=== PATIENT | male | born 1940 | race Caucasian/White ===

== ENCOUNTER 2016-06-18 19:50 | Inpatient (IN) | payer MEDICARE, OTHER ==
[~2016-06-18] VITALS: Ht 175.3 cm; Wt 90.9 kg
[2016-06-18] MEDS ORDERED: ALBUTEROL 0.5% (NEB) 2.5 MG/0.5 ML AMP INH STA (20:02)
[2016-06-18] MEDS ORDERED: ACETAMINOPHEN 325 MG TAB PO STA (20:02)
[2016-06-18] MEDS ORDERED: NITROGLYCERIN 2% 1 GM OINT PKT TD STA (20:02)
[2016-06-18] MEDS ORDERED: FUROSEMIDE 40 MG INJ IV STA (20:02)
[2016-06-18 20:21] LABS: MODE MASK - BIPAP; MetHgb Venous 0.4 %; Sample Type Blood venous; Venous COHb 0.3 %; Venous Fraction OxyHgb 82.4 %; Venous Total Hemglobin 13.7 g/dl
[2016-06-18 20:37] LABS: ADD SCAN DIFF NO
[2016-06-18 20:40] LABS: ABNORMAL IP MESSAGE 1; BASOPHIL # 0.1 10^3/ul (0.0-0.1); BASOPHILS % 0.3 % (0.0-2.0); EOSINOPHILS # 0.1 10^3/ul (0.0-0.5); EOSINOPHILS % 0.2 % (0.0-7.0); HEMATOCRIT 39.7 % (42.0-52.0); HEMOGLOBIN 13.2 g/dl (14.0-18.0); LYMPHOCYTES # 1.3 10^3/ul (0.8-2.9); LYMPHOCYTES % 5.5 % (15.0-51.0); MEAN CORPUSCULAR HEMOGLOBIN 29.9 pg (29.0-33.0); MEAN CORPUSCULAR HGB CONC 33.2 g/dl (32.0-37.0); MEAN PLATELET VOLUME 10.6 fl (7.4-10.4); MONOCYTE # 1.2 10^3/ul (0.3-0.9); MONOCYTES % 4.8 % (0.0-11.0); NEUTROPHIL # 20.7 10^3/ul (1.6-7.5); NEUTROPHILS % 85.3 % (39.0-77.0); PLATELET COUNT 372 10^3/UL (140-415); RED BLOOD COUNT 4.41 10^6/ul (4.70-6.10); RED CELL DISTRIBUTION WIDTH 13.4 % (11.5-14.5); WHITE BLOOD COUNT 24.3 10^3/ul (4.8-10.8)
[2016-06-18 20:50] LABS: ALBUMIN 2.9 g/dl (3.3-4.9)
[2016-06-18 20:52] LABS: INR 1.11; PARTIAL THROMBOPLASTIN TIME 26.4 Sec (25.0-35.0); PROTIME 14.3 Sec (12.2-14.2); PT RATIO 1.1
[2016-06-18 20:53] LABS: BILIRUBIN,INDIRECT 0.4 mg/dl (0-1.1); BILIRUBIN,TOTAL 0.4 mg/dl (0.2-1.3); CREATININE 0.76 mg/dl (0.61-1.24)
[2016-06-18 20:54] LABS: ALBUMIN/GLOBULIN RATIO 0.9; TOTAL PROTEIN 6.1 g/dl (6.1-8.1)
--- NOTE | 2016-06-18 20:56 | RADRPT ---
PROCEDURE: XR Chest. CLINICAL INDICATION: Possible sepsis. TECHNIQUE: Portable AP semi erect view of the chest was obtained. COMPARISON: 01/25/2014 FINDINGS: The cardiomediastinal silhouette is mildly enlarged, stable. Diffuse pulmonary infiltrate/edema are new compared to the prior study. There is no evidence of pleural effusion or pneumothorax. The os seous structures are intact with no evidence for acute abnormality. Atherosclerotic calcification in the aorta is demonstrated RPTAT:HJJR IMPRESSION: Diffuse pulmonary infiltrate/edema in this patient with mild cardiomegaly most likely reflects cardi ac decompensation and congestive heart failure. Follow-up evaluation is recommended. Physician Livia Date Time Electronically viewed and signed by Physician Livia on 06/18/2016 20:55 JR/
[2016-06-18 20:57] LABS: POTASSIUM 2.7 mmol/L (3.5-5.1)
[2016-06-18] MEDS ORDERED: POTASSIUM CHLORIDE (SR) 20 MEQ TAB PO STA (20:58)
[2016-06-18 21:09] LABS: TROPONIN-I 0.024 ng/ml (0.00-0.12)
[2016-06-18] MEDS ORDERED: ONDANSETRON 4 MG INJ IV PRN ×2 (22:00→23:30)
[2016-06-18] MEDS ORDERED: ACETAMINOPHEN 325 MG TAB PO PRN ×2 (22:00→23:30)
[2016-06-18 22:47] VITALS: Ht 175.3 cm; Wt 90.9 kg
[2016-06-18 22:51] VITALS: PULSE 86
[2016-06-18 22:52] LABS: ADD UMIC YES; URINE BILIRUBIN (Dip) NEGATIVE (NEGATIVE); URINE BLOOD (Dip) TRACE (NEGATIVE); URINE COLOR YELLOW (YELLOW); URINE GLUCOSE (Dip) NEGATIVE (NEGATIVE); URINE KETONES (Dip) NEGATIVE (NEGATIVE); URINE LEUKOCYTE ESTERASE (Dip) NEGATIVE (NEGATIVE); URINE NITRITE (Dip) NEGATIVE (NEGATIVE); URINE TOTAL PROTEIN (Dip) 1+ (NEGATIVE); URINE UROBILINOGEN (Dip) 0.2 E.U./dL (0.1-1.0)
[2016-06-18 23:09] LABS: BACTERIA,URINE FEW; MUCUS,URINE MODERATE; TRANSITIONAL EPI CELLS,URINE FEW; URINE RBCS 0-2 /HPF (0)
[2016-06-18] MEDS ORDERED: FURO40TA4 PO (23:13)
[2016-06-18] MEDS ORDERED: OLME40TA14 PO (23:13)
[2016-06-18] MEDS ORDERED: ROSU40TA35 PO (23:13)
[2016-06-18] MEDS ORDERED: ASPI-664 PO (23:18)
[2016-06-18] MEDS ORDERED: DUTA0.5C PO (23:18)
[2016-06-18] MEDS ORDERED: AMIO200T2 PO (23:18)
[2016-06-18] MEDS ORDERED: LORAZEPAM 2 MG INJ IV PRN (23:30)
[2016-06-18] MEDS ORDERED: VANCOMYCIN IV PER PHARMACY XX SCH (23:30)
[2016-06-18] MEDS ORDERED: NITROGLYCERIN (SL) 0.4 MG TAB SL PRN (23:30)
[2016-06-18] MEDS ORDERED: ALBUTEROL/IPRATROPIUM (NEB) 3 ML AMP HHN PRN (23:30)
[2016-06-18] MEDS ORDERED: MAGNESIUM HYDROXIDE 30ML CUP PO PRN (23:30)
[2016-06-18] MEDS ORDERED: DOCUSATE SODIUM 100 MG CAP PO PRN (23:30)
[2016-06-18] MEDS ORDERED: NA PHOSPHATE/BIPHOS 133 ML ENEMA PR PRN (23:30)
[2016-06-18] MEDS ORDERED: hydrALAzine 20 MG INJ IV PRN (23:30)
[2016-06-18] MEDS ORDERED: HYDROCODONE/APAP (5/325) TAB PO PRN (23:30)
[2016-06-18] MEDS ORDERED: NACL 0.9% 3 ML SYG IV SCH (23:30)
[2016-06-19] VITALS (38 sets, daily range): BP systolic 76–139; BP diastolic 28–118; PULSE 4–116; RESP 16–37
[2016-06-19] MEDS: SOD CHLORIDE 0.45% 1,000 ML IV SCH ×2 (00:19→12:30)
[2016-06-19] MEDS: PIPER-TAZO 3.375 GM IV (PMX) 100 ML IVPB SCH ×5 (00:19→23:57)
[2016-06-19] MEDS ORDERED: VANCOMYCIN 2 GM in SOD CHLORIDE 0.9% 500 ML IVPB SCH (01:00)
[2016-06-19 05:52] LABS: Allen Test ACCEPTAB; Arterial Base Excess 1.4 mmol/L (-3.0-3); Arterial COHb 0.3 % (0.0-3.0); Arterial Fraction of Oxyhgb 91.9 % (93.0-99.0); Arterial HCO3 23.2 mmol/L (22.0-26.0); Arterial MetHb 0.4 % (0.0-1.5); Arterial Total Hemglobin 13.3 g/dl (12.0-18.0); Blood Gas PS 6; MODE BIPAP - S/T
--- NOTE | 2016-06-19 06:06 | HP ---
DATE OF ADMISSION: 06/18/2016 The patient was seen and examined by me at 9:00 p.m. on 06/18/2016. CHIEF COMPLAINT: Shortness of breath. HISTORY OF PRESENT ILLNESS: A 75-year-old male with past medical history of CHF, hypertension, and high cholesterol who presented with shortness of breath. He had been having fever for the last 3 da ys as well. Apparently he had not been taking his Lasix at home for the last 2 days. His shortness of breath became worse today. When he came into the ER today, he was placed on CPAP. He was also given nitroglycerin x2 and eventually had to be put on BiPAP. When the patient came in today, he al so had a temperature of 101.2. REVIEW OF SYSTEMS: Full review of systems could not be obtained because the patient is presently on BiPAP and not able to provide a full HPI. Most information is taken from the ER documentation. Wh en the patient came in today, he had a white count of 24.3. His lactic acid was elevated as well at 3.2. His BNP was high at 5000, and his potassium was low at 2.7. His chest x-ray did show signs o f combination of congestive heart failure and possible upper respiratory infection as well. The pat iekatt was given a dose of Lasix in the ER. PAST MEDICAL HISTORY: As stated above. ALLERGIES: NO KNOWN DRUG ALLERGIES. MEDICATIONS AT HOME: 1. Amiodarone 200 mg b.i.d. 2. Benicar 40 mg daily. 3. Crestor 40 mg at bedtime. 4. Aspirin 81 mg daily. 5. Lasix 40 mg p.o. daily. 6. Avodart 0.5 mg daily. PAST SURGICAL HISTORY: Unknown. SOCIAL HISTORY: Unknown. FAMILY HISTORY: Unknown. PHYSICAL EXAMINATION: VITAL SIGNS: T-max 101.2, pulse 86 to 110, respirations 16 to 25, blood pressure 95 to 112 systolic over 47 to 66 diastolic, saturating at 95% on BiPAP presently. GENERAL: The patient is lying in bed presently on BiPAP, alert. HEENT: Pupils equal, round, react to light. Extraocular muscles intact. NECK: Supple, no thyromegaly. LUNGS: Clear to auscultation bilaterally. No wheezes. CARDIOVASCULAR: S1, S2 heard. No rubs or gallops. ABDOMEN: Soft, nontender, nondistended. Normal bowel sounds. No rebound or guarding. MUSCULOSKELETAL: No lower extremity edema bilaterally. NEUROLOGIC: No focal deficits. LABORATORIES: Sodium 142, potassium 2.7, chloride 102, CO2 26, BUN of 11, creatinine 0.76, glucose 204. Lactic acid initially was 3.2, now is down to 2.4. LFTs are essentially normal. BNP is 5030. Free T4 is a little high at 3.2. WBC 24.3, hemoglobin 13.2, hematocrit 39.7, platelets of 372. U A showed negative nitrites, negative leukocyte esterase. IMAGING: Chest x-ray again showed diffuse pulmonary infiltrate, edema in this patient with mild car diomegaly, most likely reflects cardiac decompensation and congestive heart failure. ASSESSMENT AND PLAN: A 75-year-old male coming in with shortness of breath with signs of upper resp iratory infection and possible congestive heart failure exacerbation. 1. Shortness of breath. Again, could be secondary to combination of upper respiratory infection an d congestive heart failure. The patient, however, was showing signs of sepsis with the fever and th e elevated lactic acid, so we will put him on broad-spectrum antibiotics, DuoNeb p.r.n., get a pulmo nary consult, continue BiPAP, consider checking an ABG. We are going to put him on low-dose IV flui ds, even though his BNP is high, as I did not hear any crackles in the lungs and he did not have any lower extremity edema. His chest x-ray did show pulmonary congestion, however, so when his lactic acid trends down, we will consider stopping that. We will get a 2-D echocardiogram as well and get a cardiology consult as well to work up this congestive heart failure. 2. High cholesterol. Check a lipid panel and also check TSH and A1c. 3. Hypertension. Again, he is on hydralazine p.r.n. 4. Gastrointestinal prophylaxis. Add PPI. 5. Deep venous thrombosis prophylaxis, heparin subcutaneously. 6. Get a PT consult as well. Dictated By: CHITRA FITZPATRICK Conf#: [id number] DID#: [id number]
[2016-06-19 06:41] LABS: ADD SCAN DIFF NO
[2016-06-19 06:47] LABS: ABNORMAL IP MESSAGE 1; BASOPHILS % 0.2 % (0.0-2.0); EOSINOPHILS % 0.1 % (0.0-7.0); HEMATOCRIT 34.3 % (42.0-52.0); HEMOGLOBIN 11.3 g/dl (14.0-18.0); LYMPHOCYTES # 1.1 10^3/ul (0.8-2.9); LYMPHOCYTES % 4.3 % (15.0-51.0); MEAN CORPUSCULAR HEMOGLOBIN 29.7 pg (29.0-33.0); MEAN CORPUSCULAR HGB CONC 32.9 g/dl (32.0-37.0); MEAN PLATELET VOLUME 10.9 fl (7.4-10.4); MONOCYTE # 1.1 10^3/ul (0.3-0.9); MONOCYTES % 4.2 % (0.0-11.0); NEUTROPHIL # 22.2 10^3/ul (1.6-7.5); NEUTROPHILS % 88.4 % (39.0-77.0); PLATELET COUNT 289 10^3/UL (140-415); RED BLOOD COUNT 3.81 10^6/ul (4.70-6.10); RED CELL DISTRIBUTION WIDTH 13.4 % (11.5-14.5); WHITE BLOOD COUNT 25.1 10^3/ul (4.8-10.8)
[2016-06-19 07:37] LABS: CREATININE 0.77 mg/dl (0.61-1.24)
[2016-06-19 07:38] LABS: CALCIUM 7.4 mg/dl (8.4-10.2); MAGNESIUM 1.9 mg/dl (1.7-2.5); PHOSPHORUS 4.4 mg/dl (2.5-4.9)
[2016-06-19 07:47] LABS: POTASSIUM 2.9 mmol/L (3.5-5.1)
[2016-06-19 08:03] LABS: THYROID STIMULATING HORMONE 0.592 MIU/L (0.465-4.680)
[2016-06-19] MEDS: HEPARIN 5,000 UNIT/0.5 ML SYG SC SCH ×2 (08:29→21:29)
[2016-06-19] MEDS ORDERED: FUROSEMIDE 20 MG INJ IV SCH (09:00)
[2016-06-19] MEDS: POTASSIUM CHLORIDE 250 ML IVPB SCH ×2 (09:57→14:28)
--- NOTE | 2016-06-19 11:23 | ERA ---
ER Documentation Chief Complaint Date/Time DATE: 06/18/16 TIME: 20:00 Chief Complaint R102, shortness of breath x few hours, fever x 3 days HPI History limited due to language barrier and the patient's clinical condition. 75y/o male with h/o hypertension, hyperlipidemia and CHF presents to the ED via RA with a 3 day h/o of subjective fevers, non-productive cough and acute onset of shortness of breath this evening in severe respiratory distress. Paramedics found the patient sitting up, tachypneic, gasping with O2 saturation in the mid 80's. According to daughter he is not compliant with medications and has been ill for several days. Denies chest pain, palpitations, abdominal pain, nausea or vomiting. No leg pain or swelling. ROS All systems reviewed and are negative except as per history of present illness. Medications Home Meds Reported Medications Aspirin* (Aspirin* EC) 81 Mg Tablet.dr, 81 MG PO DAILY, TAB 06/18/16 Dutasteride* (Avodart*) 0.5 Mg Capsule, 0.5 MG PO DAILY, CAP 06/18/16 Amiodarone Hcl* (Amiodarone Hcl*) 200 Mg Tablet, 200 MG PO BID, #60 TAB 06/18/16 Rosuvastatin Calcium* (Crestor*) 40 Mg Tablet, 40 MG PO QHS, #30 TAB 06/18/16 Olmesartan Medoxomil (Benicar) 40 Mg Tablet, 40 MG PO DAILY, #30 TAB 06/18/16 Furosemide* (Furosemide*) 40 Mg Tablet, 40 MG PO DAILY, TAB 06/18/16 Allergies Allergies: Coded Allergies: No Known Allergy (Unverified , 01/25/14) PMhx/Soc Reviewed in chart, as per HPI History of Surgery: No Anesthesia Reaction: No Hx Neurological Disorder: No Hx Respiratory Disorders: No Hx Cardiac Disorders: Yes (chf) Hx Psychiatric Problems: No Hx Miscellaneous Medical Probl: Yes Hx Alcohol Use: Yes ( rarely) Hx Substance Use: No Hx Tobacco Use: Yes Smoking Status: Former smoker FmHx No stroke or cancer Physical Exam Vitals Vital Signs Date Time Temp Pulse Resp B/P Pulse Ox O2 Delivery O2 Flow Rate FiO2 06/18/16 21:31 96 25 95/47 99 BIPAP 06/18/16 21:19 95 99 50 06/18/16 20:59 98 16 112/66 97 BIPAP 06/18/16 20:06 108 95 CPAP 06/18/16 20:00 118 97 50 06/18/16 19:59 101.2 110 34 132/79 100 Physical Exam Const: Alert, severe respiratory distress, Head: Atraumatic Eyes: Normal Conjunctiva. PER, EOMI ENT: Normal External Ears, Nose and Mouth. Neck: Full range of motion.Nontender, JVD Resp: Decreased BS bilaterally with rales 2/3 up both lung keys and moderate expiratory wheezing. Cardio: Tachycardic. Regular rate and rhythm, no murmurs Abd: Soft, obese, non tender, non distended. Normal bowel sounds Skin: No petechiae or rashes Back: No midline or flank tenderness Ext: No cyanosis, or edema. No calf swelling or tenderness Neur: Awake and alert Psych: Anxious Result Diagram: 06/19/16 0600 06/19/16 2040 Results 24 hrs Laboratory Tests Test 06/18/16 20:00 06/18/16 20:02 Activated Partial Thromboplast Time 26.4Sec Alanine Aminotransferase (ALT/SGPT) 54IU/L Albumin 2.9g/dl Albumin/Globulin Ratio 0.90 Alkaline Phosphatase 104IU/L Anion Gap 17 Aspartate Amino Transf (AST/SGOT) 40IU/L B-Type Natriuretic Peptide 5030PG/ML Basophils # 0.110^3/ul Basophils % 0.3% Blood Urea Nitrogen 11mg/dl Calcium Level 8.0mg/dl Carbon Dioxide Level 26mmol/L Chloride Level 102mmol/L Creatinine 0.76mg/dl Direct Bilirubin 0.00mg/dl Eosinophils # 0.110^3/ul Eosinophils % 0.2% Free Thyroxine 3.20ng/dl Globulin 3.20g/dl Glucose Level 204mg/dl Hematocrit 39.7% Hemoglobin 13.2g/dl INR International Normalized Ratio 1.11 Indirect Bilirubin 0.4mg/dl Lactic Acid Level 3.2mmol/L Lymphocytes # 1.310^3/ul Lymphocytes % 5.5% Mean Corpuscular Hemoglobin 29.9pg Mean Corpuscular Hemoglobin Concent 33.2g/dl Mean Corpuscular Volume 90.0fl Mean Platelet Volume 10.6fl Monocytes # 1.210^3/ul Monocytes % 4.8% Neutrophils # 20.710^3/ul Neutrophils % 85.3% Nucleated Red Blood Cells # 0.010^3/ul Nucleated Red Blood Cells % 0.0/100WBC Platelet Count 32477^3/UL Potassium Level 2.7mmol/L Prothrombin Time 14.3Sec Prothrombin Time Ratio 1.1 Red Blood Count 4.4110^6/ul Red Cell Distribution Width 13.4% Sodium Level 142mmol/L Total Bilirubin 0.4mg/dl Total Protein 6.1g/dl Troponin I 0.024ng/ml White Blood Count 24.310^3/ul Burak Test N/A Arterial Blood Date Drawn 06/18/2016 8:14:29 PM Arterial Blood Gas Puncture Site VENOUS LINE Blood Gas A-a O2 Differential 282.6mmHg Blood Gas Actual Respiration Rate 41 Blood Gas IPAP/EPAP Ratio 10/4 Blood Gas Modality MASK - BIPAP Blood Gas Notified Time 06/18/2016 8:21:20 PM Blood Gas Notified Whom BR Blood Gas Respiration Rate 16.0 Blood Gas Specimen Source Blood venous Blood Gas Temperature 37.0C Blood Gas Tidal Volume 961.0mL Carboxyhemoglobin 0.3% FiO2 50.0% Venous Blood Base Excess 2.3mmol/L Venous Blood HCO3 23.4mmol/L Venous Blood Methemoglobin 0.4% Venous Blood Oxygen Saturation 83.0mmHG Venous Blood Oxyhemoglobin 82.4% Venous Blood Total Hemoglobin 13.7g/dl Venous Blood pCO2 (Temp Corrected) 27.0mmHG Venous Blood pH 7.556 Venous Blood pO2 (Temp Corrected) 43.5mmHG Current Medications Medications (Trade) Dose Ordered Sig/Angie Route PRN Reason Start Time Stop Time Status Last Admin Dose Admin Acetaminophen (Tylenol Tab) 650 mg ONCE STAT PO 06/18/16 20:02 06/18/16 20:07 DC 06/18/16 20:21 Albuterol (Proventil 0.5% (Neb)) 15 mg ONCE STAT INH 06/18/16 20:02 06/18/16 20:07 DC 06/18/16 20:15 Nitroglycerin (Nitroglycerin 2% Oint) 1 inch ONCE STAT TD 06/18/16 20:02 06/18/16 20:07 DC 06/18/16 21:08 Furosemide (Lasix) 40 mg ONCE STAT IV 06/18/16 20:02 06/18/16 20:07 DC 06/18/16 20:20 Potassium Chloride (Klor-Con 20) 40 meq ONCE STAT PO 06/18/16 20:58 06/18/16 21:03 DC 06/18/16 21:08 RHYTHM STRIP INTERPRETATION: Time: 20:10. Sinus tachycardia without ectopy. Indication: Shortness of breath. EKG: Sinus tachycardia. No acute STTW changes. Normal DE and QRS. No ectopy. Abnormal EKG. IMAGING: PROCEDURE: XR Chest. CLINICAL INDICATION: Possible sepsis. TECHNIQUE: Portable AP semi erect view of the chest was obtained. COMPARISON: 01/25/2014 FINDINGS: The cardiomediastinal silhouette is mildly enlarged, stable. Diffuse pulmonary infiltrate/edema are new compared to the prior study. There is no evidence of pleural effusion or pneumothorax. The osseous structures are intact with no evidence for acute abnormality. Atherosclerotic calcification in the aorta is demonstrated RPTAT:HJJR IMPRESSION: Diffuse pulmonary infiltrate/edema in this patient with mild cardiomegaly most likely reflects cardiac decompensation and congestive heart failure. Follow-up evaluation is recommended. Physician Livia Date Time Electronically viewed and signed by Physician Livia on 06/18/2016 20:55 JR/ Procedures/MDM DOCUMENTS REVIEWED: ED nurse, EMS, Prior ED REEXAMINATION/REEVALUATION: Time: 20:45. Improved. MEDICAL DECISION MAKINy/o male presents to the ED via RA with a 3 day h/o of subjective fevers and acute onset of shortness of breath this evening in severe respiratory distress. Improved with noninvasive positive pressure ventilation, nebulized beta agonists and diuretics. Hypokalemia treated with oral replacement. No chest pain, acute ischemic EKG changes, elevated troponin or ACS. Multiple criteria for SIRS, elevated lactate and severe sepsis secondary to pneumonia. Antibiotics after cultures. No fluids as chest x-ray already reveals CHF and pulmonary edema. Patient's infectious and respiratory symptoms have not stabilized and the patient is at risk of rapid decompensation. He will be admitted to telemetry for aggressive respiratory management, antibiotic therapy, and infectious source control. Severe Sepsis criteria: Infectious source: Pneumonia End organ damage indicated by: Respiratory Failure Lactate > 2.0 mmol/L Sepsis Management: Time of recognition of severe sepsis/septic shock: 20:00 Within 3 hours of recognition: Blood cultures x 2 before broad-spectrum antibiotics: Yes 30 ml/kg NS bolus Not given as the patient is already volume overload in acute respiratory failure due to CHF and pulmonary edema Initial lactate 3.2 Repeat lactate 2.4 No hypotension or criteria for septic shock Critical Care: Critical care time 35 minutes Emergent fluid management while maintaining close respiratory support. Provision of immediate and broad-spectrum antibiotic therapy. Simultaneous assessment for possible sources in order to direct targeted therapy. Consideration for invasive and chemical support to prevent cardiopulmonary collapse. Counseled patient and daughter regarding diagnosis, diagnostic results and plan for admission. CALLS/CONSULTS: Time 21:00, Dr. Bansal, Recommends Telemetry. PATIENT CARE TRANSITIONED: Time: 21:15, Dr. Bansal. DISPOSITION:Telemetry Departure Diagnosis: Primary Impression: Acute respiratory failure with hypoxia Additional Impressions: CHF (congestive heart failure) Qualified Code: I50.23 - Acute on chronic systolic congestive heart failure Severe sepsis Pneumonia Qualified Code: J18.9 - Pneumonia due to infectious organism, unspecified laterality, unspecified part of lung Hypokalemia Condition: Critical AN WAGNER MD Jun 19, 2016 11:11
--- NOTE | 2016-06-19 11:27 | CONS ---
Date/Time of Note Date/Time of Note DATE: 06/19/16 TIME: 11:21 Assessment/Plan Assessment/Plan Additional Assessment/Plan ABG as well as BiPAP settings were reviewed. Chest x-ray was reviewed from today which is showing changes of congestive heart failure. Superimposed bilateral pneumonia cannot be ruled out. Assessment recommendations; 1. Patient admitted with CHF exacerbation as well as bilateral pneumonia. Improving on BiPAP. 2. 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 3. History of BPH. 4. History of cardiac arrhythmia. Continue current antibiotics. Add Levaquin 500 mg IV daily. Increase Lasix to 40 mg IV every 12 hours at least for 2 doses with tapering down in the next 24 hours to 40 mg daily. Obtain follow-up chest x-ray in 48 hours. Consultation Date/Type/Reason Admit Date/Time Jun 18, 2016 at 21:36 Date of Consultation: Jun 19, 2016 Reason for Consultation Pulmonary consultation obtained for evaluation of shortness of breath, respiratory failure. History of present illness; patient is a very pleasant 35-year-old white male who came into the emergency room yesterday with a 3 day history of increasing shortness of breath, cough, sputum production. There is no history of any chest pain. Upon evaluation the patient was diagnosed with bilateral pneumonia as well as CHF. Admitted to the medical floor and started on BiPAP. According to the patient's [id number] and the patient himself there is marked improvement over the last couple of hours. However patient still requiring BiPAP. Intubations [id number] was present in the room the patient was doing fairly well until 3 days ago the symptoms started and there is no history of any prior shortness of breath. Patient is fairly active at home. But according to the [id number] the patient stopped taking his Lasix for the last couple of days with increasing shortness of breath which was seen which brought him to the hospital. Does not have any nausea, vomiting or abdominal pain. The time I saw the patient in his room the patient is a BiPAP awake and alert. He did not appear to be in any distress. Past medical history; 1. Patient has a history of CHF. 2. Hyperlipidemia. 3. Cardiac arrhythmia. 4. BPH. 5. No history of any [place]. 6. No history of any major surgeries. Medications; were reviewed. Allergies; none. Social history; patient is remote history of scant smoking. No alcohol or drug abuse. Family history; patient is a . Has 1 son. No similar illnesses in the family. Occupational history; patient used to work in a store. Review of systems; denies any headache, seizures. Denies any visual changes. Any chest pain. Shortness of breath is improving. c/o scant cough. Denies any hemoptysis, any abdominal pain, nausea, any vomiting. Denies any melena, hematochezia. Denies any orthopnea. Denies any weight change. Denies any skin changes. General examination; elderly male, currently in no distress awake and alert, on BiPAP. Social History Smoking Status: Former smoker Exam/Review of Systems Vital Signs Vitals Vital Signs Date Time Temp Pulse Resp B/P Pulse Ox O2 Delivery O2 Flow Rate FiO2 06/19/16 11:12 97.8 84 22 128/60 97 06/19/16 07:55 55 06/19/16 04:00 BIPAP 06/18/16 23:30 10.0 Intake and Output 06/18/16 06/18/16 06/19/16 15:00 23:00 07:00 Intake Total 600 ml Output Total 350 ml Balance 250 ml Exam HEENT exam is; supple neck, positive JVD. No lymphadenopathy. No thyromegaly. Pupils are small bilaterally with bilateral intraocular lens implants. Patient is edentulous. Chest examination; diminished breath sound bilaterally. S1-S2 audible, no murmurs. Regular rhythm. Abdomen examination; soft, protuberant. Nontender. No organomegaly. Bowel sounds audible. No scars are present. Extremity examination; no peripheral edema. Pulses 1+ bilaterally. There is no clubbing. [employer] examination; there is no obvious motor deficit. Results Result Diagram: 06/19/16 0600 06/19/16 0600 Results 24 hrs Laboratory Tests Test 06/18/16 20:00 06/18/16 20:02 06/18/16 21:52 06/19/16 00:35 Activated Partial Thromboplast Time 26.4 Alanine Aminotransferase (ALT/SGPT) 54 Albumin 2.9 L Albumin/Globulin Ratio 0.90 Alkaline Phosphatase 104 Anion Gap 17 H Aspartate Amino Transf (AST/SGOT) 40 B-Type Natriuretic Peptide 5030 H Basophils # 0.1 Basophils % 0.3 Blood Urea Nitrogen 11 Calcium Level 8.0 L Carbon Dioxide Level 26 Chloride Level 102 Creatinine 0.76 Direct Bilirubin 0.00 Eosinophils # 0.1 Eosinophils % 0.2 Free Thyroxine 3.20 H Globulin 3.20 Glucose Level 204 Hematocrit 39.7 L Hemoglobin 13.2 L INR International Normalized Ratio 1.11 Indirect Bilirubin 0.4 Lactic Acid Level 3.2 H 2.4 H 2.0 Lymphocytes # 1.3 Lymphocytes % 5.5 L Mean Corpuscular Hemoglobin 29.9 Mean Corpuscular Hemoglobin Concent 33.2 Mean Corpuscular Volume 90.0 Mean Platelet Volume 10.6 H Monocytes # 1.2 H Monocytes % 4.8 Neutrophils # 20.7 H Neutrophils % 85.3 H Nucleated Red Blood Cells # 0.0 Nucleated Red Blood Cells % 0.0 Platelet Count 372 Potassium Level 2.7 *L Prothrombin Time 14.3 H Prothrombin Time Ratio 1.1 Red Blood Count 4.41 L Red Cell Distribution Width 13.4 Sodium Level 142 Total Bilirubin 0.4 Total Protein 6.1 Troponin I 0.024 White Blood Count 24.3 H Burak Test N/A Arterial Blood Date Drawn 06/18/2016 8:14:29 PM Arterial Blood Gas Puncture Site VENOUS LINE Blood Gas A-a O2 Differential 282.6 Blood Gas Actual Respiration Rate 41 Blood Gas IPAP/EPAP Ratio 10/4 Blood Gas Modality MASK - BIPAP Blood Gas Notified Time 06/18/2016 8:21:20 PM Blood Gas Notified Whom BR Blood Gas Respiration Rate 16.0 Blood Gas Specimen Source Blood venous Blood Gas Temperature 37.0 Blood Gas Tidal Volume 961.0 Carboxyhemoglobin 0.3 FiO2 50.0 Venous Blood Base Excess 2.3 Venous Blood HCO3 23.4 Venous Blood Methemoglobin 0.4 Venous Blood Oxygen Saturation 83.0 H Venous Blood Oxyhemoglobin 82.4 Venous Blood Total Hemoglobin 13.7 Venous Blood pCO2 (Temp Corrected) 27.0 L Venous Blood pH 7.556 H Venous Blood pO2 (Temp Corrected) 43.5 H Urine Bacteria FEW Urine Bilirubin NEGATIVE Urine Clarity SLIGHTLY CLOUDY Urine Color YELLOW Urine Glucose NEGATIVE Urine Hemoglobin TRACE Urine Ketones NEGATIVE Urine Leukocyte Esterase NEGATIVE Urine Microscopic RBC 0-2 Urine Microscopic WBC 0-2 Urine Mucus MODERATE Urine Nitrite NEGATIVE Urine Specific Carlotta 1.020 Urine Squamous Epithelial Cells Urine Total Protein 1+ H Urine Transitional Epithelial Cells FEW Urine Urobilinogen 0.2 E.U./dL Urine pH 5.5 Test 06/19/16 05:24 06/19/16 06:00 Arterial Blood HCO3 23.2 Arterial Blood Base Excess 1.4 Arterial Blood Oxygen Saturation 92.5 L Burak Test ACCEPTAB Arterial Blood Gas Puncture Site Left Radial Arterial Blood Carboxyhemoglobin 0.3 Arterial Blood Date Drawn 06/19/2016 5:40:28 AM Arterial Blood Methemoglobin 0.4 Arterial Blood pCO2 (Temp correct) 28.7 L Arterial Blood pH (Temp corrected) 7.525 H Arterial Blood pO2 (Temp corrected) 63.2 L Blood Gas A-a O2 Differential 261.0 H Blood Gas Actual Respiration Rate 31 Blood Gas IPAP/EPAP Ratio 10/4 Blood Gas Modality BIPAP - S/T Blood Gas Notified Time 06/19/2016 5:52:15 AM Blood Gas Notified Whom RTR Blood Gas Pressure Support 6 Blood Gas Respiration Rate 16.0 Blood Gas Specimen Source Blood arterial Blood Gas Temperature 37.0 FiO2 50.0 Oxyhemoglobin Percent 91.9 L Total Hemoglobin 13.3 Anion Gap 14 Basophils # 0.0 Basophils % 0.2 Blood Urea Nitrogen 11 Calcium Level 7.4 L Carbon Dioxide Level 26 Chloride Level 105 Creatinine 0.77 Eosinophils # 0.0 Eosinophils % 0.1 Glucose Level 206 Hematocrit 34.3 L Hemoglobin 11.3 L Hemoglobin A1c 6.8 H Lactic Acid Level 2.3 H Lymphocytes # 1.1 Lymphocytes % 4.3 L Magnesium Level 1.9 Mean Corpuscular Hemoglobin 29.7 Mean Corpuscular Hemoglobin Concent 32.9 Mean Corpuscular Volume 90.0 Mean Platelet Volume 10.9 H Monocytes # 1.1 H Monocytes % 4.2 Neutrophils # 22.2 H Neutrophils % 88.4 H Nucleated Red Blood Cells # 0.0 Nucleated Red Blood Cells % 0.0 Phosphorus Level 4.4 Platelet Count 289 # Potassium Level 2.9 *L Red Blood Count 3.81 L Red Cell Distribution Width 13.4 Sodium Level 142 Thyroid Stimulating Hormone (TSH) 0.592 White Blood Count 25.1 H Medications Medications Current Medications Ondansetron HCl (Zofran Inj) 4 mg Q6H PRN IV NAUSEA AND/OR VOMITING; Start 06/18 at 23:30 Acetaminophen (Tylenol Tab) 650 mg Q6H PRN PO PAIN LEVEL 1-3 OR FEVER; Start at 23:30 Acetaminophen/ Hydrocodone Bitart ([place] (5/325)) 1 tab Q6H PRN PO MODERATE PAIN LEVEL 4-6; Start 06/18/16 at 23:30 Morphine Sulfate (morphine) 2 mg Q4H PRN IV SEVERE PAIN LEVEL 7-10; Start at 23:30 Docusate Sodium (Colace) 100 mg Q12H PRN PO CONSTIPATION; Start 06/18/16 at 23: 30 Magnesium Hydroxide (Milk Of Mag) 30 ml DAILY PRN PO CONSTIPATION; Start at 23:30 Sodium Biphosphate/ Sodium Phosphate (Fleet Enema) 133 ml DAILY PRN [place] CONSTIPATION; Start 06/18/16 at 23:30 Heparin Sodium (Porcine) 5000 unit 5,000 unit Q12 SC Last administered on 08:29; Admin Dose 5,000 UNIT; Start 06/19/16 at 09:00 Sodium Chloride (1/2 NS) 1,000 ml @ 75 mls/hr [id number] IV Last administered on 06/19/16 00:19; Admin Dose 75 MLS/HR; Start 06/18/16 at 23:10 Lorazepam 0.5 mg 0.5 mg Q6H PRN IV ANXIETY; Start 06/18/16 at 23:30 Piperacillin Sod/ Tazobactam Sod (Zosyn 3.375gm/ 100 ml (Pmx)) 100 ml @ 200 mls /hr Q6 IVPB Last administered on 06/19/16 06:24; Admin Dose 200 MLS/HR; Start 06/19/16 at 00:00 Vancomycin HCl (Vanco Iv Per Pharmacy) VANCOMYCIN PER PHARMACY NOTE XX ; Start 06/18/16 at 23:30 Hydralazine HCl (Apresoline) 10 mg Q6H PRN IV ELEVATED BLOOD PRESSURE; Start at 23:30 Nitroglycerin 1 tab 1 tab Q5M PRN SL ANGINA; Start 06/18/16 at 23:30 Vancomycin HCl 250 ml @ 125 mls/hr Q12H IVPB ; Start 06/19/16 at 13:00 Potassium Chloride (KCl 40 MEQ/250 ML NS) 250 ml @ 62.5 mls/hr Q4H IVPB Last administered on 06/19/16 09:57; Admin Dose 62.5 MLS/HR; Start 06/19/16 at 09:00; Stop 06/19/16 at 16:59 Furosemide (Lasix) 20 mg DAILY IV Last administered on 06/19/16t 09:56; Admin Dose 20 MG; Start 06/19/16 at 09:00 Miscellaneous Information (*Rx Drug Level Order Reminder*) VANCO TROUGH @ 1, 200 ON... ONCE ONCE XX ; Start 06/20/16 at 12:00; Stop 06/20/16 at 12:01 SANDOR FANG Jun 19, 2016 11:27
[2016-06-19] MEDS: LEVOFLOXACIN 500MG/D5W (PMX) 100 ML IVPB SCH (11:58)
--- NOTE | 2016-06-19 12:55 | PN ---
Date/Time of Note Date/Time of Note DATE: 06/19/16 TIME: 12:53 Assessment/Plan VTE Prophylaxis VTE Prophylaxis Intervention: heparin Lines/Catheters IV Catheter Type (from Nrs): Saline Lock Urinary Cath still in place: Yes Reason Cath still needed: other (indicate) Assessment/Plan Assessment/Plan A 75-year-old male coming in with shortness of breath with signs of upper respiratory infection and possible congestive heart failure exacerbation. 1. SIRS vs Sepsis with lactic acidosis 2/2 #2 2. CHF exacerbation 3. R/o LRTI ?Atypical / viral 4. High cholesterol. 5. Hypertension. 6. Hypokalemia 7. Pre DM A1c 6.8 8. NC / NC anemia PLAN: Continue diuresis Continue empiric abx Continue gentle hydration + trend lactic acid levels F/u final culture results F/u 2D echo Continue aggressive resp mgt (bipap) and supportive care Gastrointestinal prophylaxis: PPI. Deep venous thrombosis prophylaxis, heparin subcutaneously. Subjective 24 Hr Interval Summary Free Text/Dictation Patient comfortable on bipap Asking for bipap to be d/c Exam/Review of Systems Vital Signs Vitals Vital Signs Date Time Temp Pulse Resp B/P Pulse Ox O2 Delivery O2 Flow Rate FiO2 06/19/16 12:14 70 06/19/16 12:10 95 55 06/19/16 11:12 97.8 22 128/60 06/19/16 04:00 BIPAP 06/18/16 23:30 10.0 Intake and Output 06/18/16 06/18/16 06/19/16 15:00 23:00 07:00 Intake Total 600 ml Output Total 350 ml Balance 250 ml Exam GENERAL: The patient is lying in bed presently on BiPAP, alert. HEENT: Pupils equal, round, react to light. Extraocular muscles intact. NECK: Supple, no thyromegaly. LUNGS: diminished breath sounds CARDIOVASCULAR: S1, S2 heard. No rubs or gallops. ABDOMEN: Soft, nontender, nondistended. Normal bowel sounds. No rebound or guarding. MUSCULOSKELETAL: No lower extremity edema bilaterally. NEUROLOGIC: No focal deficits. Results Result Diagram: 06/19/16 0600 06/19/16 0600 Results 24 hrs Laboratory Tests Test 06/18/16 20:00 06/18/16 20:02 06/18/16 21:52 3/6/17 00:35 Activated Partial Thromboplast Time 26.4 Alanine Aminotransferase (ALT/SGPT) 54 Albumin 2.9 L Albumin/Globulin Ratio 0.90 Alkaline Phosphatase 104 Anion Gap 17 H Aspartate Amino Transf (AST/SGOT) 40 B-Type Natriuretic Peptide 5030 H Basophils # 0.1 Basophils % 0.3 Blood Urea Nitrogen 11 Calcium Level 8.0 L Carbon Dioxide Level 26 Chloride Level 102 Creatinine 0.76 Direct Bilirubin 0.00 Eosinophils # 0.1 Eosinophils % 0.2 Free Thyroxine 3.20 H Globulin 3.20 Glucose Level 204 Hematocrit 39.7 L Hemoglobin 13.2 L INR International Normalized Ratio 1.11 Indirect Bilirubin 0.4 Lactic Acid Level 3.2 H 2.4 H 2.0 Lymphocytes # 1.3 Lymphocytes % 5.5 L Mean Corpuscular Hemoglobin 29.9 Mean Corpuscular Hemoglobin Concent 33.2 Mean Corpuscular Volume 90.0 Mean Platelet Volume 10.6 H Monocytes # 1.2 H Monocytes % 4.8 Neutrophils # 20.7 H Neutrophils % 85.3 H Nucleated Red Blood Cells # 0.0 Nucleated Red Blood Cells % 0.0 Platelet Count 372 Potassium Level 2.7 *L Prothrombin Time 14.3 H Prothrombin Time Ratio 1.1 Red Blood Count 4.41 L Red Cell Distribution Width 13.4 Sodium Level 142 Total Bilirubin 0.4 Total Protein 6.1 Troponin I 0.024 White Blood Count 24.3 H Burak Test N/A Arterial Blood Date Drawn 06/18/2016 8:14:29 PM Arterial Blood Gas Puncture Site VENOUS LINE Blood Gas A-a O2 Differential 282.6 Blood Gas Actual Respiration Rate 41 Blood Gas IPAP/EPAP Ratio 10/4 Blood Gas Modality MASK - BIPAP Blood Gas Notified Time 06/18/2016 8:21:20 PM Blood Gas Notified Whom BR Blood Gas Respiration Rate 16.0 Blood Gas Specimen Source Blood venous Blood Gas Temperature 37.0 Blood Gas Tidal Volume 961.0 Carboxyhemoglobin 0.3 FiO2 50.0 Venous Blood Base Excess 2.3 Venous Blood HCO3 23.4 Venous Blood Methemoglobin 0.4 Venous Blood Oxygen Saturation 83.0 H Venous Blood Oxyhemoglobin 82.4 Venous Blood Total Hemoglobin 13.7 Venous Blood pCO2 (Temp Corrected) 27.0 L Venous Blood pH 7.556 H Venous Blood pO2 (Temp Corrected) 43.5 H Urine Bacteria FEW Urine Bilirubin NEGATIVE Urine Clarity SLIGHTLY CLOUDY Urine Color YELLOW Urine Glucose NEGATIVE Urine Hemoglobin TRACE Urine Ketones NEGATIVE Urine Leukocyte Esterase NEGATIVE Urine Microscopic RBC 0-2 Urine Microscopic WBC 0-2 Urine Mucus MODERATE Urine Nitrite NEGATIVE Urine Specific [place] 1.020 Urine Squamous Epithelial Cells Urine Total Protein 1+ H Urine Transitional Epithelial Cells FEW Urine Urobilinogen 0.2 E.U./dL Urine pH 5.5 Test 06/19/16 05:24 06/19/16 06:00 Arterial Blood HCO3 23.2 Arterial Blood Base Excess 1.4 Arterial Blood Oxygen Saturation 92.5 L Burak Test ACCEPTAB Arterial Blood Gas Puncture Site Left Radial Arterial Blood Carboxyhemoglobin 0.3 Arterial Blood Date Drawn 06/19/2016 5:40:28 AM Arterial Blood Methemoglobin 0.4 Arterial Blood pCO2 (Temp correct) 28.7 L Arterial Blood pH (Temp corrected) 7.525 H Arterial Blood pO2 (Temp corrected) 63.2 L Blood Gas A-a O2 Differential 261.0 H Blood Gas Actual Respiration Rate 31 Blood Gas IPAP/EPAP Ratio 10/4 Blood Gas Modality BIPAP - S/T Blood Gas Notified Time 06/19/2016 5:52:15 AM Blood Gas Notified Whom RTR Blood Gas Pressure Support 6 Blood Gas Respiration Rate 16.0 Blood Gas Specimen Source Blood arterial Blood Gas Temperature 37.0 FiO2 50.0 Oxyhemoglobin Percent 91.9 L Total Hemoglobin 13.3 Anion Gap 14 Basophils # 0.0 Basophils % 0.2 Blood Urea Nitrogen 11 Calcium Level 7.4 L Carbon Dioxide Level 26 Chloride Level 105 Creatinine 0.77 Eosinophils # 0.0 Eosinophils % 0.1 Glucose Level 206 Hematocrit 34.3 L Hemoglobin 11.3 L Hemoglobin A1c 6.8 H Lactic Acid Level 2.3 H Lymphocytes # 1.1 Lymphocytes % 4.3 L Magnesium Level 1.9 Mean Corpuscular Hemoglobin 29.7 Mean Corpuscular Hemoglobin Concent 32.9 Mean Corpuscular Volume 90.0 Mean Platelet Volume 10.9 H Monocytes # 1.1 H Monocytes % 4.2 Neutrophils # 22.2 H Neutrophils % 88.4 H Nucleated Red Blood Cells # 0.0 Nucleated Red Blood Cells % 0.0 Phosphorus Level 4.4 Platelet Count 289 # Potassium Level 2.9 *L Red Blood Count 3.81 L Red Cell Distribution Width 13.4 Sodium Level 142 Thyroid Stimulating Hormone (TSH) 0.592 White Blood Count 25.1 H Medications Medications Current Medications Ondansetron HCl (Zofran Inj) 4 mg Q6H PRN IV NAUSEA AND/OR VOMITING; Start 06/18 at 23:30 Acetaminophen (Tylenol Tab) 650 mg Q6H PRN PO PAIN LEVEL 1-3 OR FEVER; Start at 23:30 Acetaminophen/ Hydrocodone Bitart ([place] (5/325)) 1 tab Q6H PRN PO MODERATE PAIN LEVEL 4-6; Start 06/18/16 at 23:30 Morphine Sulfate (morphine) 2 mg Q4H PRN IV SEVERE PAIN LEVEL 7-10; Start at 23:30 Docusate Sodium (Colace) 100 mg Q12H PRN PO CONSTIPATION; Start 06/18/16 at 23: 30 Magnesium Hydroxide (Milk Of Mag) 30 ml DAILY PRN PO CONSTIPATION; Start at 23:30 Sodium Biphosphate/ Sodium Phosphate (Fleet Enema) 133 ml DAILY PRN [place] CONSTIPATION; Start 06/18/16 at 23:30 Heparin Sodium (Porcine) 5000 unit 5,000 unit Q12 SC Last administered on 08:29; Admin Dose 5,000 UNIT; Start 06/19/16 at 09:00 Sodium Chloride (1/2 NS) 1,000 ml @ 75 mls/hr [id number] IV Last administered on 06/19/16 00:19; Admin Dose 75 MLS/HR; Start 06/18/16 at 23:10 Lorazepam 0.5 mg 0.5 mg Q6H PRN IV ANXIETY; Start 06/18/16 at 23:30 Piperacillin Sod/ Tazobactam Sod (Zosyn 3.375gm/ 100 ml (Pmx)) 100 ml @ 200 mls /hr Q6 IVPB Last administered on 06/19/16 06:24; Admin Dose 200 MLS/HR; Start 06/19/16 at 00:00 Vancomycin HCl (Vanco Iv Per Pharmacy) VANCOMYCIN PER PHARMACY NOTE XX ; Start 06/18/16 at 23:30 Hydralazine HCl (Apresoline) 10 mg Q6H PRN IV ELEVATED BLOOD PRESSURE; Start at 23:30 Nitroglycerin 1 tab 1 tab Q5M PRN SL ANGINA; Start 06/18/16 at 23:30 Vancomycin HCl 250 ml @ 125 mls/hr Q12H IVPB ; Start 06/19/16 at 13:00 Potassium Chloride (KCl 40 MEQ/250 ML NS) 250 ml @ 62.5 mls/hr Q4H IVPB Last administered on 06/19/16 09:57; Admin Dose 62.5 MLS/HR; Start 06/19/16 at 09:00; Stop 06/19/16 at 16:59 Miscellaneous Information VANCO TROUGH @ 1,200 ON... ONCE ONCE XX ; Start 06/20 at 12:00; Stop 06/20/16 at 12:01 Levofloxacin/ Dextrose (Levaquin 500mg/ D5W 100 ml (Pmx)) 100 ml @ 100 mls/hr Q24H IVPB Last administered on 06/19/16 11:58; Admin Dose 100 MLS/HR; Start 06/19/16 at 11:30 LEWIS MINAYA Jun 19, 2016 12:55
[2016-06-19] MEDS: VANCOMYCIN 1 GM in NS 250 ML IVPB SCH (14:28)
--- NOTE | 2016-06-19 15:02 | RADRPT ---
Echocardiogram Report Patient Name: NATHANAEL CHU Gender: Male Date: 1940 Study Date: 19-Jun-2016 Agronomy Specialist: Yuli Ellis RDCS Location: [facility] Ref. Physician: CHITRA ESTEBAN Quality: Adequate Procedures: Transthoracic echocardiogram with complete 2D, M-Mode, and doppler examination. Indications: Shortness of breath. 2D/M Mode Doppler Measurement Value Normal Ranges Measurement Value Normal Ranges LVIDd 2D 6.0 3.5 - 5.6 cm AYDEE Vmax 2.2 cm2 LVIDs 2D 4.2 2.1 - 4.1 cm AYDEE VTI 2.2 cm2 LVPWd 2D 1.0 0.6 - 1.1 cm AV Mean [place] 1.8 m/sec IVSd 2D 1.0 0.6 - 1.1 cm AV Mean PG 15.8 mmHg AoR Diam 2D 3.1 2.0 - 3.7 cm AV Peak [place] 2.7 m/sec EDV 2D 181.8 cm3 AV Peak PG 29.3 mmHg ESV 2D 71.6 cm3 AV VTI 55.7 cm LA Dimen 2D 3.7 2.3 - 4.0 cm AI Peak PG 51.2 mmHg LVOT Diam 2.4 cm AI Peak [place] 3.6 m/sec AI PHT 367.8 msec LVOT Mean [place] 0.9 m/sec LVOT Mean PG 3.8 mmHg LVOT Peak [place] 1.3 m/sec LVOT Peak PG 7.0 mmHg LVOT VTI 27.6 cm MV E Peak [place] 0.8 m/sec MV A Peak [place] 1.2 m/sec MV E/A 0.7 MV Decel Time 270 msec MV Decel [place] 3 MV E/A 0.7 TR Peak [place] 1.9 m/sec TR Peak PG 15.0 mmHg RVSP 23.0 mmHg Findings Left Ventricle: Lower limits of normal systolic function. Mild concentric left ventricular hypertrophy. Mild enlargement of left ventricle cavity. Ejection fraction is visually estimated at 50 %. Tissue Doppler/Mitral Doppler indices are consistent with impaired relaxation (Stage I diastolic dysfunction). Right Ventricle: Normal right ventricular size. Normal right ventricular systolic function. Left Atrium: The left atrium is normal in size. Right Atrium: The right atrium is normal in size. Mitral Valve: Mitral valve leaflets appear mildly thickened. Mild mitral annular calcification. Mild mitral valve regurgitation. Aortic Valve: Mild aortic stenosis. Aortic cusps appear moderately calcified. Mild aortic valve regurgitation. Tricuspid Valve: Normal appearance of the tricuspid valve. Estimated peak PA systolic pressure 23 mmHg. There is mild tricuspid regurgitation. Pulmonic Valve: Pulmonic valve not well visualized. Pericardium: Normal pericardium with no significant pericardial effusion. Aorta: Normal aortic root. IVC: Dilated IVC with respiratory collapse consistent with elevated right atrial pressure. Conclusions Lower limits of normal systolic function. Mild concentric left ventricular hypertrophy. Mild enlargement of left ventricle cavity. Ejection fraction is visually estimated at 50 %. Tissue Doppler/Mitral Doppler indices are consistent with impaired relaxation (Stage I diastolic dysfunction). Normal right ventricular size. Normal right ventricular systolic function. The left atrium is normal in size. The right atrium is normal in size. Mild mitral valve regurgitation. Mild aortic stenosis. Mild aortic valve regurgitation. Estimated peak PA systolic pressure 23 mmHg. There is mild tricuspid regurgitation. Normal pericardium with no significant pericardial effusion. Electronically Signed By: Jef Sinha 19-Jun-2016 15:01:45 -0800 Patient Name: NATHANAEL CHU Study Date: 19-Jun-2016 [id number]
[2016-06-19] MEDS ORDERED: LORAZEPAM 2 MG INJ IV ONE (17:30)
[2016-06-19] MEDS ORDERED: FUROSEMIDE 40 MG INJ IV SCH ×2 (18:00→20:00)
[2016-06-19 18:50] LABS: MAGNESIUM 2.1 mg/dl (1.7-2.5)
[2016-06-19 19:00] LABS: AADO2 Arterial 590.2 mmHg (7.0-24.0); Allen Test ACCEPTAB; Arterial Base Excess -11.8 mmol/L (-3.0-3); Arterial HCO3 14.3 mmol/L (22.0-26.0); MODE MASK - BIPAP
[2016-06-19 19:04] LABS: TROPONIN-I 0.027 ng/ml (0.00-0.12)
--- NOTE | 2016-06-19 19:08 | CONS ---
DATE OF ADMISSION: 06/18/2016 DATE OF CONSULTATION: 06/19/2016 HISTORY OF PRESENT ILLNESS: This is a 75-year-old gentleman who presented to [facility] with increasing shortness of breath. The patient was admitted with combination of presumably respiratory infection with congestive heart failure. He has been treated with broad-spectrum IV an tibiotic coverage and aggressive intervention for congestive heart failure. He has comorbid medical problems including obesity, hypertension, elevated lipid levels. Currently, he is on 50% BiPAP keli patel Has been seen by Dr. Ricci from pulmonary medicine. Dr. Sinha has read his echocardiogram whic h shows EF 50% with mild left concentric LVH. Chest x-ray on 06/18/2016 showed diffuse pulmonary in filtrates/edema; in a patient with mild cardiomegaly, most likely reflects cardiac decompensation an d congestive heart failure. Read out by Dr. Dl Talley. I am asked to speak to family members. The patient is a FULL CODE. There are no old records to review for this patient related to any ca rdiopulmonary medical problems. MEDICATIONS: Please refer to reconciliation sheets. ALLERGIES: NO KNOWN DRUG ALLERGIES. MAJOR MEDICAL PROBLEMS: Entirely per history of present illness. SOCIAL HISTORY: Unknown. FAMILY HISTORY: Unknown. The patient is on BiPAP and speaks very little Yoruba. REVIEW OF SYSTEMS: Cannot be obtained. DISCUSSION: Family conference was done with the patient's grandson at the bedside. I reviewed his grandfather's current medical condition, covering his underlying respiratory condition, the fact henry t he is on IV antibiotic coverage. The fact that he looks comfortable at this time, but he is on 50 % FIO2 BiPAP. I broached the conversation of setting up a family conference and addressing patient' s code status, although in general, he appears to be very comfortable and looks like he may do a tur n for the better; however, still will address his code status preemptively. Dictated By: PJ BERTRAND MD, LP/GARRETT Conf#: [id number] DID#: [id number]
--- NOTE | 2016-06-19 19:59 | CONS ---
Date/Time of Note Date/Time of Note DATE: 06/19/16 TIME: 19:47 Assessment/Plan Assessment/Plan Additional Assessment/Plan Respiratory failure Sepsis Acute decompensated systolic and diastolic congestive heart failure Cardiomyopathy with ejection fraction 50% CAD Atrial flutter Hypokalemia -Patient with progressive worsening respiratory status on BiPAP and being brought to the ICU for possible intubation. Diuretics have been increased, continue as blood pressure and renal function tolerates, potassium supplementation has been ordered, would give additional magnesium to assist with absorption. Antibiotics as per primary team. Will check serial cardiac enzymes, give digoxin given borderline blood pressure, repeat potassium level and maintain above 4.0. Aspirin and statin therapy. Consultation Date/Type/Reason Admit Date/Time Jun 18, 2016 at 21:36 Type of Consultation: cv Reason for Consultation Shortness of breath worsening past 2 days Hx of Present Illness This is a 75-year-old male past medical history of coronary artery disease, congestive heart failure, hypertension who presented with fevers and chills, cough and shortness of breath progressing over the past 2-3 days. Patient also with lower extremity edema. Patient admitted and started on IV diuretics and broad-spectrum antibiotics. Today, patient with worsening respiratory status requiring BiPAP. He denies chest pain, does complain of shortness of breath, wet but nonproductive cough. He has been having subjective fevers and chills throughout the day. 12 point review of systems was performed with all pertinent positives and negatives mentioned above with information obtained from patient and daughter-in -law at bedside Past Medical History Coronary artery disease Hypertension Possible paroxysmal atrial flutter Congestive heart failure Past Surgical History Past Surgical Hx: angioplasty Family History Significant Family History: no pertinent family hx Social History Alcohol Use: none Smoking Status: Former smoker Other Social History Lives with family Exam/Review of Systems Vital Signs Vitals Vital Signs Date Time Temp Pulse Resp B/P Pulse Ox O2 Delivery O2 Flow Rate FiO2 06/19/16 17:46 116 94 100 06/19/16 15:02 98.2 25 119/65 06/19/16 04:00 BIPAP 06/18/16 23:30 10.0 Intake and Output 06/18/16 06/18/16 06/19/16 15:00 23:00 07:00 Intake Total 600 ml Output Total 350 ml Balance 250 ml Exam On BiPAP, dyspneic, sweating Constitutional: alert Head: normocephalic ENMT: other (On BiPAP) Respiratory: other (Coarse breath sounds bilaterally with scattered rhonchi, no wheezing) Cardiovascular: other (S1-S2 heard), regular rate and rhythm Gastrointestinal: bowel sounds, non-tender, other (No guarding), soft Extremities: edema, other (No cyanosis) Results Result Diagram: 06/19/16 0600 06/19/16 0600 Results 24 hrs Laboratory Tests Test 06/18/16 20:00 06/18/16 20:02 06/18/16 21:52 06/19/16 00:35 Activated Partial Thromboplast Time 26.4 Alanine Aminotransferase (ALT/SGPT) 54 Albumin 2.9 L Albumin/Globulin Ratio 0.90 Alkaline Phosphatase 104 Anion Gap 17 H Aspartate Amino Transf (AST/SGOT) 40 B-Type Natriuretic Peptide 5030 H Basophils # 0.1 Basophils % 0.3 Blood Urea Nitrogen 11 Calcium Level 8.0 L Carbon Dioxide Level 26 Chloride Level 102 Creatinine 0.76 Direct Bilirubin 0.00 Eosinophils # 0.1 Eosinophils % 0.2 Free Thyroxine 3.20 H Globulin 3.20 Glucose Level 204 Hematocrit 39.7 L Hemoglobin 13.2 L INR International Normalized Ratio 1.11 Indirect Bilirubin 0.4 Lactic Acid Level 3.2 H 2.4 H 2.0 Lymphocytes # 1.3 Lymphocytes % 5.5 L Mean Corpuscular Hemoglobin 29.9 Mean Corpuscular Hemoglobin Concent 33.2 Mean Corpuscular Volume 90.0 Mean Platelet Volume 10.6 H Monocytes # 1.2 H Monocytes % 4.8 Neutrophils # 20.7 H Neutrophils % 85.3 H Nucleated Red Blood Cells # 0.0 Nucleated Red Blood Cells % 0.0 Platelet Count 372 Potassium Level 2.7 *L Prothrombin Time 14.3 H Prothrombin Time Ratio 1.1 Red Blood Count 4.41 L Red Cell Distribution Width 13.4 Sodium Level 142 Total Bilirubin 0.4 Total Protein 6.1 Troponin I 0.024 White Blood Count 24.3 H Burak Test N/A Arterial Blood Date Drawn 06/18/2016 8:14:29 PM Arterial Blood Gas Puncture Site VENOUS LINE Blood Gas A-a O2 Differential 282.6 Blood Gas Actual Respiration Rate 41 Blood Gas IPAP/EPAP Ratio 10/4 Blood Gas Modality MASK - BIPAP Blood Gas Notified Time 06/18/2016 8:21:20 PM Blood Gas Notified Whom BR Blood Gas Respiration Rate 16.0 Blood Gas Specimen Source Blood venous Blood Gas Temperature 37.0 Blood Gas Tidal Volume 961.0 Carboxyhemoglobin 0.3 FiO2 50.0 Venous Blood Base Excess 2.3 Venous Blood HCO3 23.4 Venous Blood Methemoglobin 0.4 Venous Blood Oxygen Saturation 83.0 H Venous Blood Oxyhemoglobin 82.4 Venous Blood Total Hemoglobin 13.7 Venous Blood pCO2 (Temp Corrected) 27.0 L Venous Blood pH 7.556 H Venous Blood pO2 (Temp Corrected) 43.5 H Urine Bacteria FEW Urine Bilirubin NEGATIVE Urine Clarity SLIGHTLY CLOUDY Urine Color YELLOW Urine Glucose NEGATIVE Urine Hemoglobin TRACE Urine Ketones NEGATIVE Urine Leukocyte Esterase NEGATIVE Urine Microscopic RBC 0-2 Urine Microscopic WBC 0-2 Urine Mucus MODERATE Urine Nitrite NEGATIVE Urine Specific [place] 1.020 Urine Squamous Epithelial Cells Urine Total Protein 1+ H Urine Transitional Epithelial Cells FEW Urine Urobilinogen 0.2 E.U./dL Urine pH 5.5 Test 06/19/16 05:24 06/19/16 06:00 06/19/16 12:15 06/19/16 17:21 Arterial Blood HCO3 23.2 14.3 L Arterial Blood Base Excess 1.4 -11.8 L Arterial Blood Oxygen Saturation 92.5 L Burak Test ACCEPTAB ACCEPTAB Arterial Blood Gas Puncture Site Left Radial Right Radial Arterial Blood Carboxyhemoglobin 0.3 Arterial Blood Date Drawn 06/19/2016 5:40:28 AM 06/19/2016 6:30:34 PM Arterial Blood Methemoglobin 0.4 Arterial Blood pCO2 (Temp correct) 28.7 L 33.8 L Arterial Blood pH (Temp corrected) 7.525 H 7.245 *L Arterial Blood pO2 (Temp corrected) 63.2 L 89.0 Blood Gas A-a O2 Differential 261.0 H 590.2 H Blood Gas Actual Respiration Rate 31 37 Blood Gas IPAP/EPAP Ratio 01/17 01/17 Blood Gas Modality BIPAP - S/T MASK - BIPAP Blood Gas Notified Time 06/19/2016 5:52:15 AM 06/19/2016 6:54:45 PM Blood Gas Notified Whom RTR LC Blood Gas Pressure Support 6 Blood Gas Respiration Rate 16.0 16.0 Blood Gas Specimen Source Blood arterial Blood arterial Blood Gas Temperature 37.0 37.0 FiO2 50.0 100.0 Oxyhemoglobin Percent 91.9 L Total Hemoglobin 13.3 Anion Gap 14 Basophils # 0.0 Basophils % 0.2 Blood Urea Nitrogen 11 Calcium Level 7.4 L Carbon Dioxide Level 26 Chloride Level 105 Creatinine 0.77 Eosinophils # 0.0 Eosinophils % 0.1 Glucose Level 206 Hematocrit 34.3 L Hemoglobin 11.3 L Hemoglobin A1c 6.8 H Lactic Acid Level 2.3 H 1.3 Lymphocytes # 1.1 Lymphocytes % 4.3 L Magnesium Level 1.9 Mean Corpuscular Hemoglobin 29.7 Mean Corpuscular Hemoglobin Concent 32.9 Mean Corpuscular Volume 90.0 Mean Platelet Volume 10.9 H Monocytes # 1.1 H Monocytes % 4.2 Neutrophils # 22.2 H Neutrophils % 88.4 H Nucleated Red Blood Cells # 0.0 Nucleated Red Blood Cells % 0.0 Phosphorus Level 4.4 Platelet Count 289 # Potassium Level 2.9 *L Red Blood Count 3.81 L Red Cell Distribution Width 13.4 Sodium Level 142 Thyroid Stimulating Hormone (TSH) 0.592 White Blood Count 25.1 H Blood Gas Critical Value Read Back EUGENIA RN Test 06/19/16 18:10 06/19/16 18:21 Lactic Acid Level 4.3 *H Magnesium Level 2.1 Troponin I 0.027 Bedside Glucose 207 Medications Medications Current Medications Ondansetron HCl (Zofran Inj) 4 mg Q6H PRN IV NAUSEA AND/OR VOMITING; Start 06/18 at 23:30 Acetaminophen (Tylenol Tab) 650 mg Q6H PRN PO PAIN LEVEL 1-3 OR FEVER; Start at 23:30 Acetaminophen/ Hydrocodone Bitart ([place] (5/325)) 1 tab Q6H PRN PO MODERATE PAIN LEVEL 4-6; Start 06/18/16 at 23:30 Morphine Sulfate (morphine) 2 mg Q4H PRN IV SEVERE PAIN LEVEL 7-10; Start at 23:30 Docusate Sodium (Colace) 100 mg Q12H PRN PO CONSTIPATION; Start 06/18/16 at 23: 30 Magnesium Hydroxide (Milk Of Mag) 30 ml DAILY PRN PO CONSTIPATION; Start at 23:30 Sodium Biphosphate/ Sodium Phosphate (Fleet Enema) 133 ml DAILY PRN [place] CONSTIPATION; Start 06/18/16 at 23:30 Heparin Sodium (Porcine) (Heparin (5000 Units/0.5 ml)) 5,000 unit Q12 SC Last administered on 06/19/16 08:29; Admin Dose 5,000 UNIT; Start 06/19/16 at 09:00 Lorazepam 0.5 mg 0.5 mg Q6H PRN IV ANXIETY; Start 06/18/16 at 23:30 Piperacillin Sod/ Tazobactam Sod (Zosyn 3.375gm/ 100 ml (Pmx)) 100 ml @ 200 mls /hr Q6 IVPB Last administered on 06/19/16 17:41; Admin Dose 200 MLS/HR; Start 06/19/16 at 00:00 Vancomycin HCl (Vanco Iv Per Pharmacy) VANCOMYCIN PER PHARMACY NOTE XX ; Start 06/18/16 at 23:30 Hydralazine HCl (Apresoline) 10 mg Q6H PRN IV ELEVATED BLOOD PRESSURE; Start at 23:30 Nitroglycerin 1 tab 1 tab Q5M PRN SL ANGINA; Start 06/18/16 at 23:30 Vancomycin HCl (Vancocin) 250 ml @ 125 mls/hr Q12H IVPB Last administered on 14:28; Admin Dose 125 MLS/HR; Start 06/19/16 at 13:00 Miscellaneous Information VANCO TROUGH @ 1,200 ON... ONCE ONCE XX ; Start 06/20 at 12:00; Stop 06/20/16 at 12:01 Levofloxacin/ Dextrose (Levaquin 500mg/ D5W 100 ml (Pmx)) 100 ml @ 100 mls/hr Q24H IVPB Last administered on 06/19/16 11:58; Admin Dose 100 MLS/HR; Start 06/19/16 at 11:30 Procedures Procedures ECG with likely atrial flutter, ventricular rate of 115 bpm, left bundle branch block Jef Sinha DO Jun 19, 2016 19:58
[2016-06-19] MEDS ORDERED: MAGNESIUM SULFATE 2 GM/50 ML 50 ML IVPB ONE (20:00)
[2016-06-19] MEDS ORDERED: PROPOFOL 100 ML ONE (20:00)
[2016-06-19] MEDS ORDERED: GLUCOSE GEL 15 GRAM TUBE PO PRN ×2 (20:30)
[2016-06-19] MEDS ORDERED: GLUCAGON 1 MG INJ IM PRN (20:30)
[2016-06-19] MEDS ORDERED: GLUCOSE GEL 15 GRAM TUBE BUCCAL PRN (20:30)
[2016-06-19] MEDS ORDERED: DEXTROSE 50% 50 ML SYRINGE IV PRN ×2 (20:30)
[2016-06-19] MEDS ORDERED: DIGOXIN 500 MCG INJ IV ONE (20:30)
[2016-06-19] MEDS ORDERED: ALBUTEROL/IPRATROPIUM (NEB) 3 ML AMP HHN SCH (21:00)
[2016-06-19 21:17] LABS: CK-MB 1.92 ng/ml (0.0-2.4)
[2016-06-19] MEDS: ASPIRIN 81 MG TAB NGT SCH (21:26)
[2016-06-19 21:28] LABS: TROPONIN-I 0.264 ng/ml (0.00-0.12)
--- NOTE | 2016-06-19 21:30 | RADRPT ---
PROCEDURE: XR Chest. CLINICAL INDICATION: Shortness of breath. Intubation TECHNIQUE: A single portable view of the chest was obtained. COMPARISON: 06/18/2016 FINDINGS: Interval placement of an endotracheal tube is seen above the level of abhi. The aorta is tortuous and atherosclerotic. The cardiomediastinal silhouette is otherwise enlarged and is stable. Extensi ve diffuse ill-defined air space disease with possible underlying interstitial disease is seen which has progressed compared to the prior examination. The soft tissues and osseous structures demonstr ate benign age related senescent changes. IMPRESSION: 1. Satisfactory placement of an endotracheal tube. 2. Extensive diffuse ill-defined air space disease with likely underlying interstitial disease whic h may represent pulmonary edema which has progressed compared to the prior examination. RPTAT: HPNM Physician Oliver Date Time Electronically viewed and signed by Tristen Flannery Physician on 06/19/2016 21:30 /
[2016-06-19] MEDS: INSULIN ASPART [NOVOLOG] 3 ML PEN SC SCH (21:31)
[2016-06-19 21:43] LABS: POTASSIUM 4.4 mmol/L (3.5-5.1)
[2016-06-19 21:45] LABS: CREATININE 1.17 mg/dl (0.61-1.24)
[2016-06-19 21:46] LABS: CALCIUM 7.7 mg/dl (8.4-10.2)
[2016-06-19] MEDS ORDERED: SOD CHLORIDE 0.9% 500 ML IV ONE (22:30)
[2016-06-19] MEDS: PROPOFOL 100 ML IV SCH (22:47)
[2016-06-19] MEDS: NORepinephrine 8MG/250 ML (PMX 250 ML IV SCH (22:50)
[2016-06-19 23:46] LABS: AADO2 Arterial 605.5 mmHg (7.0-24.0); Allen Test ACCEPTAB; Arterial Base Excess -8.2 mmol/L (-3.0-3); Arterial COHb 0 % (0.0-3.0); Arterial Fraction of Oxyhgb 86.6 % (93.0-99.0); Arterial HCO3 18.6 mmol/L (22.0-26.0); Arterial MetHb 0.5 % (0.0-1.5); Arterial Total Hemglobin 13.6 g/dl (12.0-18.0); MODE VENT - VC+
[2016-06-20] VITALS (98 sets, daily range): BP systolic 86–138; BP diastolic 37–95; PULSE 70–92; RESP 11–34
[2016-06-20] MEDS: VANCOMYCIN 1 GM in NS 250 ML IVPB SCH ×2 (00:03→13:17)
[2016-06-20] MEDS: PROPOFOL 100 ML IV SCH ×5 (00:46→22:32)
[2016-06-20] MEDS: INSULIN ASPART [NOVOLOG] 3 ML PEN SC SCH ×6 (00:47→21:01)
[2016-06-20] MEDS: IPRATROPIUM (HFA) 12.9 GM INHALER INH SCH ×6 (01:01→22:27)
[2016-06-20] MEDS: ALBUTEROL HFA 8 GM INHALER INH SCH ×6 (01:01→22:27)
[2016-06-20 04:53] LABS: ADD SCAN DIFF NO
[2016-06-20 05:07] LABS: ABNORMAL IP MESSAGE 1; HEMATOCRIT 40.6 % (42.0-52.0); HEMOGLOBIN 12.8 g/dl (14.0-18.0); MEAN CORPUSCULAR HEMOGLOBIN 29.8 pg (29.0-33.0); MEAN CORPUSCULAR HGB CONC 31.5 g/dl (32.0-37.0); MEAN CORPUSCULAR VOLUME 94.4 fl (82.0-101.0); MEAN PLATELET VOLUME 10.6 fl (7.4-10.4); PLATELET COUNT 392 10^3/UL (140-415); RED CELL DISTRIBUTION WIDTH 13.9 % (11.5-14.5); WHITE BLOOD COUNT 45.1 10^3/ul (4.8-10.8)
[2016-06-20 05:22] LABS: POTASSIUM 4.3 mmol/L (3.5-5.1)
[2016-06-20 05:25] LABS: CREATININE 1.38 mg/dl (0.61-1.24)
[2016-06-20 05:26] LABS: CALCIUM 7.1 mg/dl (8.4-10.2)
[2016-06-20] MEDS: PIPER-TAZO 3.375 GM IV (PMX) 100 ML IVPB SCH ×3 (05:35→22:32)
[2016-06-20] MEDS: NORepinephrine 8MG/250 ML (PMX 250 ML IV SCH (07:03)
--- NOTE | 2016-06-20 08:32 | RADRPT ---
PROCEDURE: XR Chest. CLINICAL INDICATION: Respiratory failure TECHNIQUE: An AP view of the chest was obtained. COMPARISON: Chest x-ray dated 06/19/2016 FINDINGS: The endotracheal tube tip is approximately 3.4 cm above the abhi. The tip of the enteric tube ex tends below the left diaphragm. There are diffuse coarse interstitial markings with bilateral interstitial opacities and small left pleural effusion. No pneumothorax is seen. The cardiomediastinal silhouette is moderately enlarg ed. Calcifications are seen within the aortic arch. The osseous structures demonstrate senescent ch anges. IMPRESSION: 1. Chronic-appearing interstitial changes with superimposed interstitial edema versus pneumonia, mi ldly improved when compared to the prior examination. 2. Small left pleural effusion, unchanged to mildly increased when compared to the prior examinatio n. 3. Moderate cardiomegaly and aortic atherosclerosis. 4. Tubes and lines, as described above. RPTAT: HH .Lupe Harris MD, MD Date Time Electronically viewed and signed by .Lupe Harris MD, MD on 06/20/2016 08:32 .G/
[2016-06-20 08:36] LABS: AADO2 Arterial 528.2 mmHg (7.0-24.0); Allen Test ACCEPTAB; Arterial Base Excess -4.8 mmol/L (-3.0-3); Arterial COHb 0.3 % (0.0-3.0); Arterial Fraction of Oxyhgb 97.4 % (93.0-99.0); Arterial HCO3 21.4 mmol/L (22.0-26.0); Arterial MetHb 0.6 % (0.0-1.5); Arterial Total Hemglobin 13.8 g/dl (12.0-18.0); MODE VENT - AC
[2016-06-20] MEDS: ASPIRIN 81 MG TAB NGT SCH (08:40)
[2016-06-20] MEDS: HEPARIN 5,000 UNIT/0.5 ML SYG SC SCH ×2 (08:42→21:02)
[2016-06-20 10:06] LABS: LYMPHOCYTES # 0.9 10^3/ul (0.8-2.9); MONOCYTE # 1.8 10^3/ul (0.3-0.9); MYELOCYTES # 0.5; NEUTROPHIL # 38.8 10^3/ul (1.6-7.5)
[2016-06-20] MEDS ORDERED: LIDOCAINE 1% (MDV) 20 ML INJ SC ONE (10:30)
--- NOTE | 2016-06-20 10:32 | PN ---
Date/Time of Note Date/Time of Note DATE: 06/20/16 TIME: 10:23 Assessment/Plan VTE Prophylaxis VTE Prophylaxis Intervention: heparin Lines/Catheters IV Catheter Type (from Nrs): Saline Lock Urinary Cath still in place: Yes Reason Cath still needed: other (indicate) Assessment/Plan Assessment/Plan A 75-year-old male coming in with shortness of breath with signs of upper respiratory infection and possible congestive heart failure exacerbation. 1. SIRS vs Sepsis with lactic acidosis 2/2 #2 with septic shock 2. Acute resp failure now vent dependent 3. CHF exacerbation 4. Acute on chronic interstitial lung disease 5. High cholesterol. 6. Hypertension.> hypotension 7. DM 2 A1c 6.8 8. NC / NC anemia PLAN: Continue ICU supportive care Diuresis as tolerated by BP Continue empiric abx Continue serial lab and trend lactic acid levelss F/u final culture results Continue aggressive resp mgt and supportive care Gastrointestinal prophylaxis: PPI. Deep venous thrombosis prophylaxis, heparin subcutaneously. CRITICAL CARE TIME: >35 mins Subjective 24 Hr Interval Summary Free Text/Dictation The patient declined yesterday and ABG values worsened and patient ended up being transferred to ICU and endotracheally intubated and sedated. Spoke with cardiology, he felt this might be more inflammatory versus CHF Exam/Review of Systems Vital Signs Vitals Vital Signs Date Time Temp Pulse Resp B/P Pulse Ox O2 Delivery O2 Flow Rate FiO2 06/20/16 08:00 73 06/20/16 05:45 24 135/54 100 06/20/16 05:00 100 06/20/16 04:00 98.4 06/20/16 02:45 Mechanical Ventilator 06/18/16 23:30 10.0 Intake and Output 06/19/16 06/19/16 06/20/16 15:00 23:00 07:00 Intake Total 450 ml 1108 ml 773 ml Output Total 780 ml 500 ml Balance 450 ml 328 ml 273 ml Exam Constitutional: No alert Head: normocephalic Eyes: PERRL ENMT: intubated Respiratory: crackles/rales, diminished breath sounds Cardiovascular: nl pulses, other (prolonged QT noted ), regular rate and rhythm Gastrointestinal: bowel sounds, non-tender, soft Extremities: edema Neurological: other (sedated, requiring restraints) Results Result Diagram: 06/20/16 0416 06/20/16 0416 Results 24 hrs Laboratory Tests Test 06/19/16 12:15 06/19/16 17:21 06/19/16 18:10 06/19/16 18:21 Lactic Acid Level 1.3 4.3 *H Arterial Blood HCO3 14.3 L Arterial Blood Base Excess -11.8 L Burak Test ACCEPTAB Arterial Blood Gas Puncture Site Right Radial Arterial Blood Date Drawn 06/19/2016 6:30:34 PM Arterial Blood pCO2 (Temp correct) 33.8 L Arterial Blood pH (Temp corrected) 7.245 *L Arterial Blood pO2 (Temp corrected) 89.0 Blood Gas A-a O2 Differential 590.2 H Blood Gas Actual Respiration Rate 37 Blood Gas Critical Value Read Back EUGENIA DUMONT Blood Gas IPAP/EPAP Ratio 01/17 Blood Gas Modality MASK - BIPAP Blood Gas Notified Time 06/19/2016 6:54:45 PM Blood Gas Notified Whom LC Blood Gas Respiration Rate 16.0 Blood Gas Specimen Source Blood arterial Blood Gas Temperature 37.0 FiO2 100.0 Magnesium Level 2.1 Troponin I 0.027 Bedside Glucose 207 Test 06/19/16 20:38 06/19/16 20:40 06/19/16 21:48 06/20/16 00:44 Bedside Glucose 184 214 Anion Gap 21 #H Blood Urea Nitrogen 13 Calcium Level 7.7 L Carbon Dioxide Level 16 #L Chloride Level 113 H Creatine Kinase 67 Creatine Kinase Index 2.9 Creatinine 1.17 Creatinine Kinase MB (Mass) 1.92 Glucose Level 210 Potassium Level 4.4 Sodium Level 146 H Troponin I 0.264 *H Arterial Blood HCO3 18.6 L Arterial Blood Base Excess -8.2 L Arterial Blood Oxygen Saturation 87.0 L Burak Test ACCEPTAB Arterial Blood Gas Puncture Site Right Radial Arterial Blood Carboxyhemoglobin 0 Arterial Blood Date Drawn 06/19/2016 9:41:00 PM Arterial Blood Methemoglobin 0.5 Arterial Blood pCO2 (Temp correct) 43.0 Arterial Blood pH (Temp corrected) 7.254 *L Arterial Blood pO2 (Temp corrected) 64.5 L Blood Gas A-a O2 Differential 605.5 H Blood Gas Actual Respiration Rate 32 Blood Gas Critical Value Read Back Dorinda YAO RN Blood Gas Inspiratory Pressure 18.0 Blood Gas Inspiratory Time 0.60 Blood Gas Low PEEP Setting 5.0 Blood Gas Modality VENT - VC+ Blood Gas Notified Time 06/19/2016 9:56:00 PM Blood Gas Notified Whom AA Blood Gas Respiration Rate 16.0 Blood Gas Specimen Source Blood arterial Blood Gas Temperature 37.0 Blood Gas Tidal Volume 550.0 FiO2 100.0 Oxyhemoglobin Percent 86.6 L Total Hemoglobin 13.6 Test 06/20/16 01:00 06/20/16 04:16 06/20/16 05:25 06/20/16 07:00 Troponin I 0.632 *H Anion Gap 18 H Band Neutrophils % 6.0 H Blood Urea Nitrogen 23 H Calcium Level 7.1 L Carbon Dioxide Level 22 Chloride Level 111 H Creatinine 1.38 H Glucose Level 194 Hematocrit 40.6 L Hemoglobin 12.8 L Lactic Acid Level 1.7 Lymphocytes # 0.9 Lymphocytes % 2.0 L Magnesium Level 2.7 H Mean Corpuscular Hemoglobin 29.8 Mean Corpuscular Hemoglobin Concent 31.5 L Mean Corpuscular Volume 94.4 Mean Platelet Volume 10.6 H Monocytes # 1.8 H Monocytes % 4.0 Myelocytes # 0.5 Myelocytes % 1.0 H Neutrophils # 38.8 H Neutrophils % 86.0 H Platelet Count 392 # Potassium Level 4.3 Promyelocytes # 0.5 Promyelocytes % 1.0 H Red Blood Count 4.30 L Red Cell Distribution Width 13.9 Sodium Level 147 H White Blood Count 45.1 #H Bedside Glucose 185 Arterial Blood HCO3 21.4 L Arterial Blood Base Excess -4.8 L Arterial Blood Oxygen Saturation 98.3 Burak Test ACCEPTAB Arterial Blood Gas Puncture Site Right Radial Arterial Blood Carboxyhemoglobin 0.3 Arterial Blood Date Drawn 06/20/2016 7:24:14 AM Arterial Blood Methemoglobin 0.6 Arterial Blood pCO2 (Temp correct) 43.7 Arterial Blood pH (Temp corrected) 7.308 L Arterial Blood pO2 (Temp corrected) 141.1 H Blood Gas A-a O2 Differential 528.2 H Blood Gas Actual Respiration Rate 16 Blood Gas Low PEEP Setting 5.0 Blood Gas Modality VENT - AC Blood Gas Notified Time 06/20/2016 7:59:57 AM Blood Gas Notified Whom JLD Blood Gas Respiration Rate 16.0 Blood Gas Specimen Source Blood arterial Blood Gas Temperature 37.0 Blood Gas Tidal Volume 550.0 FiO2 100.0 Oxyhemoglobin Percent 97.4 Total Hemoglobin 13.8 Test 06/20/16 08:39 Bedside Glucose 164 Medications Medications Current Medications Ondansetron HCl (Zofran Inj) 4 mg Q6H PRN IV NAUSEA AND/OR VOMITING; Start 06/18 at 23:30 Acetaminophen (Tylenol Tab) 650 mg Q6H PRN PO PAIN LEVEL 1-3 OR FEVER; Start at 23:30 Acetaminophen/ Hydrocodone Bitart ([place] (5/325)) 1 tab Q6H PRN PO MODERATE PAIN LEVEL 4-6; Start 06/18/16 at 23:30 Morphine Sulfate (morphine) 2 mg Q4H PRN IV SEVERE PAIN LEVEL 7-10; Start at 23:30 Docusate Sodium (Colace) 100 mg Q12H PRN PO CONSTIPATION; Start 06/18/16 at 23: 30 Magnesium Hydroxide (Milk Of Mag) 30 ml DAILY PRN PO CONSTIPATION; Start at 23:30 Sodium Biphosphate/ Sodium Phosphate (Fleet Enema) 133 ml DAILY PRN [place] CONSTIPATION; Start 06/18/16 at 23:30 Heparin Sodium (Porcine) (Heparin (5000 Units/0.5 ml)) 5,000 unit Q12 SC Last administered on 06/20/16 08:42; Admin Dose 5,000 UNIT; Start 06/19/16 at 09:00 Lorazepam 0.5 mg 0.5 mg Q6H PRN IV ANXIETY; Start 06/18/16 at 23:30 Piperacillin Sod/ Tazobactam Sod (Zosyn 3.375gm/ 100 ml (Pmx)) 100 ml @ 200 mls /hr Q6 IVPB Last administered on 06/20/16 05:35; Admin Dose 200 MLS/HR; Start 06/19/16 at 00:00 Vancomycin HCl (Vanco Iv Per Pharmacy) VANCOMYCIN PER PHARMACY NOTE XX ; Start 06/18/16 at 23:30 Hydralazine HCl (Apresoline) 10 mg Q6H PRN IV ELEVATED BLOOD PRESSURE; Start at 23:30 Nitroglycerin 1 tab 1 tab Q5M PRN SL ANGINA; Start 06/18/16 at 23:30 Vancomycin HCl (Vancocin) 250 ml @ 125 mls/hr Q12H IVPB Last administered on 00:03; Admin Dose 125 MLS/HR; Start 06/19/16 at 13:00 Miscellaneous Information VANCO TROUGH @ 1,200 ON... ONCE ONCE XX ; Start 06/20 at 12:00; Stop 06/20/16 at 12:01 Levofloxacin/ Dextrose (Levaquin 500mg/ D5W 100 ml (Pmx)) 100 ml @ 100 mls/hr Q24H IVPB Last administered on 06/19/16 11:58; Admin Dose 100 MLS/HR; Start 06/19/16 at 11:30 Aspirin (Aspirin) 81 mg DAILY NGT Last administered on 06/20/16 08:40; Admin Dose 81 MG; Start 06/19/16 at 20:00 Insulin Aspart (Novolog Insulin Pen) NOVOLOG *MILD* ALGORI... Q4 SC Last administered on 06/20/16 09:46; Admin Dose 1 UNIT; Start 06/19/16 at 21:00 Miscellaneous Information 1 ea NOTE XX ; Start 06/19/16 at 20:30 Glucose (Glutose) 15 gm Q15M PRN PO DECREASED GLUCOSE; Start 06/19/16 at 20:30 Glucose (Glutose) 22.5 gm Q15M PRN PO DECREASED GLUCOSE; Start 06/19/16 at 20:30 Dextrose (D50w Syringe) 25 ml Q15M PRN IV DECREASED GLUCOSE; Start 06/19/16 at 20:30 Dextrose (D50w Syringe) 50 ml Q15M PRN IV DECREASED GLUCOSE; Start 06/19/16 at 20:30 Glucagon (Glucagen) 1 mg Q15M PRN IM DECREASED GLUCOSE; Start 06/19/16 at 20:30 Glucose 15 gm 15 gm Q15M PRN BUCCAL DECREASED GLUCOSE; Start 06/19/16 at 20:30 Propofol 100 ml @ 2.727 mls/ hr Q12H IV Last administered on 06/20/16 08:06; Admin Dose 27.27 MLS/HR; Start 06/19/16 at 22:00 Norepinephrine 250 ml @ 1.875 mls/ hr TITRATE IV Last administered on 07:03; Admin Dose 33.75 MLS/HR; Start 06/19/16 at 22:30; Stop 06/20/16 at 12: 00 Norepinephrine/ Dextrose (Levophed/D5W) 500 ml @ 1.87 mls/hr TITRATE IV ; Start 06/19/16 at 23:00 Procedures Procedures PROCEDURE: XR Chest. CLINICAL INDICATION: Respiratory failure TECHNIQUE: An AP view of the chest was obtained. COMPARISON: Chest x-ray dated 06/19/2016 FINDINGS: The endotracheal tube tip is approximately 3.4 cm above the abhi. The tip of the enteric tube extends below the left diaphragm. There are diffuse coarse interstitial markings with bilateral interstitial opacities and small left pleural effusion. No pneumothorax is seen. The cardiomediastinal silhouette is moderately enlarged. Calcifications are seen within the aortic arch. The osseous structures demonstrate senescent changes. IMPRESSION: 1. Chronic-appearing interstitial changes with superimposed interstitial edema versus pneumonia, mildly improved when compared to the prior examination. 2. Small left pleural effusion, unchanged to mildly increased when compared to the prior examination. 3. Moderate cardiomegaly and aortic atherosclerosis. 4. Tubes and lines, as described above. RPTAT: HH .Lupe Harris MD, MD Date Time Electronically viewed and signed by .Lupe Harris MD, on 06/20/2016 08 :32 .G/ CC: WESLEY CARPENTER MD Echocardiogram Report Patient Name: NATHANAEL CHU Gender: Male Date: 1940 Study Date: 19-Jun-2016 Associate Teacher: Yuli Ellis RDCS Location: [id number] Ref. Physician: CHITRA ESTEBAN Quality: Adequate Procedures: Transthoracic echocardiogram with complete 2D, M-Mode, and doppler examination. Indications: Shortness of breath. 2D/M Mode Doppler Measurement Value Normal Ranges Measurement Value Normal Ranges LVIDd 2D 6.0 3.5 - 5.6 cm AYDEE Vmax 2.2 cm2 LVIDs 2D 4.2 2.1 - 4.1 cm AYDEE VTI 2.2 cm2 LVPWd 2D 1.0 0.6 - 1.1 cm AV Mean Alban 1.8 m/sec IVSd 2D 1.0 0.6 - 1.1 cm AV Mean PG 15.8 mmHg AoR Diam 2D 3.1 2.0 - 3.7 cm AV Peak Alban 2.7 m/sec EDV 2D 181.8 cm3 AV Peak PG 29.3 mmHg ESV 2D 71.6 cm3 AV VTI 55.7 cm LA Dimen 2D 3.7 2.3 - 4.0 cm AI Peak PG 51.2 mmHg LVOT Diam 2.4 cm AI Peak Alban 3.6 m/sec AI PHT 367.8 msec LVOT Mean Alban 0.9 m/sec LVOT Mean PG 3.8 mmHg LVOT Peak Alban 1.3 m/sec LVOT Peak PG 7.0 mmHg LVOT VTI 27.6 cm MV E Peak Alban 0.8 m/sec MV A Peak Alban 1.2 m/sec MV E/A 0.7 MV Decel Time 270 msec MV Decel Hardin 3 MV E/A 0.7 TR Peak Alban 1.9 m/sec TR Peak PG 15.0 mmHg RVSP 23.0 mmHg Findings Left Ventricle: Lower limits of normal systolic function. Mild concentric left ventricular hypertrophy. Mild enlargement of left ventricle cavity. Ejection fraction is visually estimated at 50 %. Tissue Doppler/Mitral Doppler indices are consistent with impaired relaxation (Stage I diastolic dysfunction). Right Ventricle: Normal right ventricular size. Normal right ventricular systolic function. Left Atrium: The left atrium is normal in size. Right Atrium: The right atrium is normal in size. Mitral Valve: Mitral valve leaflets appear mildly thickened. Mild mitral annular calcification. Mild mitral valve regurgitation. Aortic Valve: Mild aortic stenosis. Aortic cusps appear moderately calcified. Mild aortic valve regurgitation. Tricuspid Valve: Normal appearance of the tricuspid valve. Estimated peak PA systolic pressure 23 mmHg. There is mild tricuspid regurgitation. Pulmonic Valve: Pulmonic valve not well visualized. Pericardium: Normal pericardium with no significant pericardial effusion. Aorta: Normal aortic root. IVC: Dilated IVC with respiratory collapse consistent with elevated right atrial pressure. Conclusions Lower limits of normal systolic function. Mild concentric left ventricular hypertrophy. Mild enlargement of left ventricle cavity. Ejection fraction is visually estimated at 50 %. Tissue Doppler/Mitral Doppler indices are consistent with impaired relaxation (Stage I diastolic dysfunction). Normal right ventricular size. Normal right ventricular systolic function. The left atrium is normal in size. The right atrium is normal in size. Mild mitral valve regurgitation. Mild aortic stenosis. Mild aortic valve regurgitation. Estimated peak PA systolic pressure 23 mmHg. There is mild tricuspid regurgitation. Normal pericardium with no significant pericardial effusion. Electronically Signed By: Jef Sinha 19-Jun-2016 15:01:45 -0800 Patient Name: NATHANAEL CHU Study Date: 19-Jun-2016 LEWIS MINAYA Jun 20, 2016 10:32
[2016-06-20] MEDS: LEVOFLOXACIN 500MG/D5W (PMX) 100 ML IVPB SCH (12:37)
--- NOTE | 2016-06-20 13:07 | PN ---
DATE: 06/20/2016 REASON FOR FOLLOWUP: Respiratory failure. SUBJECTIVE: Patient Luis remains intubated and sedated on mechanical ventilation. Continues va sopressor support. PHYSICAL EXAMINATION: VITAL SIGNS: Temperature 98, pulse 74, blood pressure 94/51 on Levophed. NECK: Supple. No JVD or lymphadenopathy. CARDIAC: S1, S2, no added sounds or murmurs. CHEST: Diminished air entry bilaterally with rales. ABDOMEN: Soft, nontender. No guarding or rebound. EXTREMITIES: No cyanosis, clubbing, 1+ edema. NEUROLOGIC: Generalized weakness. LABORATORY DATA: White count 45.1, hemoglobin 12.8, platelets of 392. Chemistry: BUN 23, creatini ne 1.38, sodium 147. ABG: pH 7.38, pCO2 of 43, PaO2 of 141. IMAGING: Chest x-ray was reviewed, shows ongoing interstitial edema, small pleural effusions. IMPRESSION: 1. Septic shock requiring vasopressors. 2. Hypoxemic respiratory failure. 3. Interstitial edema. 4. History of coronary artery disease. 5. History of diastolic dysfunction. PLAN: 1. Continue vasopressor support. 2. Continue broad-spectrum antibiotics, currently on Zosyn, Levaquin and vancomycin. 3. IV access with PICC line. 4. Nasogastric tube and tube feeding. 4. DVT and GI prophylaxis. Dictated By: SARAH WATTERS/GARRETT Conf#: [id number] DID#: [id number]
[2016-06-20] MEDS: SOD CHLORIDE 0.9% 1,000 ML IV SCH ×2 (13:21→22:32)
--- NOTE | 2016-06-20 13:40 | CONS ---
Date/Time of Note Date/Time of Note DATE: 06/20/16 TIME: 13:37 Assessment/Plan Assessment/Plan Additional Assessment/Plan Respiratory failure Septic shock Acute decompensated systolic and diastolic congestive heart failure Cardiomyopathy with ejection fraction 50% CAD Paroxysmal atrial flutter -Patient converted to sinus rhythm. Unfortunate, given QT prolongation, unable to use amiodarone at the current time. No beta-trina given hypotension. Continue IV pressor to maintain SBP greater than 90 and/or map above 60. Start tube feedings. Maintain potassium above 4.0 and magnesium above 2.0. Consultation Date/Type/Reason Admit Date/Time Jun 18, 2016 at 21:36 Initial Consult Date 06/19/16 Type of Consultation: cv 24 HR Interval Summary Free Text/Dictation Patient intubated, converted to sinus rhythm this morning Exam/Review of Systems Vital Signs Vitals Vital Signs Date Time Temp Pulse Resp B/P Pulse Ox O2 Delivery O2 Flow Rate FiO2 06/20/16 12:00 71 06/20/16 10:30 24 94/51 100 Mechanical Ventilator 06/20/16 08:00 98.9 06/20/16 08:00 100 06/18/16 23:30 10.0 Intake and Output 06/19/16 06/19/16 06/20/16 15:00 23:00 07:00 Intake Total 450 ml 1108 ml 791 ml Output Total 780 ml 550 ml Balance 450 ml 328 ml 241 ml Exam Sedated and intubated Head: normocephalic ENMT: intubated Respiratory: other (Coarse rhonchorous breath sounds, no wheezing) Cardiovascular: other (S1-S2 heard), regular rate and rhythm Gastrointestinal: bowel sounds, non-tender, other (No guarding or grimacing with palpation), soft Extremities: edema, other (No cyanosis) Results Result Diagram: 06/20/16 0416 06/20/16 0416 Results 24 hrs Laboratory Tests Test 06/19/16 17:21 06/19/16 18:10 06/19/16 18:21 06/19/16 20:38 Arterial Blood HCO3 14.3 L Arterial Blood Base Excess -11.8 L Burak Test ACCEPTAB Arterial Blood Gas Puncture Site Right Radial Arterial Blood Date Drawn 06/19/2016 6:30:34 PM Arterial Blood pCO2 (Temp correct) 33.8 L Arterial Blood pH (Temp corrected) 7.245 *L Arterial Blood pO2 (Temp corrected) 89.0 Blood Gas A-a O2 Differential 590.2 H Blood Gas Actual Respiration Rate 37 Blood Gas Critical Value Read Back EUGENIA DUMONT Blood Gas IPAP/EPAP Ratio 10/4 Blood Gas Modality MASK - BIPAP Blood Gas Notified Time 06/19/2016 6:54:45 PM Blood Gas Notified Whom LC Blood Gas Respiration Rate 16.0 Blood Gas Specimen Source Blood arterial Blood Gas Temperature 37.0 FiO2 100.0 Lactic Acid Level 4.3 *H Magnesium Level 2.1 Troponin I 0.027 Bedside Glucose 207 184 Test 06/19/16 20:40 06/19/16 21:48 06/20/16 00:44 06/20/16 01:00 Anion Gap 21 #H Blood Urea Nitrogen 13 Calcium Level 7.7 L Carbon Dioxide Level 16 #L Chloride Level 113 H Creatine Kinase 67 Creatine Kinase Index 2.9 Creatinine 1.17 Creatinine Kinase MB (Mass) 1.92 Glucose Level 210 Potassium Level 4.4 Sodium Level 146 H Troponin I 0.264 *H 0.632 *H Arterial Blood HCO3 18.6 L Arterial Blood Base Excess -8.2 L Arterial Blood Oxygen Saturation 87.0 L Burak Test ACCEPTAB Arterial Blood Gas Puncture Site Right Radial Arterial Blood Carboxyhemoglobin 0 Arterial Blood Date Drawn 06/19/2016 9:41:00 PM Arterial Blood Methemoglobin 0.5 Arterial Blood pCO2 (Temp correct) 43.0 Arterial Blood pH (Temp corrected) 7.254 *L Arterial Blood pO2 (Temp corrected) 64.5 L Blood Gas A-a O2 Differential 605.5 H Blood Gas Actual Respiration Rate 32 Blood Gas Critical Value Read Back Dorinda YAO RN Blood Gas Inspiratory Pressure 18.0 Blood Gas Inspiratory Time 0.60 Blood Gas Low PEEP Setting 5.0 Blood Gas Modality VENT - VC+ Blood Gas Notified Time 06/19/2016 9:56:00 PM Blood Gas Notified Whom AA Blood Gas Respiration Rate 16.0 Blood Gas Specimen Source Blood arterial Blood Gas Temperature 37.0 Blood Gas Tidal Volume 550.0 FiO2 100.0 Oxyhemoglobin Percent 86.6 L Total Hemoglobin 13.6 Bedside Glucose 214 Test 06/20/16 04:16 06/20/16 05:25 06/20/16 07:00 06/20/16 08:39 Anion Gap 18 H Band Neutrophils % 6.0 H Blood Urea Nitrogen 23 H Calcium Level 7.1 L Carbon Dioxide Level 22 Chloride Level 111 H Creatinine 1.38 H Glucose Level 194 Hematocrit 40.6 L Hemoglobin 12.8 L Lactic Acid Level 1.7 Lymphocytes # 0.9 Lymphocytes % 2.0 L Magnesium Level 2.7 H Mean Corpuscular Hemoglobin 29.8 Mean Corpuscular Hemoglobin Concent 31.5 L Mean Corpuscular Volume 94.4 Mean Platelet Volume 10.6 H Monocytes # 1.8 H Monocytes % 4.0 Myelocytes # 0.5 Myelocytes % 1.0 H Neutrophils # 38.8 H Neutrophils % 86.0 H Parathyroid Hormone (Intact) Platelet Count 392 # Potassium Level 4.3 Promyelocytes # 0.5 Promyelocytes % 1.0 H Red Blood Count 4.30 L Red Cell Distribution Width 13.9 Sodium Level 147 H White Blood Count 45.1 #H Bedside Glucose 185 164 Arterial Blood HCO3 21.4 L Arterial Blood Base Excess -4.8 L Arterial Blood Oxygen Saturation 98.3 Burak Test ACCEPTAB Arterial Blood Gas Puncture Site Right Radial Arterial Blood Carboxyhemoglobin 0.3 Arterial Blood Date Drawn 06/20/2016 7:24:14 AM Arterial Blood Methemoglobin 0.6 Arterial Blood pCO2 (Temp correct) 43.7 Arterial Blood pH (Temp corrected) 7.308 L Arterial Blood pO2 (Temp corrected) 141.1 H Blood Gas A-a O2 Differential 528.2 H Blood Gas Actual Respiration Rate 16 Blood Gas Low PEEP Setting 5.0 Blood Gas Modality VENT - AC Blood Gas Notified Time 06/20/2016 7:59:57 AM Blood Gas Notified Whom JLD Blood Gas Respiration Rate 16.0 Blood Gas Specimen Source Blood arterial Blood Gas Temperature 37.0 Blood Gas Tidal Volume 550.0 FiO2 100.0 Oxyhemoglobin Percent 97.4 Total Hemoglobin 13.8 Test 06/20/16 12:14 06/20/16 13:15 Vancomycin Level Trough 16.4 Bedside Glucose 146 Medications Medications Current Medications Ondansetron HCl (Zofran Inj) 4 mg Q6H PRN IV NAUSEA AND/OR VOMITING; Start 06/18 at 23:30 Acetaminophen (Tylenol Tab) 650 mg Q6H PRN PO PAIN LEVEL 1-3 OR FEVER; Start at 23:30 Acetaminophen/ Hydrocodone Bitart ([place] (5/325)) 1 tab Q6H PRN PO MODERATE PAIN LEVEL 4-6; Start 06/18/16 at 23:30 Morphine Sulfate (morphine) 2 mg Q4H PRN IV SEVERE PAIN LEVEL 7-10; Start at 23:30 Docusate Sodium (Colace) 100 mg Q12H PRN PO CONSTIPATION; Start 06/18/16 at 23: 30 Magnesium Hydroxide (Milk Of Mag) 30 ml DAILY PRN PO CONSTIPATION; Start at 23:30 Sodium Biphosphate/ Sodium Phosphate (Fleet Enema) 133 ml DAILY PRN [place] CONSTIPATION; Start 06/18/16 at 23:30 Heparin Sodium (Porcine) (Heparin (5000 Units/0.5 ml)) 5,000 unit Q12 SC Last administered on 06/20/16 08:42; Admin Dose 5,000 UNIT; Start 06/19/16 at 09:00 Lorazepam 0.5 mg 0.5 mg Q6H PRN IV ANXIETY; Start 06/18/16 at 23:30 Piperacillin Sod/ Tazobactam Sod (Zosyn 3.375gm/ 100 ml (Pmx)) 100 ml @ 200 mls /hr Q6 IVPB Last administered on 06/20/16 12:39; Admin Dose 200 MLS/HR; Start 06/19/16 at 00:00 Vancomycin HCl (Vanco Iv Per Pharmacy) VANCOMYCIN PER PHARMACY NOTE XX ; Start 06/18/16 at 23:30 Hydralazine HCl (Apresoline) 10 mg Q6H PRN IV ELEVATED BLOOD PRESSURE; Start at 23:30 Nitroglycerin 1 tab 1 tab Q5M PRN SL ANGINA; Start 06/18/16 at 23:30 Vancomycin HCl 250 ml @ 125 mls/hr Q12H IVPB Last administered on 06/20/16 13: 17; Admin Dose 125 MLS/HR; Start 06/19/16 at 13:00 Levofloxacin/ Dextrose (Levaquin 500mg/ D5W 100 ml (Pmx)) 100 ml @ 100 mls/hr Q24H IVPB Last administered on 06/20/16 12:37; Admin Dose 100 MLS/HR; Start 06/19/16 at 11:30 Aspirin (Aspirin) 81 mg DAILY NGT Last administered on 06/20/16 08:40; Admin Dose 81 MG; Start 06/19/16 at 20:00 Insulin Aspart (Novolog Insulin Pen) NOVOLOG *MILD* ALGORI... Q4 SC Last administered on 06/20/16 13:18; Admin Dose 1 UNIT; Start 06/19/16 at 21:00 Miscellaneous Information 1 ea NOTE XX ; Start 06/19/16 at 20:30 Glucose (Glutose) 15 gm Q15M PRN PO DECREASED GLUCOSE; Start 06/19/16 at 20:30 Glucose (Glutose) 22.5 gm Q15M PRN PO DECREASED GLUCOSE; Start 06/19/16 at 20:30 Dextrose (D50w Syringe) 25 ml Q15M PRN IV DECREASED GLUCOSE; Start 06/19/16 at 20:30 Dextrose (D50w Syringe) 50 ml Q15M PRN IV DECREASED GLUCOSE; Start 06/19/16 at 20:30 Glucagon (Glucagen) 1 mg Q15M PRN IM DECREASED GLUCOSE; Start 06/19/16 at 20:30 Glucose 15 gm 15 gm Q15M PRN BUCCAL DECREASED GLUCOSE; Start 06/19/16 at 20:30 Propofol 100 ml @ 2.727 mls/ hr Q12H IV Last administered on 06/20/16 12:33; Admin Dose 21.816 MLS/HR; Start 06/19/16 at 22:00 Norepinephrine 16 mg/Dextrose 500 ml @ 1.87 mls/hr TITRATE IV ; Start 06/19/16 at 23:00 Sodium Chloride (NS) 1,000 ml @ 100 mls/hr Q10H IV Last administered on 13:21; Admin Dose 100 MLS/HR; Start 06/20/16 at 13:30; Stop 06/21/16 at 09:29 Jef Sinha DO Jun 20, 2016 13:39
--- NOTE | 2016-06-20 14:19 | RADRPT ---
PROCEDURE: US guidance for PICC line CLINICAL INDICATION: PICC line placement TECHNIQUE: Multiple real-time images were acquired of the patient's arm utilizing a high resolutio n transducer. This was performed by the PICC line nurse for venous access. COMPARISON: None FINDINGS: Ultrasound guidance for PICC line placement. IMPRESSION: Ultrasound guidance for PICC line placement. RPTAT: AA .Juan Jose Espinosa MD, MD Date Time Electronically viewed and signed by .Juan Jose Espinosa MD, on 06/20/2016 14:18 .S/
--- NOTE | 2016-06-20 14:30 | CONS ---
DATE OF ADMISSION: 06/18/2016 DATE OF CONSULTATION: 06/20/2016 INFECTIOUS DISEASE CONSULTATION REASON FOR CONSULTATION: Antibiotic management. HISTORY OF PRESENT ILLNESS: Azar Smith is a 75-year-old Sinhala [place]ian male who comes in wi th shortness of breath and is being seen for antibiotic management. His past problems include: 1. Coronary artery disease with CHF. 2. Hypertension. 3. Hypercholesterolemia. 4. Benign prostatic hypertrophy. The patient presents with shortness of breath. He has had a fever for 3 days prior to admission and has not been taking his Lasix at home. In the emergency room he was placed on CPAP, given nitrogly cerin, and then was put on BiPAP. He had a temperature of 101.2 on the 5th. His BNP was high at 50 00. Chest x-ray showed congestive heart failure. On admission, his white count was 24.3, H and H o f 13.2 and 39.7, platelet count 372,000. BUN and creatinine 11 and 0.76. Urinalysis showed negativ e nitrites, negative leukocyte esterase. Chest x-ray showed diffuse pulmonary infiltrates, edema wi th mild cardiomegaly, most likely reflects cardiac decompensation and congestive failure. The patie nt was seen in consultation by Dr. Ricci, pulmonary, on the . The patient has underlying cardiom yopathy, improving on BiPAP. The patient's white count was 25.1. His chest x-ray on the showed diffuse pulmonary infiltrates with mild cardiomegaly, most likely reflects cardiac decompensation, congestive heart failure. On the , chronic-appearing interstitial changes, superimposed intersti tial edema, small left pleural effusion, moderate cardiomegaly. An endotracheal tube is now in plac e. Coarse interstitial markings. Bilateral interstitial opacities, cardiomediastinal silhouette is moderately enlarged. Urine cultures negative. Influenza A and B are negative. Blood cultures are negative. The patient is currently on propofol, on vancomycin, Levaquin, and Zosyn. The Levaquin, probably for atypical pneumonitis, although the Zosyn would cover most gram-negative rods. The pat ient has an extensive diffuse ill-defined airspace disease. White count today has jumped up to 45.1 , BUN and creatinine 23 and 1.38. Urine negative for nitrite and leukocyte esterase. PAST MEDICAL HISTORY: Operations as outlined. FAMILY HISTORY: Noncontributory. SOCIAL HISTORY: He does not smoke, drink, or abuse drugs. ALLERGIES: NONE TO PENICILLIN, SULFA, OR FOODS. MEDICATIONS: Per chart. REVIEW OF SYSTEMS: As per HPI. PHYSICAL EXAMINATION: GENERAL: The patient is an elderly appearing, chronically ill male who is sedated on propofol and i ntubated. SKIN: Without generalized rash. HEENT: Within normal limits. NECK: Supple. LYMPH NODES: None palpable. CHEST: Decreased breath sounds at the bases. HEART: Without murmur or gallop. ABDOMEN: Soft, nontender, without organosplenomegaly or masses. EXTREMITIES: Without cyanosis, clubbing, or edema. RECTAL AND GENITAL: Deferred. NEUROLOGIC: No focal neurological abnormalities. The plan is to place an NG tube, get IV access with PICC line. The patient has septic shock, is on vasopressors, is on Levophed. His white count has shot up. He is not on steroids to account for th is. We will check to see if he has had sputums ordered. He has had urinalysis. We will get cultur e of his sputum. I will dictate my findings to the hospitalist, to Dr. Ricci, Dr. Faulkner, Dr. Interiano, Dr. Sinha. Dictated By: PATRIA ROLON MD, JD/GARRETT Conf#: [id number] DID#: [id number]
--- NOTE | 2016-06-20 15:15 | PN ---
DATE: 06/20/2016 Mr. Smith decompensated overnight and was intubated and transferred to the intensive care unit fo r severe sepsis. There are no family members at the bedside. He is currently having a PICC line pl aced. I have reviewed his medical records and has other major comorbid medical problems that compli monica his prognosis including shock, coronary heart disease, diastolic congestive heart failure. I w ill schedule a family conference at least to keep family members up to date and will not address his code status just yet. In speaking with family members yesterday, we will gingerly approach if they are unable to successfully extubate patient or if he has a prolonged course in the intensive care u nit. Dictated By: PJ BERTRAND MD, LP/GARRETT Conf#: [id number] DID#: [id number]
--- NOTE | 2016-06-20 17:43 | RADRPT ---
PROCEDURE: XR Chest. CLINICAL INDICATION: Check PICC line position. TECHNIQUE: Single frontal view. COMPARISON: 06/20/2016. 0605 hours. FINDINGS: There is a left arm PICC line with the tip in the lower superior vena cava. The endotracheal tube a nd nasogastric tube remain in satisfactory position. Bilateral interstitial pulmonary disease is un changed. The heart is enlarged. There is calcification in the aorta consistent with atherosclerosis. There is no right pleural effusion. There is a small left pleural effusion. There is no pneumothorax. IMPRESSION: 1. Satisfactory position of left arm PICC line. 2. No other change from the prior study done earlier the same day. RPTAT: QQ .Brooks Chaney MD, MD Date Time Electronically viewed and signed by .Brooks Chaney MD, MD on 06/20/2016 17:43 .R/
--- NOTE | 2016-06-20 20:29 | RADRPT ---
Vent Rate: 72 bpm RR Interval: 0 msec SD Interval: 192 msec QRS Duration: 116 msec QT Interval: 488 msec QTC Interval: 534 msec P-R-T [place]: 46 - 31 - -64 degrees Normal sinus rhythm Incomplete left bundle branch block ST amp; T wave abnormality, consider inferior ischemia ST amp; T wave abnormality, consider anterior ischemia Prolonged QT Abnormal ECG Electronically Signed By: Rafael Blanchard [id number]
[2016-06-21] VITALS (94 sets, daily range): BP systolic 81–126; BP diastolic 38–110; PULSE 69–91; RESP 12–39
[2016-06-21] MEDS ORDERED: VANCOMYCIN 500MG/NS (PMX) 100 ML IVPB SCH (01:00)
[2016-06-21] MEDS: IPRATROPIUM (HFA) 12.9 GM INHALER INH SCH ×6 (01:12→20:55)
[2016-06-21] MEDS: ALBUTEROL HFA 8 GM INHALER INH SCH ×6 (01:13→20:55)
[2016-06-21] MEDS: PROPOFOL 100 ML IV SCH ×4 (01:27→20:34)
[2016-06-21] MEDS: INSULIN ASPART [NOVOLOG] 3 ML PEN SC SCH ×6 (01:30→21:16)
--- NOTE | 2016-06-21 03:17 | RADRPT ---
PROCEDURE: CT Chest without contrast. CLINICAL INDICATION: Respiratory failure. TECHNIQUE: CT scan of the chest without contrast was performed on a multidetector high-resolution CT scanner. Coronal and sagittal reformatted images were obtained from the axial source images. The total exam CTDI equals 16.73 mGy and the total exam DLP equals 668.66 mGy-cm. COMPARISON: Today, earlier in the day. FINDINGS: Dense right lung pneumonia with small pleural effusion. Dense pneumonia is seen in the right upper l obe. Small pleural effusion in the left lung, with dependent atelectasis. Hyperinflation of COPD a nd changes of centrolobular emphysema. Nonspecific shoddy adenopathy in the precarinal middle mediastinum. Otherwise, the mediastinum is u nremarkable without evidence for mass or bulky lymphadenopathy. The vascular structures of the medi astinum are normal in course and caliber. Aortic vascular calcifications and coronary artery calcif ications are present. The heart size is normal without evidence for pericardial thickening or effus ion. The axillary regions, subpectoral regions, and supraclavicular regions are all unremarkable. The [place] rrounding chest wall is unremarkable. Imaging obtained through the upper abdomen remarkable for 17 mm relatively high attenuation lesion in the left kidney suggesting a hemorrhagic cyst. Recommend u ltrasound correlation to exclude a solid nodule. The surrounding osseous structures are remarkable for degenerative spondylosis of the spine. No osteolytic or osteoblastic lesion is detected. IMPRESSION: 1. Bilateral pleural effusions are small. 2. Dense pneumonia in the right upper lobe. 3. Bilateral atelectasis otherwise seen in the dependent lungs. 4. Hyperinflation of COPD and changes of centrolobular emphysema. 5. 17 mm relatively high attenuation lesion in the left kidney, and recommend ultrasound examinatio n to exclude a solid nodule. 6. Nonspecific shoddy adenopathy in the precarinal middle mediastinum. RPTAT: [facility]U Physician Adriano Date Time Electronically viewed and signed by Physician Adriano on 06/21/2016 03:16 RS/
[2016-06-21 05:02] LABS: ADD SCAN DIFF NO
[2016-06-21 05:14] LABS: ABNORMAL IP MESSAGE 1; BASOPHIL # 0.1 10^3/ul (0.0-0.1); BASOPHILS % 0.3 % (0.0-2.0); EOSINOPHILS # 0.1 10^3/ul (0.0-0.5); EOSINOPHILS % 0.6 % (0.0-7.0); HEMATOCRIT 35.3 % (42.0-52.0); LYMPHOCYTES # 0.9 10^3/ul (0.8-2.9); LYMPHOCYTES % 3.9 % (15.0-51.0); MEAN CORPUSCULAR HEMOGLOBIN 29.7 pg (29.0-33.0); MEAN CORPUSCULAR HGB CONC 31.2 g/dl (32.0-37.0); MEAN CORPUSCULAR VOLUME 95.4 fl (82.0-101.0); MEAN PLATELET VOLUME 10.3 fl (7.4-10.4); MONOCYTE # 0.8 10^3/ul (0.3-0.9); MONOCYTES % 3.4 % (0.0-11.0); NEUTROPHIL # 21.5 10^3/ul (1.6-7.5); NEUTROPHILS % 89.8 % (39.0-77.0); PLATELET COUNT 310 10^3/UL (140-415); RED CELL DISTRIBUTION WIDTH 14.1 % (11.5-14.5); WHITE BLOOD COUNT 23.9 10^3/ul (4.8-10.8)
[2016-06-21 05:15] LABS: ALBUMIN 1.9 g/dl (3.3-4.9)
[2016-06-21 05:18] LABS: TOTAL PROTEIN 4.3 g/dl (6.1-8.1)
[2016-06-21 05:22] LABS: POTASSIUM 3.3 mmol/L (3.5-5.1)
[2016-06-21 05:24] LABS: CREATININE 2.3 mg/dl (0.61-1.24)
[2016-06-21 05:25] LABS: CALCIUM 7.2 mg/dl (8.4-10.2); PHOSPHORUS 5.2 mg/dl (2.5-4.9)
[2016-06-21 05:26] LABS: MAGNESIUM 2.5 mg/dl (1.7-2.5)
[2016-06-21] MEDS: PIPER-TAZO 3.375 GM IV (PMX) 100 ML IVPB SCH ×3 (05:40→21:56)
--- NOTE | 2016-06-21 07:58 | RADRPT ---
PROCEDURE: XR Chest 1 view. CLINICAL INDICATION: Shortness of breath, pneumonia, congestive heart failure. TECHNIQUE: AP views of the chest were obtained. COMPARISON: Yesterday FINDINGS: The heart is large. Calcified atherosclerosis is noted in the aorta. Endotracheal and nasogastric t ubes are stable. Left-sided PICC line is unchanged. The lungs are hyperexpanded. Central pulmonar y vascular congestion and interstitial prominence in both lungs is unchanged. Superimposed patchy a lveolar infiltrates throughout both lungs are stable. Small bilateral pleural effusions are stable. The osseous structures are unchanged. IMPRESSION: Cardiomegaly with calcified atherosclerosis in the aorta. Hyperexpanded lungs. Stable central pulmonary vascular congestion and interstitial prominence in both lungs. Stable superimposed patchy alveolar infiltrates scattered throughout both lungs. Stable small bilateral pleural effusions. RPTAT: AA .Danny Portillo MD, Date Time Electronically viewed and signed by .Danny Portillo MD, on 06/21/2016 07:58 .P/
[2016-06-21 08:00] LABS: AADO2 Arterial 171.4 mmHg (7.0-24.0); Allen Test ACCEPTAB; Arterial Base Excess -5.7 mmol/L (-3.0-3); Arterial COHb 0.2 % (0.0-3.0); Arterial Fraction of Oxyhgb 94.6 % (93.0-99.0); Arterial HCO3 18.4 mmol/L (22.0-26.0); Arterial MetHb 0.3 % (0.0-1.5); Arterial Total Hemglobin 10.3 g/dl (12.0-18.0); MODE VENT - AC
[2016-06-21] MEDS: ASPIRIN 81 MG TAB NGT SCH (08:26)
[2016-06-21] MEDS: HEPARIN 5,000 UNIT/0.5 ML SYG SC SCH ×2 (08:27→21:05)
[2016-06-21] MEDS ORDERED: SOD CHLORIDE 0.9% 100 ML ONE (09:33)
--- NOTE | 2016-06-21 09:43 | PN ---
Date/Time of Note Date/Time of Note DATE: 06/21/16 TIME: 09:41 Assessment/Plan VTE Prophylaxis VTE Prophylaxis Intervention: heparin Lines/Catheters IV Catheter Type (from Nrs): PICC Line Central line still needed: Yes Urinary Cath still in place: Yes Reason Cath still needed: other (indicate) Assessment/Plan Assessment/Plan A 75-year-old male coming in with shortness of breath with signs of upper respiratory infection and possible congestive heart failure exacerbation. 1. SIRS vs Sepsis with lactic acidosis 2/2 #2 with septic shock 2. Acute resp failure now vent dependent 3. CHF exacerbation 4. Acute on chronic interstitial lung disease 5. RUL pneumonia 6. Hypertension.> hypotension 7. DM 2 A1c 6.8 8. NC / NC anemia 9. Shock liver 10. High cholesterol. PLAN: Continue ICU supportive care Continue pressor support Continue aggressive abx mgt Continue serial labs and trend lactic acid levels F/u final culture results Continue aggressive resp mgt and supportive care F/u it consultant recs Gastrointestinal prophylaxis: PPI. Deep venous thrombosis prophylaxis, heparin subcutaneously. CRITICAL CARE TIME: >35 mins Subjective 24 Hr Interval Summary Free Text/Dictation Patient seen and examined. comfortable on vent Exam/Review of Systems Vital Signs Vitals Vital Signs Date Time Temp Pulse Resp B/P Pulse Ox O2 Delivery O2 Flow Rate FiO2 06/21/16 09:30 72 22 97 40 06/21/16 06:45 108/52 06/21/16 06:00 Mechanical Ventilator 06/21/16 04:00 98.7 06/18/16 23:30 10.0 Intake and Output 06/20/16 06/20/16 06/21/16 15:00 23:00 07:00 Intake Total 977.76 ml 1108.30 ml 706.05 ml Output Total 715 ml 780 ml 490 ml Balance 262.76 ml 328.30 ml 216.05 ml Exam Constitutional: No alert Head: normocephalic Eyes: PERRL ENMT: intubated Respiratory: crackles/rales, diminished breath sounds Cardiovascular: nl pulses, other (prolonged QT noted ), regular rate and rhythm Gastrointestinal: bowel sounds, non-tender, soft Extremities: edema Neurological: other (sedated, requiring restraints) Results Result Diagram: 06/21/16 0400 06/21/16 0400 Results 24 hrs Laboratory Tests Test 06/20/16 12:14 06/20/16 13:15 06/20/16 16:47 06/20/16 20:58 Vancomycin Level Trough 16.4 Bedside Glucose 146 149 172 Test 06/21/16 01:26 06/21/16 04:00 06/21/16 05:39 06/21/16 07:00 Bedside Glucose 149 134 Alanine Aminotransferase (ALT/SGPT) 784 H Albumin 1.9 L Alkaline Phosphatase 70 Anion Gap 15 Aspartate Amino Transf (AST/SGOT) 617 H Basophils # 0.1 Basophils % 0.3 Blood Urea Nitrogen 34 #H Calcium Level 7.2 L Carbon Dioxide Level 21 Chloride Level 117 H Creatinine 2.30 H Direct Bilirubin 0.00 Eosinophils # 0.1 Eosinophils % 0.6 Glucose Level 144 # Hematocrit 35.3 L Hemoglobin 11.0 L Indirect Bilirubin 0.0 Lymphocytes # 0.9 Lymphocytes % 3.9 L Magnesium Level 2.5 Mean Corpuscular Hemoglobin 29.7 Mean Corpuscular Hemoglobin Concent 31.2 L Mean Corpuscular Volume 95.4 Mean Platelet Volume 10.3 Monocytes # 0.8 Monocytes % 3.4 Neutrophils # 21.5 H Neutrophils % 89.8 H Nucleated Red Blood Cells # 0.0 Nucleated Red Blood Cells % 0.0 Phosphorus Level 5.2 H Platelet Count 310 # Potassium Level 3.3 L Red Blood Count 3.70 L Red Cell Distribution Width 14.1 Sodium Level 150 H Total Bilirubin 0.0 L Total Protein 4.3 L White Blood Count 23.9 #H Arterial Blood HCO3 18.4 L Arterial Blood Base Excess -5.7 L Arterial Blood Oxygen Saturation 95.1 Burak Test ACCEPTAB Arterial Blood Gas Puncture Site Right Radial Arterial Blood Carboxyhemoglobin 0.2 Arterial Blood Date Drawn 06/21/2016 7:23:33 AM Arterial Blood Methemoglobin 0.3 Arterial Blood pCO2 (Temp correct) 30.8 L Arterial Blood pH (Temp corrected) 7.393 Arterial Blood pO2 (Temp corrected) 78.4 L Blood Gas A-a O2 Differential 171.4 H Blood Gas Actual Respiration Rate 25 Blood Gas Low PEEP Setting 5.0 Blood Gas Modality VENT - AC Blood Gas Notified Time 06/21/2016 8:00:23 AM Blood Gas Notified Whom JLD Blood Gas Respiration Rate 16.0 Blood Gas Specimen Source Blood arterial Blood Gas Temperature 37.0 Blood Gas Tidal Volume 550.0 FiO2 40.0 Oxyhemoglobin Percent 94.6 Total Hemoglobin 10.3 L Test 06/21/16 08:22 Bedside Glucose 151 Medications Medications Current Medications Ondansetron HCl (Zofran Inj) 4 mg Q6H PRN IV NAUSEA AND/OR VOMITING; Start 06/18 at 23:30 Acetaminophen (Tylenol Tab) 650 mg Q6H PRN PO PAIN LEVEL 1-3 OR FEVER; Start at 23:30 Acetaminophen/ Hydrocodone Bitart ([place] (5/325)) 1 tab Q6H PRN PO MODERATE PAIN LEVEL 4-6; Start 06/18/16 at 23:30 Morphine Sulfate (morphine) 2 mg Q4H PRN IV SEVERE PAIN LEVEL 7-10; Start at 23:30 Docusate Sodium (Colace) 100 mg Q12H PRN PO CONSTIPATION; Start 06/18/16 at 23: 30 Magnesium Hydroxide (Milk Of Mag) 30 ml DAILY PRN PO CONSTIPATION; Start at 23:30 Sodium Biphosphate/ Sodium Phosphate (Fleet Enema) 133 ml DAILY PRN DE CONSTIPATION; Start 06/18/16 at 23:30 Heparin Sodium (Porcine) (Heparin (5000 Units/0.5 ml)) 5,000 unit Q12 SC Last administered on 06/21/16 08:27; Admin Dose 5,000 UNIT; Start 06/19/16 at 09:00 Lorazepam (Ativan) 0.5 mg Q6H PRN IV ANXIETY; Start 06/18/16 at 23:30 Vancomycin HCl (Vanco Iv Per Pharmacy) VANCOMYCIN PER PHARMACY NOTE XX ; Start 06/18/16 at 23:30 Hydralazine HCl (Apresoline) 10 mg Q6H PRN IV ELEVATED BLOOD PRESSURE; Start at 23:30 Nitroglycerin 1 tab 1 tab Q5M PRN SL ANGINA; Start 06/18/16 at 23:30 Levofloxacin/ Dextrose (Levaquin 500mg/ D5W 100 ml (Pmx)) 100 ml @ 100 mls/hr Q24H IVPB Last administered on 06/20/16 12:37; Admin Dose 100 MLS/HR; Start 06/19/16 at 11:30 Aspirin (Aspirin) 81 mg DAILY NGT Last administered on 06/21/16 08:26; Admin Dose 81 MG; Start 06/19/16 at 20:00 Insulin Aspart (Novolog Insulin Pen) NOVOLOG *MILD* ALGORI... Q4 SC Last administered on 06/21/16 08:27; Admin Dose 1 UNIT; Start 06/19/16 at 21:00 Miscellaneous Information 1 ea NOTE XX ; Start 06/19/16 at 20:30 Glucose (Glutose) 15 gm Q15M PRN PO DECREASED GLUCOSE; Start 06/19/16 at 20:30 Glucose (Glutose) 22.5 gm Q15M PRN PO DECREASED GLUCOSE; Start 06/19/16 at 20:30 Dextrose (D50w Syringe) 25 ml Q15M PRN IV DECREASED GLUCOSE; Start 06/19/16 at 20:30 Dextrose (D50w Syringe) 50 ml Q15M PRN IV DECREASED GLUCOSE; Start 06/19/16 at 20:30 Glucagon (Glucagen) 1 mg Q15M PRN IM DECREASED GLUCOSE; Start 06/19/16 at 20:30 Glucose 15 gm 15 gm Q15M PRN BUCCAL DECREASED GLUCOSE; Start 06/19/16 at 20:30 Propofol 100 ml @ 2.727 mls/ hr Q12H IV Last administered on 06/21/16 06:14; Admin Dose 21.816 MLS/HR; Start 06/19/16 at 22:00 Norepinephrine/ Dextrose (Levophed/D5W) 500 ml @ 1.87 mls/hr TITRATE IV Last administered on 06/20/16 16:49; Admin Dose 13.12 MLS/HR; Start 06/19/16 at 23:00 IV Flush 10 ml 10 ml PRN PRN IV IV PROTOCOL; Start 06/20/16 at 15:00 Piperacillin Sod/ Tazobactam Sod 100 ml @ 200 mls/hr Q8 IVPB Last administered on 06/21/16 05:40; Admin Dose 200 MLS/HR; Start 06/20/16 at 22:00 Vancomycin HCl (Vancocin) 100 ml @ 100 mls/hr Q12H IVPB Last administered on 00:54; Admin Dose 100 MLS/HR; Start 06/21/16 at 01:00 Procedures Procedures PROCEDURE: XR Chest 1 view. CLINICAL INDICATION: Shortness of breath, pneumonia, congestive heart failure. TECHNIQUE: AP views of the chest were obtained. COMPARISON: Yesterday FINDINGS: The heart is large. Calcified atherosclerosis is noted in the aorta. Endotracheal and nasogastric tubes are stable. Left-sided PICC line is unchanged. The lungs are hyperexpanded. Central pulmonary vascular congestion and interstitial prominence in both lungs is unchanged. Superimposed patchy alveolar infiltrates throughout both lungs are stable. Small bilateral pleural effusions are stable. The osseous structures are unchanged. IMPRESSION: Cardiomegaly with calcified atherosclerosis in the aorta. Hyperexpanded lungs. Stable central pulmonary vascular congestion and interstitial prominence in both lungs. Stable superimposed patchy alveolar infiltrates scattered throughout both lungs. Stable small bilateral pleural effusions. RPTAT: AA .Danny Portillo MD, MD Date Time Electronically viewed and signed by .Danny Portillo MD, MD on 06/21/2016 07:58 .P/ CC: SARAH DINERO MD, [facility] PROCEDURE: CT Chest without contrast. CLINICAL INDICATION: Respiratory failure. TECHNIQUE: CT scan of the chest without contrast was performed on a multidetector high-resolution CT scanner. Coronal and sagittal reformatted images were obtained from the axial source images. The total exam CTDI equals 16.73 mGy and the total exam DLP equals 668.66 mGy-cm. COMPARISON: Today, earlier in the day. FINDINGS: Dense right lung pneumonia with small pleural effusion. Dense pneumonia is seen in the right upper lobe. Small pleural effusion in the left lung, with dependent atelectasis. Hyperinflation of COPD and changes of centrolobular emphysema. Nonspecific shoddy adenopathy in the precarinal middle mediastinum. Otherwise, the mediastinum is unremarkable without evidence for mass or bulky lymphadenopathy. The vascular structures of the mediastinum are normal in course and caliber. Aortic vascular calcifications and coronary artery calcifications are present. The heart size is normal without evidence for pericardial thickening or effusion. The axillary regions, subpectoral regions, and supraclavicular regions are all unremarkable. The surrounding chest wall is unremarkable. Imaging obtained through the upper abdomen remarkable for 17 mm relatively high attenuation lesion in the left kidney suggesting a hemorrhagic cyst. Recommend ultrasound correlation to exclude a solid nodule. The surrounding osseous structures are remarkable for degenerative spondylosis of the spine. No osteolytic or osteoblastic lesion is detected. IMPRESSION: 1. Bilateral pleural effusions are small. 2. Dense pneumonia in the right upper lobe. 3. Bilateral atelectasis otherwise seen in the dependent lungs. 4. Hyperinflation of COPD and changes of centrolobular emphysema. 5. 17 mm relatively high attenuation lesion in the left kidney, and recommend ultrasound examination to exclude a solid nodule. 6. Nonspecific shoddy adenopathy in the precarinal middle mediastinum. RPTAT: UU Physician Adriano Date Time Electronically viewed and signed by Physician Adriano on 06/21/2016 03:16 PROCEDURE: Retroperitoneal US. CLINICAL INDICATION: Renal insufficiency TECHNIQUE: Multiple sonographic images of the kidneys and retroperitoneum were obtained. The images were reviewed on a PACS workstation. COMPARISON: No prior studies are available for comparison. FINDINGS: The kidneys are normal in size, contour, cortical thickness and cortical echogenicity. The right kidney measures 12.5 cm. The left kidney measures 13.2 cm. No kidney stones are visualized. There is no evidence for hydronephrosis. The urinary bladder is decompressed by a Ramsey catheter. RPTAT: AA IMPRESSION: Unremarkable retroperitoneal ultrasound. .Juan Jose Espinosa MD, MD Date Time Electronically viewed and signed by .Juan Jose Espinosa MD, MD on 06/21/2016 11: 57 .S/ CC: SHANNAN MAYEN MD, B[place]AT[place] M. Jun 21, 2016 09:43
[2016-06-21] MEDS ORDERED: POTASSIUM CHLORIDE 250 ML IVPB ONE (10:00)
[2016-06-21] MEDS: D5W + KCL 20 MEQ 1,000 ML IV SCH ×2 (11:21→20:34)
--- NOTE | 2016-06-21 11:41 | CONS ---
Date/Time of Note Date/Time of Note DATE: 06/21/16 TIME: 11:38 Assessment/Plan Assessment/Plan Additional Assessment/Plan Respiratory failure Septic shock Acute decompensated systolic and diastolic congestive heart failure Cardiomyopathy with ejection fraction 50% CAD Paroxysmal atrial flutter -Patient continues to improve and weaned off IV pressors. Renal function worsening, continue IV fluids and recommendations as per our nephrology colleagues. Antibiotics as per primary team. Continue aspirin, no beta- trina given recent hypotension, no statin given abnormal LFTs. Consultation Date/Type/Reason Admit Date/Time Jun 18, 2016 at 21:36 Initial Consult Date 06/19/16 Type of Consultation: cv 24 HR Interval Summary Free Text/Dictation Patient weaned off IV pressor morning Exam/Review of Systems Vital Signs Vitals Vital Signs Date Time Temp Pulse Resp B/P Pulse Ox O2 Delivery O2 Flow Rate FiO2 06/21/16 10:00 71 17 95/49 96 Mechanical Ventilator 06/21/16 09:30 40 06/21/16 08:00 99.3 06/18/16 23:30 10.0 Intake and Output 06/20/16 06/20/16 06/21/16 15:00 23:00 07:00 Intake Total 977.76 ml 1108.30 ml 729.85 ml Output Total 715 ml 780 ml 530 ml Balance 262.76 ml 328.30 ml 199.85 ml Exam Sedated and intubated, no apparent distress Head: normocephalic ENMT: intubated Respiratory: other (Coarse breath sounds bilaterally, no wheezing) Cardiovascular: other (S1-S2 heard), regular rate and rhythm Gastrointestinal: bowel sounds, non-tender, other (No grimacing with palpation) , soft Extremities: edema, other (No cyanosis) Results Result Diagram: 06/21/16 0400 06/21/16 0400 Results 24 hrs Laboratory Tests Test 06/20/16 12:14 06/20/16 13:15 06/20/16 16:47 06/20/16 20:58 Vancomycin Level Trough 16.4 Bedside Glucose 146 149 172 Test 06/21/16 01:26 06/21/16 04:00 06/21/16 05:39 06/21/16 07:00 Bedside Glucose 149 134 Alanine Aminotransferase (ALT/SGPT) 784 H Albumin 1.9 L Alkaline Phosphatase 70 Anion Gap 15 Aspartate Amino Transf (AST/SGOT) 617 H Basophils # 0.1 Basophils % 0.3 Blood Urea Nitrogen 34 #H Calcium Level 7.2 L Carbon Dioxide Level 21 Chloride Level 117 H Creatinine 2.30 H Direct Bilirubin 0.00 Eosinophils # 0.1 Eosinophils % 0.6 Glucose Level 144 # Hematocrit 35.3 L Hemoglobin 11.0 L Indirect Bilirubin 0.0 Lymphocytes # 0.9 Lymphocytes % 3.9 L Magnesium Level 2.5 Mean Corpuscular Hemoglobin 29.7 Mean Corpuscular Hemoglobin Concent 31.2 L Mean Corpuscular Volume 95.4 Mean Platelet Volume 10.3 Monocytes # 0.8 Monocytes % 3.4 Neutrophils # 21.5 H Neutrophils % 89.8 H Nucleated Red Blood Cells # 0.0 Nucleated Red Blood Cells % 0.0 Osmolality 314 H Phosphorus Level 5.2 H Platelet Count 310 # Potassium Level 3.3 L Red Blood Count 3.70 L Red Cell Distribution Width 14.1 Sodium Level 150 H Total Bilirubin 0.0 L Total Protein 4.3 L White Blood Count 23.9 #H Arterial Blood HCO3 18.4 L Arterial Blood Base Excess -5.7 L Arterial Blood Oxygen Saturation 95.1 Burak Test ACCEPTAB Arterial Blood Gas Puncture Site Right Radial Arterial Blood Carboxyhemoglobin 0.2 Arterial Blood Date Drawn 06/21/2016 7:23:33 AM Arterial Blood Methemoglobin 0.3 Arterial Blood pCO2 (Temp correct) 30.8 L Arterial Blood pH (Temp corrected) 7.393 Arterial Blood pO2 (Temp corrected) 78.4 L Blood Gas A-a O2 Differential 171.4 H Blood Gas Actual Respiration Rate 25 Blood Gas Low PEEP Setting 5.0 Blood Gas Modality VENT - AC Blood Gas Notified Time 06/21/2016 8:00:23 AM Blood Gas Notified Whom JLD Blood Gas Respiration Rate 16.0 Blood Gas Specimen Source Blood arterial Blood Gas Temperature 37.0 Blood Gas Tidal Volume 550.0 FiO2 40.0 Oxyhemoglobin Percent 94.6 Total Hemoglobin 10.3 L Test 06/21/16 08:22 Bedside Glucose 151 Medications Medications Current Medications Ondansetron HCl (Zofran Inj) 4 mg Q6H PRN IV NAUSEA AND/OR VOMITING; Start 06/18 at 23:30 Acetaminophen (Tylenol Tab) 650 mg Q6H PRN PO PAIN LEVEL 1-3 OR FEVER; Start at 23:30 Acetaminophen/ Hydrocodone Bitart ([place] (5/325)) 1 tab Q6H PRN PO MODERATE PAIN LEVEL 4-6; Start 06/18/16 at 23:30 Morphine Sulfate (morphine) 2 mg Q4H PRN IV SEVERE PAIN LEVEL 7-10; Start at 23:30 Docusate Sodium (Colace) 100 mg Q12H PRN PO CONSTIPATION; Start 06/18/16 at 23: 30 Magnesium Hydroxide (Milk Of Mag) 30 ml DAILY PRN PO CONSTIPATION; Start at 23:30 Sodium Biphosphate/ Sodium Phosphate (Fleet Enema) 133 ml DAILY PRN [place] CONSTIPATION; Start 06/18/16 at 23:30 Heparin Sodium (Porcine) (Heparin (5000 Units/0.5 ml)) 5,000 unit Q12 SC Last administered on 06/21/16 08:27; Admin Dose 5,000 UNIT; Start 06/19/16 at 09:00 Lorazepam (Ativan) 0.5 mg Q6H PRN IV ANXIETY; Start 06/18/16 at 23:30 Vancomycin HCl (Vanco Iv Per Pharmacy) VANCOMYCIN PER PHARMACY NOTE XX ; Start 06/18/16 at 23:30 Hydralazine HCl (Apresoline) 10 mg Q6H PRN IV ELEVATED BLOOD PRESSURE; Start at 23:30 Nitroglycerin (Nitroglycerin (Sl Tab) 0.4 Mg) 1 tab Q5M PRN SL ANGINA; Start at 23:30 Aspirin (Aspirin) 81 mg DAILY NGT Last administered on 06/21/16 08:26; Admin Dose 81 MG; Start 06/19/16 at 20:00 Insulin Aspart (Novolog Insulin Pen) NOVOLOG *MILD* ALGORI... Q4 SC Last administered on 06/21/16 08:27; Admin Dose 1 UNIT; Start 06/19/16 at 21:00 Miscellaneous Information 1 ea NOTE XX ; Start 06/19/16 at 20:30 Glucose (Glutose) 15 gm Q15M PRN PO DECREASED GLUCOSE; Start 06/19/16 at 20:30 Glucose (Glutose) 22.5 gm Q15M PRN PO DECREASED GLUCOSE; Start 06/19/16 at 20:30 Dextrose (D50w Syringe) 25 ml Q15M PRN IV DECREASED GLUCOSE; Start 06/19/16 at 20:30 Dextrose (D50w Syringe) 50 ml Q15M PRN IV DECREASED GLUCOSE; Start 06/19/16 at 20:30 Glucagon (Glucagen) 1 mg Q15M PRN IM DECREASED GLUCOSE; Start 06/19/16 at 20:30 Glucose 15 gm 15 gm Q15M PRN BUCCAL DECREASED GLUCOSE; Start 06/19/16 at 20:30 Propofol 100 ml @ 2.727 mls/ hr Q12H IV Last administered on 06/21/16 06:14; Admin Dose 21.816 MLS/HR; Start 06/19/16 at 22:00 Norepinephrine/ Dextrose (Levophed/D5W) 500 ml @ 1.87 mls/hr TITRATE IV Last administered on 06/20/16 16:49; Admin Dose 13.12 MLS/HR; Start 06/19/16 at 23:00 IV Flush 10 ml 10 ml PRN PRN IV IV PROTOCOL; Start 06/20/16 at 15:00 Piperacillin Sod/ Tazobactam Sod 100 ml @ 200 mls/hr Q8 IVPB Last administered on 06/21/16 05:40; Admin Dose 200 MLS/HR; Start 06/20/16 at 22:00 Potassium Chloride 250 ml @ 62.5 mls/hr ONCE ONCE IVPB Last administered on 11:20; Admin Dose 62.5 MLS/HR; Start 06/21/16 at 10:00; Stop 06/21/16 at 13:59 Levofloxacin/ Dextrose 50 ml @ 100 mls/hr Q24H IVPB ; Start 06/21/16 at 12:30 Potassium Chloride/Dextrose (D5W + KCl 20 Meq) 1,000 ml @ 75 mls/hr [id number] IV Last administered on 06/21/16 11:21; Admin Dose 75 MLS/HR; Start 06/21/16 at 10 :30 Jef Sinha DO Jun 21, 2016 11:41
--- NOTE | 2016-06-21 11:57 | RADRPT ---
PROCEDURE: Retroperitoneal US. CLINICAL INDICATION: Renal insufficiency TECHNIQUE: Multiple sonographic images of the kidneys and retroperitoneum were obtained. The imag es were reviewed on a PACS workstation. COMPARISON: No prior studies are available for comparison. FINDINGS: The kidneys are normal in size, contour, cortical thickness and cortical echogenicity. The right kidney measures 12.5 cm. The left kidney measures 13.2 cm. No kidney stones are visualized. There is no evidence for hydronephrosis. The urinary bladder is decompressed by a Ramsey catheter. RPTAT: AA IMPRESSION: Unremarkable retroperitoneal ultrasound. .Juan Jose Espinosa MD, Date Time Electronically viewed and signed by .Juan Jose Espinosa MD, on 06/21/2016 11:57 .S/
[2016-06-21] MEDS: FLUCONAZOLE 100 MG TAB NGT SCH (12:38)
--- NOTE | 2016-06-21 12:43 | PN ---
DATE: 06/21/2016 SUBJECTIVE: No acute changes. The patient is intubated, lying comfortably in bed. He is off press ors, afebrile with a temperature max of 100.7, temperature current 99.3, pulse 71, respirations 17, blood pressure 95/49, saturation 96% on vent. LABORATORY DATA: WBC 23.9, H and H 11 and 35.3, platelets 310, neutrophils 89.8, no bands. BUN 34, creatinine 2.30. AST 617, ALT 784. MICROBIOLOGY: Blood cultures, urine cultures since admission have been negative. Endotracheal aspi rate growing Yamilex albicans. DIAGNOSTICS: CT of the chest yesterday revealed bilateral pleural effusions, dense pneumoniae in th e right upper lobe, COPD with centrilobular emphysema. A 17 mm high-attenuation lesion in the left kidney. INDWELLINGS: Endotracheal tube, NG tube, left upper extremity PICC line placed on 06/20/2016, Ramsey catheter. ANTIMICROBIALS: 1. Vancomycin. 2. Levaquin. 3. Zosyn. PHYSICAL EXAMINATION: GENERAL: This is an obese, well-developed elderly man who is in no distress. HEENT: Head atraumatic, normocephalic. Sclerae anicteric. Buccal mucosa dry. NECK: Supple, trachea midline. CHEST: Rise symmetrical. Breath sounds diminished to bases. HEART: S1, S2. ABDOMEN: Soft. Bowel sounds hypoactive. EXTREMITIES: Without cyanosis. ASSESSMENT: 1. Severe sepsis with shock, off pressors. 2. Healthcare-associated pneumonia, possibly aspiration. 3. Acute respiratory failure. 4. Acute renal failure. 5. Congestive heart failure with cardiomyopathy. 6. Paroxysmal atrial flutter. PLAN: The patient remains stable off pressors. White blood cell count tracing down. We will abad nue him on current antimicrobials. Add fluconazole to the regimen. Follow recommendations of consu ltants. Dictated By: BALWINDER SANTOS CHURN DRILLER for PATRIA SUN/GARRETT Conf#: [id number] DID#: [id number]
[2016-06-21] MEDS: LEVOFLOXACIN 250MG/D5W (PMX) 50 ML IVPB SCH (13:22)
[2016-06-21 14:12] LABS: PROTEIN URINE 54.3 mg/dl (0.0-9.9); PROTEIN/CREAT RATIO 0.65 RATIO
[2016-06-22] VITALS (63 sets, daily range): BP systolic 79–136; BP diastolic 37–81; PULSE 59–80; RESP 14–23
--- NOTE | 2016-06-22 00:01 | CONS ---
DATE OF ADMISSION: 06/18/2016 DATE OF CONSULTATION: 06/21/2016 TYPE OF CONSULTATION: Nephrology. REFERRING PHYSICIAN: Dr. Interiano. REASON FOR CONSULTATION: 1. Acute kidney injury. 2. History of acute kidney injury, hypernatremia, hypokalemia. HISTORY OF PRESENT ILLNESS: This is a 75-year-old male who has a past medical history of CHF, chron ic interstitial lung disease, hypertension, diabetes mellitus, history of hyperlipidemia who present ed with possible sepsis with lactic acidosis. The patient went into septic shock, had acute respira tory failure, intubated for respiratory failure. He also had acute CHF exacerbation and acute on ch ronic interstitial lung disease exacerbation. The patient is noted to have a right upper lung pneum onia, has been treated with IV antibiotics so far. The patient initially came in with a creatinine of 0.7 on admission 06/18/2016 and his creatinine bumped up to 2.3 today and renal has been consulte d for acute kidney injury. REVIEW OF SYSTEMS: Unable to obtain from the patient since the patient is currently intubated and s edated on ventilator. PAST MEDICAL HISTORY: Notable for: 1. Hypertension. 2. CHF. 3. Diabetes mellitus type 2. 4. Hyperlipidemia. 5. Coronary artery disease. PAST SURGICAL HISTORY: Not available. SOCIAL HISTORY: No smoking, alcohol or recreational drug use. FAMILY HISTORY: Noncontributory. PHYSICAL EXAMINATION: VITAL SIGNS: Temperature 98.6, heart rate 74, respiration 18, blood pressure 99/47, saturation 98% on FIO2 of 40%. GENERAL: The patient is currently sedated, intubated on ventilator. HEENT: ET tube in place. NECK: Supple, no JVD. LUNGS: Bilateral coarse breath sounds. No crackles, no wheezing. HEART: S1, S2, with regular tachycardia, no murmur. ABDOMEN: Soft, nontender, nondistended. Bowel sounds are present. EXTREMITIES: No clubbing, cyanosis. The patient has 1 to 2+ pitting edema. Ramsey catheter in plac e. PSYCHIATRIC AND NEUROLOGICAL: Unable to assess due to the sedated state and intubated state. LABORATORY DATA/DIAGNOSTIC IMAGING: Sodium 150, potassium 3.3, chloride 117, bicarbonate 21, BUN 34, creatinine 2.3, glucose 144, calciu m 7.2, phosphorus 5.2, magnesium 2.5, elevated liver enzymes, serum osmolality 314. WBC 23.9, hemoglobin 11, platelet count is 310 on admission, WBC count was 24, which went up to 45.1 . PT 14.3, PTT 26.4, INR 1.1. Vancomycin level 16.4. Urinalysis shows 1+ protein, otherwise no acute findings. CT chest shows some emphysematous pattern and right upper lobe dense pneumonia. IMPRESSION: This is a 75-year-old male with: 1. Acute kidney injury, likely secondary to acute tubular necrosis from septic shock and also contr ibuting to liver shock due to the acute kidney injury 2 2. Septic shock with lactic acidosis, likely secondary to pneumonia. 3. Right upper lobe pneumonia. 4. Acute respiratory failure, vent dependent secondary to septic shock. 5. Acute on chronic congestive heart failure exacerbation, systolic and diastolic. 6. History of hypertension. 7. History of type 2 diabetes mellitus. 8. History of anemia of chronic disease. 9. History of dyslipidemia. PLAN: 1. Thank you, Dr. Interiano, for this consultation. I will order the patient's urine studies including u rine sodium, urine protein-creatinine ratio, urine eosinophils, serum osmolality, urine osmolality C K, CK total, uric acid, cortisol and TSH level will be ordered. Further workup of hyponatremia. 2. I will start the patient on D5W with 20 mEq KCl to run at 75 mL per hour. 3. IV antibiotics as per the primary care doctors regarding sepsis. 4. I talked with the pharmacy to renally dose all the medications and go over the medications again . 5. I would avoid due to the hypernatremia and metabolic acidosis. 6. Renal ultrasounds to assess the kidney size and to rule out hydronephrosis. 7. The patient currently seen in the ICU in the morning time and we will continue to follow this pa carol along with the primary care service and cardiology service, Dr. Sinha. 8. Free water to 50 mL q. 6 hours has been ordered for hypernatremia. Total time spent in this patient's evaluation, making assessment and plan, updating the patient's fa shannan/patient at bedside and communicating with the nursing staff took more than 90 minutes. Dictated By: SHANNAN MAYEN MD, KP/GARRETT Conf#: [id number] [facility]#: [id number]
[2016-06-22] MEDS: PROPOFOL 100 ML IV SCH ×5 (00:08→18:50)
[2016-06-22] MEDS: INSULIN ASPART [NOVOLOG] 3 ML PEN SC SCH ×6 (00:59→21:00)
[2016-06-22] MEDS: ALBUTEROL HFA 8 GM INHALER INH SCH ×6 (01:03→21:08)
[2016-06-22] MEDS: IPRATROPIUM (HFA) 12.9 GM INHALER INH SCH ×6 (01:03→21:08)
[2016-06-22 05:48] LABS: ADD SCAN DIFF NO
[2016-06-22 05:58] LABS: BASOPHIL # 0.1 10^3/ul (0.0-0.1); BASOPHILS % 0.3 % (0.0-2.0); EOSINOPHILS # 0.3 10^3/ul (0.0-0.5); EOSINOPHILS % 1.6 % (0.0-7.0); HEMATOCRIT 34.8 % (42.0-52.0); LYMPHOCYTES % 4.9 % (15.0-51.0); MEAN CORPUSCULAR HEMOGLOBIN 30.2 pg (29.0-33.0); MEAN CORPUSCULAR HGB CONC 31.6 g/dl (32.0-37.0); MEAN CORPUSCULAR VOLUME 95.6 fl (82.0-101.0); MEAN PLATELET VOLUME 10.2 fl (7.4-10.4); MONOCYTE # 0.8 10^3/ul (0.3-0.9); MONOCYTES % 4.3 % (0.0-11.0); NEUTROPHIL # 17.2 10^3/ul (1.6-7.5); NEUTROPHILS % 87.2 % (39.0-77.0); PLATELET COUNT 291 10^3/UL (140-415); RED BLOOD COUNT 3.64 10^6/ul (4.70-6.10); RED CELL DISTRIBUTION WIDTH 14.4 % (11.5-14.5); WHITE BLOOD COUNT 19.8 10^3/ul (4.8-10.8)
[2016-06-22] MEDS: PIPER-TAZO 3.375 GM IV (PMX) 100 ML IVPB SCH ×3 (06:02→21:30)
[2016-06-22 06:55] LABS: POTASSIUM 4.1 mmol/L (3.5-5.1)
[2016-06-22 06:57] LABS: CREATININE 2.23 mg/dl (0.61-1.24)
[2016-06-22 06:58] LABS: CALCIUM 7.4 mg/dl (8.4-10.2); TOTAL PROTEIN 4.7 g/dl (6.1-8.1)
[2016-06-22 07:21] LABS: URIC ACID 4.8 mg/dl (3.1-7.9)
[2016-06-22 08:49] LABS: AADO2 Arterial 159.6 mmHg (7.0-24.0); Allen Test ACCEPTAB; Arterial Base Excess -6.6 mmol/L (-3.0-3); Arterial COHb 0.3 % (0.0-3.0); Arterial Fraction of Oxyhgb 95.3 % (93.0-99.0); Arterial HCO3 18.1 mmol/L (22.0-26.0); Arterial MetHb 0.4 % (0.0-1.5); Arterial Total Hemglobin 12.5 g/dl (12.0-18.0); MODE VENT - AC
[2016-06-22] MEDS: FLUCONAZOLE 100 MG TAB NGT SCH (09:24)
[2016-06-22] MEDS: ASPIRIN 81 MG TAB NGT SCH (09:24)
[2016-06-22] MEDS: HEPARIN 5,000 UNIT/0.5 ML SYG SC SCH ×2 (09:26→20:59)
--- NOTE | 2016-06-22 09:41 | PN ---
Date/Time of Note Date/Time of Note DATE: 06/22/16 TIME: 09:23 Assessment/Plan VTE Prophylaxis VTE Prophylaxis Intervention: heparin Lines/Catheters IV Catheter Type (from Nrs): PICC Line Central line still needed: Yes Urinary Cath still in place: Yes Reason Cath still needed: other (indicate) Assessment/Plan Assessment/Plan A 75-year-old male coming in with shortness of breath with signs of upper respiratory infection and possible congestive heart failure exacerbation. 1. SIRS vs Sepsis with lactic acidosis 2/2 #2 with septic shock 2. Acute resp failure now vent dependent 3. CHF exacerbation 4. Acute on chronic interstitial lung disease 5. RUL pneumonia 6. Hypertension.> hypotension 7. DM 2 A1c 6.8 8. NC / NC anemia 9. Shock liver: improving 10. High cholesterol. PLAN: Continue ICU supportive care / CPAP trials today Continue to wean pressor support as tolerated Continue aggressive abx mgt Continue serial labs Continue aggressive resp mgt and supportive care F/u interior design consultant recs Gastrointestinal prophylaxis: PPI. Deep venous thrombosis prophylaxis, heparin subcutaneously. CRITICAL CARE TIME: >35 mins Subjective 24 Hr Interval Summary Free Text/Dictation Patient seen and examined. remains intubated. opens eyes off sedation, but does not really follow commands Subjective hx not possible: pt critical status Exam/Review of Systems Vital Signs Vitals Vital Signs Date Time Temp Pulse Resp B/P Pulse Ox O2 Delivery O2 Flow Rate FiO2 06/22/16 09:03 68 17 100 40 06/22/16 06:00 97/44 Mechanical Ventilator 06/22/16 04:00 98.7 06/18/16 23:30 10.0 Intake and Output 06/21/16 06/21/16 06/22/16 15:00 23:00 07:00 Intake Total 1066.67 ml 1237 ml 1070.8 ml Output Total 840 ml 745 ml 395 ml Balance 226.67 ml 492 ml 675.8 ml Exam Constitutional: No alert Head: normocephalic Eyes: PERRL ENMT: intubated Respiratory: crackles/rales, diminished breath sounds Cardiovascular: nl pulses, other (prolonged QT noted ), regular rate and rhythm Gastrointestinal: bowel sounds, non-tender, soft Extremities: edema Neurological: other (sedated, requiring restraints) Results Result Diagram: 06/22/16 0500 06/22/16 0500 Results 24 hrs Laboratory Tests Test 06/21/16 12:45 06/21/16 13:21 06/21/16 17:13 06/21/16 21:11 Urine Eosinophils % 0.0 Urine Osmolality 408 Urine Protein/Creatinine Ratio 0.65 Urine Random Creatinine 82.46 Urine Random Sodium 51 Urine Total Protein 54.3 H Bedside Glucose 130 156 166 Test 06/22/16 00:58 06/22/16 04:47 06/22/16 05:00 06/22/16 07:44 Bedside Glucose 137 181 Alanine Aminotransferase (ALT/SGPT) 520 H Albumin 2.0 L Alkaline Phosphatase 68 Anion Gap 12 Aspartate Amino Transf (AST/SGOT) 137 #H Basophils # 0.1 Basophils % 0.3 Blood Urea Nitrogen 35 H Calcium Level 7.4 L Carbon Dioxide Level 21 Chloride Level 118 H Creatine Kinase 75 Creatinine 2.23 H Direct Bilirubin 0.00 Eosinophils # 0.3 Eosinophils % 1.6 Glucose Level 161 Hematocrit 34.8 L Hemoglobin 11.0 L Indirect Bilirubin 0.0 Lymphocytes # 1.0 Lymphocytes % 4.9 L Mean Corpuscular Hemoglobin 30.2 Mean Corpuscular Hemoglobin Concent 31.6 L Mean Corpuscular Volume 95.6 Mean Platelet Volume 10.2 Monocytes # 0.8 Monocytes % 4.3 Neutrophils # 17.2 H Neutrophils % 87.2 H Nucleated Red Blood Cells # 0.0 Nucleated Red Blood Cells % 0.0 Platelet Count 291 Potassium Level 4.1 Random Vancomycin Level 13.6 Red Blood Count 3.64 L Red Cell Distribution Width 14.4 Sodium Level 147 H Total Bilirubin 0.0 L Total Protein 4.7 L Uric Acid 4.8 White Blood Count 19.8 H Arterial Blood HCO3 18.1 L Arterial Blood Base Excess -6.6 L Arterial Blood Oxygen Saturation 96.0 Burak Test ACCEPTAB Arterial Blood Gas Puncture Site Right Radial Arterial Blood Carboxyhemoglobin 0.3 Arterial Blood Date Drawn 06/22/2016 8:41:05 AM Arterial Blood Methemoglobin 0.4 Arterial Blood pCO2 (Temp correct) 33.9 L Arterial Blood pH (Temp corrected) 7.346 L Arterial Blood pO2 (Temp corrected) 86.6 Blood Gas A-a O2 Differential 159.6 H Blood Gas Actual Respiration Rate 19 Blood Gas Low PEEP Setting 5.0 Blood Gas Modality VENT - AC Blood Gas Notified Time 06/22/2016 8:48:58 AM Blood Gas Notified Whom JLD Blood Gas Respiration Rate 16.0 Blood Gas Specimen Source Blood arterial Blood Gas Temperature 37.0 Blood Gas Tidal Volume 550.0 FiO2 40.0 Oxyhemoglobin Percent 95.3 Total Hemoglobin 12.5 Test 06/22/16 08:33 Bedside Glucose 169 Medications Medications Current Medications Ondansetron HCl (Zofran Inj) 4 mg Q6H PRN IV NAUSEA AND/OR VOMITING; Start 06/18 at 23:30 Acetaminophen (Tylenol Tab) 650 mg Q6H PRN PO PAIN LEVEL 1-3 OR FEVER; Start at 23:30 Acetaminophen/ Hydrocodone Bitart ([place] (5/325)) 1 tab Q6H PRN PO MODERATE PAIN LEVEL 4-6; Start 06/18/16 at 23:30 Morphine Sulfate (morphine) 2 mg Q4H PRN IV SEVERE PAIN LEVEL 7-10; Start at 23:30 Docusate Sodium (Colace) 100 mg Q12H PRN PO CONSTIPATION; Start 06/18/16 at 23: 30 Magnesium Hydroxide (Milk Of Mag) 30 ml DAILY PRN PO CONSTIPATION; Start at 23:30 Sodium Biphosphate/ Sodium Phosphate (Fleet Enema) 133 ml DAILY PRN [place] CONSTIPATION; Start 06/18/16 at 23:30 Heparin Sodium (Porcine) (Heparin (5000 Units/0.5 ml)) 5,000 unit Q12 SC Last administered on 06/21/16 21:05; Admin Dose 5,000 UNIT; Start 06/19/16 at 09:00 Lorazepam (Ativan) 0.5 mg Q6H PRN IV ANXIETY; Start 06/18/16 at 23:30 Vancomycin HCl (Vanco Iv Per Pharmacy) VANCOMYCIN PER PHARMACY NOTE XX ; Start 06/18/16 at 23:30 Hydralazine HCl (Apresoline) 10 mg Q6H PRN IV ELEVATED BLOOD PRESSURE; Start at 23:30 Nitroglycerin (Nitroglycerin (Sl Tab) 0.4 Mg) 1 tab Q5M PRN SL ANGINA; Start at 23:30 Aspirin (Aspirin) 81 mg DAILY NGT Last administered on 06/21/16 08:26; Admin Dose 81 MG; Start 06/19/16 at 20:00 Insulin Aspart (Novolog Insulin Pen) NOVOLOG *MILD* ALGORI... Q4 SC Last administered on 06/22/16 08:40; Admin Dose 1 UNIT; Start 06/19/16 at 21:00 Miscellaneous Information 1 ea NOTE XX ; Start 06/19/16 at 20:30 Glucose (Glutose) 15 gm Q15M PRN PO DECREASED GLUCOSE; Start 06/19/16 at 20:30 Glucose (Glutose) 22.5 gm Q15M PRN PO DECREASED GLUCOSE; Start 06/19/16 at 20:30 Dextrose (D50w Syringe) 25 ml Q15M PRN IV DECREASED GLUCOSE; Start 06/19/16 at 20:30 Dextrose (D50w Syringe) 50 ml Q15M PRN IV DECREASED GLUCOSE; Start 06/19/16 at 20:30 Glucagon (Glucagen) 1 mg Q15M PRN IM DECREASED GLUCOSE; Start 06/19/16 at 20:30 Glucose 15 gm 15 gm Q15M PRN BUCCAL DECREASED GLUCOSE; Start 06/19/16 at 20:30 Propofol 100 ml @ 2.727 mls/ hr Q12H IV Last administered on 06/22/16 04:25; Admin Dose 21.816 MLS/HR; Start 06/19/16 at 22:00 Norepinephrine/ Dextrose (Levophed/D5W) 500 ml @ 1.87 mls/hr TITRATE IV Last administered on 06/20/16 16:49; Admin Dose 13.12 MLS/HR; Start 06/19/16 at 23:00 IV Flush 10 ml 10 ml PRN PRN IV IV PROTOCOL; Start 06/20/16 at 15:00 Piperacillin Sod/ Tazobactam Sod 100 ml @ 200 mls/hr Q8 IVPB Last administered on 06/22/16 06:02; Admin Dose 200 MLS/HR; Start 06/20/16 at 22:00 Levofloxacin/ Dextrose 50 ml @ 100 mls/hr Q24H IVPB Last administered on 13:22; Admin Dose 100 MLS/HR; Start 06/21/16 at 12:30 Potassium Chloride/Dextrose (D5W + KCl 20 Meq) 1,000 ml @ 75 mls/hr [id number] IV Last administered on 06/21/16 20:34; Admin Dose 75 MLS/HR; Start 06/21/16 at 10 :30 Fluconazole (Diflucan) 100 mg DAILY NGT Last administered on 06/21/16 12:38; Admin Dose 100 MG; Start 06/21/16 at 12:00 LEWIS MINAYA Jun 22, 2016 09:34
--- NOTE | 2016-06-22 10:20 | CONS ---
Date/Time of Note Date/Time of Note DATE: 06/22/16 TIME: 10:17 Assessment/Plan Assessment/Plan Additional Assessment/Plan Ventilator settings; AC of 14, tidal volume 500, PEEP of 5, 40% FiO2. Assessment recommendations; 1. Patient admitted with pneumonia and sepsis. Also bilateral pulmonary edema. 2. Respiratory failure. 3. Worsening renal function. 4. History of cardiac arrhythmia. 5. History of CHF. 6. BPH. Continue current treatment. In a follow-up chest x-ray. Continue current broad -spectrum antibiotic coverage. Monitor renal function. I did have a detailed discussion with the patient's son over the phone. And apprised him of his father's condition. Prognosis is guarded. I also had a very detailed discussion with the patient's [id number] in the room. Consultation Date/Type/Reason Admit Date/Time Jun 18, 2016 at 21:36 Initial Consult Date 06/19/16 Type of Consultation: Pulmonary/critical care 24 HR Interval Summary Free Text/Dictation Patient condition remains critical. Still requiring full ventilator support. Patient however has remained hemodynamically stable. Off pressor support. During exam; elderly male, orally intubated, somewhat responsive. Currently in no distress. Exam/Review of Systems Vital Signs Vitals Vital Signs Date Time Temp Pulse Resp B/P Pulse Ox O2 Delivery O2 Flow Rate FiO2 06/22/16 09:30 69 20 103/53 Mechanical Ventilator 06/22/16 09:03 100 40 06/22/16 08:00 98.5 06/18/16 23:30 10.0 Intake and Output 06/21/16 06/21/16 06/22/16 15:00 23:00 07:00 Intake Total 1066.67 ml 1237 ml 1070.8 ml Output Total 840 ml 745 ml 395 ml Balance 226.67 ml 492 ml 675.8 ml Exam HEENT exam is; supple neck, positive JVD. Orally intubated. No neck masses. No thyromegaly. Fair dentition. Bilateral intraocular lens implants are present. Pupils are small bilaterally. Chest examination; diminished breath sounds bilaterally. S1-S2 audible, no murmurs. Regular rhythm. Abdomen examination; soft, protuberant. Both audible. Nontender. No organomegaly felt. Extremity examination; no peripheral edema. Pulses 1+ bilaterally. Patient has a multiple ecchymosis involving upper extremities. [employer] SYSTEMS OPERATOR examination patient is awake. Still under mild sedative effect. Results Result Diagram: 06/22/16 0500 06/22/16 0500 Results 24 hrs Laboratory Tests Test 06/21/16 12:45 06/21/16 13:21 06/21/16 17:13 06/21/16 21:11 Urine Eosinophils % 0.0 Urine Osmolality 408 Urine Protein/Creatinine Ratio 0.65 Urine Random Creatinine 82.46 Urine Random Sodium 51 Urine Total Protein 54.3 H Bedside Glucose 130 156 166 Test 06/22/16 00:58 06/22/16 04:47 06/22/16 05:00 06/22/16 07:44 Bedside Glucose 137 181 Alanine Aminotransferase (ALT/SGPT) 520 H Albumin 2.0 L Alkaline Phosphatase 68 Anion Gap 12 Aspartate Amino Transf (AST/SGOT) 137 #H Basophils # 0.1 Basophils % 0.3 Blood Urea Nitrogen 35 H Calcium Level 7.4 L Carbon Dioxide Level 21 Chloride Level 118 H Creatine Kinase 75 Creatinine 2.23 H Direct Bilirubin 0.00 Eosinophils # 0.3 Eosinophils % 1.6 Glucose Level 161 Hematocrit 34.8 L Hemoglobin 11.0 L Indirect Bilirubin 0.0 Lymphocytes # 1.0 Lymphocytes % 4.9 L Mean Corpuscular Hemoglobin 30.2 Mean Corpuscular Hemoglobin Concent 31.6 L Mean Corpuscular Volume 95.6 Mean Platelet Volume 10.2 Monocytes # 0.8 Monocytes % 4.3 Neutrophils # 17.2 H Neutrophils % 87.2 H Nucleated Red Blood Cells # 0.0 Nucleated Red Blood Cells % 0.0 Platelet Count 291 Potassium Level 4.1 Random Vancomycin Level 13.6 Red Blood Count 3.64 L Red Cell Distribution Width 14.4 Sodium Level 147 H Total Bilirubin 0.0 L Total Protein 4.7 L Uric Acid 4.8 White Blood Count 19.8 H Arterial Blood HCO3 18.1 L Arterial Blood Base Excess -6.6 L Arterial Blood Oxygen Saturation 96.0 Burak Test ACCEPTAB Arterial Blood Gas Puncture Site Right Radial Arterial Blood Carboxyhemoglobin 0.3 Arterial Blood Date Drawn 06/22/2016 8:41:05 AM Arterial Blood Methemoglobin 0.4 Arterial Blood pCO2 (Temp correct) 33.9 L Arterial Blood pH (Temp corrected) 7.346 L Arterial Blood pO2 (Temp corrected) 86.6 Blood Gas A-a O2 Differential 159.6 H Blood Gas Actual Respiration Rate 19 Blood Gas Low PEEP Setting 5.0 Blood Gas Modality VENT - AC Blood Gas Notified Time 06/22/2016 8:48:58 AM Blood Gas Notified Whom JLD Blood Gas Respiration Rate 16.0 Blood Gas Specimen Source Blood arterial Blood Gas Temperature 37.0 Blood Gas Tidal Volume 550.0 FiO2 40.0 Oxyhemoglobin Percent 95.3 Total Hemoglobin 12.5 Test 06/22/16 08:33 06/22/16 09:31 Bedside Glucose 169 Lab Scanned Report REFERENCE LAB Medications Medications Current Medications Ondansetron HCl (Zofran Inj) 4 mg Q6H PRN IV NAUSEA AND/OR VOMITING; Start 06/18 at 23:30 Acetaminophen (Tylenol Tab) 650 mg Q6H PRN PO PAIN LEVEL 1-3 OR FEVER; Start at 23:30 Acetaminophen/ Hydrocodone Bitart ([place] (5/325)) 1 tab Q6H PRN PO MODERATE PAIN LEVEL 4-6; Start 06/18/16 at 23:30 Morphine Sulfate (morphine) 2 mg Q4H PRN IV SEVERE PAIN LEVEL 7-10; Start at 23:30 Docusate Sodium (Colace) 100 mg Q12H PRN PO CONSTIPATION; Start 06/18/16 at 23: 30 Magnesium Hydroxide (Milk Of Mag) 30 ml DAILY PRN PO CONSTIPATION; Start at 23:30 Sodium Biphosphate/ Sodium Phosphate (Fleet Enema) 133 ml DAILY PRN [place] CONSTIPATION; Start 06/18/16 at 23:30 Heparin Sodium (Porcine) (Heparin (5000 Units/0.5 ml)) 5,000 unit Q12 SC Last administered on 06/22/16t 09:26; Admin Dose 5,000 UNIT; Start 06/19/16 at 09:00 Lorazepam (Ativan) 0.5 mg Q6H PRN IV ANXIETY; Start 06/18/16 at 23:30 Vancomycin HCl (Vanco Iv Per Pharmacy) VANCOMYCIN PER PHARMACY NOTE XX ; Start 06/18/16 at 23:30 Hydralazine HCl (Apresoline) 10 mg Q6H PRN IV ELEVATED BLOOD PRESSURE; Start at 23:30 Nitroglycerin (Nitroglycerin (Sl Tab) 0.4 Mg) 1 tab Q5M PRN SL ANGINA; Start at 23:30 Aspirin (Aspirin) 81 mg DAILY NGT Last administered on 06/22/16 09:24; Admin Dose 81 MG; Start 06/19/16 at 20:00 Insulin Aspart (Novolog Insulin Pen) NOVOLOG *MILD* ALGORI... Q4 SC Last administered on 06/22/16 08:40; Admin Dose 1 UNIT; Start 06/19/16 at 21:00 Miscellaneous Information 1 ea NOTE XX ; Start 06/19/16 at 20:30 Glucose (Glutose) 15 gm Q15M PRN PO DECREASED GLUCOSE; Start 06/19/16 at 20:30 Glucose (Glutose) 22.5 gm Q15M PRN PO DECREASED GLUCOSE; Start 06/19/16 at 20:30 Dextrose (D50w Syringe) 25 ml Q15M PRN IV DECREASED GLUCOSE; Start 06/19/16 at 20:30 Dextrose (D50w Syringe) 50 ml Q15M PRN IV DECREASED GLUCOSE; Start 06/19/16 at 20:30 Glucagon (Glucagen) 1 mg Q15M PRN IM DECREASED GLUCOSE; Start 06/19/16 at 20:30 Glucose 15 gm 15 gm Q15M PRN BUCCAL DECREASED GLUCOSE; Start 06/19/16 at 20:30 Propofol 100 ml @ 2.727 mls/ hr Q12H IV Last administered on 06/22/16 09:33; Admin Dose 21.816 MLS/HR; Start 06/19/16 at 22:00 Norepinephrine/ Dextrose (Levophed/D5W) 500 ml @ 1.87 mls/hr TITRATE IV Last administered on 06/20/16 16:49; Admin Dose 13.12 MLS/HR; Start 06/19/16 at 23:00 IV Flush 10 ml 10 ml PRN PRN IV IV PROTOCOL; Start 06/20/16 at 15:00 Piperacillin Sod/ Tazobactam Sod 100 ml @ 200 mls/hr Q8 IVPB Last administered on 06/22/16 06:02; Admin Dose 200 MLS/HR; Start 06/20/16 at 22:00 Levofloxacin/ Dextrose 50 ml @ 100 mls/hr Q24H IVPB Last administered on 13:22; Admin Dose 100 MLS/HR; Start 06/21/16 at 12:30 Potassium Chloride/Dextrose (D5W + KCl 20 Meq) 1,000 ml @ 75 mls/hr [id number] IV Last administered on 06/21/16 20:34; Admin Dose 75 MLS/HR; Start 06/21/16 at 10 :30 Fluconazole (Diflucan) 100 mg DAILY NGT Last administered on 06/22/16 09:24; Admin Dose 100 MG; Start 06/21/16 at 12:00 SANDOR FANG Jun 22, 2016 10:20
[2016-06-22] MEDS: D5W + KCL 20 MEQ 1,000 ML IV SCH (12:15)
--- NOTE | 2016-06-22 13:12 | PN ---
DATE: 06/22/2016 SUBJECTIVE: No acute events. The patient is off pressors, intubated, looks comfortable, no fevers. VITAL SIGNS: T-max 99.8, current 98.5, pulse 69, respirations 20, blood pressure 113/48, saturation 96% on 40 FiO2. WBC 19.8, H and H 11 and 34.8, platelets 291, neutrophils 87.2, BUN 35, creatinine 2.23. INDWELLINGS: Endotracheal tube, NG tube, Ramsey catheter, PICC line placed on 06/20/2016. ANTIMICROBIALS: 1. IV vancomycin. 2. Levaquin. 3. Fluconazole. 4. Zosyn. PHYSICAL EXAMINATION: GENERAL: This is a chronically ill-appearing, elderly man who is in no distress. HEENT: Head atraumatic, normocephalic. Sclerae anicteric. Buccal mucosa dry. NECK: Supple, trachea midline. CHEST: Rise symmetrical. Breath sounds diminished to bases. HEART: S1, S2. ABDOMEN: Soft. Bowel tones present. Patient has a rectal tube and he has watery stools. EXTREMITIES: Without cyanosis. ASSESSMENT: 1. Severe sepsis with shock, off pressors. 2. Acute pneumonia, possibly aspiration type. 3. Acute respiratory failure. 4. Acute renal failure. 5. Pulmonary edema. 6. Diarrhea. 7. Benign prostatic hypertrophy. PLAN: We are going to start patient on Flagyl given profuse diarrhea. Continue other antibiotics. Continue vent management as per pulmonary. Await for clinical improvement. Dictated By: BALWINDER [facility] [employer] PROGRAM MANAGER for PATRIA SUN/GARRETT Conf#: [id number] DID#: [id number]
--- NOTE | 2016-06-22 13:24 | CONS ---
Date/Time of Note Date/Time of Note DATE: 06/22/16 TIME: 13:21 Assessment/Plan Assessment/Plan Additional Assessment/Plan Respiratory failure Pneumonia Septic shock Acute decompensated systolic and diastolic congestive heart failure Cardiomyopathy with ejection fraction 50% CAD Paroxysmal atrial flutter -Patient remains off IV pressor, fluid management as per our nephrology colleagues. Continue aspirin therapy. No beta-trina given recent hypotension. Antibiotics as per our nephrology colleagues. No statin secondary to abnormal LFTs. Consultation Date/Type/Reason Admit Date/Time Jun 18, 2016 at 21:36 Initial Consult Date 06/19/16 Type of Consultation: cv 24 HR Interval Summary Free Text/Dictation Patient off IV pressors, blood pressure overall remained stable Exam/Review of Systems Vital Signs Vitals Vital Signs Date Time Temp Pulse Resp B/P Pulse Ox O2 Delivery O2 Flow Rate FiO2 06/22/16 12:00 71 06/22/16 10:59 20 96 40 06/22/16 10:30 113/48 Mechanical Ventilator 06/22/16 08:00 98.5 06/18/16 23:30 10.0 Intake and Output 06/21/16 06/21/16 06/22/16 15:00 23:00 07:00 Intake Total 1066.67 ml 1237 ml 1197.6 ml Output Total 840 ml 745 ml 405 ml Balance 226.67 ml 492 ml 792.6 ml Exam Sedated and intubated, no apparent distress Constitutional: obese Head: normocephalic ENMT: intubated Respiratory: other (Coarse breath sounds bilaterally with scattered rhonchi, no wheezing) Cardiovascular: other (S1-S2 heard), regular rate and rhythm Gastrointestinal: bowel sounds, non-tender, other (No guarding with palpation) , soft Extremities: edema, other (No cyanosis) Neurological: other (Patient sedated) Results Result Diagram: 06/22/16 0500 06/22/16 0500 Results 24 hrs Laboratory Tests Test 06/21/16 17:13 06/21/16 21:11 06/22/16 00:58 06/22/16 04:47 Bedside Glucose 156 166 137 181 Test 06/22/16 05:00 06/22/16 07:44 06/22/16 08:33 06/22/16 09:31 Alanine Aminotransferase (ALT/SGPT) 520 H Albumin 2.0 L Alkaline Phosphatase 68 Anion Gap 12 Aspartate Amino Transf (AST/SGOT) 137 #H Basophils # 0.1 Basophils % 0.3 Blood Urea Nitrogen 35 H Calcium Level 7.4 L Carbon Dioxide Level 21 Chloride Level 118 H Creatine Kinase 75 Creatinine 2.23 H Direct Bilirubin 0.00 Eosinophils # 0.3 Eosinophils % 1.6 Glucose Level 161 Hematocrit 34.8 L Hemoglobin 11.0 L Indirect Bilirubin 0.0 Lymphocytes # 1.0 Lymphocytes % 4.9 L Mean Corpuscular Hemoglobin 30.2 Mean Corpuscular Hemoglobin Concent 31.6 L Mean Corpuscular Volume 95.6 Mean Platelet Volume 10.2 Monocytes # 0.8 Monocytes % 4.3 Neutrophils # 17.2 H Neutrophils % 87.2 H Nucleated Red Blood Cells # 0.0 Nucleated Red Blood Cells % 0.0 Platelet Count 291 Potassium Level 4.1 Random Vancomycin Level 13.6 Red Blood Count 3.64 L Red Cell Distribution Width 14.4 Sodium Level 147 H Total Bilirubin 0.0 L Total Protein 4.7 L Uric Acid 4.8 White Blood Count 19.8 H Arterial Blood HCO3 18.1 L Arterial Blood Base Excess -6.6 L Arterial Blood Oxygen Saturation 96.0 Burak Test ACCEPTAB Arterial Blood Gas Puncture Site Right Radial Arterial Blood Carboxyhemoglobin 0.3 Arterial Blood Date Drawn 06/22/2016 8:41:05 AM Arterial Blood Methemoglobin 0.4 Arterial Blood pCO2 (Temp correct) 33.9 L Arterial Blood pH (Temp corrected) 7.346 L Arterial Blood pO2 (Temp corrected) 86.6 Blood Gas A-a O2 Differential 159.6 H Blood Gas Actual Respiration Rate 19 Blood Gas Low PEEP Setting 5.0 Blood Gas Modality VENT - AC Blood Gas Notified Time 06/22/2016 8:48:58 AM Blood Gas Notified Whom JLD Blood Gas Respiration Rate 16.0 Blood Gas Specimen Source Blood arterial Blood Gas Temperature 37.0 Blood Gas Tidal Volume 550.0 FiO2 40.0 Oxyhemoglobin Percent 95.3 Total Hemoglobin 12.5 Bedside Glucose 169 Lab Scanned Report REFERENCE LAB Test 06/22/16 13:12 Bedside Glucose 157 Medications Medications Current Medications Ondansetron HCl (Zofran Inj) 4 mg Q6H PRN IV NAUSEA AND/OR VOMITING; Start 06/18 at 23:30 Acetaminophen (Tylenol Tab) 650 mg Q6H PRN PO PAIN LEVEL 1-3 OR FEVER; Start at 23:30 Acetaminophen/ Hydrocodone Bitart ([place] (5/325)) 1 tab Q6H PRN PO MODERATE PAIN LEVEL 4-6; Start 06/18/16 at 23:30 Morphine Sulfate (morphine) 2 mg Q4H PRN IV SEVERE PAIN LEVEL 7-10; Start at 23:30 Docusate Sodium (Colace) 100 mg Q12H PRN PO CONSTIPATION; Start 06/18/16 at 23: 30 Magnesium Hydroxide (Milk Of Mag) 30 ml DAILY PRN PO CONSTIPATION; Start at 23:30 Sodium Biphosphate/ Sodium Phosphate (Fleet Enema) 133 ml DAILY PRN [place] CONSTIPATION; Start 06/18/16 at 23:30 Heparin Sodium (Porcine) (Heparin (5000 Units/0.5 ml)) 5,000 unit Q12 SC Last administered on 06/22/16 09:26; Admin Dose 5,000 UNIT; Start 06/19/16 at 09:00 Lorazepam (Ativan) 0.5 mg Q6H PRN IV ANXIETY; Start 06/18/16 at 23:30 Vancomycin HCl (Vanco Iv Per Pharmacy) VANCOMYCIN PER PHARMACY NOTE XX ; Start 06/18/16 at 23:30 Hydralazine HCl (Apresoline) 10 mg Q6H PRN IV ELEVATED BLOOD PRESSURE; Start at 23:30 Nitroglycerin (Nitroglycerin (Sl Tab) 0.4 Mg) 1 tab Q5M PRN SL ANGINA; Start at 23:30 Aspirin (Aspirin) 81 mg DAILY NGT Last administered on 06/22/16 09:24; Admin Dose 81 MG; Start 06/19/16 at 20:00 Insulin Aspart (Novolog Insulin Pen) NOVOLOG *MILD* ALGORI... Q4 SC Last administered on 06/22/16 13:16; Admin Dose 1 UNIT; Start 06/19/16 at 21:00 Miscellaneous Information 1 ea NOTE XX ; Start 06/19/16 at 20:30 Glucose (Glutose) 15 gm Q15M PRN PO DECREASED GLUCOSE; Start 06/19/16 at 20:30 Glucose (Glutose) 22.5 gm Q15M PRN PO DECREASED GLUCOSE; Start 06/19/16 at 20:30 Dextrose (D50w Syringe) 25 ml Q15M PRN IV DECREASED GLUCOSE; Start 06/19/16 at 20:30 Dextrose (D50w Syringe) 50 ml Q15M PRN IV DECREASED GLUCOSE; Start 06/19/16 at 20:30 Glucagon (Glucagen) 1 mg Q15M PRN IM DECREASED GLUCOSE; Start 06/19/16 at 20:30 Glucose 15 gm 15 gm Q15M PRN BUCCAL DECREASED GLUCOSE; Start 06/19/16 at 20:30 Propofol 100 ml @ 2.727 mls/ hr Q12H IV Last administered on 06/22/16 09:33; Admin Dose 21.816 MLS/HR; Start 06/19/16 at 22:00 Norepinephrine/ Dextrose (Levophed/D5W) 500 ml @ 1.87 mls/hr TITRATE IV Last administered on 06/20/16 16:49; Admin Dose 13.12 MLS/HR; Start 06/19/16 at 23:00 IV Flush 10 ml 10 ml PRN PRN IV IV PROTOCOL; Start 06/20/16 at 15:00 Piperacillin Sod/ Tazobactam Sod 100 ml @ 200 mls/hr Q8 IVPB Last administered on 06/22/16 06:02; Admin Dose 200 MLS/HR; Start 06/20/16 at 22:00 Levofloxacin/ Dextrose 50 ml @ 100 mls/hr Q24H IVPB Last administered on 13:22; Admin Dose 100 MLS/HR; Start 06/21/16 at 12:30 Potassium Chloride/Dextrose (D5W + KCl 20 Meq) 1,000 ml @ 75 mls/hr [id number] IV Last administered on 06/22/16 12:15; Admin Dose 75 MLS/HR; Start 06/21/16 at 10 :30 Fluconazole 100 mg 100 mg DAILY NGT Last administered on 06/22/16 09:24; Admin Dose 100 MG; Start 06/21/16 at 12:00 Vancomycin HCl/ Sodium Chloride (Vancocin/NS) 150 ml @ 75 mls/hr Q36H IVPB ; Start 06/22/16 at 14:00 Jef Sinha DO Jun 22, 2016 13:24
[2016-06-22] MEDS: LEVOFLOXACIN 250MG/D5W (PMX) 50 ML IVPB SCH (13:51)
[2016-06-22] MEDS ORDERED: VANCOMYCIN 750 MG in SOD CHLORIDE 0.9% 150 ML IVPB SCH (14:00)
--- NOTE | 2016-06-22 14:19 | RADRPT ---
PROCEDURE: XR Chest. CLINICAL INDICATION: Shortness of breath. TECHNIQUE: Single frontal view. COMPARISON: 06/21/2016. FINDINGS: The endotracheal tube, nasogastric tube, and left arm PICC line are in satisfactory position. There is bilateral interstitial disease consistent with pulmonary edema, improved. The lungs are otherwi se clear. The heart is enlarged. There is calcification in the aorta consistent with atherosclerosis. There is no pleural effusion. There is no pneumothorax. IMPRESSION: 1. Endotracheal tube, nasogastric tube, left arm PICC line in satisfactory position. 2. Mild pulmonary edema, improved. 3. Cardiomegaly and atherosclerosis. RPTAT: QQ .Brooks Chaney MD, MD Date Time Electronically viewed and signed by .Brooks Chaney MD, MD on 06/22/2016 14:19 .R/
[2016-06-22] MEDS ORDERED: ALBUMIN HUMAN 25% 100 ML IV ONE (14:30)
[2016-06-22] MEDS ORDERED: SOD CHLORIDE 0.9% 500 ML IV ONE (14:30)
[2016-06-22] MEDS ORDERED: FUROSEMIDE 40 MG INJ IV ONE (14:30)
[2016-06-22] MEDS: VANCOMYCIN 750 MG in SOD CHLORIDE 0.9% 150 ML IVPB SCH (15:48)
--- NOTE | 2016-06-22 21:34 | CONS ---
Date/Time of Note Date/Time of Note DATE: 06/22/16 TIME: 21:31 Assessment/Plan Assessment/Plan Additional Assessment/Plan 1. Acute kidney injury, likely secondary to acute tubular necrosis from septic shock and also contributing to liver shock due to the acute kidney injury 2 2. Septic shock with lactic acidosis, likely secondary to pneumonia. 3. Right upper lobe pneumonia. 4. Acute respiratory failure, vent dependent secondary to septic shock. 5. Acute on chronic congestive heart failure exacerbation, systolic and diastolic. 6. History of hypertension. 7. History of type 2 diabetes mellitus. 8. History of anemia of chronic disease. 9. History of dyslipidemia. PLAN: Maign good urine ouput now 625 cc urine output since 7 pm Consultation Date/Type/Reason Admit Date/Time Jun 18, 2016 at 21:36 Initial Consult Date 06/21/16 Type of Consultation: NEPHROLOGY Reason for Consultation acute kidney injury Referring Provider: CHITRA ESTEBAN 24 HR Interval Summary Free Text/Dictation Urine output improving, BP stable Exam/Review of Systems Vital Signs Vitals Vital Signs Date Time Temp Pulse Resp B/P Pulse Ox O2 Delivery O2 Flow Rate FiO2 06/22/16 19:00 68 18 123/54 99 Mechanical Ventilator 06/22/16 17:30 40 06/22/16 16:00 98.9 06/18/16 23:30 10.0 Intake and Output 06/21/16 06/21/16 06/22/16 14:59 22:59 06:59 Intake Total 864.47 ml 1237 ml 1296.8 ml Output Total 830 ml 795 ml 395 ml Balance 34.47 ml 442 ml 901.8 ml Exam GENERAL: The patient is currently sedated, intubated on ventilator. HEENT: ET tube in place. NECK: Supple, no JVD. LUNGS: Bilateral coarse breath sounds. No crackles, no wheezing. HEART: S1, S2, with regular tachycardia, no murmur. ABDOMEN: Soft, nontender, nondistended. Bowel sounds are present. EXTREMITIES: No clubbing, cyanosis. The patient has 1 to 2+ pitting edema. Ramsey catheter in place. PSYCHIATRIC AND NEUROLOGICAL: Unable to assess due to the sedated state and intubated state. Results Result Diagram: 06/22/16 0500 06/22/16 0500 Results 24 hrs Laboratory Tests Test 06/22/16 00:58 06/22/16 04:47 06/22/16 05:00 06/22/16 07:44 Bedside Glucose 137 181 Alanine Aminotransferase (ALT/SGPT) 520 H Albumin 2.0 L Alkaline Phosphatase 68 Anion Gap 12 Aspartate Amino Transf (AST/SGOT) 137 #H Basophils # 0.1 Basophils % 0.3 Blood Urea Nitrogen 35 H Calcium Level 7.4 L Carbon Dioxide Level 21 Chloride Level 118 H Creatine Kinase 75 Creatinine 2.23 H Direct Bilirubin 0.00 Eosinophils # 0.3 Eosinophils % 1.6 Glucose Level 161 Hematocrit 34.8 L Hemoglobin 11.0 L Indirect Bilirubin 0.0 Lymphocytes # 1.0 Lymphocytes % 4.9 L Mean Corpuscular Hemoglobin 30.2 Mean Corpuscular Hemoglobin Concent 31.6 L Mean Corpuscular Volume 95.6 Mean Platelet Volume 10.2 Monocytes # 0.8 Monocytes % 4.3 Neutrophils # 17.2 H Neutrophils % 87.2 H Nucleated Red Blood Cells # 0.0 Nucleated Red Blood Cells % 0.0 Platelet Count 291 Potassium Level 4.1 Random Vancomycin Level 13.6 Red Blood Count 3.64 L Red Cell Distribution Width 14.4 Sodium Level 147 H Total Bilirubin 0.0 L Total Protein 4.7 L Uric Acid 4.8 White Blood Count 19.8 H Arterial Blood HCO3 18.1 L Arterial Blood Base Excess -6.6 L Arterial Blood Oxygen Saturation 96.0 Burak Test ACCEPTAB Arterial Blood Gas Puncture Site Right Radial Arterial Blood Carboxyhemoglobin 0.3 Arterial Blood Date Drawn 06/22/2016 8:41:05 AM Arterial Blood Methemoglobin 0.4 Arterial Blood pCO2 (Temp correct) 33.9 L Arterial Blood pH (Temp corrected) 7.346 L Arterial Blood pO2 (Temp corrected) 86.6 Blood Gas A-a O2 Differential 159.6 H Blood Gas Actual Respiration Rate 19 Blood Gas Low PEEP Setting 5.0 Blood Gas Modality VENT - AC Blood Gas Notified Time 06/22/2016 8:48:58 AM Blood Gas Notified Whom JLD Blood Gas Respiration Rate 16.0 Blood Gas Specimen Source Blood arterial Blood Gas Temperature 37.0 Blood Gas Tidal Volume 550.0 FiO2 40.0 Oxyhemoglobin Percent 95.3 Total Hemoglobin 12.5 Test 06/22/16 08:33 06/22/16 09:31 06/22/16 13:12 06/22/16 16:44 Bedside Glucose 169 157 151 Lab Scanned Report REFERENCE LAB Test 06/22/16 20:54 Bedside Glucose 150 Medications Medications Current Medications Ondansetron HCl (Zofran Inj) 4 mg Q6H PRN IV NAUSEA AND/OR VOMITING; Start 06/18 at 23:30 Acetaminophen (Tylenol Tab) 650 mg Q6H PRN PO PAIN LEVEL 1-3 OR FEVER; Start at 23:30 Acetaminophen/ Hydrocodone Bitart ([place] (5/325)) 1 tab Q6H PRN PO MODERATE PAIN LEVEL 4-6; Start 06/18/16 at 23:30 Morphine Sulfate (morphine) 2 mg Q4H PRN IV SEVERE PAIN LEVEL 7-10; Start at 23:30 Docusate Sodium (Colace) 100 mg Q12H PRN PO CONSTIPATION; Start 06/18/16 at 23: 30 Magnesium Hydroxide (Milk Of Mag) 30 ml DAILY PRN PO CONSTIPATION; Start at 23:30 Sodium Biphosphate/ Sodium Phosphate (Fleet Enema) 133 ml DAILY PRN [place] CONSTIPATION; Start 06/18/16 at 23:30 Heparin Sodium (Porcine) (Heparin (5000 Units/0.5 ml)) 5,000 unit Q12 SC Last administered on 06/22/16 20:59; Admin Dose 5,000 UNIT; Start 06/19/16 at 09:00 Lorazepam (Ativan) 0.5 mg Q6H PRN IV ANXIETY; Start 06/18/16 at 23:30 Vancomycin HCl (Vanco Iv Per Pharmacy) VANCOMYCIN PER PHARMACY NOTE XX ; Start 06/18/16 at 23:30 Hydralazine HCl (Apresoline) 10 mg Q6H PRN IV ELEVATED BLOOD PRESSURE; Start at 23:30 Nitroglycerin (Nitroglycerin (Sl Tab) 0.4 Mg) 1 tab Q5M PRN SL ANGINA; Start at 23:30 Aspirin (Aspirin) 81 mg DAILY NGT Last administered on 06/22/16 09:24; Admin Dose 81 MG; Start 06/19/16 at 20:00 Insulin Aspart (Novolog Insulin Pen) NOVOLOG *MILD* ALGORI... Q4 SC Last administered on 06/22/16 21:00; Admin Dose 1 UNIT; Start 06/19/16 at 21:00 Miscellaneous Information 1 ea NOTE XX ; Start 06/19/16 at 20:30 Glucose (Glutose) 15 gm Q15M PRN PO DECREASED GLUCOSE; Start 06/19/16 at 20:30 Glucose (Glutose) 22.5 gm Q15M PRN PO DECREASED GLUCOSE; Start 06/19/16 at 20:30 Dextrose (D50w Syringe) 25 ml Q15M PRN IV DECREASED GLUCOSE; Start 06/19/16 at 20:30 Dextrose (D50w Syringe) 50 ml Q15M PRN IV DECREASED GLUCOSE; Start 06/19/16 at 20:30 Glucagon (Glucagen) 1 mg Q15M PRN IM DECREASED GLUCOSE; Start 06/19/16 at 20:30 Glucose 15 gm 15 gm Q15M PRN BUCCAL DECREASED GLUCOSE; Start 06/19/16 at 20:30 Propofol 100 ml @ 2.727 mls/ hr Q12H IV Last administered on 06/22/16 18:50; Admin Dose 21.816 MLS/HR; Start 06/19/16 at 22:00 Norepinephrine/ Dextrose (Levophed/D5W) 500 ml @ 1.87 mls/hr TITRATE IV Last administered on 06/20/16 16:49; Admin Dose 13.12 MLS/HR; Start 06/19/16 at 23:00 IV Flush 10 ml 10 ml PRN PRN IV IV PROTOCOL; Start 06/20/16 at 15:00 Piperacillin Sod/ Tazobactam Sod 100 ml @ 200 mls/hr Q8 IVPB Last administered on 06/22/16 21:30; Admin Dose 200 MLS/HR; Start 06/20/16 at 22:00 Levofloxacin/ Dextrose 50 ml @ 100 mls/hr Q24H IVPB Last administered on 13:51; Admin Dose 100 MLS/HR; Start 06/21/16 at 12:30 Potassium Chloride/Dextrose (D5W + KCl 20 Meq) 1,000 ml @ 75 mls/hr [id number] IV Last administered on 06/22/16 12:15; Admin Dose 75 MLS/HR; Start 06/21/16 at 10 :30 Fluconazole 100 mg 100 mg DAILY NGT Last administered on 06/22/16 09:24; Admin Dose 100 MG; Start 06/21/16 at 12:00 Vancomycin HCl/ Sodium Chloride (Vancocin/NS) 150 ml @ 75 mls/hr Q36H IVPB Last administered on 06/22/16 15:48; Admin Dose 75 MLS/HR; Start 06/22/16 at 14: 00 SHANNAN MAYEN MD Jun 22, 2016 21:34
[2016-06-23] VITALS (38 sets, daily range): BP systolic 99–153; BP diastolic 47–70; PULSE 59–76; RESP 14–26
[2016-06-23] MEDS: PROPOFOL 100 ML IV SCH ×5 (00:36→22:45)
[2016-06-23] MEDS: INSULIN ASPART [NOVOLOG] 3 ML PEN SC SCH ×6 (00:45→20:22)
[2016-06-23] MEDS: IPRATROPIUM (HFA) 12.9 GM INHALER INH SCH ×6 (01:13→22:11)
[2016-06-23] MEDS: ALBUTEROL HFA 8 GM INHALER INH SCH ×6 (01:13→22:11)
[2016-06-23] MEDS: D5W + KCL 20 MEQ 1,000 ML IV SCH ×3 (06:13→20:51)
[2016-06-23] MEDS: PIPER-TAZO 3.375 GM IV (PMX) 100 ML IVPB SCH ×3 (06:18→22:27)
[2016-06-23 06:51] LABS: ADD SCAN DIFF NO
[2016-06-23 06:56] LABS: BASOPHILS % 0.2 % (0.0-2.0); EOSINOPHILS # 0.4 10^3/ul (0.0-0.5); EOSINOPHILS % 2.7 % (0.0-7.0); HEMATOCRIT 34.1 % (42.0-52.0); HEMOGLOBIN 10.5 g/dl (14.0-18.0); LYMPHOCYTES # 0.8 10^3/ul (0.8-2.9); LYMPHOCYTES % 5.4 % (15.0-51.0); MEAN CORPUSCULAR HEMOGLOBIN 29.7 pg (29.0-33.0); MEAN CORPUSCULAR HGB CONC 30.8 g/dl (32.0-37.0); MEAN CORPUSCULAR VOLUME 96.3 fl (82.0-101.0); MEAN PLATELET VOLUME 10.3 fl (7.4-10.4); MONOCYTE # 0.7 10^3/ul (0.3-0.9); MONOCYTES % 5.3 % (0.0-11.0); NEUTROPHIL # 11.9 10^3/ul (1.6-7.5); PLATELET COUNT 260 10^3/UL (140-415); RED BLOOD COUNT 3.54 10^6/ul (4.70-6.10); RED CELL DISTRIBUTION WIDTH 14.4 % (11.5-14.5)
[2016-06-23 07:19] LABS: POTASSIUM 4.2 mmol/L (3.5-5.1)
[2016-06-23 07:22] LABS: CREATININE 2.16 mg/dl (0.61-1.24)
[2016-06-23 07:23] LABS: CALCIUM 7.4 mg/dl (8.4-10.2)
[2016-06-23 07:52] LABS: ALBUMIN 2.2 g/dl (3.3-4.9)
[2016-06-23 07:55] LABS: TOTAL PROTEIN 4.9 g/dl (6.1-8.1)
[2016-06-23] MEDS: FLUCONAZOLE 100 MG TAB NGT SCH (09:01)
[2016-06-23] MEDS: ASPIRIN 81 MG TAB NGT SCH (09:01)
[2016-06-23] MEDS: HEPARIN 5,000 UNIT/0.5 ML SYG SC SCH ×2 (09:02→20:21)
--- NOTE | 2016-06-23 10:34 | CONS ---
Date/Time of Note Date/Time of Note DATE: 06/23/16 TIME: 10:31 Assessment/Plan Assessment/Plan Additional Assessment/Plan Ventilator settings; assist control of 14, tidal volume 500, PEEP of 5, 40% FiO2. Assessment recommendations; 1. Patient admitted for bilateral pneumonia then leading to respiratory failure currently requiring full ventilator support. 2. Renal insufficiency with improved serum creatinine from today. 3. Mild CHF. Discontinue propofol. When the patient is off sedative effect he will be evaluated for weaning from ventilator. Continue current antibiotics and other supportive measures. Consultation Date/Type/Reason Admit Date/Time Jun 18, 2016 at 21:36 Initial Consult Date 06/19/16 Type of Consultation: Pulmonary/critical care Referring Provider: CHITRA ESTEBAN 24 HR Interval Summary Free Text/Dictation Patient's condition remains critical. Still requiring full ventilator support. Patient however has remained hemodynamically stable. General exam; elderly male, orally intubated, currently in no distress. Sedated. Exam/Review of Systems Vital Signs Vitals Vital Signs Date Time Temp Pulse Resp B/P Pulse Ox O2 Delivery O2 Flow Rate FiO2 06/23/16 08:00 40 06/23/16 05:05 65 22 99 06/23/16 05:00 130/63 06/23/16 04:00 98.1 06/22/16 20:00 Mechanical Ventilator Intake and Output 06/22/16 06/22/16 06/23/16 15:00 23:00 07:00 Intake Total 1376.9 ml 2074.6 ml 788 ml Output Total 30 ml 2350 ml 1400 ml Balance 1346.9 ml -275.4 ml -612 ml Exam HEENT examination; supple neck, no JVD. No lymphadenopathy. Midline trachea. Orally intubated. Small pupils bilaterally with bilateral intraocular lens implants. Dentition is fair. Chest examination; diminished but clear breath sounds bilaterally. S1-S2 audible, no murmurs. Regular rhythm. Abdomen examination; soft, normal distended. No organomegaly. Bowel sounds audible. Extremity examination; no peripheral edema. Pulses 1+ bilaterally. Patient has a multiple ecchymosis involving upper extremities. INSURANCE CODER examination; patient is sedated. Results Result Diagram: 06/23/1630 06/23/1630 Results 24 hrs Laboratory Tests Test 06/22/16 13:12 06/22/16 16:44 06/22/16 20:54 06/23/16 00:43 Bedside Glucose 157 151 150 163 Test 06/23/16 05:30 06/23/16 06:09 06/23/16 08:31 Alanine Aminotransferase (ALT/SGPT) 316 H Albumin 2.2 L Alkaline Phosphatase 61 Anion Gap 16 Aspartate Amino Transf (AST/SGOT) 68 #H Basophils # 0.0 Basophils % 0.2 Blood Urea Nitrogen 35 H Calcium Level 7.4 L Carbon Dioxide Level 20 L Chloride Level 114 H Creatinine 2.16 H Direct Bilirubin 0.00 Eosinophils # 0.4 Eosinophils % 2.7 Glucose Level 145 Hematocrit 34.1 L Hemoglobin 10.5 L Indirect Bilirubin 0.0 Lymphocytes # 0.8 Lymphocytes % 5.4 L Mean Corpuscular Hemoglobin 29.7 Mean Corpuscular Hemoglobin Concent 30.8 L Mean Corpuscular Volume 96.3 Mean Platelet Volume 10.3 Monocytes # 0.7 Monocytes % 5.3 Neutrophils # 11.9 H Neutrophils % 85.0 H Nucleated Red Blood Cells # 0.0 Nucleated Red Blood Cells % 0.0 Platelet Count 260 Potassium Level 4.2 Red Blood Count 3.54 L Red Cell Distribution Width 14.4 Sodium Level 146 H Total Bilirubin 0.0 L Total Protein 4.9 L White Blood Count 14.0 #H Bedside Glucose 150 172 Medications Medications Current Medications Ondansetron HCl (Zofran Inj) 4 mg Q6H PRN IV NAUSEA AND/OR VOMITING; Start 06/18 at 23:30 Acetaminophen (Tylenol Tab) 650 mg Q6H PRN PO PAIN LEVEL 1-3 OR FEVER; Start at 23:30 Acetaminophen/ Hydrocodone Bitart ([place] (5/325)) 1 tab Q6H PRN PO MODERATE PAIN LEVEL 4-6; Start 06/18/16 at 23:30 Morphine Sulfate (morphine) 2 mg Q4H PRN IV SEVERE PAIN LEVEL 7-10; Start at 23:30 Docusate Sodium (Colace) 100 mg Q12H PRN PO CONSTIPATION; Start 06/18/16 at 23: 30 Magnesium Hydroxide (Milk Of Mag) 30 ml DAILY PRN PO CONSTIPATION; Start at 23:30 Sodium Biphosphate/ Sodium Phosphate (Fleet Enema) 133 ml DAILY PRN [place] CONSTIPATION; Start 06/18/16 at 23:30 Heparin Sodium (Porcine) (Heparin (5000 Units/0.5 ml)) 5,000 unit Q12 SC Last administered on 06/23/16 09:02; Admin Dose 5,000 UNIT; Start 06/19/16 at 09:00 Lorazepam (Ativan) 0.5 mg Q6H PRN IV ANXIETY; Start 06/18/16 at 23:30 Vancomycin HCl (Vanco Iv Per Pharmacy) VANCOMYCIN PER PHARMACY NOTE XX ; Start 06/18/16 at 23:30 Hydralazine HCl (Apresoline) 10 mg Q6H PRN IV ELEVATED BLOOD PRESSURE; Start at 23:30 Nitroglycerin (Nitroglycerin (Sl Tab) 0.4 Mg) 1 tab Q5M PRN SL ANGINA; Start at 23:30 Aspirin (Aspirin) 81 mg DAILY NGT Last administered on 06/23/16 09:01; Admin Dose 81 MG; Start 06/19/16 at 20:00 Insulin Aspart (Novolog Insulin Pen) NOVOLOG *MILD* ALGORI... Q4 SC Last administered on 06/23/16 09:03; Admin Dose 1 UNIT; Start 06/19/16 at 21:00 Miscellaneous Information 1 ea NOTE XX ; Start 06/19/16 at 20:30 Glucose (Glutose) 15 gm Q15M PRN PO DECREASED GLUCOSE; Start 06/19/16 at 20:30 Glucose (Glutose) 22.5 gm Q15M PRN PO DECREASED GLUCOSE; Start 06/19/16 at 20:30 Dextrose (D50w Syringe) 25 ml Q15M PRN IV DECREASED GLUCOSE; Start 06/19/16 at 20:30 Dextrose (D50w Syringe) 50 ml Q15M PRN IV DECREASED GLUCOSE; Start 06/19/16 at 20:30 Glucagon (Glucagen) 1 mg Q15M PRN IM DECREASED GLUCOSE; Start 06/19/16 at 20:30 Glucose 15 gm 15 gm Q15M PRN BUCCAL DECREASED GLUCOSE; Start 06/19/16 at 20:30 Propofol 100 ml @ 2.727 mls/ hr Q12H IV Last administered on 06/23/16 06:05; Admin Dose 13.635 MLS/HR; Start 06/19/16 at 22:00 Norepinephrine/ Dextrose (Levophed/D5W) 500 ml @ 1.87 mls/hr TITRATE IV Last administered on 06/20/16 16:49; Admin Dose 13.12 MLS/HR; Start 06/19/16 at 23:00 IV Flush 10 ml 10 ml PRN PRN IV IV PROTOCOL; Start 06/20/16 at 15:00 Piperacillin Sod/ Tazobactam Sod 100 ml @ 200 mls/hr Q8 IVPB Last administered on 06/23/16 06:18; Admin Dose 200 MLS/HR; Start 06/20/16 at 22:00 Levofloxacin/ Dextrose 50 ml @ 100 mls/hr Q24H IVPB Last administered on 13:51; Admin Dose 100 MLS/HR; Start 06/21/16 at 12:30 Potassium Chloride/Dextrose (D5W + KCl 20 Meq) 1,000 ml @ 75 mls/hr [id number] IV Last administered on 06/23/16 06:13; Admin Dose 75 MLS/HR; Start 06/21/16 at 10:30 Fluconazole 100 mg 100 mg DAILY NGT Last administered on 06/23/16 09:01; Admin Dose 100 MG; Start 06/21/16 at 12:00 Vancomycin HCl/ Sodium Chloride (Vancocin/NS) 150 ml @ 75 mls/hr Q36H IVPB Last administered on 06/22/16 15:48; Admin Dose 75 MLS/HR; Start 06/22/16 at 14: 00 SANDOR FANG 10, 2017 10:34
--- NOTE | 2016-06-23 10:47 | PN ---
Date/Time of Note Date/Time of Note DATE: 06/23/16 TIME: 10:37 Assessment/Plan VTE Prophylaxis VTE Prophylaxis Intervention: heparin Lines/Catheters IV Catheter Type (from Nrs): PICC Line Central line still needed: Yes Urinary Cath still in place: Yes Reason Cath still needed: other (indicate) Assessment/Plan Assessment/Plan A 75-year-old male coming in with shortness of breath with signs of upper respiratory infection and possible congestive heart failure exacerbation. 1. SIRS vs Sepsis with lactic acidosis 2/2 #2 with septic shock: improved++ 2. Acute resp failure now vent dependent 3. CHF exacerbation: improving 4. Acute on chronic interstitial lung disease 5. RUL pneumonia 6. Hypertension: controlled 7. DM 2 A1c 6.8 8. NC / NC anemia 9. Shock liver: improving 10. High cholesterol. PLAN: * Consider brain imaging to ensure patient did not suffer any abnormalities * Gentle diuresis if ok with renal * Continue ICU supportive care * Vent mgt and weaning per pulm * Continue aggressive abx mgt / bronchodilator / SSI * Continue serial labs / tube feeds * Continue aggressive resp mgt and supportive care * F/u data power consultant recs * Gastrointestinal prophylaxis: PPI. * Deep venous thrombosis prophylaxis, heparin subcutaneously. CRITICAL CARE TIME: >35 mins Subjective 24 Hr Interval Summary Free Text/Dictation Patient seen and examined. no pressors Subjective hx not possible: pt critical status Neurologic: other (patient still said not to do much when sedation is turned off, patient on propofol only, failed CPAP yesterday) Exam/Review of Systems Vital Signs Vitals Vital Signs Date Time Temp Pulse Resp B/P Pulse Ox O2 Delivery O2 Flow Rate FiO2 06/23/16 08:00 64 06/23/16 08:00 40 06/23/16 05:05 22 99 06/23/16 05:00 130/63 06/23/16 04:00 98.1 06/22/16 20:00 Mechanical Ventilator Intake and Output 06/22/16 06/22/16 06/23/16 15:00 23:00 07:00 Intake Total 1376.9 ml 2074.6 ml 788 ml Output Total 30 ml 2350 ml 1400 ml Balance 1346.9 ml -275.4 ml -612 ml Exam Constitutional: other (sedated on propofol), No alert Head: normocephalic Eyes: PERRL ENMT: intubated Respiratory: clear to auscultation, diminished breath sounds Cardiovascular: regular rate and rhythm, No murmurs/extra sounds Gastrointestinal: bowel sounds, soft Extremities: No edema Results Result Diagram: 06/23/16 0530 06/23/16 0530 Results 24 hrs Laboratory Tests Test 06/22/16 13:12 06/22/16 16:44 06/22/16 20:54 06/23/16 00:43 Bedside Glucose 157 151 150 163 Test 06/23/16 05:30 06/23/16 06:09 06/23/16 08:31 Alanine Aminotransferase (ALT/SGPT) 316 H Albumin 2.2 L Alkaline Phosphatase 61 Anion Gap 16 Aspartate Amino Transf (AST/SGOT) 68 #H Basophils # 0.0 Basophils % 0.2 Blood Urea Nitrogen 35 H Calcium Level 7.4 L Carbon Dioxide Level 20 L Chloride Level 114 H Creatinine 2.16 H Direct Bilirubin 0.00 Eosinophils # 0.4 Eosinophils % 2.7 Glucose Level 145 Hematocrit 34.1 L Hemoglobin 10.5 L Indirect Bilirubin 0.0 Lymphocytes # 0.8 Lymphocytes % 5.4 L Mean Corpuscular Hemoglobin 29.7 Mean Corpuscular Hemoglobin Concent 30.8 L Mean Corpuscular Volume 96.3 Mean Platelet Volume 10.3 Monocytes # 0.7 Monocytes % 5.3 Neutrophils # 11.9 H Neutrophils % 85.0 H Nucleated Red Blood Cells # 0.0 Nucleated Red Blood Cells % 0.0 Platelet Count 260 Potassium Level 4.2 Red Blood Count 3.54 L Red Cell Distribution Width 14.4 Sodium Level 146 H Total Bilirubin 0.0 L Total Protein 4.9 L White Blood Count 14.0 #H Bedside Glucose 150 172 Medications Medications Current Medications Ondansetron HCl (Zofran Inj) 4 mg Q6H PRN IV NAUSEA AND/OR VOMITING; Start 06/18 at 23:30 Acetaminophen (Tylenol Tab) 650 mg Q6H PRN PO PAIN LEVEL 1-3 OR FEVER; Start at 23:30 Acetaminophen/ Hydrocodone Bitart ([place] (5/325)) 1 tab Q6H PRN PO MODERATE PAIN LEVEL 4-6; Start 06/18/16 at 23:30 Morphine Sulfate (morphine) 2 mg Q4H PRN IV SEVERE PAIN LEVEL 7-10; Start at 23:30 Docusate Sodium (Colace) 100 mg Q12H PRN PO CONSTIPATION; Start 06/18/16 at 23: 30 Magnesium Hydroxide (Milk Of Mag) 30 ml DAILY PRN PO CONSTIPATION; Start at 23:30 Sodium Biphosphate/ Sodium Phosphate (Fleet Enema) 133 ml DAILY PRN [place] CONSTIPATION; Start 06/18/16 at 23:30 Heparin Sodium (Porcine) (Heparin (5000 Units/0.5 ml)) 5,000 unit Q12 SC Last administered on 06/23/16 09:02; Admin Dose 5,000 UNIT; Start 06/19/16 at 09:00 Lorazepam (Ativan) 0.5 mg Q6H PRN IV ANXIETY; Start 06/18/16 at 23:30 Vancomycin HCl (Vanco Iv Per Pharmacy) VANCOMYCIN PER PHARMACY NOTE XX ; Start 06/18/16 at 23:30 Hydralazine HCl (Apresoline) 10 mg Q6H PRN IV ELEVATED BLOOD PRESSURE; Start at 23:30 Nitroglycerin (Nitroglycerin (Sl Tab) 0.4 Mg) 1 tab Q5M PRN SL ANGINA; Start at 23:30 Aspirin (Aspirin) 81 mg DAILY NGT Last administered on 06/23/16 09:01; Admin Dose 81 MG; Start 06/19/16 at 20:00 Insulin Aspart (Novolog Insulin Pen) NOVOLOG *MILD* ALGORI... Q4 SC Last administered on 06/23/16 09:03; Admin Dose 1 UNIT; Start 06/19/16 at 21:00 Miscellaneous Information 1 ea NOTE XX ; Start 06/19/16 at 20:30 Glucose (Glutose) 15 gm Q15M PRN PO DECREASED GLUCOSE; Start 06/19/16 at 20:30 Glucose (Glutose) 22.5 gm Q15M PRN PO DECREASED GLUCOSE; Start 06/19/16 at 20:30 Dextrose (D50w Syringe) 25 ml Q15M PRN IV DECREASED GLUCOSE; Start 06/19/16 at 20:30 Dextrose (D50w Syringe) 50 ml Q15M PRN IV DECREASED GLUCOSE; Start 06/19/16 at 20:30 Glucagon (Glucagen) 1 mg Q15M PRN IM DECREASED GLUCOSE; Start 06/19/16 at 20:30 Glucose 15 gm 15 gm Q15M PRN BUCCAL DECREASED GLUCOSE; Start 06/19/16 at 20:30 Propofol 100 ml @ 2.727 mls/ hr Q12H IV Last administered on 06/23/16 06:05; Admin Dose 13.635 MLS/HR; Start 06/19/16 at 22:00 Norepinephrine/ Dextrose (Levophed/D5W) 500 ml @ 1.87 mls/hr TITRATE IV Last administered on 06/20/16 16:49; Admin Dose 13.12 MLS/HR; Start 06/19/16 at 23:00 IV Flush 10 ml 10 ml PRN PRN IV IV PROTOCOL; Start 06/20/16 at 15:00 Piperacillin Sod/ Tazobactam Sod 100 ml @ 200 mls/hr Q8 IVPB Last administered on 06/23/16 06:18; Admin Dose 200 MLS/HR; Start 06/20/16 at 22:00 Levofloxacin/ Dextrose 50 ml @ 100 mls/hr Q24H IVPB Last administered on 13:51; Admin Dose 100 MLS/HR; Start 06/21/16 at 12:30 Potassium Chloride/Dextrose (D5W + KCl 20 Meq) 1,000 ml @ 75 mls/hr [id number] IV Last administered on 06/23/16 06:13; Admin Dose 75 MLS/HR; Start 06/21/16 at 10:30 Fluconazole 100 mg 100 mg DAILY NGT Last administered on 06/23/16 09:01; Admin Dose 100 MG; Start 06/21/16 at 12:00 Vancomycin HCl/ Sodium Chloride (Vancocin/NS) 150 ml @ 75 mls/hr Q36H IVPB Last administered on 06/22/16 15:48; Admin Dose 75 MLS/HR; Start 06/22/16 at 14: 00 Procedures Procedures PROCEDURE: XR Chest. CLINICAL INDICATION: Shortness of breath. TECHNIQUE: Single frontal view. COMPARISON: 06/21/2016. FINDINGS: The endotracheal tube, nasogastric tube, and left arm PICC line are in satisfactory position. There is bilateral interstitial disease consistent with pulmonary edema, improved. The lungs are otherwise clear. The heart is enlarged. There is calcification in the aorta consistent with atherosclerosis. There is no pleural effusion. There is no pneumothorax. IMPRESSION: 1. Endotracheal tube, nasogastric tube, left arm PICC line in satisfactory position. 2. Mild pulmonary edema, improved. 3. Cardiomegaly and atherosclerosis. RPTAT: QQ .Brooks Chaney MD, MD Date Time Electronically viewed and signed by .Brooks Chaney MD, MD on 06/22/2016 14:19 .R/ CC: LEWIS MINAYA BOLATITO M. Jun 23, 2016 10:46
--- NOTE | 2016-06-23 11:07 | PN ---
DATE: 06/23/2016 SUBJECTIVE: No acute events overnight. The patient is intubated and sedated, looks comfortable. H e is off pressors for more than 24 hours. No fevers. VITAL SIGNS: Temperature 98.1, pulse 66, respirations 20, blood pressure 117/52, saturation 100 on 40 FIO2. WBC 14, H and H 10.5 and 34.1, platelets 260, neutrophils 85. BUN 35, creatinine 2.16. ANTIMICROBIALS: 1. Vancomycin. 2. Levaquin. 3. Zosyn. 4. Fluconazole. INDWELLINGS: Endotracheal tube, NG tube, Ramsey catheter, PICC line placed on 06/20/2016. PHYSICAL EXAMINATION: GENERAL: This is a chronically ill-appearing, elderly man who is in no distress. HEENT: Head atraumatic, normocephalic. Sclerae anicteric. Buccal mucosa dry. NECK: Supple, trachea midline. CHEST: Rise symmetrical. Breath sounds diminished to bases. HEART: S1, S2. ABDOMEN: Soft, bowel tones present. EXTREMITIES: With trace edema. ASSESSMENT: 1. Severe sepsis with shock, improving, off pressors. 2. Acute respiratory failure. 3. Pneumonia. 4. Acute kidney insufficiency, possibly acute tubular necrosis. 5. Cardiomyopathy and decompensated congestive heart failure. 6. Diarrhea, stool for Clostridium difficile had been negative. PLAN: The patient remains stable off pressors, white blood cell count tracing down. We will contin ue him on current regimen and continue vent management as per pulmonary recommendations. Patient is also being seen by cardiology and nephrology. Dictated By: BALWINDER S[employer] ASSISTANT for PATRIA SUN/GARRETT Conf#: [id number] DID#: [id number]
--- NOTE | 2016-06-23 11:41 | CONS ---
Date/Time of Note Date/Time of Note DATE: 06/23/16 TIME: 11:39 Assessment/Plan Assessment/Plan Additional Assessment/Plan Respiratory failure Pneumonia Septic shock Acute decompensated systolic and diastolic congestive heart failure Cardiomyopathy with ejection fraction 50% CAD Paroxysmal atrial flutter -Patient remains off IV pressor, fluid management as per our nephrology colleagues. Antibiotics as per primary team. Renal function is improving. No beta-trina given labile blood pressure at the current time, LFTs are improving , would still hold statin therapy. Consultation Date/Type/Reason Admit Date/Time Jun 18, 2016 at 21:36 Initial Consult Date 06/19/16 Type of Consultation: cv Referring Provider: CHITRA ESTEBAN 24 HR Interval Summary Free Text/Dictation Attempted weaning trial this morning the patient did not tolerate, sedation is being restarted. Otherwise no new cardiac issues as per nursing staff Exam/Review of Systems Vital Signs Vitals Vital Signs Date Time Temp Pulse Resp B/P Pulse Ox O2 Delivery O2 Flow Rate FiO2 06/23/16 10:00 64 18 123/59 100 Mechanical Ventilator 06/23/16 08:00 40 06/23/16 04:00 98.1 Intake and Output 06/22/16 06/22/16 06/23/16 15:00 23:00 07:00 Intake Total 1376.9 ml 2074.6 ml 788 ml Output Total 30 ml 2350 ml 1400 ml Balance 1346.9 ml -275.4 ml -612 ml Exam Awake, agitated, undergoing weaning trial, intubated, family at bedside Head: normocephalic ENMT: intubated Respiratory: other (Coarse breath sounds bilaterally with scattered rhonchi, no wheezing) Cardiovascular: other (S1-S2 heard), regular rate and rhythm Gastrointestinal: bowel sounds, non-tender, other (No guarding), soft Extremities: edema (Trace), other (No cyanosis) Results Result Diagram: 06/23/16 0530 06/23/16 0530 Results 24 hrs Laboratory Tests Test 06/22/16 13:12 06/22/16 16:44 06/22/16 20:54 06/23/16 00:43 Bedside Glucose 157 151 150 163 Test 06/23/16 05:30 06/23/16 06:09 06/23/16 08:31 Alanine Aminotransferase (ALT/SGPT) 316 H Albumin 2.2 L Alkaline Phosphatase 61 Anion Gap 16 Aspartate Amino Transf (AST/SGOT) 68 #H Basophils # 0.0 Basophils % 0.2 Blood Urea Nitrogen 35 H Calcium Level 7.4 L Carbon Dioxide Level 20 L Chloride Level 114 H Creatinine 2.16 H Direct Bilirubin 0.00 Eosinophils # 0.4 Eosinophils % 2.7 Glucose Level 145 Hematocrit 34.1 L Hemoglobin 10.5 L Indirect Bilirubin 0.0 Lymphocytes # 0.8 Lymphocytes % 5.4 L Mean Corpuscular Hemoglobin 29.7 Mean Corpuscular Hemoglobin Concent 30.8 L Mean Corpuscular Volume 96.3 Mean Platelet Volume 10.3 Monocytes # 0.7 Monocytes % 5.3 Neutrophils # 11.9 H Neutrophils % 85.0 H Nucleated Red Blood Cells # 0.0 Nucleated Red Blood Cells % 0.0 Platelet Count 260 Potassium Level 4.2 Red Blood Count 3.54 L Red Cell Distribution Width 14.4 Sodium Level 146 H Total Bilirubin 0.0 L Total Protein 4.9 L White Blood Count 14.0 #H Bedside Glucose 150 172 Medications Medications Current Medications Ondansetron HCl (Zofran Inj) 4 mg Q6H PRN IV NAUSEA AND/OR VOMITING; Start 06/18 at 23:30 Acetaminophen (Tylenol Tab) 650 mg Q6H PRN PO PAIN LEVEL 1-3 OR FEVER; Start at 23:30 Acetaminophen/ Hydrocodone Bitart ([place] (5/325)) 1 tab Q6H PRN PO MODERATE PAIN LEVEL 4-6; Start 06/18/16 at 23:30 Morphine Sulfate (morphine) 2 mg Q4H PRN IV SEVERE PAIN LEVEL 7-10; Start at 23:30 Docusate Sodium (Colace) 100 mg Q12H PRN PO CONSTIPATION; Start 06/18/16 at 23: 30 Magnesium Hydroxide (Milk Of Mag) 30 ml DAILY PRN PO CONSTIPATION; Start at 23:30 Sodium Biphosphate/ Sodium Phosphate (Fleet Enema) 133 ml DAILY PRN [place] CONSTIPATION; Start 06/18/16 at 23:30 Heparin Sodium (Porcine) (Heparin (5000 Units/0.5 ml)) 5,000 unit Q12 SC Last administered on 06/23/16t 09:02; Admin Dose 5,000 UNIT; Start 06/19/16 at 09:00 Lorazepam (Ativan) 0.5 mg Q6H PRN IV ANXIETY; Start 06/18/16 at 23:30 Vancomycin HCl (Vanco Iv Per Pharmacy) VANCOMYCIN PER PHARMACY NOTE XX ; Start 06/18/16 at 23:30 Hydralazine HCl (Apresoline) 10 mg Q6H PRN IV ELEVATED BLOOD PRESSURE; Start at 23:30 Nitroglycerin (Nitroglycerin (Sl Tab) 0.4 Mg) 1 tab Q5M PRN SL ANGINA; Start at 23:30 Aspirin (Aspirin) 81 mg DAILY NGT Last administered on 06/23/16 09:01; Admin Dose 81 MG; Start 06/19/16 at 20:00 Insulin Aspart (Novolog Insulin Pen) NOVOLOG *MILD* ALGORI... Q4 SC Last administered on 06/23/16 09:03; Admin Dose 1 UNIT; Start 06/19/16 at 21:00 Miscellaneous Information 1 ea NOTE XX ; Start 06/19/16 at 20:30 Glucose (Glutose) 15 gm Q15M PRN PO DECREASED GLUCOSE; Start 06/19/16 at 20:30 Glucose (Glutose) 22.5 gm Q15M PRN PO DECREASED GLUCOSE; Start 06/19/16 at 20:30 Dextrose (D50w Syringe) 25 ml Q15M PRN IV DECREASED GLUCOSE; Start 06/19/16 at 20:30 Dextrose (D50w Syringe) 50 ml Q15M PRN IV DECREASED GLUCOSE; Start 06/19/16 at 20:30 Glucagon (Glucagen) 1 mg Q15M PRN IM DECREASED GLUCOSE; Start 06/19/16 at 20:30 Glucose 15 gm 15 gm Q15M PRN BUCCAL DECREASED GLUCOSE; Start 06/19/16 at 20:30 Propofol 100 ml @ 2.727 mls/ hr Q12H IV Last administered on 06/23/16 06:05; Admin Dose 13.635 MLS/HR; Start 06/19/16 at 22:00 Norepinephrine/ Dextrose (Levophed/D5W) 500 ml @ 1.87 mls/hr TITRATE IV Last administered on 06/20/16 16:49; Admin Dose 13.12 MLS/HR; Start 06/19/16 at 23:00 IV Flush 10 ml 10 ml PRN PRN IV IV PROTOCOL; Start 06/20/16 at 15:00 Piperacillin Sod/ Tazobactam Sod 100 ml @ 200 mls/hr Q8 IVPB Last administered on 06/23/16 06:18; Admin Dose 200 MLS/HR; Start 06/20/16 at 22:00 Levofloxacin/ Dextrose 50 ml @ 100 mls/hr Q24H IVPB Last administered on 13:51; Admin Dose 100 MLS/HR; Start 06/21/16 at 12:30 Potassium Chloride/Dextrose (D5W + KCl 20 Meq) 1,000 ml @ 75 mls/hr [id number] IV Last administered on 06/23/16 06:13; Admin Dose 75 MLS/HR; Start 06/21/16 at 10:30 Fluconazole 100 mg 100 mg DAILY NGT Last administered on 06/23/16 09:01; Admin Dose 100 MG; Start 06/21/16 at 12:00 Vancomycin HCl/ Sodium Chloride (Vancocin/NS) 150 ml @ 75 mls/hr Q36H IVPB Last administered on 06/22/16 15:48; Admin Dose 75 MLS/HR; Start 06/22/16 at 14: 00 Metronidazole (Flagyl) 250 mg Q8 PO ; Start 06/23/16 at 14:00 Furosemide (Lasix) 20 mg DAILY IV ; Start 06/23/16 at 11:30; Stop 06/26/16 at 11 :29 Jef Sinha DO Jun 23, 2016 11:41
[2016-06-23] MEDS: FUROSEMIDE 20 MG INJ IV SCH (12:30)
[2016-06-23] MEDS: LEVOFLOXACIN 250MG/D5W (PMX) 50 ML IVPB SCH (12:42)
[2016-06-23] MEDS: metroNIDAZOLE 250 MG TAB PO SCH ×2 (13:49→22:27)
--- NOTE | 2016-06-23 20:25 | CONS ---
Date/Time of Note Date/Time of Note DATE: 06/23/16 TIME: 20:22 Assessment/Plan Assessment/Plan Additional Assessment/Plan 1. Acute kidney injury, likely secondary to acute tubular necrosis from septic shock and also contributing to liver shock due to the acute kidney injury 2 2. Septis with lactic acidosis, likely secondary to pneumonia. 3. Right upper lobe pneumonia. 4. Acute respiratory failure, vent dependent secondary to septic shock. 5. Acute on chronic congestive heart failure exacerbation, systolic and diastolic. 6. History of hypertension. 7. History of type 2 diabetes mellitus. 8. History of anemia of chronic disease. 9. History of dyslipidemia. PLAN: Makign good urine ouput, Cr 2.16 expecting creatinine to remove BP stable will follow up Consultation Date/Type/Reason Admit Date/Time Jun 18, 2016 at 21:36 Initial Consult Date 06/21/16 Type of Consultation: NEPHROLOGY Reason for Consultation acute kidney injury Referring Provider: CHITRA ESTEBAN 24 HR Interval Summary Free Text/Dictation pt remains intubated Exam/Review of Systems Vital Signs Vitals Vital Signs Date Time Temp Pulse Resp B/P Pulse Ox O2 Delivery O2 Flow Rate FiO2 06/23/16 19:46 72 21 100 40 06/23/16 16:00 98.8 108/51 Mechanical Ventilator Intake and Output 06/22/16 06/22/16 06/23/16 15:00 23:00 07:00 Intake Total 1376.9 ml 2074.6 ml 912 ml Output Total 30 ml 2350 ml 1500 ml Balance 1346.9 ml -275.4 ml -588 ml Exam Constitutional: other (sedated on propofol), No alert Head: normocephalic Eyes: PERRL ENMT: intubated Respiratory: clear to auscultation, diminished breath sounds Cardiovascular: regular rate and rhythm,No murmurs/extra sounds Gastrointestinal: bowel sounds, soft Extremities: No edema Results Result Diagram: 06/23/1652906/23/16529 Results 24 hrs Laboratory Tests Test 06/22/16 20:54 06/23/16 00:43 06/23/16 05:30 06/23/16 06:09 Bedside Glucose 150 163 150 Alanine Aminotransferase (ALT/SGPT) 316 H Albumin 2.2 L Alkaline Phosphatase 61 Anion Gap 16 Aspartate Amino Transf (AST/SGOT) 68 #H Basophils # 0.0 Basophils % 0.2 Blood Urea Nitrogen 35 H Calcium Level 7.4 L Carbon Dioxide Level 20 L Chloride Level 114 H Creatinine 2.16 H Direct Bilirubin 0.00 Eosinophils # 0.4 Eosinophils % 2.7 Glucose Level 145 Hematocrit 34.1 L Hemoglobin 10.5 L Indirect Bilirubin 0.0 Lymphocytes # 0.8 Lymphocytes % 5.4 L Mean Corpuscular Hemoglobin 29.7 Mean Corpuscular Hemoglobin Concent 30.8 L Mean Corpuscular Volume 96.3 Mean Platelet Volume 10.3 Monocytes # 0.7 Monocytes % 5.3 Neutrophils # 11.9 H Neutrophils % 85.0 H Nucleated Red Blood Cells # 0.0 Nucleated Red Blood Cells % 0.0 Platelet Count 260 Potassium Level 4.2 Red Blood Count 3.54 L Red Cell Distribution Width 14.4 Sodium Level 146 H Total Bilirubin 0.0 L Total Protein 4.9 L White Blood Count 14.0 #H Test 06/23/16 08:31 06/23/16 13:38 06/23/16 17:28 Bedside Glucose 172 143 165 Medications Medications Current Medications Ondansetron HCl (Zofran Inj) 4 mg Q6H PRN IV NAUSEA AND/OR VOMITING; Start 06/18 at 23:30 Acetaminophen (Tylenol Tab) 650 mg Q6H PRN PO PAIN LEVEL 1-3 OR FEVER; Start at 23:30 Acetaminophen/ Hydrocodone Bitart ([place] (5/325)) 1 tab Q6H PRN PO MODERATE PAIN LEVEL 4-6; Start 06/18/16 at 23:30 Morphine Sulfate (morphine) 2 mg Q4H PRN IV SEVERE PAIN LEVEL 7-10; Start at 23:30 Docusate Sodium (Colace) 100 mg Q12H PRN PO CONSTIPATION; Start 06/18/16 at 23: 30 Magnesium Hydroxide (Milk Of Mag) 30 ml DAILY PRN PO CONSTIPATION; Start at 23:30 Sodium Biphosphate/ Sodium Phosphate (Fleet Enema) 133 ml DAILY PRN [place] CONSTIPATION; Start 06/18/16 at 23:30 Heparin Sodium (Porcine) (Heparin (5000 Units/0.5 ml)) 5,000 unit Q12 SC Last administered on 06/23/16t 09:02; Admin Dose 5,000 UNIT; Start 06/19/16 at 09:00 Lorazepam (Ativan) 0.5 mg Q6H PRN IV ANXIETY; Start 06/18/16 at 23:30 Vancomycin HCl (Vanco Iv Per Pharmacy) VANCOMYCIN PER PHARMACY NOTE XX ; Start 06/18/16 at 23:30 Hydralazine HCl (Apresoline) 10 mg Q6H PRN IV ELEVATED BLOOD PRESSURE; Start at 23:30 Nitroglycerin (Nitroglycerin (Sl Tab) 0.4 Mg) 1 tab Q5M PRN SL ANGINA; Start at 23:30 Aspirin (Aspirin) 81 mg DAILY NGT Last administered on 06/23/16 09:01; Admin Dose 81 MG; Start 06/19/16 at 20:00 Insulin Aspart (Novolog Insulin Pen) NOVOLOG *MILD* ALGORI... Q4 SC Last administered on 06/23/16 17:32; Admin Dose 1 UNIT; Start 06/19/16 at 21:00 Miscellaneous Information 1 ea NOTE XX ; Start 06/19/16 at 20:30 Glucose (Glutose) 15 gm Q15M PRN PO DECREASED GLUCOSE; Start 06/19/16 at 20:30 Glucose (Glutose) 22.5 gm Q15M PRN PO DECREASED GLUCOSE; Start 06/19/16 at 20:30 Dextrose (D50w Syringe) 25 ml Q15M PRN IV DECREASED GLUCOSE; Start 06/19/16 at 20:30 Dextrose (D50w Syringe) 50 ml Q15M PRN IV DECREASED GLUCOSE; Start 06/19/16 at 20:30 Glucagon (Glucagen) 1 mg Q15M PRN IM DECREASED GLUCOSE; Start 06/19/16 at 20:30 Glucose 15 gm 15 gm Q15M PRN BUCCAL DECREASED GLUCOSE; Start 06/19/16 at 20:30 Propofol 100 ml @ 2.727 mls/ hr Q12H IV Last administered on 06/23/16 17:39; Admin Dose 16.362 MLS/HR; Start 06/19/16 at 22:00 Norepinephrine/ Dextrose (Levophed/D5W) 500 ml @ 1.87 mls/hr TITRATE IV Last administered on 06/20/16 16:49; Admin Dose 13.12 MLS/HR; Start 06/19/16 at 23:00 IV Flush 10 ml 10 ml PRN PRN IV IV PROTOCOL; Start 06/20/16 at 15:00 Piperacillin Sod/ Tazobactam Sod 100 ml @ 200 mls/hr Q8 IVPB Last administered on 06/23/16 13:47; Admin Dose 200 MLS/HR; Start 06/20/16 at 22:00 Levofloxacin/ Dextrose 50 ml @ 100 mls/hr Q24H IVPB Last administered on 12:42; Admin Dose 100 MLS/HR; Start 06/21/16 at 12:30 Potassium Chloride/Dextrose (D5W + KCl 20 Meq) 1,000 ml @ 75 mls/hr [id number] IV Last administered on 06/23/16 16:51; Admin Dose 75 MLS/HR; Start 06/21/16 at 10:30 Fluconazole 100 mg 100 mg DAILY NGT Last administered on 06/23/16 09:01; Admin Dose 100 MG; Start 06/21/16 at 12:00 Vancomycin HCl/ Sodium Chloride (Vancocin/NS) 150 ml @ 75 mls/hr Q36H IVPB Last administered on 06/22/16 15:48; Admin Dose 75 MLS/HR; Start 06/22/16 at 14: 00 Metronidazole (Flagyl) 250 mg Q8 PO Last administered on 06/23/16 13:49; Admin Dose 250 MG; Start 06/23/16 at 14:00 Furosemide (Lasix) 20 mg DAILY IV Last administered on 06/23/16 12:30; Admin Dose 20 MG; Start 06/23/16 at 11:30; Stop 06/26/16 at 11:29 SHANNAN MAYEN MD Jun 23, 2016 20:25
[2016-06-24] VITALS (39 sets, daily range): BP systolic 83–154; BP diastolic 41–76; PULSE 56–97; RESP 17–25
[2016-06-24] MEDS: INSULIN ASPART [NOVOLOG] 3 ML PEN SC SCH ×6 (01:09→21:43)
[2016-06-24] MEDS: IPRATROPIUM (HFA) 12.9 GM INHALER INH SCH ×6 (01:18→21:11)
[2016-06-24] MEDS: ALBUTEROL HFA 8 GM INHALER INH SCH ×6 (01:18→21:11)
[2016-06-24] MEDS: VANCOMYCIN 750 MG in SOD CHLORIDE 0.9% 150 ML IVPB SCH (02:10)
[2016-06-24] MEDS: PROPOFOL 100 ML IV SCH (04:19)
[2016-06-24 04:33] LABS: ADD SCAN DIFF NO
[2016-06-24 04:39] LABS: BASOPHILS % 0.2 % (0.0-2.0); EOSINOPHILS # 0.5 10^3/ul (0.0-0.5); EOSINOPHILS % 3.7 % (0.0-7.0); HEMATOCRIT 35.2 % (42.0-52.0); HEMOGLOBIN 11.2 g/dl (14.0-18.0); LYMPHOCYTES # 0.9 10^3/ul (0.8-2.9); LYMPHOCYTES % 7.1 % (15.0-51.0); MEAN CORPUSCULAR HEMOGLOBIN 30.1 pg (29.0-33.0); MEAN CORPUSCULAR HGB CONC 31.8 g/dl (32.0-37.0); MEAN CORPUSCULAR VOLUME 94.6 fl (82.0-101.0); MEAN PLATELET VOLUME 10.4 fl (7.4-10.4); MONOCYTE # 0.8 10^3/ul (0.3-0.9); MONOCYTES % 6.2 % (0.0-11.0); NEUTROPHILS % 81.2 % (39.0-77.0); PLATELET COUNT 300 10^3/UL (140-415); RED BLOOD COUNT 3.72 10^6/ul (4.70-6.10); RED CELL DISTRIBUTION WIDTH 14.2 % (11.5-14.5); WHITE BLOOD COUNT 12.3 10^3/ul (4.8-10.8)
[2016-06-24 04:47] LABS: POTASSIUM 4.3 mmol/L (3.5-5.1)
[2016-06-24 04:49] LABS: CREATININE 2.15 mg/dl (0.61-1.24)
[2016-06-24 04:50] LABS: CALCIUM 7.8 mg/dl (8.4-10.2)
[2016-06-24] MEDS: PIPER-TAZO 3.375 GM IV (PMX) 100 ML IVPB SCH ×3 (05:34→21:39)
[2016-06-24] MEDS: metroNIDAZOLE 250 MG TAB PO SCH ×3 (05:35→21:39)
[2016-06-24] MEDS: FUROSEMIDE 20 MG INJ IV SCH (08:23)
[2016-06-24] MEDS: FLUCONAZOLE 100 MG TAB NGT SCH (08:23)
[2016-06-24] MEDS: ASPIRIN 81 MG TAB NGT SCH (08:23)
[2016-06-24] MEDS: HEPARIN 5,000 UNIT/0.5 ML SYG SC SCH ×2 (08:24→21:42)
--- NOTE | 2016-06-24 08:36 | RADRPT ---
PROCEDURE: XR Chest. CLINICAL INDICATION: Shortness of breath. TECHNIQUE: Single frontal view. COMPARISON: 06/22/2016. FINDINGS: The endotracheal tube, nasogastric tube, left arm PICC line are in satisfactory position. There is bilateral interstitial pulmonary edema, worse than seen previously. Mild atelectasis at the lung ba ses, is worse than seen previously. The lungs are otherwise clear. The heart is enlarged. There is calcification in the aorta consistent with atherosclerosis. There is no pleural effusion. There is no pneumothorax. IMPRESSION: 1. Worse appearance of the lungs. 2. No other change from 06/22/2016. RPTAT: QQ .Brooks Chaney MD, MD Date Time Electronically viewed and signed by .Brooks Chaney MD, MD on 06/24/2016 08:36 .R/
--- NOTE | 2016-06-24 09:19 | CONS ---
Date/Time of Note Date/Time of Note DATE: 06/24/16 TIME: 09:19 Assessment/Plan Assessment/Plan Chief Complaint/Hosp Course ID PROGRESS NOTE TOTAL ABX DAY #6 => Current ABX 1. Vancomycin. 2. Levaquin. 3. Zosyn. 4. Fluconazole. 24H INTERVAL SUMMARY * Noncommunicative, Vented, stable renal insufficiency, no fevers records, WBC down * CXR 06/24/16: FINDINGS: The endotracheal tube, nasogastric tube, left arm PICC line are in satisfactory position. There is bilateral interstitial pulmonary edema, worse than seen previously. Mild atelectasis at the lung bases, is worse than seen previously. The lungs are otherwise clear. The heart is enlarged. There is calcification in the aorta consistent with atherosclerosis. There is no pleural effusion. There is no pneumothorax. IMPRESSION: 1. Worse appearance of the lungs. 2. No other change from 06/22/2016. RPTAT: QQ PHYSICAL EXAMINATION: GENERAL: Orally intubated, lethargic, noncommunicative on the Vent HEENT: ETT-> Secure NECK: Supple, full ROM CHEST: Equal chest rise bilaterally, without dyspnea on observation HEART: Pulse RRR ABDOMEN: Soft EXTREMITIES: Warm SKIN: See hard chart skin assessment ID ASSESSMENT: 75 yo M admit with: 1. Severe sepsis with shock on admission due to #3=> Improving * Fever on admission * Marked leukocytosis >45,000 on admission => Resolving * Hypotension/Tachycardia -> Resolving 2. Acute respiratory failure. 3. Pneumonia = Per CT Dense RUL ? ASP PNA * Influenza A and B are negative. * CT: Nonspecific shoddy adenopathy in the precarinal middle mediastinum. * RESPIRATORY CULTURE Final Organism 1 YAMILEX ALBICANS QUANTITY SCANT GROWTH Organism 2 NORMAL RESPIRATORY MATEO QUANTITY NO 4. Hyperinflation of COPD and changes of centrolobular emphysema. 5. 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 6. Paroxysmal Afib/flutter ->on Amiodarone home medication 7. Acute kidney insufficiency, possibly acute tubular necrosis. 8. Diarrhea, stool for Clostridium difficile had been negative. (-)MRSA Nares INVASIVES: ETT, NGT, FC, PICC (06/20/16) ABX ALLERGY: KNDA CURRENT ABX: TOTAL ABX DAY #6 => Current ABX 1. Vancomycin. 2. Levaquin => DC today 3. Zosyn. 4. Fluconazole=>Taper to po Nystatin QID for VAP prophy ID RECOMMENDATIONS: 1. ETT respiratory cx (-) CAP w/scant Yamilex likely oral contaminant 2. Let's taper ABX = continue Vanco IV + Zosyn as tolerating well w/improved renal fx 3. DC Levaquin has received empiric coverage for atypicals, on Amiodarone = at risk for prolonged QT with Levaquin 4. Change Fluconazole IV to oral Nystatin QID for yeast VAP prevention = Multiple current ABX are likely to drive ABX associated diarrhea 5. If continues to improve consider further taper ABX to Ceftriaxone . Problems: Consultation Date/Type/Reason Admit Date/Time Jun 18, 2016 at 21:36 Initial Consult Date 06/19/16 Type of Consultation: ID Referring Provider: CHITRA ESTEBAN Exam/Review of Systems Vital Signs Vitals Vital Signs Date Time Temp Pulse Resp B/P Pulse Ox O2 Delivery O2 Flow Rate FiO2 06/24/16 08:00 60 06/24/16 06:00 21 133/65 100 Mechanical Ventilator 06/24/16 05:00 40 06/24/16 04:00 98.0 Intake and Output 06/23/16 06/23/16 06/24/16 14:59 22:59 06:59 Intake Total 1092 ml 1178.810 ml 1387.258 ml Output Total 875 ml 1525 ml 1050 ml Balance 217 ml -346.190 ml 337.258 ml Results Result Diagram: 06/24/16 0410 06/24/16 0410 Results 24 hrs Laboratory Tests Test 06/23/16 13:38 06/23/16 17:28 06/23/16 20:15 06/24/16 01:06 Bedside Glucose 143 165 149 144 Test 06/24/16 04:10 06/24/16 05:25 06/24/16 08:17 Anion Gap 16 Basophils # 0.0 Basophils % 0.2 Blood Urea Nitrogen 36 H Calcium Level 7.8 L Carbon Dioxide Level 21 Chloride Level 116 H Creatinine 2.15 H Eosinophils # 0.5 Eosinophils % 3.7 Glucose Level 139 Hematocrit 35.2 L Hemoglobin 11.2 L Lymphocytes # 0.9 Lymphocytes % 7.1 L Mean Corpuscular Hemoglobin 30.1 Mean Corpuscular Hemoglobin Concent 31.8 L Mean Corpuscular Volume 94.6 Mean Platelet Volume 10.4 Monocytes # 0.8 Monocytes % 6.2 Neutrophils # 10.0 H Neutrophils % 81.2 H Nucleated Red Blood Cells # 0.0 Nucleated Red Blood Cells % 0.0 Platelet Count 300 Potassium Level 4.3 Red Blood Count 3.72 L Red Cell Distribution Width 14.2 Sodium Level 149 H White Blood Count 12.3 H Bedside Glucose 144 154 Medications Medications Current Medications Ondansetron HCl (Zofran Inj) 4 mg Q6H PRN IV NAUSEA AND/OR VOMITING; Start 06/18 at 23:30 Acetaminophen (Tylenol Tab) 650 mg Q6H PRN PO PAIN LEVEL 1-3 OR FEVER; Start at 23:30 Acetaminophen/ Hydrocodone Bitart ([place] (5/325)) 1 tab Q6H PRN PO MODERATE PAIN LEVEL 4-6; Start 06/18/16 at 23:30 Morphine Sulfate (morphine) 2 mg Q4H PRN IV SEVERE PAIN LEVEL 7-10; Start at 23:30 Docusate Sodium (Colace) 100 mg Q12H PRN PO CONSTIPATION; Start 06/18/16 at 23: 30 Magnesium Hydroxide (Milk Of Mag) 30 ml DAILY PRN PO CONSTIPATION; Start at 23:30 Sodium Biphosphate/ Sodium Phosphate (Fleet Enema) 133 ml DAILY PRN [place] CONSTIPATION; Start 06/18/16 at 23:30 Heparin Sodium (Porcine) (Heparin (5000 Units/0.5 ml)) 5,000 unit Q12 SC Last administered on 06/24/16t 08:24; Admin Dose 5,000 UNIT; Start 06/19/16 at 09:00 Lorazepam (Ativan) 0.5 mg Q6H PRN IV ANXIETY; Start 06/18/16 at 23:30 Vancomycin HCl (Vanco Iv Per Pharmacy) VANCOMYCIN PER PHARMACY NOTE XX ; Start 06/18/16 at 23:30 Hydralazine HCl (Apresoline) 10 mg Q6H PRN IV ELEVATED BLOOD PRESSURE; Start at 23:30 Nitroglycerin (Nitroglycerin (Sl Tab) 0.4 Mg) 1 tab Q5M PRN SL ANGINA; Start at 23:30 Aspirin (Aspirin) 81 mg DAILY NGT Last administered on 06/24/16 08:23; Admin Dose 81 MG; Start 06/19/16 at 20:00 Insulin Aspart (Novolog Insulin Pen) NOVOLOG *MILD* ALGORI... Q4 SC Last administered on 06/24/16 08:24; Admin Dose 1 UNIT; Start 06/19/16 at 21:00 Miscellaneous Information 1 ea NOTE XX ; Start 06/19/16 at 20:30 Glucose (Glutose) 15 gm Q15M PRN PO DECREASED GLUCOSE; Start 06/19/16 at 20:30 Glucose (Glutose) 22.5 gm Q15M PRN PO DECREASED GLUCOSE; Start 06/19/16 at 20:30 Dextrose (D50w Syringe) 25 ml Q15M PRN IV DECREASED GLUCOSE; Start 06/19/16 at 20:30 Dextrose (D50w Syringe) 50 ml Q15M PRN IV DECREASED GLUCOSE; Start 06/19/16 at 20:30 Glucagon (Glucagen) 1 mg Q15M PRN IM DECREASED GLUCOSE; Start 06/19/16 at 20:30 Glucose 15 gm 15 gm Q15M PRN BUCCAL DECREASED GLUCOSE; Start 06/19/16 at 20:30 Propofol 100 ml @ 2.727 mls/ hr Q12H IV Last administered on 06/24/16 04:19; Admin Dose 13.635 MLS/HR; Start 06/19/16 at 22:00 Norepinephrine/ Dextrose (Levophed/D5W) 500 ml @ 1.87 mls/hr TITRATE IV Last administered on 06/20/16 16:49; Admin Dose 13.12 MLS/HR; Start 06/19/16 at 23:00 IV Flush 10 ml 10 ml PRN PRN IV IV PROTOCOL; Start 06/20/16 at 15:00 Piperacillin Sod/ Tazobactam Sod 100 ml @ 200 mls/hr Q8 IVPB Last administered on 06/24/16 05:34; Admin Dose 200 MLS/HR; Start 06/20/16 at 22:00 Levofloxacin/ Dextrose 50 ml @ 100 mls/hr Q24H IVPB Last administered on 12:42; Admin Dose 100 MLS/HR; Start 06/21/16 at 12:30 Potassium Chloride/Dextrose (D5W + KCl 20 Meq) 1,000 ml @ 75 mls/hr [id number] IV Last administered on 06/23/16 20:51; Admin Dose 75 MLS/HR; Start 06/21/16 at 10:30 Fluconazole 100 mg 100 mg DAILY NGT Last administered on 06/24/16 08:23; Admin Dose 100 MG; Start 06/21/16 at 12:00 Vancomycin HCl/ Sodium Chloride (Vancocin/NS) 150 ml @ 75 mls/hr Q36H IVPB Last administered on 06/24/16 02:10; Admin Dose 75 MLS/HR; Start 06/22/16 at 14: 00 Metronidazole (Flagyl) 250 mg Q8 PO Last administered on 06/24/16 05:35; Admin Dose 250 MG; Start 06/23/16 at 14:00 Furosemide (Lasix) 20 mg DAILY IV Last administered on 06/24/16 08:23; Admin Dose 20 MG; Start 06/23/16 at 11:30; Stop 06/26/16 at 11:29 WICHO PATTON NP Jun 24, 2016 09:19
--- NOTE | 2016-06-24 09:26 | PN ---
Date/Time of Note Date/Time of Note DATE: 06/24/16 TIME: 09:25 Assessment/Plan VTE Prophylaxis VTE Prophylaxis Intervention: heparin Lines/Catheters IV [facility] Type [facility]from [facility] PICC Line Urinary Cath still in place: Yes Assessment/Plan Assessment/Plan A 75-year-old male coming in with shortness of breath with signs of upper respiratory infection and possible congestive heart failure exacerbation. 1. SIRS vs Sepsis with lactic acidosis 2/2 #2 with septic shock: improved++ 2. Acute resp failure now vent dependent 3. CHF exacerbation: improving 4. Acute on chronic interstitial lung disease 5. RUL pneumonia 6. Hypertension: controlled 7. DM 2 A1c 6.8 8. NC / NC anemia 9. Shock liver: improving 10. High cholesterol. PLAN: * Continue Gentle diuresis if ok with renal * Continue ICU supportive care * Vent mgt and weaning per pulm * Continue aggressive abx mgt / bronchodilator / SSI * Continue serial labs / tube feeds * Continue aggressive resp mgt and supportive care * F/u library consultant recs * Gastrointestinal prophylaxis: PPI. * Deep venous thrombosis prophylaxis, heparin subcutaneously. CRITICAL CARE TIME: >35 mins Exam/Review of Systems Vital Signs Vitals Vital Signs Date Time Temp Pulse Resp B/P Pulse Ox O2 Delivery O2 Flow Rate FiO2 06/24/16 09:18 58 18 100 40 06/24/16 06:00 133/65 Mechanical Ventilator 06/24/16 04:00 98.0 Intake and Output 06/23/16 06/23/16 06/24/16 15:00 23:00 07:00 Intake Total 1192 ml 1076.172 ml 1357.258 ml Output Total 975 ml 1425 ml 950 ml Balance 217 ml -348.828 ml 407.258 ml Results Result Diagram: 06/24/16 0410 06/24/16 0410 Results 24 hrs Laboratory Tests Test 06/23/16 13:38 06/23/16 17:28 06/23/16 20:15 06/24/16 01:06 Bedside Glucose 143 165 149 144 Test 06/24/16 04:10 06/24/16 05:25 06/24/16 08:17 Anion Gap 16 Basophils # 0.0 Basophils % 0.2 Blood Urea Nitrogen 36 H Calcium Level 7.8 L Carbon Dioxide Level 21 Chloride Level 116 H Creatinine 2.15 H Eosinophils # 0.5 Eosinophils % 3.7 Glucose Level 139 Hematocrit 35.2 L Hemoglobin 11.2 L Lymphocytes # 0.9 Lymphocytes % 7.1 L Mean Corpuscular Hemoglobin 30.1 Mean Corpuscular Hemoglobin Concent 31.8 L Mean Corpuscular Volume 94.6 Mean Platelet Volume 10.4 Monocytes # 0.8 Monocytes % 6.2 Neutrophils # 10.0 H Neutrophils % 81.2 H Nucleated Red Blood Cells # 0.0 Nucleated Red Blood Cells % 0.0 Platelet Count 300 Potassium Level 4.3 Red Blood Count 3.72 L Red Cell Distribution Width 14.2 Sodium Level 149 H White Blood Count 12.3 H Bedside Glucose 144 154 Medications Medications Current Medications Ondansetron HCl (Zofran Inj) 4 mg Q6H PRN IV NAUSEA AND/OR VOMITING; Start 06/18 at 23:30 Acetaminophen (Tylenol Tab) 650 mg Q6H PRN PO PAIN LEVEL 1-3 OR FEVER; Start at 23:30 Acetaminophen/ Hydrocodone Bitart ([place] (5/325)) 1 tab Q6H PRN PO MODERATE PAIN LEVEL 4-6; Start 06/18/16 at 23:30 Morphine Sulfate (morphine) 2 mg Q4H PRN IV SEVERE PAIN LEVEL 7-10; Start at 23:30 Docusate Sodium (Colace) 100 mg Q12H PRN PO CONSTIPATION; Start 06/18/16 at 23: 30 Magnesium Hydroxide (Milk Of Mag) 30 ml DAILY PRN PO CONSTIPATION; Start at 23:30 Sodium Biphosphate/ Sodium Phosphate (Fleet Enema) 133 ml DAILY PRN [place] CONSTIPATION; Start 06/18/16 at 23:30 Heparin Sodium (Porcine) (Heparin (5000 Units/0.5 ml)) 5,000 unit Q12 SC Last administered on 06/24/16t 08:24; Admin Dose 5,000 UNIT; Start 06/19/16 at 09:00 Lorazepam (Ativan) 0.5 mg Q6H PRN IV ANXIETY; Start 06/18/16 at 23:30 Vancomycin HCl (Vanco Iv Per Pharmacy) VANCOMYCIN PER PHARMACY NOTE XX ; Start 06/18/16 at 23:30 Hydralazine HCl (Apresoline) 10 mg Q6H PRN IV ELEVATED BLOOD PRESSURE; Start at 23:30 Nitroglycerin (Nitroglycerin (Sl Tab) 0.4 Mg) 1 tab Q5M PRN SL ANGINA; Start at 23:30 Aspirin (Aspirin) 81 mg DAILY NGT Last administered on 06/24/16 08:23; Admin Dose 81 MG; Start 06/19/16 at 20:00 Insulin Aspart (Novolog Insulin Pen) NOVOLOG *MILD* ALGORI... Q4 SC Last administered on 06/24/16 08:24; Admin Dose 1 UNIT; Start 06/19/16 at 21:00 Miscellaneous Information 1 ea NOTE XX ; Start 06/19/16 at 20:30 Glucose (Glutose) 15 gm Q15M PRN PO DECREASED GLUCOSE; Start 06/19/16 at 20:30 Glucose (Glutose) 22.5 gm Q15M PRN PO DECREASED GLUCOSE; Start 06/19/16 at 20:30 Dextrose (D50w Syringe) 25 ml Q15M PRN IV DECREASED GLUCOSE; Start 06/19/16 at 20:30 Dextrose (D50w Syringe) 50 ml Q15M PRN IV DECREASED GLUCOSE; Start 06/19/16 at 20:30 Glucagon (Glucagen) 1 mg Q15M PRN IM DECREASED GLUCOSE; Start 06/19/16 at 20:30 Glucose 15 gm 15 gm Q15M PRN BUCCAL DECREASED GLUCOSE; Start 06/19/16 at 20:30 Propofol 100 ml @ 2.727 mls/ hr Q12H IV Last administered on 06/24/16 04:19; Admin Dose 13.635 MLS/HR; Start 06/19/16 at 22:00 Norepinephrine/ Dextrose (Levophed/D5W) 500 ml @ 1.87 mls/hr TITRATE IV Last administered on 06/20/16 16:49; Admin Dose 13.12 MLS/HR; Start 06/19/16 at 23:00 IV Flush 10 ml 10 ml PRN PRN IV IV PROTOCOL; Start 06/20/16 at 15:00 Piperacillin Sod/ Tazobactam Sod 100 ml @ 200 mls/hr Q8 IVPB Last administered on 06/24/16 05:34; Admin Dose 200 MLS/HR; Start 06/20/16 at 22:00 Levofloxacin/ Dextrose 50 ml @ 100 mls/hr Q24H IVPB Last administered on 12:42; Admin Dose 100 MLS/HR; Start 06/21/16 at 12:30 Potassium Chloride/Dextrose (D5W + KCl 20 Meq) 1,000 ml @ 75 mls/hr [id number] IV Last administered on 06/23/16 20:51; Admin Dose 75 MLS/HR; Start 06/21/16 at 10:30 Fluconazole 100 mg 100 mg DAILY NGT Last administered on 06/24/16 08:23; Admin Dose 100 MG; Start 06/21/16 at 12:00 Vancomycin HCl/ Sodium Chloride (Vancocin/NS) 150 ml @ 75 mls/hr Q36H IVPB Last administered on 06/24/16 02:10; Admin Dose 75 MLS/HR; Start 06/22/16 at 14: 00 Metronidazole (Flagyl) 250 mg Q8 PO Last administered on 06/24/16 05:35; Admin Dose 250 MG; Start 06/23/16 at 14:00 Furosemide (Lasix) 20 mg DAILY IV Last administered on 06/24/16 08:23; Admin Dose 20 MG; Start 06/23/16 at 11:30; Stop 06/26/16 at 11:29 Procedures Procedures PROCEDURE: XR Chest. CLINICAL INDICATION: Shortness of breath. TECHNIQUE: Single frontal view. COMPARISON: 06/22/2016. FINDINGS: The endotracheal tube, nasogastric tube, left arm PICC line are in satisfactory position. There is bilateral interstitial pulmonary edema, worse than seen previously. Mild atelectasis at the lung bases, is worse than seen previously. The lungs are otherwise clear. The heart is enlarged. There is calcification in the aorta consistent with atherosclerosis. There is no pleural effusion. There is no pneumothorax. IMPRESSION: 1. Worse appearance of the lungs. 2. No other change from 06/22/2016. RPTAT: QQ .Brooks Chaney MD, MD Date Time Electronically viewed and signed by .Brooks Chaney MD, MD on 06/24/2016 08:36 .R/ CC: SANDOR FANG BOLATITO M. Jun 24, 2016 09:26
--- NOTE | 2016-06-24 10:01 | CONS ---
Date/Time of Note Date/Time of Note DATE: 06/24/16 TIME: 09:59 Assessment/Plan Assessment/Plan Additional Assessment/Plan 1. Acute kidney injury, likely secondary to acute tubular necrosis from septic shock and also contributing to liver shock due to the acute kidney injury 2. Sepsis with lactic acidosis, likely secondary to pneumonia. 3. Right upper lobe pneumonia. 4. Acute respiratory failure, vent dependent secondary to septic shock. 5. Acute on chronic congestive heart failure exacerbation, systolic and diastolic. 6. History of hypertension. 7. History of type 2 diabetes mellitus. 8. History of anemia of chronic disease. 9. History of dyslipidemia. PLAN: Makign good urine ouput, Cr 2.16 continue D5W with KCL expecting creatinine to remove BP stable will follow up Consultation Date/Type/Reason Admit Date/Time Jun 18, 2016 at 21:36 Initial Consult Date 06/21/16 Type of Consultation: NEPHROLOGY Reason for Consultation acute kidney injury Referring Provider: CHITRA ESTEBAN 24 HR Interval Summary Free Text/Dictation good urine output 3.1 L, on IV lasix for diuresis Exam/Review of Systems Vital Signs Vitals Vital Signs Date Time Temp Pulse Resp B/P Pulse Ox O2 Delivery O2 Flow Rate FiO2 06/24/16 09:18 58 18 100 40 06/24/16 06:00 133/65 Mechanical Ventilator 06/24/16 04:00 98.0 Intake and Output 06/23/16 06/23/16 06/24/16 15:00 23:00 07:00 Intake Total 1192 ml 1076.172 ml 1357.258 ml Output Total 975 ml 1425 ml 950 ml Balance 217 ml -348.828 ml 407.258 ml Exam Constitutional: other (sedated on propofol), No alert Head: normocephalic Eyes: PERRL ENMT: intubated Respiratory: clear to auscultation, diminished breath sounds Cardiovascular: regular rate and rhythm,No murmurs/extra sounds Gastrointestinal: bowel sounds, soft Extremities: No edema Results Result Diagram: 06/24/16 0410 06/24/16 0410 Results 24 hrs Laboratory Tests Test 06/23/16 13:38 06/23/16 17:28 06/23/16 20:15 06/24/16 01:06 Bedside Glucose 143 165 149 144 Test 06/24/16 04:10 06/24/16 05:25 06/24/16 08:17 Anion Gap 16 Basophils # 0.0 Basophils % 0.2 Blood Urea Nitrogen 36 H Calcium Level 7.8 L Carbon Dioxide Level 21 Chloride Level 116 H Creatinine 2.15 H Eosinophils # 0.5 Eosinophils % 3.7 Glucose Level 139 Hematocrit 35.2 L Hemoglobin 11.2 L Lymphocytes # 0.9 Lymphocytes % 7.1 L Mean Corpuscular Hemoglobin 30.1 Mean Corpuscular Hemoglobin Concent 31.8 L Mean Corpuscular Volume 94.6 Mean Platelet Volume 10.4 Monocytes # 0.8 Monocytes % 6.2 Neutrophils # 10.0 H Neutrophils % 81.2 H Nucleated Red Blood Cells # 0.0 Nucleated Red Blood Cells % 0.0 Platelet Count 300 Potassium Level 4.3 Red Blood Count 3.72 L Red Cell Distribution Width 14.2 Sodium Level 149 H White Blood Count 12.3 H Bedside Glucose 144 154 Medications Medications Current Medications Ondansetron HCl (Zofran Inj) 4 mg Q6H PRN IV NAUSEA AND/OR VOMITING; Start 06/18 at 23:30 Acetaminophen (Tylenol Tab) 650 mg Q6H PRN PO PAIN LEVEL 1-3 OR FEVER; Start at 23:30 Acetaminophen/ Hydrocodone Bitart ([place] (5/325)) 1 tab Q6H PRN PO MODERATE PAIN LEVEL 4-6; Start 06/18/16 at 23:30 Morphine Sulfate (morphine) 2 mg Q4H PRN IV SEVERE PAIN LEVEL 7-10; Start at 23:30 Docusate Sodium (Colace) 100 mg Q12H PRN PO CONSTIPATION; Start 06/18/16 at 23: 30 Magnesium Hydroxide (Milk Of Mag) 30 ml DAILY PRN PO CONSTIPATION; Start at 23:30 Sodium Biphosphate/ Sodium Phosphate (Fleet Enema) 133 ml DAILY PRN [place] CONSTIPATION; Start 06/18/16 at 23:30 Heparin Sodium (Porcine) (Heparin (5000 Units/0.5 ml)) 5,000 unit Q12 SC Last administered on 06/24/16t 08:24; Admin Dose 5,000 UNIT; Start 06/19/16 at 09:00 Lorazepam (Ativan) 0.5 mg Q6H PRN IV ANXIETY; Start 06/18/16 at 23:30 Vancomycin HCl (Vanco Iv Per Pharmacy) VANCOMYCIN PER PHARMACY NOTE XX ; Start 06/18/16 at 23:30 Hydralazine HCl (Apresoline) 10 mg Q6H PRN IV ELEVATED BLOOD PRESSURE; Start at 23:30 Nitroglycerin (Nitroglycerin (Sl Tab) 0.4 Mg) 1 tab Q5M PRN SL ANGINA; Start at 23:30 Aspirin (Aspirin) 81 mg DAILY NGT Last administered on 06/24/16 08:23; Admin Dose 81 MG; Start 06/19/16 at 20:00 Insulin Aspart (Novolog Insulin Pen) NOVOLOG *MILD* ALGORI... Q4 SC Last administered on 06/24/16 08:24; Admin Dose 1 UNIT; Start 06/19/16 at 21:00 Miscellaneous Information 1 ea NOTE XX ; Start 06/19/16 at 20:30 Glucose (Glutose) 15 gm Q15M PRN PO DECREASED GLUCOSE; Start 06/19/16 at 20:30 Glucose (Glutose) 22.5 gm Q15M PRN PO DECREASED GLUCOSE; Start 06/19/16 at 20:30 Dextrose (D50w Syringe) 25 ml Q15M PRN IV DECREASED GLUCOSE; Start 06/19/16 at 20:30 Dextrose (D50w Syringe) 50 ml Q15M PRN IV DECREASED GLUCOSE; Start 06/19/16 at 20:30 Glucagon (Glucagen) 1 mg Q15M PRN IM DECREASED GLUCOSE; Start 06/19/16 at 20:30 Glucose 15 gm 15 gm Q15M PRN BUCCAL DECREASED GLUCOSE; Start 06/19/16 at 20:30 Propofol 100 ml @ 2.727 mls/ hr Q12H IV Last administered on 06/24/16 04:19; Admin Dose 13.635 MLS/HR; Start 06/19/16 at 22:00 Norepinephrine/ Dextrose (Levophed/D5W) 500 ml @ 1.87 mls/hr TITRATE IV Last administered on 06/20/16 16:49; Admin Dose 13.12 MLS/HR; Start 06/19/16 at 23:00 IV Flush 10 ml 10 ml PRN PRN IV IV PROTOCOL; Start 06/20/16 at 15:00 Piperacillin Sod/ Tazobactam Sod 100 ml @ 200 mls/hr Q8 IVPB Last administered on 06/24/16 05:34; Admin Dose 200 MLS/HR; Start 06/20/16 at 22:00 Levofloxacin/ Dextrose 50 ml @ 100 mls/hr Q24H IVPB Last administered on 12:42; Admin Dose 100 MLS/HR; Start 06/21/16 at 12:30 Potassium Chloride/Dextrose (D5W + KCl 20 Meq) 1,000 ml @ 75 mls/hr [id number] IV Last administered on 06/23/16 20:51; Admin Dose 75 MLS/HR; Start 06/21/16 at 10:30 Fluconazole 100 mg 100 mg DAILY NGT Last administered on 06/24/16 08:23; Admin Dose 100 MG; Start 06/21/16 at 12:00 Vancomycin HCl/ Sodium Chloride (Vancocin/NS) 150 ml @ 75 mls/hr Q36H IVPB Last administered on 06/24/16 02:10; Admin Dose 75 MLS/HR; Start 06/22/16 at 14: 00 Metronidazole (Flagyl) 250 mg Q8 PO Last administered on 06/24/16 05:35; Admin Dose 250 MG; Start 06/23/16 at 14:00 Furosemide (Lasix) 20 mg DAILY IV Last administered on 06/24/16 08:23; Admin Dose 20 MG; Start 06/23/16 at 11:30; Stop 06/26/16 at 11:29 SHANNAN MAYEN MD Jun 24, 2016 10:01
--- NOTE | 2016-06-24 10:31 | CONS ---
Date/Time of Note Date/Time of Note DATE: 06/24/16 TIME: 10:28 Assessment/Plan Assessment/Plan Additional Assessment/Plan Ventilator settings; AC of 14, tidal volume 500, PEEP of 5, 30% FiO2. Chest x-ray was reviewed from today between increased bilateral infiltrates. Possibly some element of fluid overload. Assessment recommendations; 1. Patient admitted for severe bilateral pneumonia leading to respiratory failure. 2. Some element of congestive heart failure. Patient however is having good urine output. 3. Hypotension, currently on low-dose Levophed. Continue current treatment. At this time patient is not ready to be weaned off ventilator on account of severe pneumonia. We will resume sedation. Obtain follow-up chest x-ray tomorrow morning. Consultation Date/Type/Reason Admit Date/Time Jun 18, 2016 at 21:36 Initial Consult Date 06/19/16 Type of Consultation: Pulmonary/critical care Referring Provider: CHITRA ESTEBAN 24 HR Interval Summary Free Text/Dictation Patient condition remains critical. Still requiring full ventilator support. Patient was given a sedation vacation yesterday however the patient became agitated and tachypneic had to be re-sedated again. Has remained hemodynamically stable. General exam; elderly male, awake off sedation. Exam/Review of Systems Vital Signs Vitals Vital Signs Date Time Temp Pulse Resp B/P Pulse Ox O2 Delivery O2 Flow Rate FiO2 06/24/16 09:18 58 18 100 35 06/24/16 06:00 133/65 Mechanical Ventilator 06/24/16 04:00 98.0 Intake and Output 06/23/16 06/23/16 06/24/16 15:00 23:00 07:00 Intake Total 1192 ml 1076.172 ml 1357.258 ml Output Total 975 ml 1425 ml 950 ml Balance 217 ml -348.828 ml 407.258 ml Exam HEENT exam; supple neck, positive JVD. No lymphadenopathy. Midline trachea. Orally intubated. Patient is edentulous. Pupils are equal and reactive to light bilaterally. No neck masses. No thyromegaly. Chest examination; diminished but clear breath sounds bilaterally. S1-S2 audible, no murmurs. Regular rhythm. Abdomen examination; soft, nondistended. Nontender. Bowel sounds audible. No organomegaly. Extremity exam is; no peripheral edema. HOME CONNECT LPN examination; patient is awake and follows simple commands. Results Result Diagram: 06/24/16 0410 06/24/16 0410 Results 24 hrs Laboratory Tests Test 06/23/16 13:38 06/23/16 17:28 06/23/16 20:15 06/24/16 01:06 Bedside Glucose 143 165 149 144 Test 06/24/16 04:10 06/24/16 05:25 06/24/16 08:17 Anion Gap 16 Basophils # 0.0 Basophils % 0.2 Blood Urea Nitrogen 36 H Calcium Level 7.8 L Carbon Dioxide Level 21 Chloride Level 116 H Creatinine 2.15 H Eosinophils # 0.5 Eosinophils % 3.7 Glucose Level 139 Hematocrit 35.2 L Hemoglobin 11.2 L Lymphocytes # 0.9 Lymphocytes % 7.1 L Mean Corpuscular Hemoglobin 30.1 Mean Corpuscular Hemoglobin Concent 31.8 L Mean Corpuscular Volume 94.6 Mean Platelet Volume 10.4 Monocytes # 0.8 Monocytes % 6.2 Neutrophils # 10.0 H Neutrophils % 81.2 H Nucleated Red Blood Cells # 0.0 Nucleated Red Blood Cells % 0.0 Platelet Count 300 Potassium Level 4.3 Red Blood Count 3.72 L Red Cell Distribution Width 14.2 Sodium Level 149 H White Blood Count 12.3 H Bedside Glucose 144 154 Medications Medications Current Medications Ondansetron HCl (Zofran Inj) 4 mg Q6H PRN IV NAUSEA AND/OR VOMITING; Start 06/18 at 23:30 Acetaminophen (Tylenol Tab) 650 mg Q6H PRN PO PAIN LEVEL 1-3 OR FEVER; Start at 23:30 Acetaminophen/ Hydrocodone Bitart ([place] (5/325)) 1 tab Q6H PRN PO MODERATE PAIN LEVEL 4-6; Start 06/18/16 at 23:30 Morphine Sulfate (morphine) 2 mg Q4H PRN IV SEVERE PAIN LEVEL 7-10; Start at 23:30 Docusate Sodium (Colace) 100 mg Q12H PRN PO CONSTIPATION; Start 06/18/16 at 23: 30 Magnesium Hydroxide (Milk Of Mag) 30 ml DAILY PRN PO CONSTIPATION; Start at 23:30 Sodium Biphosphate/ Sodium Phosphate (Fleet Enema) 133 ml DAILY PRN AR CONSTIPATION; Start 06/18/16 at 23:30 Heparin Sodium (Porcine) (Heparin (5000 Units/0.5 ml)) 5,000 unit Q12 SC Last administered on 06/24/16 08:24; Admin Dose 5,000 UNIT; Start 06/19/16 at 09:00 Lorazepam (Ativan) 0.5 mg Q6H PRN IV ANXIETY; Start 06/18/16 at 23:30 Vancomycin HCl (Vanco Iv Per Pharmacy) VANCOMYCIN PER PHARMACY NOTE XX ; Start 06/18/16 at 23:30 Hydralazine HCl (Apresoline) 10 mg Q6H PRN IV ELEVATED BLOOD PRESSURE; Start at 23:30 Nitroglycerin (Nitroglycerin (Sl Tab) 0.4 Mg) 1 tab Q5M PRN SL ANGINA; Start at 23:30 Aspirin (Aspirin) 81 mg DAILY NGT Last administered on 06/24/16 08:23; Admin Dose 81 MG; Start 06/19/16 at 20:00 Insulin Aspart (Novolog Insulin Pen) NOVOLOG *MILD* ALGORI... Q4 SC Last administered on 06/24/16 08:24; Admin Dose 1 UNIT; Start 06/19/16 at 21:00 Miscellaneous Information 1 ea NOTE XX ; Start 06/19/16 at 20:30 Glucose (Glutose) 15 gm Q15M PRN PO DECREASED GLUCOSE; Start 06/19/16 at 20:30 Glucose (Glutose) 22.5 gm Q15M PRN PO DECREASED GLUCOSE; Start 06/19/16 at 20:30 Dextrose (D50w Syringe) 25 ml Q15M PRN IV DECREASED GLUCOSE; Start 06/19/16 at 20:30 Dextrose (D50w Syringe) 50 ml Q15M PRN IV DECREASED GLUCOSE; Start 06/19/16 at 20:30 Glucagon (Glucagen) 1 mg Q15M PRN IM DECREASED GLUCOSE; Start 06/19/16 at 20:30 Glucose 15 gm 15 gm Q15M PRN BUCCAL DECREASED GLUCOSE; Start 06/19/16 at 20:30 Propofol 100 ml @ 2.727 mls/ hr Q12H IV Last administered on 06/24/16 04:19; Admin Dose 13.635 MLS/HR; Start 06/19/16 at 22:00 Norepinephrine/ Dextrose (Levophed/D5W) 500 ml @ 1.87 mls/hr TITRATE IV Last administered on 06/20/16 16:49; Admin Dose 13.12 MLS/HR; Start 06/19/16 at 23:00 IV Flush 10 ml 10 ml PRN PRN IV IV PROTOCOL; Start 06/20/16 at 15:00 Piperacillin Sod/ Tazobactam Sod 100 ml @ 200 mls/hr Q8 IVPB Last administered on 06/24/16 05:34; Admin Dose 200 MLS/HR; Start 06/20/16 at 22:00 Levofloxacin/ Dextrose 50 ml @ 100 mls/hr Q24H IVPB Last administered on 12:42; Admin Dose 100 MLS/HR; Start 06/21/16 at 12:30 Potassium Chloride/Dextrose (D5W + KCl 20 Meq) 1,000 ml @ 75 mls/hr [id number] IV Last administered on 06/23/16 20:51; Admin Dose 75 MLS/HR; Start 06/21/16 at 10:30 Fluconazole 100 mg 100 mg DAILY NGT Last administered on 06/24/16 08:23; Admin Dose 100 MG; Start 06/21/16 at 12:00 Vancomycin HCl/ Sodium Chloride (Vancocin/NS) 150 ml @ 75 mls/hr Q36H IVPB Last administered on 06/24/16 02:10; Admin Dose 75 MLS/HR; Start 06/22/16 at 14: 00 Metronidazole (Flagyl) 250 mg Q8 PO Last administered on 06/24/16 05:35; Admin Dose 250 MG; Start 06/23/16 at 14:00 Furosemide (Lasix) 20 mg DAILY IV Last administered on 06/24/16 08:23; Admin Dose 20 MG; Start 06/23/16 at 11:30; Stop 06/26/16 at 11:29 SANDOR FANG Jun 24, 2016 10:31
[2016-06-24] MEDS: MIDAZOLAM (DRIP) 50 mg/50 mL 50 ML IV SCH ×3 (11:01→21:54)
[2016-06-24] MEDS: D5W + KCL 20 MEQ 1,000 ML IV SCH (11:21)
[2016-06-24] MEDS ORDERED: FENTAnyl (DRIP) 1000 mcg/100mL 100 ML IV SCH (11:30)
[2016-06-24] MEDS: FENTAnyl (DRIP) 1000 mcg/100mL 100 ML IV SCH ×2 (12:01→22:08)
[2016-06-24] MEDS: NYSTATIN SUSP 5 ML CUP PO SCH ×3 (14:00→21:39)
[2016-06-25] VITALS (39 sets, daily range): BP systolic 103–149; BP diastolic 46–91; PULSE 58–80; RESP 17–27
[2016-06-25] MEDS: IPRATROPIUM (HFA) 12.9 GM INHALER INH SCH ×6 (00:58→21:22)
[2016-06-25] MEDS: ALBUTEROL HFA 8 GM INHALER INH SCH ×6 (00:58→21:22)
[2016-06-25] MEDS: D5W + KCL 20 MEQ 1,000 ML IV SCH ×2 (01:20→22:34)
[2016-06-25] MEDS: INSULIN ASPART [NOVOLOG] 3 ML PEN SC SCH ×6 (01:29→20:52)
[2016-06-25 05:04] LABS: ADD SCAN DIFF NO
[2016-06-25 05:15] LABS: BASOPHILS % 0.1 % (0.0-2.0); EOSINOPHILS # 0.3 10^3/ul (0.0-0.5); EOSINOPHILS % 2.8 % (0.0-7.0); HEMATOCRIT 35.5 % (42.0-52.0); HEMOGLOBIN 10.9 g/dl (14.0-18.0); LYMPHOCYTES # 1.1 10^3/ul (0.8-2.9); LYMPHOCYTES % 9.7 % (15.0-51.0); MEAN CORPUSCULAR HEMOGLOBIN 29.2 pg (29.0-33.0); MEAN CORPUSCULAR HGB CONC 30.7 g/dl (32.0-37.0); MEAN CORPUSCULAR VOLUME 95.2 fl (82.0-101.0); MEAN PLATELET VOLUME 10.2 fl (7.4-10.4); MONOCYTE # 0.8 10^3/ul (0.3-0.9); MONOCYTES % 7.1 % (0.0-11.0); NEUTROPHIL # 8.7 10^3/ul (1.6-7.5); NEUTROPHILS % 77.5 % (39.0-77.0); PLATELET COUNT 282 10^3/UL (140-415); RED BLOOD COUNT 3.73 10^6/ul (4.70-6.10); RED CELL DISTRIBUTION WIDTH 14.3 % (11.5-14.5); WHITE BLOOD COUNT 11.2 10^3/ul (4.8-10.8)
[2016-06-25 05:32] LABS: POTASSIUM 4.2 mmol/L (3.5-5.1)
[2016-06-25 05:34] LABS: CREATININE 2.07 mg/dl (0.61-1.24)
[2016-06-25 05:35] LABS: CALCIUM 7.8 mg/dl (8.4-10.2)
[2016-06-25] MEDS: metroNIDAZOLE 250 MG TAB PO SCH ×3 (05:58→22:30)
[2016-06-25] MEDS: PIPER-TAZO 3.375 GM IV (PMX) 100 ML IVPB SCH ×3 (05:58→22:30)
[2016-06-25] MEDS: NYSTATIN SUSP 5 ML CUP PO SCH ×4 (08:29→20:51)
[2016-06-25] MEDS: FUROSEMIDE 20 MG INJ IV SCH (08:30)
[2016-06-25] MEDS: ASPIRIN 81 MG TAB NGT SCH (08:30)
[2016-06-25] MEDS: HEPARIN 5,000 UNIT/0.5 ML SYG SC SCH ×2 (08:32→20:59)
--- NOTE | 2016-06-25 11:30 | CONS ---
Date/Time of Note Date/Time of Note DATE: 06/25/16 TIME: 11:26 Assessment/Plan Assessment/Plan Additional Assessment/Plan Ventilator settings are AC of 16, tidal volume 550, PEEP of 5, 35% FiO2. Next Patient currently on Versed 10 mg/h for sedation. Assessment recommendations; 1. Patient admitted for severe bilateral pneumonia leading to respiratory failure. 2. History of renal insufficiency. 3. Mild CHF. 4. Hypotension with interval resolution. Patient off pressor support. Continue current treatment. Obtain a chest x-ray. Once the chest x-rays done I will review it and make further recommendations. I did have a detailed discussion the patient's [id number] at bedside and answered all her questions. Prognosis remains guarded. Consultation Date/Type/Reason Admit Date/Time Jun 18, 2016 at 21:36 Initial Consult Date 06/19/16 Type of Consultation: Pulmonary/critical care Referring Provider: CHITRA ESTEBAN 24 HR Interval Summary Free Text/Dictation Patient's condition remains critical. Still requiring full ventilator support. Patient was given a sedation vacation yesterday but he could not handle that and had to be re-sedated. Also failed a CPAP trial. General exam; with elderly male, orally intubated, sedated. Currently in no distress. Exam/Review of Systems Vital Signs Vitals Vital Signs Date Time Temp Pulse Resp B/P Pulse Ox O2 Delivery O2 Flow Rate FiO2 06/25/16 10:00 69 21 134/59 100 Mechanical Ventilator 06/25/16 09:10 35 06/25/16 08:00 98.6 Intake and Output 06/24/16 06/24/16 06/25/16 15:00 23:00 07:00 Intake Total 651.362 ml 1096.5 ml 760.0 ml Output Total 1380 ml 820 ml 600 ml Balance -728.638 ml 276.5 ml 160.0 ml Exam H EENT exam; supple neck, positive JVD. No lymphadenopathy. Midline trachea. Bilateral intraocular lens implants. Patient is mostly edentulous with a few remaining teeth in the lower jaw. Chest examination of Jef diminished breath sounds throughout. S1-S2 audible , no murmurs. Regular rhythm. Abdomen exam is; soft, nondistended. No organomegaly. Bowel sounds audible. Extremity examination; no peripheral edema. Pulses 1+ bilaterally. Patient does not multiple ecchymosis involving upper extremities mostly. TRANSFORMATION MANAGER examination; patient is sedated. Results Result Diagram: 06/25/16 0430 06/25/16 0430 Results 24 hrs Laboratory Tests Test 06/24/16 13:17 06/24/16 17:28 06/24/16 21:38 06/25/16 01:27 Bedside Glucose 153 147 154 151 Test 06/25/16 04:30 06/25/16 05:05 06/25/16 08:18 Anion Gap 14 Basophils # 0.0 Basophils % 0.1 Blood Urea Nitrogen 37 H Calcium Level 7.8 L Carbon Dioxide Level 22 Chloride Level 115 H Creatinine 2.07 H Eosinophils # 0.3 Eosinophils % 2.8 Glucose Level 156 Hematocrit 35.5 L Hemoglobin 10.9 L Lymphocytes # 1.1 Lymphocytes % 9.7 L Mean Corpuscular Hemoglobin 29.2 Mean Corpuscular Hemoglobin Concent 30.7 L Mean Corpuscular Volume 95.2 Mean Platelet Volume 10.2 Monocytes # 0.8 Monocytes % 7.1 Neutrophils # 8.7 H Neutrophils % 77.5 H Nucleated Red Blood Cells # 0.0 Nucleated Red Blood Cells % 0.0 Platelet Count 282 Potassium Level 4.2 Red Blood Count 3.73 L Red Cell Distribution Width 14.3 Sodium Level 147 H White Blood Count 11.2 H Bedside Glucose 154 159 Medications Medications Current Medications Ondansetron HCl (Zofran Inj) 4 mg Q6H PRN IV NAUSEA AND/OR VOMITING; Start 06/18 at 23:30 Acetaminophen (Tylenol Tab) 650 mg Q6H PRN PO PAIN LEVEL 1-3 OR FEVER; Start at 23:30 Acetaminophen/ Hydrocodone Bitart ([place] (5/325)) 1 tab Q6H PRN PO MODERATE PAIN LEVEL 4-6; Start 06/18/16 at 23:30 Morphine Sulfate (morphine) 2 mg Q4H PRN IV SEVERE PAIN LEVEL 7-10; Start at 23:30 Docusate Sodium (Colace) 100 mg Q12H PRN PO CONSTIPATION; Start 06/18/16 at 23: 30 Magnesium Hydroxide (Milk Of Mag) 30 ml DAILY PRN PO CONSTIPATION; Start at 23:30 Sodium Biphosphate/ Sodium Phosphate (Fleet Enema) 133 ml DAILY PRN [place] CONSTIPATION; Start 06/18/16 at 23:30 Heparin Sodium (Porcine) (Heparin (5000 Units/0.5 ml)) 5,000 unit Q12 SC Last administered on 06/25/16 08:32; Admin Dose 5,000 UNIT; Start 06/19/16 at 09:00 Lorazepam (Ativan) 0.5 mg Q6H PRN IV ANXIETY; Start 06/18/16 at 23:30 Vancomycin HCl (Vanco Iv Per Pharmacy) VANCOMYCIN PER PHARMACY NOTE XX ; Start 06/18/16 at 23:30 Hydralazine HCl (Apresoline) 10 mg Q6H PRN IV ELEVATED BLOOD PRESSURE; Start at 23:30 Nitroglycerin (Nitroglycerin (Sl Tab) 0.4 Mg) 1 tab Q5M PRN SL ANGINA; Start at 23:30 Aspirin (Aspirin) 81 mg DAILY NGT Last administered on 06/25/16 08:30; Admin Dose 81 MG; Start 06/19/16 at 20:00 Insulin Aspart (Novolog Insulin Pen) NOVOLOG *MILD* ALGORI... Q4 SC Last administered on 06/25/16 08:33; Admin Dose 1 UNIT; Start 06/19/16 at 21:00 Miscellaneous Information 1 ea NOTE XX ; Start 06/19/16 at 20:30 Glucose (Glutose) 15 gm Q15M PRN PO DECREASED GLUCOSE; Start 06/19/16 at 20:30 Glucose (Glutose) 22.5 gm Q15M PRN PO DECREASED GLUCOSE; Start 06/19/16 at 20:30 Dextrose (D50w Syringe) 25 ml Q15M PRN IV DECREASED GLUCOSE; Start 06/19/16 at 20:30 Dextrose (D50w Syringe) 50 ml Q15M PRN IV DECREASED GLUCOSE; Start 06/19/16 at 20:30 Glucagon (Glucagen) 1 mg Q15M PRN IM DECREASED GLUCOSE; Start 06/19/16 at 20:30 Glucose 15 gm 15 gm Q15M PRN BUCCAL DECREASED GLUCOSE; Start 06/19/16 at 20:30 Norepinephrine/ Dextrose (Levophed/D5W) 500 ml @ 1.87 mls/hr TITRATE IV Last administered on 06/20/16 16:49; Admin Dose 13.12 MLS/HR; Start 06/19/16 at 23:00 IV Flush 10 ml 10 ml PRN PRN IV IV PROTOCOL; Start 06/20/16 at 15:00 Piperacillin Sod/ Tazobactam Sod 100 ml @ 200 mls/hr Q8 IVPB Last administered on 06/25/16 05:58; Admin Dose 200 MLS/HR; Start 06/20/16 at 22:00 Potassium Chloride/Dextrose 1,000 ml @ 75 mls/hr [id number] IV Last administered on 06/25/16 01:20; Admin Dose 75 MLS/HR; Start 06/21/16 at 10:30 Vancomycin HCl/ Sodium Chloride (Vancocin/NS) 150 ml @ 75 mls/hr Q36H IVPB Last administered on 06/24/16 02:10; Admin Dose 75 MLS/HR; Start 06/22/16 at 14: 00 Metronidazole (Flagyl) 250 mg Q8 PO Last administered on 06/25/16 05:58; Admin Dose 250 MG; Start 06/23/16 at 14:00 Furosemide 20 mg 20 mg DAILY IV Last administered on 06/25/16 08:30; Admin Dose 20 MG; Start 06/23/16 at 11:30; Stop 06/26/16 at 11:29 Midazolam HCl (Versed) 50 ml @ 0 mls/hr TITRATE IV Last administered on 21:54; Admin Dose 5 MLS/HR; Start 06/24/16 at 11:00 Miscellaneous Information VANCOMYCIN TROUGH AT 1300 ONCE ONCE XX ; Start 06/25/16 at 13:00; Stop 06/25/16 at 13:01 Fentanyl (Sublimaze) 100 ml @ 2.5 mls/hr TITRATE IV Last administered on 22:08; Admin Dose 2.5 MLS/HR; Start 06/24/16 at 11:30 Nystatin (Nystatin Susp) 5 ml QID PO Last administered on 06/25/16 08:29; Admin Dose 5 ML; Start 06/24/16 at 13:00 SANDOR FANG Jun 25, 2016 11:30
[2016-06-25] MEDS: MIDAZOLAM (DRIP) 50 mg/50 mL 50 ML IV SCH (12:22)
--- NOTE | 2016-06-25 12:41 | RADRPT ---
PROCEDURE: XR Chest. CLINICAL INDICATION: ventilator, respiratory failure TECHNIQUE: Single frontal chest x-ray. COMPARISON: 06/24/2016 FINDINGS: The tip of the endotracheal tube is approximately 5.2 cm above the abhi. Left PICC line tip near atriocaval junction. There is appearance of minimal enlargement of the cardiac silhouette decreased compared to previous study. Previously seen pulmonary vascular congestion is no longer seen. Ther e has been interval decrease in the increased densities in the lungs consistent with pulmonary edema compared to previous study. The patient is rotated to the left. ECG leads are projected over the chest. Calcification in the aortic arch. Nasogastric tube in stomach with tip not visualized on th e radiograph.. IMPRESSION: Improvement in congestive heart failure and pulmonary edema compared to previous study as noted abov e. Please see above. RPTAT: HJES .Sam Sanders MD, MD Date Time Electronically viewed and signed by .Sam Sanders MD, on 06/25/2016 12:41 .S/
--- NOTE | 2016-06-25 14:32 | PN ---
Date/Time of Note Date/Time of Note DATE: 06/25/16 TIME: 14:29 Assessment/Plan VTE Prophylaxis VTE Prophylaxis Intervention: heparin Lines/Catheters IV Catheter Type (from Nrs): PICC Line Central line still needed: Yes Urinary Cath still in place: Yes Reason Cath still needed: other (indicate) Assessment/Plan Assessment/Plan A 75-year-old male coming in with shortness of breath with signs of upper respiratory infection and possible congestive heart failure exacerbation. 1. SIRS vs Sepsis with lactic acidosis 2/2 #2 with septic shock: 2. Acute resp failure now vent dependent 3. CHF exacerbation: improving 4. Acute on chronic interstitial lung disease 5. RUL pneumonia 6. Hypertension: controlled 7. DM 2 A1c 6.8 8. NC / NC anemia 9. Shock liver: improving 10. High cholesterol. PLAN: * Patient gets agitated off sedation, however heavy sedation might make him harder to wean * Continue Gentle diuresis if ok with renal / CXR improving * Continue ICU supportive care * Vent mgt and weaning per pulm * Continue aggressive abx mgt / bronchodilator / SSI * Continue serial labs / tube feeds * Continue aggressive resp mgt and supportive care * F/u admissions consultant recs * Gastrointestinal prophylaxis: PPI. * Deep venous thrombosis prophylaxis, heparin subcutaneously. CRITICAL CARE TIME: >35 mins Subjective 24 Hr Interval Summary Subjective hx not possible: pt critical status Constitutional: no complaints Exam/Review of Systems Vital Signs Vitals Vital Signs Date Time Temp Pulse Resp B/P Pulse Ox O2 Delivery O2 Flow Rate FiO2 06/25/16 12:00 72 06/25/16 10:00 21 134/59 100 Mechanical Ventilator 06/25/16 09:10 35 06/25/16 08:00 98.6 Intake and Output 06/24/16 06/24/16 06/25/16 15:00 23:00 07:00 Intake Total 651.362 ml 1096.5 ml 761.0 ml Output Total 1380 ml 820 ml 600 ml Balance -728.638 ml 276.5 ml 161.0 ml Exam Constitutional: other (sedated), No alert Head: normocephalic Eyes: PERRL ENMT: intubated Respiratory: clear to auscultation, diminished breath sounds Cardiovascular: regular rate and rhythm, No murmurs/extra sounds Gastrointestinal: bowel sounds, soft Extremities: No edema Results Result Diagram: 3/12/17 0430 06/25/16 0430 Results 24 hrs Laboratory Tests Test 06/24/16 17:28 06/24/16 21:38 06/25/16 01:27 06/25/16 04:30 Bedside Glucose 147 154 151 Anion Gap 14 Basophils # 0.0 Basophils % 0.1 Blood Urea Nitrogen 37 H Calcium Level 7.8 L Carbon Dioxide Level 22 Chloride Level 115 H Creatinine 2.07 H Eosinophils # 0.3 Eosinophils % 2.8 Glucose Level 156 Hematocrit 35.5 L Hemoglobin 10.9 L Lymphocytes # 1.1 Lymphocytes % 9.7 L Mean Corpuscular Hemoglobin 29.2 Mean Corpuscular Hemoglobin Concent 30.7 L Mean Corpuscular Volume 95.2 Mean Platelet Volume 10.2 Monocytes # 0.8 Monocytes % 7.1 Neutrophils # 8.7 H Neutrophils % 77.5 H Nucleated Red Blood Cells # 0.0 Nucleated Red Blood Cells % 0.0 Platelet Count 282 Potassium Level 4.2 Red Blood Count 3.73 L Red Cell Distribution Width 14.3 Sodium Level 147 H White Blood Count 11.2 H Test 06/25/16 05:05 06/25/16 08:18 06/25/16 12:55 06/25/16 13:47 Bedside Glucose 154 159 174 Vancomycin Level Trough 12.5 Medications Medications Current Medications Ondansetron HCl (Zofran Inj) 4 mg Q6H PRN IV NAUSEA AND/OR VOMITING; Start 06/18 at 23:30 Acetaminophen (Tylenol Tab) 650 mg Q6H PRN PO PAIN LEVEL 1-3 OR FEVER; Start at 23:30 Acetaminophen/ Hydrocodone Bitart ([place] (5/325)) 1 tab Q6H PRN PO MODERATE PAIN LEVEL 4-6; Start 06/18/16 at 23:30 Morphine Sulfate (morphine) 2 mg Q4H PRN IV SEVERE PAIN LEVEL 7-10; Start at 23:30 Docusate Sodium (Colace) 100 mg Q12H PRN PO CONSTIPATION; Start 06/18/16 at 23: 30 Magnesium Hydroxide (Milk Of Mag) 30 ml DAILY PRN PO CONSTIPATION; Start at 23:30 Sodium Biphosphate/ Sodium Phosphate (Fleet Enema) 133 ml DAILY PRN [place] CONSTIPATION; Start 06/18/16 at 23:30 Heparin Sodium (Porcine) (Heparin (5000 Units/0.5 ml)) 5,000 unit Q12 SC Last administered on 06/25/16 08:32; Admin Dose 5,000 UNIT; Start 06/19/16 at 09:00 Lorazepam (Ativan) 0.5 mg Q6H PRN IV ANXIETY; Start 06/18/16 at 23:30 Vancomycin HCl (Vanco Iv Per Pharmacy) VANCOMYCIN PER PHARMACY NOTE XX ; Start 06/18/16 at 23:30 Hydralazine HCl (Apresoline) 10 mg Q6H PRN IV ELEVATED BLOOD PRESSURE; Start at 23:30 Nitroglycerin (Nitroglycerin (Sl Tab) 0.4 Mg) 1 tab Q5M PRN SL ANGINA; Start at 23:30 Aspirin (Aspirin) 81 mg DAILY NGT Last administered on 06/25/16 08:30; Admin Dose 81 MG; Start 06/19/16 at 20:00 Insulin Aspart (Novolog Insulin Pen) NOVOLOG *MILD* ALGORI... Q4 SC Last administered on 06/25/16 13:54; Admin Dose 1 UNIT; Start 06/19/16 at 21:00 Miscellaneous Information 1 ea NOTE XX ; Start 06/19/16 at 20:30 Glucose (Glutose) 15 gm Q15M PRN PO DECREASED GLUCOSE; Start 06/19/16 at 20:30 Glucose (Glutose) 22.5 gm Q15M PRN PO DECREASED GLUCOSE; Start 06/19/16 at 20:30 Dextrose (D50w Syringe) 25 ml Q15M PRN IV DECREASED GLUCOSE; Start 06/19/16 at 20:30 Dextrose (D50w Syringe) 50 ml Q15M PRN IV DECREASED GLUCOSE; Start 06/19/16 at 20:30 Glucagon (Glucagen) 1 mg Q15M PRN IM DECREASED GLUCOSE; Start 06/19/16 at 20:30 Glucose 15 gm 15 gm Q15M PRN BUCCAL DECREASED GLUCOSE; Start 06/19/16 at 20:30 Norepinephrine/ Dextrose (Levophed/D5W) 500 ml @ 1.87 mls/hr TITRATE IV Last administered on 06/20/16 16:49; Admin Dose 13.12 MLS/HR; Start 06/19/16 at 23:00 IV Flush 10 ml 10 ml PRN PRN IV IV PROTOCOL; Start 06/20/16 at 15:00 Piperacillin Sod/ Tazobactam Sod 100 ml @ 200 mls/hr Q8 IVPB Last administered on 06/25/16 13:53; Admin Dose 200 MLS/HR; Start 06/20/16 at 22:00 Potassium Chloride/Dextrose 1,000 ml @ 75 mls/hr [id number] IV Last administered on 06/25/16 01:20; Admin Dose 75 MLS/HR; Start 06/21/16 at 10:30 Vancomycin HCl/ Sodium Chloride (Vancocin/NS) 150 ml @ 75 mls/hr Q36H IVPB Last administered on 06/24/16 02:10; Admin Dose 75 MLS/HR; Start 06/22/16 at 14: 00 Metronidazole (Flagyl) 250 mg Q8 PO Last administered on 06/25/16 13:53; Admin Dose 250 MG; Start 06/23/16 at 14:00 Furosemide 20 mg 20 mg DAILY IV Last administered on 06/25/16 08:30; Admin Dose 20 MG; Start 06/23/16 at 11:30; Stop 06/26/16 at 11:29 Midazolam HCl 50 ml @ 0 mls/hr TITRATE IV Last administered on 06/25/16 12:22 ; Admin Dose 10 MLS/HR; Start 06/24/16 at 11:00 Fentanyl (Sublimaze) 100 ml @ 2.5 mls/hr TITRATE IV Last administered on 22:08; Admin Dose 2.5 MLS/HR; Start 06/24/16 at 11:30 Nystatin (Nystatin Susp) 5 ml QID PO Last administered on 06/25/16 13:53; Admin Dose 5 ML; Start 06/24/16 at 13:00 Procedures Procedures PROCEDURE: XR Chest. CLINICAL INDICATION: ventilator, respiratory failure TECHNIQUE: Single frontal chest x-ray. COMPARISON: 06/24/2016 FINDINGS: The tip of the endotracheal tube is approximately 5.2 cm above the abhi. Left PICC line tip near atriocaval junction. There is appearance of minimal enlargement of the cardiac silhouette decreased compared to previous study. Previously seen pulmonary vascular congestion is no longer seen. There has been interval decrease in the increased densities in the lungs consistent with pulmonary edema compared to previous study. The patient is rotated to the left. ECG leads are projected over the chest. Calcification in the aortic arch. Nasogastric tube in stomach with tip not visualized on the radiograph.. IMPRESSION: Improvement in congestive heart failure and pulmonary edema compared to previous study as noted above. Please see above. RPTAT: HJES .Sam Sanders MD, MD Date Time Electronically viewed and signed by .Sam Sanders MD, on 06/25/2016 12:41 .S/ CC: SANDOR FANG BOLATITO M. Jun 25, 2016 14:32
--- NOTE | 2016-06-25 14:49 | CONS ---
Date/Time of Note Date/Time of Note DATE: 06/25/16 TIME: 14:37 Assessment/Plan Assessment/Plan Chief Complaint/Hosp Course ID PROGRESS NOTE TOTAL ABX DAY #7 => Vanco IV + Zosyn s/p Levaquin x6 s/p Diflucan 24H INTERVAL SUMMARY * Overall improved clinically stable, no fevers, WBC down * Noncommunicative, Vented, stable renal insufficiency * CT 06/20 revealed DENSE RUL PNA * -> CXR today 06/25/16 IMPRESSION:Improvement in congestive heart failure and pulmonary edema compared to previous study as noted above. PHYSICAL EXAMINATION: GENERAL: Orally intubated, lethargic, noncommunicative on the Vent HEENT: ETT-> Secure NECK: Supple, full ROM CHEST: Equal chest rise bilaterally, without dyspnea on observation HEART: Pulse RRR ABDOMEN: Soft EXTREMITIES: Warm SKIN: See hard chart skin assessment ID ASSESSMENT: 75 yo M admit with: 1. Severe sepsis with shock on admission due to #3=> Improving * Fever on admission = RESOLVED * Marked leukocytosis >45,000 on admission => Resolving * Hypotension/Tachycardia -> Resolving 2. Acute respiratory failure due to pulmonary edema 3. Pneumonia = Per CT Dense RUL =>DDx ASP PNA * Influenza A and B are negative. * CT: Nonspecific shoddy adenopathy in the precarinal middle mediastinum. * RESPIRATORY CULTURE Final Organism 1 YAMILEX ALBICANS QUANTITY SCANT GROWTH Organism 2 NORMAL RESPIRATORY MATEO QUANTITY NO 4. Hyperinflation of COPD and changes of centrolobular emphysema. 5. 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 6. Paroxysmal Afib/flutter ->on Amiodarone 7. Acute kidney insufficiency, possibly acute tubular necrosis. 8. Transaminitis = liver shock improving 10. Diarrhea, stool for Clostridium difficile had been negative. 11. Oral candidiasis -> s/p Diflucan, now on Nystatin oral VAP care (-)MRSA Nares INVASIVES: ETT, NGT, FC, PICC (06/20/16) ABX ALLERGY: KNDA CURRENT ABX: TOTAL ABX DAY #7 => Current ABX 1. Vancomycin. 2. Zosyn 3. s/p Levaquin => DC'd 06/24 4. s/p Fluconazole=>06/24 Taper to po Nystatin QID for VAP prophy ID RECOMMENDATIONS: 1. ETT respiratory cx (-) CAP w/scant Yamilex likely oral contaminant 2. ABX tapered 06/24/16 = continue Vanco IV + Zosyn as tolerating well w/ improved renal fx * DC Levaquin 06/24=> RATIONALE: has received empiric coverage for atypicals, on Amiodarone = at risk for prolonged QT with Levaquin * Taper off Fluconazole IV to oral Nystatin QID for yeast VAP prevention = Multiple current ABX are likely to drive ABX associated diarrhea 5. Has received >6 days multiple ABX empiric coverage for dense RUL PNA w/ radiographic + clinical improvement. * If continues to improve, i.e. WBC normalized, CXR without RUL PNA => consider further taper ABX to Ceftriaxone . Problems: Consultation Date/Type/Reason Admit Date/Time Jun 18, 2016 at 21:36 Initial Consult Date 06/19/16 Type of Consultation: ID Referring Provider: CHITRA ESTEBAN Exam/Review of Systems Vital Signs Vitals Vital Signs Date Time Temp Pulse Resp B/P Pulse Ox O2 Delivery O2 Flow Rate FiO2 06/25/16 12:00 72 06/25/16 10:00 21 134/59 100 Mechanical Ventilator 06/25/16 09:10 35 06/25/16 08:00 98.6 Intake and Output 06/24/16 06/24/16 06/25/16 15:00 23:00 07:00 Intake Total 651.362 ml 1096.5 ml 761.0 ml Output Total 1380 ml 820 ml 600 ml Balance -728.638 ml 276.5 ml 161.0 ml Results Result Diagram: 06/25/16 0430 06/25/16 0430 Results 24 hrs Laboratory Tests Test 06/24/16 17:28 06/24/16 21:38 06/25/16 01:27 06/25/16 04:30 Bedside Glucose 147 154 151 Anion Gap 14 Basophils # 0.0 Basophils % 0.1 Blood Urea Nitrogen 37 H Calcium Level 7.8 L Carbon Dioxide Level 22 Chloride Level 115 H Creatinine 2.07 H Eosinophils # 0.3 Eosinophils % 2.8 Glucose Level 156 Hematocrit 35.5 L Hemoglobin 10.9 L Lymphocytes # 1.1 Lymphocytes % 9.7 L Mean Corpuscular Hemoglobin 29.2 Mean Corpuscular Hemoglobin Concent 30.7 L Mean Corpuscular Volume 95.2 Mean Platelet Volume 10.2 Monocytes # 0.8 Monocytes % 7.1 Neutrophils # 8.7 H Neutrophils % 77.5 H Nucleated Red Blood Cells # 0.0 Nucleated Red Blood Cells % 0.0 Platelet Count 282 Potassium Level 4.2 Red Blood Count 3.73 L Red Cell Distribution Width 14.3 Sodium Level 147 H White Blood Count 11.2 H Test 06/25/16 05:05 06/25/16 08:18 06/25/16 12:55 06/25/16 13:47 Bedside Glucose 154 159 174 Vancomycin Level Trough 12.5 Medications Medications Current Medications Ondansetron HCl (Zofran Inj) 4 mg Q6H PRN IV NAUSEA AND/OR VOMITING; Start 06/18 at 23:30 Acetaminophen (Tylenol Tab) 650 mg Q6H PRN PO PAIN LEVEL 1-3 OR FEVER; Start at 23:30 Acetaminophen/ Hydrocodone Bitart ([place] (5/325)) 1 tab Q6H PRN PO MODERATE PAIN LEVEL 4-6; Start 06/18/16 at 23:30 Morphine Sulfate (morphine) 2 mg Q4H PRN IV SEVERE PAIN LEVEL 7-10; Start at 23:30 Docusate Sodium (Colace) 100 mg Q12H PRN PO CONSTIPATION; Start 06/18/16 at 23: 30 Magnesium Hydroxide (Milk Of Mag) 30 ml DAILY PRN PO CONSTIPATION; Start at 23:30 Sodium Biphosphate/ Sodium Phosphate (Fleet Enema) 133 ml DAILY PRN [place] CONSTIPATION; Start 06/18/16 at 23:30 Heparin Sodium (Porcine) (Heparin (5000 Units/0.5 ml)) 5,000 unit Q12 SC Last administered on 06/25/16t 08:32; Admin Dose 5,000 UNIT; Start 06/19/16 at 09:00 Lorazepam (Ativan) 0.5 mg Q6H PRN IV ANXIETY; Start 06/18/16 at 23:30 Vancomycin HCl (Vanco Iv Per Pharmacy) VANCOMYCIN PER PHARMACY NOTE XX ; Start 06/18/16 at 23:30 Hydralazine HCl (Apresoline) 10 mg Q6H PRN IV ELEVATED BLOOD PRESSURE; Start at 23:30 Nitroglycerin (Nitroglycerin (Sl Tab) 0.4 Mg) 1 tab Q5M PRN SL ANGINA; Start at 23:30 Aspirin (Aspirin) 81 mg DAILY NGT Last administered on 06/25/16 08:30; Admin Dose 81 MG; Start 06/19/16 at 20:00 Insulin Aspart (Novolog Insulin Pen) NOVOLOG *MILD* ALGORI... Q4 SC Last administered on 06/25/16 13:54; Admin Dose 1 UNIT; Start 06/19/16 at 21:00 Miscellaneous Information 1 ea NOTE XX ; Start 06/19/16 at 20:30 Glucose (Glutose) 15 gm Q15M PRN PO DECREASED GLUCOSE; Start 06/19/16 at 20:30 Glucose (Glutose) 22.5 gm Q15M PRN PO DECREASED GLUCOSE; Start 06/19/16 at 20:30 Dextrose (D50w Syringe) 25 ml Q15M PRN IV DECREASED GLUCOSE; Start 06/19/16 at 20:30 Dextrose (D50w Syringe) 50 ml Q15M PRN IV DECREASED GLUCOSE; Start 06/19/16 at 20:30 Glucagon (Glucagen) 1 mg Q15M PRN IM DECREASED GLUCOSE; Start 06/19/16 at 20:30 Glucose 15 gm 15 gm Q15M PRN BUCCAL DECREASED GLUCOSE; Start 06/19/16 at 20:30 Norepinephrine/ Dextrose (Levophed/D5W) 500 ml @ 1.87 mls/hr TITRATE IV Last administered on 06/20/16 16:49; Admin Dose 13.12 MLS/HR; Start 06/19/16 at 23:00 IV Flush 10 ml 10 ml PRN PRN IV IV PROTOCOL; Start 06/20/16 at 15:00 Piperacillin Sod/ Tazobactam Sod 100 ml @ 200 mls/hr Q8 IVPB Last administered on 06/25/16 13:53; Admin Dose 200 MLS/HR; Start 06/20/16 at 22:00 Potassium Chloride/Dextrose 1,000 ml @ 75 mls/hr [id number] IV Last administered on 06/25/16 01:20; Admin Dose 75 MLS/HR; Start 06/21/16 at 10:30 Vancomycin HCl/ Sodium Chloride (Vancocin/NS) 150 ml @ 75 mls/hr Q36H IVPB Last administered on 06/24/16 02:10; Admin Dose 75 MLS/HR; Start 06/22/16 at 14: 00 Metronidazole (Flagyl) 250 mg Q8 PO Last administered on 06/25/16 13:53; Admin Dose 250 MG; Start 06/23/16 at 14:00 Furosemide 20 mg 20 mg DAILY IV Last administered on 06/25/16 08:30; Admin Dose 20 MG; Start 06/23/16 at 11:30; Stop 06/26/16 at 11:29 Midazolam HCl 50 ml @ 0 mls/hr TITRATE IV Last administered on 06/25/16 12:22 ; Admin Dose 10 MLS/HR; Start 06/24/16 at 11:00 Fentanyl (Sublimaze) 100 ml @ 2.5 mls/hr TITRATE IV Last administered on 22:08; Admin Dose 2.5 MLS/HR; Start 06/24/16 at 11:30 Nystatin (Nystatin Susp) 5 ml QID PO Last administered on 06/25/16 13:53; Admin Dose 5 ML; Start 06/24/16 at 13:00 WICHO PATTON NP Jun 25, 2016 14:48
[2016-06-25] MEDS: VANCOMYCIN 750 MG in SOD CHLORIDE 0.9% 150 ML IVPB SCH (14:56)
--- NOTE | 2016-06-25 21:41 | CONS ---
Date/Time of Note Date/Time of Note DATE: 06/25/16 TIME: 21:38 Assessment/Plan Assessment/Plan Additional Assessment/Plan 1. Acute kidney injury, likely secondary to acute tubular necrosis from septic shock and also contributing to liver shock due to the acute kidney injury 2. Sepsis with lactic acidosis, likely secondary to pneumonia. 3. Right upper lobe pneumonia. 4. Acute respiratory failure, vent dependent secondary to septic shock. 5. Acute on chronic congestive heart failure exacerbation, systolic and diastolic. 6. History of hypertension. 7. History of type 2 diabetes mellitus. 8. History of anemia of chronic disease. 9. History of dyslipidemia. PLAN: Makign good urine ouput, Cr 2.07,Na 147 continue D5W with KCL expecting creatinine to remove BP stable will follow up Consultation Date/Type/Reason Admit Date/Time Jun 18, 2016 at 21:36 Initial Consult Date 06/21/16 Type of Consultation: NEPHROLOGY Referring Provider: CHITRA ESTEBAN 24 HR Interval Summary Free Text/Dictation cr slight better than yesterday, Bp stable Exam/Review of Systems Vital Signs Vitals Vital Signs Date Time Temp Pulse Resp B/P Pulse Ox O2 Delivery O2 Flow Rate FiO2 06/25/16 20:00 75 06/25/16 18:00 20 128/78 99 Mechanical Ventilator 06/25/16 17:00 35 06/25/16 16:00 98.2 Intake and Output 06/24/16 06/24/16 06/25/16 15:00 23:00 07:00 Intake Total 651.362 ml 1096.5 ml 791.0 ml Output Total 1380 ml 820 ml 825 ml Balance -728.638 ml 276.5 ml -34.0 ml Exam Constitutional: other (sedated on propofol), intubated Respiratory: diminished breath sounds Cardiovascular: regular rate and rhythm,No murmurs/extra sounds Gastrointestinal: bowel sounds, soft Extremities: No edema Results Result Diagram: 06/25/1642906/25/16 043 Results 24 hrs Laboratory Tests Test 06/25/16 01:27 06/25/16 04:30 06/25/16 05:05 06/25/16 08:18 Bedside Glucose 151 154 159 Anion Gap 14 Basophils # 0.0 Basophils % 0.1 Blood Urea Nitrogen 37 H Calcium Level 7.8 L Carbon Dioxide Level 22 Chloride Level 115 H Creatinine 2.07 H Eosinophils # 0.3 Eosinophils % 2.8 Glucose Level 156 Hematocrit 35.5 L Hemoglobin 10.9 L Lymphocytes # 1.1 Lymphocytes % 9.7 L Mean Corpuscular Hemoglobin 29.2 Mean Corpuscular Hemoglobin Concent 30.7 L Mean Corpuscular Volume 95.2 Mean Platelet Volume 10.2 Monocytes # 0.8 Monocytes % 7.1 Neutrophils # 8.7 H Neutrophils % 77.5 H Nucleated Red Blood Cells # 0.0 Nucleated Red Blood Cells % 0.0 Platelet Count 282 Potassium Level 4.2 Red Blood Count 3.73 L Red Cell Distribution Width 14.3 Sodium Level 147 H White Blood Count 11.2 H Test 06/25/16 12:55 06/25/16 13:47 06/25/16 17:49 06/25/16 20:50 Vancomycin Level Trough 12.5 Bedside Glucose 174 147 157 Medications Medications Current Medications Ondansetron HCl (Zofran Inj) 4 mg Q6H PRN IV NAUSEA AND/OR VOMITING; Start 06/18 at 23:30 Acetaminophen (Tylenol Tab) 650 mg Q6H PRN PO PAIN LEVEL 1-3 OR FEVER; Start at 23:30 Acetaminophen/ Hydrocodone Bitart ([place] (5/325)) 1 tab Q6H PRN PO MODERATE PAIN LEVEL 4-6; Start 06/18/16 at 23:30 Morphine Sulfate (morphine) 2 mg Q4H PRN IV SEVERE PAIN LEVEL 7-10; Start at 23:30 Docusate Sodium (Colace) 100 mg Q12H PRN PO CONSTIPATION; Start 06/18/16 at 23: 30 Magnesium Hydroxide (Milk Of Mag) 30 ml DAILY PRN PO CONSTIPATION; Start at 23:30 Sodium Biphosphate/ Sodium Phosphate (Fleet Enema) [address] CONSTIPATION; Start 06/18/16 at 23:30 Heparin Sodium (Porcine) (Heparin (5000 Units/0.5 ml)) 5,000 unit Q12 SC Last administered on 06/25/16t 20:59; Admin Dose 5,000 UNIT; Start 06/19/16 at 09:00 Lorazepam (Ativan) 0.5 mg Q6H PRN IV ANXIETY; Start 06/18/16 at 23:30 Vancomycin HCl (Vanco Iv Per Pharmacy) VANCOMYCIN PER PHARMACY NOTE XX ; Start 06/18/16 at 23:30 Hydralazine HCl (Apresoline) 10 mg Q6H PRN IV ELEVATED BLOOD PRESSURE; Start at 23:30 Nitroglycerin (Nitroglycerin (Sl Tab) 0.4 Mg) 1 tab Q5M PRN SL ANGINA; Start at 23:30 Aspirin (Aspirin) 81 mg DAILY NGT Last administered on 06/25/16 08:30; Admin Dose 81 MG; Start 06/19/16 at 20:00 Insulin Aspart (Novolog Insulin Pen) NOVOLOG *MILD* ALGORI... Q4 SC Last administered on 06/25/16 20:52; Admin Dose 1 UNIT; Start 06/19/16 at 21:00 Miscellaneous Information 1 ea NOTE XX ; Start 06/19/16 at 20:30 Glucose (Glutose) 15 gm Q15M PRN PO DECREASED GLUCOSE; Start 06/19/16 at 20:30 Glucose (Glutose) 22.5 gm Q15M PRN PO DECREASED GLUCOSE; Start 06/19/16 at 20:30 Dextrose (D50w Syringe) 25 ml Q15M PRN IV DECREASED GLUCOSE; Start 06/19/16 at 20:30 Dextrose (D50w Syringe) 50 ml Q15M PRN IV DECREASED GLUCOSE; Start 06/19/16 at 20:30 Glucagon (Glucagen) 1 mg Q15M PRN IM DECREASED GLUCOSE; Start 06/19/16 at 20:30 Glucose 15 gm 15 gm Q15M PRN BUCCAL DECREASED GLUCOSE; Start 06/19/16 at 20:30 Norepinephrine/ Dextrose (Levophed/D5W) 500 ml @ 1.87 mls/hr TITRATE IV Last administered on 06/20/16 16:49; Admin Dose 13.12 MLS/HR; Start 06/19/16 at 23:00 IV Flush 10 ml 10 ml PRN PRN IV IV PROTOCOL; Start 06/20/16 at 15:00 Piperacillin Sod/ Tazobactam Sod 100 ml @ 200 mls/hr Q8 IVPB Last administered on 06/25/16 13:53; Admin Dose 200 MLS/HR; Start 06/20/16 at 22:00 Potassium Chloride/Dextrose 1,000 ml @ 75 mls/hr [id number] IV Last administered on 06/25/16 01:20; Admin Dose 75 MLS/HR; Start 06/21/16 at 10:30 Vancomycin HCl/ Sodium Chloride (Vancocin/NS) 150 ml @ 75 mls/hr Q36H IVPB Last administered on 06/25/16 14:56; Admin Dose 75 MLS/HR; Start 06/22/16 at 14: 00 Metronidazole (Flagyl) 250 mg Q8 PO Last administered on 06/25/16 13:53; Admin Dose 250 MG; Start 06/23/16 at 14:00 Furosemide 20 mg 20 mg DAILY IV Last administered on 06/25/16 08:30; Admin Dose 20 MG; Start 06/23/16 at 11:30; Stop 06/26/16 at 11:29 Midazolam HCl 50 ml @ 0 mls/hr TITRATE IV Last administered on 06/25/16 12:22 ; Admin Dose 10 MLS/HR; Start 06/24/16 at 11:00 Fentanyl (Sublimaze) 100 ml @ 2.5 mls/hr TITRATE IV Last administered on 22:08; Admin Dose 2.5 MLS/HR; Start 06/24/16 at 11:30 Nystatin (Nystatin Susp) 5 ml QID PO Last administered on 06/25/16 20:51; Admin Dose 5 ML; Start 06/24/16 at 13:00 SHANNAN MAYEN MD Jun 25, 2016 21:40
[2016-06-26] VITALS (48 sets, daily range): BP systolic 94–152; BP diastolic 47–90; PULSE 57–82; RESP 16–31
[2016-06-26] MEDS: INSULIN ASPART [NOVOLOG] 3 ML PEN SC SCH ×6 (01:00→21:14)
[2016-06-26] MEDS: IPRATROPIUM (HFA) 12.9 GM INHALER INH SCH ×6 (01:22→21:47)
[2016-06-26] MEDS: ALBUTEROL HFA 8 GM INHALER INH SCH ×6 (01:22→21:47)
[2016-06-26] MEDS: PIPER-TAZO 3.375 GM IV (PMX) 100 ML IVPB SCH ×3 (05:43→21:07)
[2016-06-26] MEDS: metroNIDAZOLE 250 MG TAB PO SCH ×3 (05:44→21:07)
[2016-06-26 06:25] LABS: ADD SCAN DIFF NO
[2016-06-26 06:31] LABS: BASOPHILS % 0.2 % (0.0-2.0); EOSINOPHILS # 0.2 10^3/ul (0.0-0.5); EOSINOPHILS % 1.6 % (0.0-7.0); HEMATOCRIT 35.7 % (42.0-52.0); HEMOGLOBIN 11.1 g/dl (14.0-18.0); LYMPHOCYTES # 1.2 10^3/ul (0.8-2.9); LYMPHOCYTES % 9.6 % (15.0-51.0); MEAN CORPUSCULAR HGB CONC 31.1 g/dl (32.0-37.0); MEAN CORPUSCULAR VOLUME 93.2 fl (82.0-101.0); MEAN PLATELET VOLUME 10.3 fl (7.4-10.4); MONOCYTES % 7.7 % (0.0-11.0); NEUTROPHIL # 9.7 10^3/ul (1.6-7.5); NEUTROPHILS % 78.2 % (39.0-77.0); PLATELET COUNT 308 10^3/UL (140-415); RED BLOOD COUNT 3.83 10^6/ul (4.70-6.10); RED CELL DISTRIBUTION WIDTH 14.2 % (11.5-14.5); WHITE BLOOD COUNT 12.4 10^3/ul (4.8-10.8)
[2016-06-26 06:52] LABS: POTASSIUM 4.2 mmol/L (3.5-5.1)
[2016-06-26 06:54] LABS: CREATININE 2.03 mg/dl (0.61-1.24)
[2016-06-26 06:55] LABS: CALCIUM 7.8 mg/dl (8.4-10.2)
--- NOTE | 2016-06-26 07:29 | PN ---
DATE: 06/25/2016 CARDIOLOGY FOLLOWUP PROGRESS NOTE SUBJECTIVE: Discussed with the staff. Rhythm strip was reviewed. The patient remains in sinus rhy thm, has bradycardia. He has been sedated, heavily apparently with fentanyl and Versed and is curre ntly not responsive, no answering my questions or following commands. Blood pressure has remained stable though. on the vent. MEDICATIONS: Reviewed as per medical reconciliation, personally reviewed. PHYSICAL EXAMINATION: VITAL SIGNS: Temperature 97.8, heart rate of ____, blood pressure 125/66, respiration rate of ____, saturating 99%. HEENT: Normocephalic, atraumatic. Status post intubation on the vent. CARDIOVASCULAR: Regular rate and rhythm, systolic murmur. PULMONARY: With no wheezes heard. GASTROINTESTINAL: Soft, nontender. EXTREMITIES: With positive edema. NEUROLOGIC: Sedated. LABORATORY: WBC of 11.2, hemoglobin 10.9, platelets of 282, sodium 147, potassium 4.2, BUN of 37, c reatinine 2.07, glucose 156. ASSESSMENT AND PLAN: 1. Hypoxic respiratory failure status post intubation on the vent. 2. Bilateral pneumonia. 3. Renal failure. 4. Status post septic shock, currently blood pressure is improved. 5. Congestive heart failure secondary to diastolic dysfunction. 6. History of coronary artery disease. 7. History of paroxysmal atrial flutter, currently remains in sinus rhythm. RECOMMENDATIONS: We will continue the vent support. Antibiotic management as per pulmonary recomme ndations. Diuresis as per renal. Continue with the ICU care. Continue vent support. More than 58 minutes of critical care time was spent in management of this patient excluding proced ures. Dictated By: JACLYN PUENTE MD AV/GARRETT Conf#: [id number] DID#: [id number]
[2016-06-26] MEDS: ASPIRIN 81 MG TAB NGT SCH (08:53)
[2016-06-26] MEDS: NYSTATIN SUSP 5 ML CUP PO SCH ×4 (08:53→21:06)
[2016-06-26] MEDS: FUROSEMIDE 20 MG INJ IV SCH (08:53)
[2016-06-26] MEDS: HEPARIN 5,000 UNIT/0.5 ML SYG SC SCH ×2 (08:55→21:14)
[2016-06-26] MEDS: D5W + KCL 20 MEQ 1,000 ML IV SCH ×2 (09:02→22:33)
--- NOTE | 2016-06-26 09:20 | CONS ---
Date/Time of Note Date/Time of Note DATE: 06/26/16 TIME: 09:19 Assessment/Plan Assessment/Plan Additional Assessment/Plan 1. Acute kidney injury, likely secondary to acute tubular necrosis from septic shock and also contributing to liver shock due to the acute kidney injury 2. Sepsis with lactic acidosis, likely secondary to pneumonia. 3. Right upper lobe pneumonia. 4. Acute respiratory failure, vent dependent secondary to septic shock. 5. Acute on chronic congestive heart failure exacerbation, systolic and diastolic. 6. History of hypertension. 7. History of type 2 diabetes mellitus. 8. History of anemia of chronic disease. 9. History of dyslipidemia. PLAN: Makign good urine ouput, Cr stable, may be back to his baseline,Na 148 continue D5W with KCL expecting creatinine to stabilized BP stable will follow up Consultation Date/Type/Reason Admit Date/Time Jun 18, 2016 at 21:36 Initial Consult Date 06/21/16 Type of Consultation: NEPHROLOGY Reason for Consultation pt remains intubated Referring Provider: CHITRA ESTEBAN Exam/Review of Systems Vital Signs Vitals Vital Signs Date Time Temp Pulse Resp B/P Pulse Ox O2 Delivery O2 Flow Rate FiO2 06/26/16 07:51 75 27 100 35 06/26/16 06:00 136/67 Mechanical Ventilator 06/26/16 04:00 98.5 Intake and Output 06/25/16 06/25/16 06/26/16 15:00 23:00 07:00 Intake Total 816 ml 655 ml 655 ml Output Total 1425 ml 775 ml 800 ml Balance -609 ml -120 ml -145 ml Results Result Diagram: 06/26/16 0540 06/26/16 0540 Results 24 hrs Laboratory Tests Test 06/25/16 12:55 06/25/16 13:47 06/25/16 17:49 06/25/16 20:50 Vancomycin Level Trough 12.5 Bedside Glucose 174 147 157 Test 06/26/16 01:23 06/26/16 05:39 06/26/16 05:40 Bedside Glucose 137 146 Anion Gap 14 Basophils # 0.0 Basophils % 0.2 Blood Urea Nitrogen 38 H Calcium Level 7.8 L Carbon Dioxide Level 23 Chloride Level 115 H Creatinine 2.03 H Eosinophils # 0.2 Eosinophils % 1.6 Glucose Level 141 Hematocrit 35.7 L Hemoglobin 11.1 L Lymphocytes # 1.2 Lymphocytes % 9.6 L Mean Corpuscular Hemoglobin 29.0 Mean Corpuscular Hemoglobin Concent 31.1 L Mean Corpuscular Volume 93.2 Mean Platelet Volume 10.3 Monocytes # 1.0 H Monocytes % 7.7 Neutrophils # 9.7 H Neutrophils % 78.2 H Nucleated Red Blood Cells # 0.0 Nucleated Red Blood Cells % 0.0 Platelet Count 308 Potassium Level 4.2 Red Blood Count 3.83 L Red Cell Distribution Width 14.2 Sodium Level 148 H White Blood Count 12.4 H Medications Medications Current Medications Ondansetron HCl (Zofran Inj) 4 mg Q6H PRN IV NAUSEA AND/OR VOMITING; Start 06/18 at 23:30 Acetaminophen (Tylenol Tab) 650 mg Q6H PRN PO PAIN LEVEL 1-3 OR FEVER; Start at 23:30 Acetaminophen/ Hydrocodone Bitart ([place] (5/325)) 1 tab Q6H PRN PO MODERATE PAIN LEVEL 4-6; Start 06/18/16 at 23:30 Morphine Sulfate (morphine) 2 mg Q4H PRN IV SEVERE PAIN LEVEL 7-10; Start at 23:30 Docusate Sodium (Colace) 100 mg Q12H PRN PO CONSTIPATION; Start 06/18/16 at 23: 30 Magnesium Hydroxide (Milk Of Mag) 30 ml DAILY PRN PO CONSTIPATION; Start at 23:30 Sodium Biphosphate/ Sodium Phosphate (Fleet Enema) 133 ml DAILY PRN [place] CONSTIPATION; Start 06/18/16 at 23:30 Heparin Sodium (Porcine) (Heparin (5000 Units/0.5 ml)) 5,000 unit Q12 SC Last administered on 06/26/16t 08:55; Admin Dose 5,000 UNIT; Start 06/19/16 at 09:00 Lorazepam (Ativan) 0.5 mg Q6H PRN IV ANXIETY; Start 06/18/16 at 23:30 Vancomycin HCl (Vanco Iv Per Pharmacy) VANCOMYCIN PER PHARMACY NOTE XX ; Start 06/18/16 at 23:30 Hydralazine HCl (Apresoline) 10 mg Q6H PRN IV ELEVATED BLOOD PRESSURE; Start at 23:30 Nitroglycerin (Nitroglycerin (Sl Tab) 0.4 Mg) 1 tab Q5M PRN SL ANGINA; Start at 23:30 Aspirin (Aspirin) 81 mg DAILY NGT Last administered on 06/26/16 08:53; Admin Dose 81 MG; Start 06/19/16 at 20:00 Insulin Aspart (Novolog Insulin Pen) NOVOLOG *MILD* ALGORI... Q4 SC Last administered on 06/26/16 05:46; Admin Dose 1 UNIT; Start 06/19/16 at 21:00 Miscellaneous Information 1 ea NOTE XX ; Start 06/19/16 at 20:30 Glucose (Glutose) 15 gm Q15M PRN PO DECREASED GLUCOSE; Start 06/19/16 at 20:30 Glucose (Glutose) 22.5 gm Q15M PRN PO DECREASED GLUCOSE; Start 06/19/16 at 20:30 Dextrose (D50w Syringe) 25 ml Q15M PRN IV DECREASED GLUCOSE; Start 06/19/16 at 20:30 Dextrose (D50w Syringe) 50 ml Q15M PRN IV DECREASED GLUCOSE; Start 06/19/16 at 20:30 Glucagon (Glucagen) 1 mg Q15M PRN IM DECREASED GLUCOSE; Start 06/19/16 at 20:30 Glucose 15 gm 15 gm Q15M PRN BUCCAL DECREASED GLUCOSE; Start 06/19/16 at 20:30 Norepinephrine/ Dextrose (Levophed/D5W) 500 ml @ 1.87 mls/hr TITRATE IV Last administered on 06/20/16 16:49; Admin Dose 13.12 MLS/HR; Start 06/19/16 at 23:00 IV Flush 10 ml 10 ml PRN PRN IV IV PROTOCOL; Start 06/20/16 at 15:00 Piperacillin Sod/ Tazobactam Sod 100 ml @ 200 mls/hr Q8 IVPB Last administered on 06/26/16 05:43; Admin Dose 200 MLS/HR; Start 06/20/16 at 22:00 Potassium Chloride/Dextrose 1,000 ml @ 75 mls/hr [id number] IV Last administered on 06/26/16 09:02; Admin Dose 75 MLS/HR; Start 06/21/16 at 10:30 Vancomycin HCl/ Sodium Chloride (Vancocin/NS) 150 ml @ 75 mls/hr Q36H IVPB Last administered on 06/25/16 14:56; Admin Dose 75 MLS/HR; Start 06/22/16 at 14: 00 Metronidazole (Flagyl) 250 mg Q8 PO Last administered on 06/26/16 05:44; Admin Dose 250 MG; Start 06/23/16 at 14:00 Furosemide 20 mg 20 mg DAILY IV Last administered on 06/26/16 08:53; Admin Dose 20 MG; Start 06/23/16 at 11:30; Stop 06/26/16 at 11:29 Midazolam HCl 50 ml @ 0 mls/hr TITRATE IV Last administered on 06/25/16 12:22 ; Admin Dose 10 MLS/HR; Start 06/24/16 at 11:00 Fentanyl (Sublimaze) 100 ml @ 2.5 mls/hr TITRATE IV Last administered on 22:08; Admin Dose 2.5 MLS/HR; Start 06/24/16 at 11:30 Nystatin (Nystatin Susp) 5 ml QID PO Last administered on 06/26/16 08:53; Admin Dose 5 ML; Start 06/24/16 at 13:00 SHANNAN MAYEN MD Jun 26, 2016 09:20
--- NOTE | 2016-06-26 10:18 | PN ---
DATE: 06/26/2016 I had a long conversation with patient's son. There are no other siblings and patient has no brother s or sisters. 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 In the [facility] he was very active once again, driving his own car, up to the time that he became critically il l, was cognitively intact and performed all of his ADLs. The patient's medical condition was reviewe d in detail by organ system with the son who was somewhat tearful and obviously distressed by his fa ther's catastrophic event. It was my impression after speaking with him about his code status broach ing the subject that he says, "I don't want to go there." I think at this time just support for the son would be the best goal at this point. In the event that Mr. Smith decompensates I think the f jairo will decompensate also, therefore we need to establish some kind of a trusting relationship wi th the family members. Hopefully, he will continue to improve and be extubated soon. Dictated By: PJ BERTRAND MD, LP/GARRETT Conf#: [id number] DID#: [id number]
--- NOTE | 2016-06-26 10:57 | PN ---
DATE: 06/26/2016 REASON FOR FOLLOWUP: Respiratory failure. SUBJECTIVE: The patient remains stable this morning on mechanical ventilation. Eyes open, follows simple commands, remains hemodynamically stable. VITAL SIGNS: Temperature 98, pulse is 76, blood pressure 134/56, O2 saturation 96% on 35% FIO2, ora lly intubated. HEENT: Dry mucous membranes. Pupils equal, reactive to light. CARDIAC: S1, S2, no added sounds or murmurs. CHEST: Diminished air entry bilaterally. ABDOMEN: Soft, nontender. No guarding or rebound. EXTREMITIES: No cyanosis, clubbing, or edema. NEUROLOGIC: Generalized weakness. LABORATORY DATA: White count 12.4, hemoglobin 11.1, platelets of 308, BUN 38, creatinine 2.03. INR within normal limits. Chest x-ray was reviewed, shows improved congestive cardiac failure, bilateral patchy infiltrates. IMPRESSION AND PLAN: 1. Hypoxemic respiratory failure, likely secondary to congestive cardiac failure and bilateral pneu monia. 2. History of renal insufficiency. 3. Status post septic shock. PLAN: 1. Continue mechanical ventilation. I will attempt CPAP weaning trial. 2. Continue pulmonary toilet. 3. Continue IV diuretics. 4. Continue broad-spectrum antibiotics of Flagyl and Zosyn. 5. Continue glycemic management. Dictated By: SARAH WATTERS/GARRETT Conf#: [id number] DID#: [id number]
--- NOTE | 2016-06-26 11:42 | PN ---
DATE: 06/26/2016 INFECTIOUS DISEASE PROGRESS NOTE SUBJECTIVE: No events overnight. No fevers. The patient is getting weaning trials and family at [facility]. VITAL SIGNS: Temperature 98.3, pulse 76, respirations 16, blood pressure 134/56, saturation 99% on 35 FIO2. WBC 12.4, H and H 11.1 and 35.7, platelets 308, neutrophils 78.2. BUN 38, creatinine 2.03. INDWELLINGS: Endotracheal tube, NG tube, Ramsey catheter, rectal tube, PICC line placed on June 20 . ANTIMICROBIALS: 1. Vancomycin. 2. Zosyn. 3. Flagyl. PHYSICAL EXAMINATION: GENERAL: This is a fragile, chronically ill-appearing, elderly man who is lying comfortably in bed. HEENT: Head atraumatic, normocephalic. Sclerae anicteric. Buccal mucosa dry. NECK: Supple, trachea midline. CHEST: Rise symmetrical. Breath sounds diminished to bases. HEART: S1, S2. ABDOMEN: Soft, bowel tones present. EXTREMITIES: Without cyanosis. Bilateral trace edema. ASSESSMENT: 1. Sepsis, status post shock. 2. Severe bilateral pneumonia. 3. Acute respiratory failure. 4. Acute on chronic kidney disease. 5. Congestive heart failure. 6. History of hypertension. 7. Diabetes. 8. Anemia. PLAN: The patient remains stable, was started on weaning trials. We are going to a discontinue van comycin given worsening of his renal function. Start him on doxycycline, continue Zosyn. Continue weaning trials. Follow recommendations of consultants. Dictated By: BALWINDER SANTOS DESIZING MACHINE OPERATOR HEAD END for PATRIA SUN/GARRETT Conf#: [id number] DID#: [id number]
[2016-06-26 13:04] LABS: AADO2 Arterial 129.9 mmHg (7.0-24.0); Allen Test ACCEPTAB; Arterial Base Excess -2.5 mmol/L (-3.0-3); Arterial COHb 0.3 % (0.0-3.0); Arterial Fraction of Oxyhgb 95.8 % (93.0-99.0); Arterial HCO3 20.3 mmol/L (22.0-26.0); Arterial MetHb 0.3 % (0.0-1.5); Arterial Total Hemglobin 12.9 g/dl (12.0-18.0); Blood Gas PS 10; MODE VENT - BIPHASIC
--- NOTE | 2016-06-26 15:09 | CONS ---
Date/Time of Note Date/Time of Note DATE: 06/26/16 TIME: 15:06 Assessment/Plan Assessment/Plan Additional Assessment/Plan Respiratory failure Pneumonia Septic shock Acute decompensated systolic and diastolic congestive heart failure Cardiomyopathy with ejection fraction 50% CAD Paroxysmal atrial flutter -Patient remains off IV pressor, fluid management and diuretics as per our nephrology colleagues. Antibiotics as per primary team. Blood pressure trend remains stable, given element of congestive heart failure, would start hydralazine for afterload reduction as blood pressure tolerates. No LISSETH inhibitor given acute kidney injury Consultation Date/Type/Reason Admit Date/Time Jun 18, 2016 at 21:36 Initial Consult Date 06/19/16 Type of Consultation: cv Referring Provider: CHITRA ESTEBAN 24 HR Interval Summary Free Text/Dictation No new cardiac issues as per nursing staff. Patient with agitation during weaning trials and sedation has been increased. Exam/Review of Systems Vital Signs Vitals Vital Signs Date Time Temp Pulse Resp B/P Pulse Ox O2 Delivery O2 Flow Rate FiO2 06/26/16 14:30 76 23 137/68 Mechanical Ventilator 06/26/16 14:10 35 06/26/16 14:00 98 06/26/16 12:00 98.7 Intake and Output 06/25/16 06/25/16 06/26/16 15:00 23:00 07:00 Intake Total 816 ml 655 ml 685 ml Output Total 1425 ml 775 ml 850 ml Balance -609 ml -120 ml -165 ml Exam Sedated and intubated, no apparent distress Head: normocephalic ENMT: intubated Respiratory: other (Coarse breath sounds bilaterally, no wheezing) Cardiovascular: other (S1-S2 heard), regular rate and rhythm Gastrointestinal: bowel sounds, non-tender, other (No grimacing or guarding with palpation), soft Extremities: edema, other (No cyanosis) Results Result Diagram: 06/26/16 0540 06/26/16 0540 Results 24 hrs Laboratory Tests Test 06/25/16 17:49 06/25/16 20:50 06/26/16 01:23 06/26/16 05:39 Bedside Glucose 147 157 137 146 Test 06/26/16 05:40 06/26/16 08:58 06/26/16 12:39 06/26/16 13:29 Anion Gap 14 Basophils # 0.0 Basophils % 0.2 Blood Urea Nitrogen 38 H Calcium Level 7.8 L Carbon Dioxide Level 23 Chloride Level 115 H Creatinine 2.03 H Eosinophils # 0.2 Eosinophils % 1.6 Glucose Level 141 Hematocrit 35.7 L Hemoglobin 11.1 L Lymphocytes # 1.2 Lymphocytes % 9.6 L Mean Corpuscular Hemoglobin 29.0 Mean Corpuscular Hemoglobin Concent 31.1 L Mean Corpuscular Volume 93.2 Mean Platelet Volume 10.3 Monocytes # 1.0 H Monocytes % 7.7 Neutrophils # 9.7 H Neutrophils % 78.2 H Nucleated Red Blood Cells # 0.0 Nucleated Red Blood Cells % 0.0 Platelet Count 308 Potassium Level 4.2 Red Blood Count 3.83 L Red Cell Distribution Width 14.2 Sodium Level 148 H White Blood Count 12.4 H Bedside Glucose 129 130 Arterial Blood HCO3 20.3 L Arterial Blood Base Excess -2.5 Arterial Blood Oxygen Saturation 96.4 Burak Test ACCEPTAB Arterial Blood Gas Puncture Site Right Radial Arterial Blood Carboxyhemoglobin 0.3 Arterial Blood Date Drawn 06/26/2016 12:50:36 PM Arterial Blood Methemoglobin 0.3 Arterial Blood pCO2 (Temp correct) 29.6 L Arterial Blood pH (Temp corrected) 7.455 H Arterial Blood pO2 (Temp corrected) 85.2 Blood Gas A-a O2 Differential 129.9 H Blood Gas Actual Respiration Rate 40 Blood Gas Low PEEP Setting 5.0 Blood Gas Modality VENT - BIPHASIC Blood Gas Notified Time 06/26/2016 1:04:22 PM Blood Gas Notified Whom JLD Blood Gas Pressure Support 10 Blood Gas Specimen Source Blood arterial Blood Gas Temperature 37.0 FiO2 35.0 Oxyhemoglobin Percent 95.8 Total Hemoglobin 12.9 Medications Medications Current Medications Ondansetron HCl (Zofran Inj) 4 mg Q6H PRN IV NAUSEA AND/OR VOMITING; Start 06/18 at 23:30 Acetaminophen (Tylenol Tab) 650 mg Q6H PRN PO PAIN LEVEL 1-3 OR FEVER; Start at 23:30 Acetaminophen/ Hydrocodone Bitart ([place] (5/325)) 1 tab Q6H PRN PO MODERATE PAIN LEVEL 4-6; Start 06/18/16 at 23:30 Morphine Sulfate (morphine) 2 mg Q4H PRN IV SEVERE PAIN LEVEL 7-10; Start at 23:30 Docusate Sodium (Colace) 100 mg Q12H PRN PO CONSTIPATION; Start 06/18/16 at 23: 30 Magnesium Hydroxide (Milk Of Mag) 30 ml DAILY PRN PO CONSTIPATION; Start at 23:30 Sodium Biphosphate/ Sodium Phosphate (Fleet Enema) 133 ml DAILY PRN [place] CONSTIPATION; Start 06/18/16 at 23:30 Heparin Sodium (Porcine) (Heparin (5000 Units/0.5 ml)) 5,000 unit Q12 SC Last administered on 06/26/16 08:55; Admin Dose 5,000 UNIT; Start 06/19/16 at 09:00 Lorazepam (Ativan) 0.5 mg Q6H PRN IV ANXIETY; Start 06/18/16 at 23:30 Hydralazine HCl (Apresoline) 10 mg Q6H PRN IV ELEVATED BLOOD PRESSURE; Start at 23:30 Nitroglycerin (Nitroglycerin (Sl Tab) 0.4 Mg) 1 tab Q5M PRN SL ANGINA; Start at 23:30 Aspirin (Aspirin) 81 mg DAILY NGT Last administered on 06/26/16 08:53; Admin Dose 81 MG; Start 06/19/16 at 20:00 Insulin Aspart (Novolog Insulin Pen) NOVOLOG *MILD* ALGORI... Q4 SC Last administered on 06/26/16 05:46; Admin Dose 1 UNIT; Start 06/19/16 at 21:00 Miscellaneous Information 1 ea NOTE XX ; Start 06/19/16 at 20:30 Glucose (Glutose) 15 gm Q15M PRN PO DECREASED GLUCOSE; Start 06/19/16 at 20:30 Glucose (Glutose) 22.5 gm Q15M PRN PO DECREASED GLUCOSE; Start 06/19/16 at 20:30 Dextrose (D50w Syringe) 25 ml Q15M PRN IV DECREASED GLUCOSE; Start 06/19/16 at 20:30 Dextrose (D50w Syringe) 50 ml Q15M PRN IV DECREASED GLUCOSE; Start 06/19/16 at 20:30 Glucagon (Glucagen) 1 mg Q15M PRN IM DECREASED GLUCOSE; Start 06/19/16 at 20:30 Glucose 15 gm 15 gm Q15M PRN BUCCAL DECREASED GLUCOSE; Start 06/19/16 at 20:30 Norepinephrine/ Dextrose (Levophed/D5W) 500 ml @ 1.87 mls/hr TITRATE IV Last administered on 06/20/16 16:49; Admin Dose 13.12 MLS/HR; Start 06/19/16 at 23:00 IV Flush 10 ml 10 ml PRN PRN IV IV PROTOCOL; Start 06/20/16 at 15:00 Piperacillin Sod/ Tazobactam Sod 100 ml @ 200 mls/hr Q8 IVPB Last administered on 06/26/16 13:33; Admin Dose 200 MLS/HR; Start 06/20/16 at 22:00 Potassium Chloride/Dextrose (D5W + KCl 20 Meq) 1,000 ml @ 75 mls/hr [id number] IV Last administered on 06/26/16 09:02; Admin Dose 75 MLS/HR; Start 06/21/16 at 10:30 Metronidazole 250 mg 250 mg Q8 PO Last administered on 06/26/16 13:33; Admin Dose 250 MG; Start 06/23/16 at 14:00 Midazolam HCl 50 ml @ 0 mls/hr TITRATE IV Last administered on 06/25/16 12:22 ; Admin Dose 10 MLS/HR; Start 06/24/16 at 11:00 Fentanyl (Sublimaze) 100 ml @ 2.5 mls/hr TITRATE IV Last administered on 22:08; Admin Dose 2.5 MLS/HR; Start 06/24/16 at 11:30 Nystatin (Nystatin Susp) 5 ml QID PO Last administered on 06/26/16 13:33; Admin Dose 5 ML; Start 06/24/16 at 13:00 Doxycycline Hyclate (Vibramycin) 100 mg BID PO ; Start 06/26/16 at 21:00 Jef Sinha DO Jun 26, 2016 15:08
--- NOTE | 2016-06-26 17:11 | PN ---
Date/Time of Note Date/Time of Note DATE: 06/26/16 TIME: 17:06 Assessment/Plan VTE Prophylaxis VTE Prophylaxis Intervention: heparin Assessment/Plan Chief Complaint/Hosp Course 1. SIRS vs Sepsis with lactic acidosis 2/2 pneumonia with septic shock: No longer pressor dependent Continue antibiotics but ID has discontinued vancomycin secondary to declining renal function, started doxycycline will continue Zosyn 2. Acute resp failure now vent dependent secondary to CHF exacerbation Continue to attempt to wean off vent support 3. CHF exacerbation: improving Diuresis per nephrology 4. Acute on chronic interstitial lung disease 5. Shock liver: improving 6. Hypertension: controlled 7. DM 2 A1c 6.8 8. NC / NC anemia Prophylaxis-Heparin Problems: Subjective 24 Hr Interval Summary Subjective hx not possible: pt non-verbal Constitutional: disoriented Exam/Review of Systems Vital Signs Vitals Vital Signs Date Time Temp Pulse Resp B/P Pulse Ox O2 Delivery O2 Flow Rate FiO2 06/26/16 16:30 60 20 94/57 100 06/26/16 16:00 99.0 Mechanical Ventilator 06/26/16 15:13 35 Intake and Output 06/25/16 06/25/16 06/26/16 15:00 23:00 07:00 Intake Total 816 ml 655 ml 685 ml Output Total 1425 ml 775 ml 850 ml Balance -609 ml -120 ml -165 ml Exam Constitutional: non-verbal ENMT: intubated Respiratory: clear to auscultation Cardiovascular: regular rate and rhythm Gastrointestinal: soft, No distended Musculoskeletal: nl extremities to inspection Results Result Diagram: 06/26/16 0540 06/26/16 0540 Results 24 hrs Laboratory Tests Test 06/25/16 17:49 06/25/16 20:50 06/26/16 01:23 06/26/16 05:39 Bedside Glucose 147 157 137 146 Test 06/26/16 05:40 06/26/16 08:58 06/26/16 12:39 06/26/16 13:29 Anion Gap 14 Basophils # 0.0 Basophils % 0.2 Blood Urea Nitrogen 38 H Calcium Level 7.8 L Carbon Dioxide Level 23 Chloride Level 115 H Creatinine 2.03 H Eosinophils # 0.2 Eosinophils % 1.6 Glucose Level 141 Hematocrit 35.7 L Hemoglobin 11.1 L Lymphocytes # 1.2 Lymphocytes % 9.6 L Mean Corpuscular Hemoglobin 29.0 Mean Corpuscular Hemoglobin Concent 31.1 L Mean Corpuscular Volume 93.2 Mean Platelet Volume 10.3 Monocytes # 1.0 H Monocytes % 7.7 Neutrophils # 9.7 H Neutrophils % 78.2 H Nucleated Red Blood Cells # 0.0 Nucleated Red Blood Cells % 0.0 Platelet Count 308 Potassium Level 4.2 Red Blood Count 3.83 L Red Cell Distribution Width 14.2 Sodium Level 148 H White Blood Count 12.4 H Bedside Glucose 129 130 Arterial Blood HCO3 20.3 L Arterial Blood Base Excess -2.5 Arterial Blood Oxygen Saturation 96.4 Burak Test ACCEPTAB Arterial Blood Gas Puncture Site Right Radial Arterial Blood Carboxyhemoglobin 0.3 Arterial Blood Date Drawn 06/26/2016 12:50:36 PM Arterial Blood Methemoglobin 0.3 Arterial Blood pCO2 (Temp correct) 29.6 L Arterial Blood pH (Temp corrected) 7.455 H Arterial Blood pO2 (Temp corrected) 85.2 Blood Gas A-a O2 Differential 129.9 H Blood Gas Actual Respiration Rate 40 Blood Gas Low PEEP Setting 5.0 Blood Gas Modality VENT - BIPHASIC Blood Gas Notified Time 06/26/2016 1:04:22 PM Blood Gas Notified Whom JLD Blood Gas Pressure Support 10 Blood Gas Specimen Source Blood arterial Blood Gas Temperature 37.0 FiO2 35.0 Oxyhemoglobin Percent 95.8 Total Hemoglobin 12.9 Medications Medications Current Medications Ondansetron HCl (Zofran Inj) 4 mg Q6H PRN IV NAUSEA AND/OR VOMITING; Start 06/18 at 23:30 Acetaminophen (Tylenol Tab) 650 mg Q6H PRN PO PAIN LEVEL 1-3 OR FEVER; Start at 23:30 Acetaminophen/ Hydrocodone Bitart ([place] (5/325)) 1 tab Q6H PRN PO MODERATE PAIN LEVEL 4-6; Start 06/18/16 at 23:30 Morphine Sulfate (morphine) 2 mg Q4H PRN IV SEVERE PAIN LEVEL 7-10; Start at 23:30 Docusate Sodium (Colace) 100 mg Q12H PRN PO CONSTIPATION; Start 06/18/16 at 23: 30 Magnesium Hydroxide (Milk Of Mag) 30 ml DAILY PRN PO CONSTIPATION; Start at 23:30 Sodium Biphosphate/ Sodium Phosphate (Fleet Enema) 133 ml DAILY PRN OR CONSTIPATION; Start 06/18/16 at 23:30 Heparin Sodium (Porcine) (Heparin (5000 Units/0.5 ml)) 5,000 unit Q12 SC Last administered on 06/26/16 08:55; Admin Dose 5,000 UNIT; Start 06/19/16 at 09:00 Lorazepam (Ativan) 0.5 mg Q6H PRN IV ANXIETY; Start 06/18/16 at 23:30 Hydralazine HCl (Apresoline) 10 mg Q6H PRN IV ELEVATED BLOOD PRESSURE; Start at 23:30 Nitroglycerin (Nitroglycerin (Sl Tab) 0.4 Mg) 1 tab Q5M PRN SL ANGINA; Start at 23:30 Aspirin (Aspirin) 81 mg DAILY NGT Last administered on 06/26/16 08:53; Admin Dose 81 MG; Start 06/19/16 at 20:00 Insulin Aspart (Novolog Insulin Pen) NOVOLOG *MILD* ALGORI... Q4 SC Last administered on 06/26/16 05:46; Admin Dose 1 UNIT; Start 06/19/16 at 21:00 Miscellaneous Information 1 ea NOTE XX ; Start 06/19/16 at 20:30 Glucose (Glutose) 15 gm Q15M PRN PO DECREASED GLUCOSE; Start 06/19/16 at 20:30 Glucose (Glutose) 22.5 gm Q15M PRN PO DECREASED GLUCOSE; Start 06/19/16 at 20:30 Dextrose (D50w Syringe) 25 ml Q15M PRN IV DECREASED GLUCOSE; Start 06/19/16 at 20:30 Dextrose (D50w Syringe) 50 ml Q15M PRN IV DECREASED GLUCOSE; Start 06/19/16 at 20:30 Glucagon (Glucagen) 1 mg Q15M PRN IM DECREASED GLUCOSE; Start 06/19/16 at 20:30 Glucose 15 gm 15 gm Q15M PRN BUCCAL DECREASED GLUCOSE; Start 06/19/16 at 20:30 Norepinephrine/ Dextrose (Levophed/D5W) 500 ml @ 1.87 mls/hr TITRATE IV Last administered on 06/20/16 16:49; Admin Dose 13.12 MLS/HR; Start 06/19/16 at 23:00 IV Flush 10 ml 10 ml PRN PRN IV IV PROTOCOL; Start 06/20/16 at 15:00 Piperacillin Sod/ Tazobactam Sod 100 ml @ 200 mls/hr Q8 IVPB Last administered on 06/26/16 13:33; Admin Dose 200 MLS/HR; Start 06/20/16 at 22:00 Potassium Chloride/Dextrose (D5W + KCl 20 Meq) 1,000 ml @ 75 mls/hr [id number] IV Last administered on 06/26/16 09:02; Admin Dose 75 MLS/HR; Start 06/21/16 at 10:30 Metronidazole 250 mg 250 mg Q8 PO Last administered on 06/26/16 13:33; Admin Dose 250 MG; Start 06/23/16 at 14:00 Midazolam HCl 50 ml @ 0 mls/hr TITRATE IV Last administered on 06/25/16 12:22 ; Admin Dose 10 MLS/HR; Start 06/24/16 at 11:00 Fentanyl (Sublimaze) 100 ml @ 2.5 mls/hr TITRATE IV Last administered on 22:08; Admin Dose 2.5 MLS/HR; Start 06/24/16 at 11:30 Nystatin (Nystatin Susp) 5 ml QID PO Last administered on 06/26/16 13:33; Admin Dose 5 ML; Start 06/24/16 at 13:00 Doxycycline Hyclate (Vibramycin) 100 mg BID PO ; Start 06/26/16 at 21:00 Hydralazine HCl (Apresoline) 10 mg BID GTB ; Start 06/26/16 at 21:00 PRANEETH LOPEZ Jun 26, 2016 17:11
[2016-06-26] MEDS: MIDAZOLAM (DRIP) 50 mg/50 mL 50 ML IV SCH (19:40)
[2016-06-26] MEDS: DOXYCYCLINE 100 MG TAB PO SCH (21:06)
[2016-06-27] VITALS (48 sets, daily range): BP systolic 73–142; BP diastolic 41–114; PULSE 55–86; RESP 13–29
[2016-06-27] MEDS: INSULIN ASPART [NOVOLOG] 3 ML PEN SC SCH ×6 (01:00→20:25)
[2016-06-27] MEDS: ALBUTEROL HFA 8 GM INHALER INH SCH ×4 (01:22→13:00)
[2016-06-27] MEDS: IPRATROPIUM (HFA) 12.9 GM INHALER INH SCH ×5 (01:22→13:41)
[2016-06-27 04:56] LABS: ADD SCAN DIFF NO
[2016-06-27 05:05] LABS: BASOPHILS % 0.3 % (0.0-2.0); EOSINOPHILS # 0.3 10^3/ul (0.0-0.5); EOSINOPHILS % 2.8 % (0.0-7.0); HEMATOCRIT 34.7 % (42.0-52.0); HEMOGLOBIN 10.8 g/dl (14.0-18.0); LYMPHOCYTES # 1.3 10^3/ul (0.8-2.9); LYMPHOCYTES % 11.2 % (15.0-51.0); MEAN CORPUSCULAR HEMOGLOBIN 29.5 pg (29.0-33.0); MEAN CORPUSCULAR HGB CONC 31.1 g/dl (32.0-37.0); MEAN CORPUSCULAR VOLUME 94.8 fl (82.0-101.0); MEAN PLATELET VOLUME 10.4 fl (7.4-10.4); MONOCYTES % 8.8 % (0.0-11.0); NEUTROPHIL # 8.6 10^3/ul (1.6-7.5); NEUTROPHILS % 73.1 % (39.0-77.0); PLATELET COUNT 314 10^3/UL (140-415); RED BLOOD COUNT 3.66 10^6/ul (4.70-6.10); RED CELL DISTRIBUTION WIDTH 14.4 % (11.5-14.5); WHITE BLOOD COUNT 11.7 10^3/ul (4.8-10.8)
[2016-06-27 05:28] LABS: POTASSIUM 4.1 mmol/L (3.5-5.1)
[2016-06-27 05:31] LABS: CALCIUM 7.8 mg/dl (8.4-10.2); CREATININE 2.14 mg/dl (0.61-1.24)
[2016-06-27] MEDS: PIPER-TAZO 3.375 GM IV (PMX) 100 ML IVPB SCH ×3 (06:14→22:19)
[2016-06-27] MEDS: metroNIDAZOLE 250 MG TAB PO SCH ×3 (06:14→22:20)
[2016-06-27] MEDS: FENTAnyl (DRIP) 1000 mcg/100mL 100 ML IV SCH (06:14)
[2016-06-27 08:07] LABS: Allen Test ACCEPTAB; Arterial Base Excess -2.4 mmol/L (-3.0-3); Arterial COHb 0.3 % (0.0-3.0); Arterial Fraction of Oxyhgb 96.7 % (93.0-99.0); Arterial HCO3 21.8 mmol/L (22.0-26.0); Arterial MetHb 0.4 % (0.0-1.5); Arterial Total Hemglobin 11.8 g/dl (12.0-18.0); MODE VENT - AC
[2016-06-27] MEDS: NYSTATIN SUSP 5 ML CUP PO SCH ×4 (08:27→20:23)
[2016-06-27] MEDS: ASPIRIN 81 MG TAB NGT SCH (08:27)
[2016-06-27] MEDS: DOXYCYCLINE 100 MG TAB PO SCH ×2 (08:27→20:22)
[2016-06-27] MEDS: HEPARIN 5,000 UNIT/0.5 ML SYG SC SCH ×2 (08:30→20:25)
--- NOTE | 2016-06-27 09:03 | CONS ---
Date/Time of Note Date/Time of Note DATE: 06/27/16 TIME: 08:59 Assessment/Plan Assessment/Plan Additional Assessment/Plan 1. Acute kidney injury, likely secondary to acute tubular necrosis from septic shock and also contributing to liver shock due to the acute kidney injury 2. Sepsis with lactic acidosis, likely secondary to pneumonia. 3. Right upper lobe pneumonia. 4. Acute respiratory failure, vent dependent secondary to septic shock. 5. Acute on chronic congestive heart failure exacerbation, systolic and diastolic. 6. History of hypertension. 7. History of type 2 diabetes mellitus. 8. History of anemia of chronic disease. 9. History of dyslipidemia. PLAN: Kael good urine ouput, Cr stable, may be back to his baseline,Na 147, Cr 2.14- stable continue D5W with KCL- decrease IVF rate to 40 cc/hour expecting creatinine to stabilized BP stable will follow up Consultation Date/Type/Reason Admit Date/Time Jun 18, 2016 at 21:36 Initial Consult Date 06/21/16 Type of Consultation: NEPHROLOGY Referring Provider: CHITRA ESTEBAN 24 HR Interval Summary Free Text/Dictation pt remains intubated,Na 147, Cr 2.14 sputum cx grew Yamilex Exam/Review of Systems Vital Signs Vitals Vital Signs Date Time Temp Pulse Resp B/P Pulse Ox O2 Delivery O2 Flow Rate FiO2 06/27/16 07:35 64 18 96 35 06/27/16 06:30 127/51 06/27/16 06:00 Mechanical Ventilator 06/27/16 04:00 99.1 Intake and Output 06/26/16 06/26/16 06/27/16 15:00 23:00 07:00 Intake Total 1455.0 ml 1451.5 ml 863.5 ml Output Total 1145 ml 420 ml 310 ml Balance 310.0 ml 1031.5 ml 553.5 ml Exam Constitutional: other (sedated on propofol), intubated Respiratory: diminished breath sounds Cardiovascular: regular rate and rhythm,No murmurs/extra sounds Gastrointestinal: bowel sounds, soft Extremities: No edema Results Result Diagram: 06/27/160 06/27/16439 Results 24 hrs Laboratory Tests Test 06/26/16 12:39 06/26/16 13:29 06/26/16 17:52 06/26/16 21:09 Arterial Blood HCO3 20.3 L Arterial Blood Base Excess -2.5 Arterial Blood Oxygen Saturation 96.4 Burak Test ACCEPTAB Arterial Blood Gas Puncture Site Right Radial Arterial Blood Carboxyhemoglobin 0.3 Arterial Blood Date Drawn 06/26/2016 12:50:36 PM Arterial Blood Methemoglobin 0.3 Arterial Blood pCO2 (Temp correct) 29.6 L Arterial Blood pH (Temp corrected) 7.455 H Arterial Blood pO2 (Temp corrected) 85.2 Blood Gas A-a O2 Differential 129.9 H Blood Gas Actual Respiration Rate 40 Blood Gas Low PEEP Setting 5.0 Blood Gas Modality VENT - BIPHASIC Blood Gas Notified Time 06/26/2016 1:04:22 PM Blood Gas Notified Whom JLD Blood Gas Pressure Support 10 Blood Gas Specimen Source Blood arterial Blood Gas Temperature 37.0 FiO2 35.0 Oxyhemoglobin Percent 95.8 Total Hemoglobin 12.9 Bedside Glucose 130 136 153 Test 06/27/16 01:01 06/27/16 04:40 06/27/16 06:13 06/27/16 07:00 Bedside Glucose 125 164 Anion Gap 13 Basophils # 0.0 Basophils % 0.3 Blood Urea Nitrogen 40 H Calcium Level 7.8 L Carbon Dioxide Level 24 Chloride Level 114 H Creatinine 2.14 H Eosinophils # 0.3 Eosinophils % 2.8 Glucose Level 160 Hematocrit 34.7 L Hemoglobin 10.8 L Lymphocytes # 1.3 Lymphocytes % 11.2 L Mean Corpuscular Hemoglobin 29.5 Mean Corpuscular Hemoglobin Concent 31.1 L Mean Corpuscular Volume 94.8 Mean Platelet Volume 10.4 Monocytes # 1.0 H Monocytes % 8.8 Neutrophils # 8.6 H Neutrophils % 73.1 Nucleated Red Blood Cells # 0.0 Nucleated Red Blood Cells % 0.0 Platelet Count 314 Potassium Level 4.1 Red Blood Count 3.66 L Red Cell Distribution Width 14.4 Sodium Level 147 H White Blood Count 11.7 H Arterial Blood HCO3 21.8 L Arterial Blood Base Excess -2.4 Arterial Blood Oxygen Saturation 97.4 Burak Test ACCEPTAB Arterial Blood Gas Puncture Site Right Radial Arterial Blood Carboxyhemoglobin 0.3 Arterial Blood Date Drawn 06/27/2016 7:20:54 AM Arterial Blood Methemoglobin 0.4 Arterial Blood pCO2 (Temp correct) 35.8 Arterial Blood pH (Temp corrected) 7.403 Arterial Blood pO2 (Temp corrected) 102.9 H Blood Gas A-a O2 Differential 105.0 H Blood Gas Actual Respiration Rate 19 Blood Gas Low PEEP Setting 5.0 Blood Gas Modality VENT - AC Blood Gas Notified Time 06/27/2016 8:07:41 AM Blood Gas Notified Whom JLD Blood Gas Respiration Rate 16.0 Blood Gas Specimen Source Blood arterial Blood Gas Temperature 37.0 Blood Gas Tidal Volume 550.0 FiO2 35.0 Oxyhemoglobin Percent 96.7 Total Hemoglobin 11.8 L Test 06/27/16 08:15 Bedside Glucose 154 Medications Medications Current Medications Ondansetron HCl (Zofran Inj) 4 mg Q6H PRN IV NAUSEA AND/OR VOMITING; Start 06/18 at 23:30 Acetaminophen (Tylenol Tab) 650 mg Q6H PRN PO PAIN LEVEL 1-3 OR FEVER; Start at 23:30 Acetaminophen/ Hydrocodone Bitart ([place] (5/325)) 1 tab Q6H PRN PO MODERATE PAIN LEVEL 4-6; Start 06/18/16 at 23:30 Morphine Sulfate (morphine) 2 mg Q4H PRN IV SEVERE PAIN LEVEL 7-10; Start at 23:30 Docusate Sodium (Colace) 100 mg Q12H PRN PO CONSTIPATION; Start 06/18/16 at 23: 30 Magnesium Hydroxide (Milk Of Mag) 30 ml DAILY PRN PO CONSTIPATION; Start at 23:30 Sodium Biphosphate/ Sodium Phosphate (Fleet Enema) 133 ml DAILY PRN [place] CONSTIPATION; Start 06/18/16 at 23:30 Heparin Sodium (Porcine) (Heparin (5000 Units/0.5 ml)) 5,000 unit Q12 SC Last administered on 06/27/16 08:30; Admin Dose 5,000 UNIT; Start 06/19/16 at 09:00 Lorazepam (Ativan) 0.5 mg Q6H PRN IV ANXIETY; Start 06/18/16 at 23:30 Hydralazine HCl (Apresoline) 10 mg Q6H PRN IV ELEVATED BLOOD PRESSURE; Start at 23:30 Nitroglycerin (Nitroglycerin (Sl Tab) 0.4 Mg) 1 tab Q5M PRN SL ANGINA; Start at 23:30 Aspirin (Aspirin) 81 mg DAILY NGT Last administered on 06/27/16 08:27; Admin Dose 81 MG; Start 06/19/16 at 20:00 Insulin Aspart (Novolog Insulin Pen) NOVOLOG *MILD* ALGORI... Q4 SC Last administered on 06/27/16 08:31; Admin Dose 1 UNIT; Start 06/19/16 at 21:00 Miscellaneous Information 1 ea NOTE XX ; Start 06/19/16 at 20:30 Glucose (Glutose) 15 gm Q15M PRN PO DECREASED GLUCOSE; Start 06/19/16 at 20:30 Glucose (Glutose) 22.5 gm Q15M PRN PO DECREASED GLUCOSE; Start 06/19/16 at 20:30 Dextrose (D50w Syringe) 25 ml Q15M PRN IV DECREASED GLUCOSE; Start 06/19/16 at 20:30 Dextrose (D50w Syringe) 50 ml Q15M PRN IV DECREASED GLUCOSE; Start 06/19/16 at 20:30 Glucagon (Glucagen) 1 mg Q15M PRN IM DECREASED GLUCOSE; Start 06/19/16 at 20:30 Glucose 15 gm 15 gm Q15M PRN BUCCAL DECREASED GLUCOSE; Start 06/19/16 at 20:30 Norepinephrine/ Dextrose (Levophed/D5W) 500 ml @ 1.87 mls/hr TITRATE IV Last administered on 06/20/16 16:49; Admin Dose 13.12 MLS/HR; Start 06/19/16 at 23:00 IV Flush 10 ml 10 ml PRN PRN IV IV PROTOCOL; Start 06/20/16 at 15:00 Piperacillin Sod/ Tazobactam Sod 100 ml @ 200 mls/hr Q8 IVPB Last administered on 06/27/16 06:14; Admin Dose 200 MLS/HR; Start 06/20/16 at 22:00 Potassium Chloride/Dextrose (D5W + KCl 20 Meq) 1,000 ml @ 75 mls/hr [id number] IV Last administered on 06/26/16 22:33; Admin Dose 75 MLS/HR; Start 06/21/16 at 10:30 Metronidazole 250 mg 250 mg Q8 PO Last administered on 06/27/16 06:14; Admin Dose 250 MG; Start 06/23/16 at 14:00 Midazolam HCl 50 ml @ 0 mls/hr TITRATE IV Last administered on 3/13/17at 19:40 ; Admin Dose 5 MLS/HR; Start 06/24/16 at 11:00 Fentanyl (Sublimaze) 100 ml @ 2.5 mls/hr TITRATE IV Last administered on 06:14; Admin Dose 2 MLS/HR; Start 06/24/16 at 11:30 Nystatin (Nystatin Susp) 5 ml QID PO Last administered on 06/27/16 08:27; Admin Dose 5 ML; Start 06/24/16 at 13:00 Doxycycline Hyclate (Vibramycin) 100 mg BID PO Last administered on 06/27/16 08:27; Admin Dose 100 MG; Start 06/26/16 at 21:00 Hydralazine HCl (Apresoline) 10 mg BID GTB Last administered on 06/27/16 08:28 ; Admin Dose 10 MG; Start 06/26/16 at 21:00 SHANNAN MAYEN MD Jun 27, 2016 09:02
--- NOTE | 2016-06-27 09:39 | RADRPT ---
PROCEDURE: XR Chest 1 view. CLINICAL INDICATION: Shortness of breath, pneumonia, congestive heart failure TECHNIQUE: AP views of the chest were obtained. COMPARISON: June 25, 2016 FINDINGS: The heart is large. Calcified atherosclerosis is noted in the aorta. Endotracheal and nasogastric t ubes are stable and appear in grossly appropriate location. Left-sided PICC line is unchanged. Trung tral pulmonary vascular congestion and interstitial prominence in both lungs is unchanged. Retrocar diac opacity is stable. Right basilar atelectasis/infiltrate, possibly combined small pleural effus ion is unchanged. The osseous structures are stable. IMPRESSION: Cardiomegaly with calcified atherosclerosis in the aorta. Stable central pulmonary vascular congestion and interstitial prominence in both lungs. Stable retrocardiac opacity that may reflect left lower lobe atelectasis or infiltrate combined with small pleural effusion. Stable small right pleural effusion with associated basilar atelectasis/infiltrate. RPTAT: AA .Danny Portillo MD, MD Date Time Electronically viewed and signed by .Danny Portillo MD, on 06/27/2016 09:39 .P/
--- NOTE | 2016-06-27 10:50 | PN ---
DATE: 06/27/2016 SUBJECTIVE: The patient is back on CPAP trial this morning. Yesterday failed extubation because of respiratory distress and appears more comfortable this morning. Follows simple commands. PHYSICAL EXAMINATION VITAL SIGNS: Temperature 98, pulse 66, blood pressure 127/50, O2 saturation 96%, FIO2 of 35%, orall y intubated. NECK: Supple. No JVD or lymphadenopathy. CARDIAC: S1, S2, no added sounds or murmurs. CHEST: Diminished air entry bilaterally. No rales or wheezes. ABDOMEN: Soft, obese. No guarding or rebound. EXTREMITIES: No cyanosis, clubbing, 1+ edema. NEUROLOGIC: Generalized weakness. LABORATORY DATA: White count 11.7, hemoglobin 10.8, platelets of 134. BUN 40, creatinine 2.14. AB G this morning: pH 7.4, pCO2 of 35, pO2 of 102. IMAGING: Chest x-ray was reviewed, shows ongoing pulmonary edema. IMPRESSION AND PLAN: 1. Hypoxemic respiratory failure. 2. Congestive cardiac failure. 3. Possible component of pneumonia. 4. Status post septic shock. 5. Renal insufficiency. 6. Diabetes mellitus. The patient will require: 1. CPAP weaning trial and hopefully safely extubate today. 2. Continue blood pressure management. 3. Continue antibiotics of Zosyn and Flagyl. 4. Continue glycemic control. 5. DVT and GI prophylaxis. Case was discussed with staff and the patient's son at bedside. CRITICAL CARE TIME: 40 minutes. Dictated By: SARAH WATTERS/GARRETT Conf#: [id number] DID#: [id number]
[2016-06-27 11:51] LABS: AADO2 Arterial 120.5 mmHg (7.0-24.0); Allen Test ACCEPTAB; Arterial Base Excess -2.6 mmol/L (-3.0-3); Arterial COHb 0.3 % (0.0-3.0); Arterial Fraction of Oxyhgb 95.7 % (93.0-99.0); Arterial HCO3 21.2 mmol/L (22.0-26.0); Arterial MetHb 0.4 % (0.0-1.5); Arterial Total Hemglobin 12.2 g/dl (12.0-18.0); Blood Gas PS 10; MODE VENT - CPAP
[2016-06-27] MEDS: D5W + KCL 20 MEQ 1,000 ML IV SCH (12:43)
--- NOTE | 2016-06-27 14:19 | CONS ---
Date/Time of Note Date/Time of Note DATE: 06/27/16 TIME: 14:16 Assessment/Plan Assessment/Plan Additional Assessment/Plan Respiratory failure status post extubation Pneumonia Septic shock Acute decompensated systolic and diastolic congestive heart failure Cardiomyopathy with ejection fraction 50% CAD Paroxysmal atrial flutter -Patient extubated today. Fluid management and diuretics as per our nephrology colleagues. Patient's baseline creatinine 0.7 upon admission. Consultation Date/Type/Reason Admit Date/Time Jun 18, 2016 at 21:36 Initial Consult Date 06/19/16 Type of Consultation: cv Referring Provider: CHITRA ESTEBAN 24 HR Interval Summary Free Text/Dictation Patient extubated today. As per family, he was talking with him and was coherent Exam/Review of Systems Vital Signs Vitals Vital Signs Date Time Temp Pulse Resp B/P Pulse Ox O2 Delivery O2 Flow Rate FiO2 06/27/16 12:20 96 3.0 06/27/16 12:15 Nasal Cannula 06/27/16 12:00 59 06/27/16 11:54 18 35 06/27/16 10:30 123/57 06/27/16 08:00 98.0 Intake and Output 06/26/16 06/26/16 06/27/16 15:00 23:00 07:00 Intake Total 1455.0 ml 1451.5 ml 863.5 ml Output Total 1145 ml 420 ml 310 ml Balance 310.0 ml 1031.5 ml 553.5 ml Exam Following commands, restless, no apparent distress Constitutional: alert Head: normocephalic Neck: supple Respiratory: other (Coarse breath sounds bilaterally, no wheezing) Cardiovascular: other (S1-S2 heard), regular rate and rhythm Gastrointestinal: bowel sounds, non-tender, other (No guarding), soft Extremities: edema (Trace), other (No cyanosis) Results Result Diagram: 06/27/16 0440 06/27/16 0440 Results 24 hrs Laboratory Tests Test 06/26/16 17:52 06/26/16 21:09 06/27/16 01:01 06/27/16 04:40 Bedside Glucose 136 153 125 Anion Gap 13 Basophils # 0.0 Basophils % 0.3 Blood Urea Nitrogen 40 H Calcium Level 7.8 L Carbon Dioxide Level 24 Chloride Level 114 H Creatinine 2.14 H Eosinophils # 0.3 Eosinophils % 2.8 Glucose Level 160 Hematocrit 34.7 L Hemoglobin 10.8 L Lymphocytes # 1.3 Lymphocytes % 11.2 L Mean Corpuscular Hemoglobin 29.5 Mean Corpuscular Hemoglobin Concent 31.1 L Mean Corpuscular Volume 94.8 Mean Platelet Volume 10.4 Monocytes # 1.0 H Monocytes % 8.8 Neutrophils # 8.6 H Neutrophils % 73.1 Nucleated Red Blood Cells # 0.0 Nucleated Red Blood Cells % 0.0 Platelet Count 314 Potassium Level 4.1 Red Blood Count 3.66 L Red Cell Distribution Width 14.4 Sodium Level 147 H White Blood Count 11.7 H Test 06/27/16 06:13 06/27/16 07:00 06/27/16 08:15 06/27/16 11:30 Bedside Glucose 164 154 Arterial Blood HCO3 21.8 L 21.2 L Arterial Blood Base Excess -2.4 -2.6 Arterial Blood Oxygen Saturation 97.4 96.4 Burak Test ACCEPTAB ACCEPTAB Arterial Blood Gas Puncture Site Right Radial Right Radial Arterial Blood Carboxyhemoglobin 0.3 0.3 Arterial Blood Date Drawn 06/27/2016 7:20:54 AM 06/27/2016 11:26:04 AM Arterial Blood Methemoglobin 0.4 0.4 Arterial Blood pCO2 (Temp correct) 35.8 33.5 L Arterial Blood pH (Temp corrected) 7.403 7.419 Arterial Blood pO2 (Temp corrected) 102.9 H 90.1 H Blood Gas A-a O2 Differential 105.0 H 120.5 H Blood Gas Actual Respiration Rate 19 28 Blood Gas Low PEEP Setting 5.0 5.0 Blood Gas Modality VENT - AC VENT - CPAP Blood Gas Notified Time 06/27/2016 8:07:41 AM 06/27/2016 11:51:41 AM Blood Gas Notified Whom CHAUD NIKKY Blood Gas Respiration Rate 16.0 Blood Gas Specimen Source Blood arterial Blood arterial Blood Gas Temperature 37.0 37.0 Blood Gas Tidal Volume 550.0 FiO2 35.0 35.0 Oxyhemoglobin Percent 96.7 95.7 Total Hemoglobin 11.8 L 12.2 Blood Gas Pressure Support 10 Test 06/27/16 12:25 Bedside Glucose 128 Medications Medications Current Medications Ondansetron HCl (Zofran Inj) 4 mg Q6H PRN IV NAUSEA AND/OR VOMITING; Start 06/18 at 23:30 Acetaminophen (Tylenol Tab) 650 mg Q6H PRN PO PAIN LEVEL 1-3 OR FEVER; Start at 23:30 Acetaminophen/ Hydrocodone Bitart ([place] (5/325)) 1 tab Q6H PRN PO MODERATE PAIN LEVEL 4-6; Start 06/18/16 at 23:30 Morphine Sulfate (morphine) 2 mg Q4H PRN IV SEVERE PAIN LEVEL 7-10; Start at 23:30 Docusate Sodium (Colace) 100 mg Q12H PRN PO CONSTIPATION; Start 06/18/16 at 23: 30 Magnesium Hydroxide (Milk Of Mag) 30 ml DAILY PRN PO CONSTIPATION; Start at 23:30 Sodium Biphosphate/ Sodium Phosphate (Fleet Enema) 133 ml DAILY PRN [place] CONSTIPATION; Start 06/18/16 at 23:30 Heparin Sodium (Porcine) (Heparin (5000 Units/0.5 ml)) 5,000 unit Q12 SC Last administered on 06/27/16 08:30; Admin Dose 5,000 UNIT; Start 06/19/16 at 09:00 Lorazepam (Ativan) 0.5 mg Q6H PRN IV ANXIETY; Start 06/18/16 at 23:30 Hydralazine HCl (Apresoline) 10 mg Q6H PRN IV ELEVATED BLOOD PRESSURE; Start at 23:30 Nitroglycerin (Nitroglycerin (Sl Tab) 0.4 Mg) 1 tab Q5M PRN SL ANGINA; Start at 23:30 Aspirin (Aspirin) 81 mg DAILY NGT Last administered on 06/27/16 08:27; Admin Dose 81 MG; Start 06/19/16 at 20:00 Insulin Aspart (Novolog Insulin Pen) NOVOLOG *MILD* ALGORI... Q4 SC Last administered on 06/27/16 08:31; Admin Dose 1 UNIT; Start 06/19/16 at 21:00 Miscellaneous Information 1 ea NOTE XX ; Start 06/19/16 at 20:30 Glucose (Glutose) 15 gm Q15M PRN PO DECREASED GLUCOSE; Start 06/19/16 at 20:30 Glucose (Glutose) 22.5 gm Q15M PRN PO DECREASED GLUCOSE; Start 06/19/16 at 20:30 Dextrose (D50w Syringe) 25 ml Q15M PRN IV DECREASED GLUCOSE; Start 06/19/16 at 20:30 Dextrose (D50w Syringe) 50 ml Q15M PRN IV DECREASED GLUCOSE; Start 06/19/16 at 20:30 Glucagon (Glucagen) 1 mg Q15M PRN IM DECREASED GLUCOSE; Start 06/19/16 at 20:30 Glucose 15 gm 15 gm Q15M PRN BUCCAL DECREASED GLUCOSE; Start 06/19/16 at 20:30 Norepinephrine/ Dextrose (Levophed/D5W) 500 ml @ 1.87 mls/hr TITRATE IV Last administered on 06/20/16 16:49; Admin Dose 13.12 MLS/HR; Start 06/19/16 at 23:00 IV Flush 10 ml 10 ml PRN PRN IV IV PROTOCOL; Start 06/20/16 at 15:00 Piperacillin Sod/ Tazobactam Sod 100 ml @ 200 mls/hr Q8 IVPB Last administered on 06/27/16 13:39; Admin Dose 200 MLS/HR; Start 06/20/16 at 22:00 Potassium Chloride/Dextrose (D5W + KCl 20 Meq) 1,000 ml @ 50 mls/hr Q20H IV Last administered on 06/27/16 12:43; Admin Dose 50 MLS/HR; Start 06/21/16 at 10: 30 Metronidazole 250 mg 250 mg Q8 PO Last administered on 06/27/16 13:39; Admin Dose 250 MG; Start 06/23/16 at 14:00 Midazolam HCl 50 ml @ 0 mls/hr TITRATE IV Last administered on 06/26/16 19:40 ; Admin Dose 5 MLS/HR; Start 06/24/16 at 11:00 Fentanyl (Sublimaze) 100 ml @ 2.5 mls/hr TITRATE IV Last administered on 06:14; Admin Dose 2 MLS/HR; Start 06/24/16 at 11:30 Nystatin (Nystatin Susp) 5 ml QID PO Last administered on 06/27/16 12:28; Admin Dose 5 ML; Start 06/24/16 at 13:00 Doxycycline Hyclate (Vibramycin) 100 mg BID PO Last administered on 06/27/16 08:27; Admin Dose 100 MG; Start 06/26/16 at 21:00 Hydralazine HCl (Apresoline) 10 mg BID GTB Last administered on 06/27/16t 08:28 ; Admin Dose 10 MG; Start 06/26/16 at 21:00 Jef Sinha DO Jun 27, 2016 14:19
--- NOTE | 2016-06-27 15:02 | PN ---
DATE: 06/27/2016 SUBJECTIVE: No acute changes overnight. The patient was extubated. He is awake, very weak, lying comfortably in bed. No fevers. Family at bedside. LABORATORY DATA: WBC today 11.7, platelets 314, H and H 10.8 and 34.7, neutrophils 73.1. BUN 40, c reatinine 2.14. ANTIMICROBIALS: The patient remains on: 1. Zosyn. 2. Oral Flagyl. 3. Doxycycline. INDWELLINGS: NG tube, Ramsey catheter, PICC line placed on 06/20/2016. PHYSICAL EXAMINATION: GENERAL: This is an obese, well-developed, fragile, elderly man who is lying comfortably in bed. HEENT: Head atraumatic, normocephalic. Sclerae anicteric. Buccal mucosa dry. NECK: Supple, trachea midline. CHEST: Rise symmetrical. Breath sounds diminished to bases. HEART: S1, S2. ABDOMEN: Soft. Bowel sounds present. EXTREMITIES: Without cyanosis. ASSESSMENT: 1. Resolving sepsis status post shock. 2. Pneumonia. 3. Acute respiratory failure, status post extubated. 4. Acute on chronic kidney disease. 5. Diabetes. 6. Congestive heart failure exacerbation. PLAN: The patient remains stable. Completing antibiotics. Continue present care, anti-aspiration measures. Dictated By: BALWINDER SANTOS FLOOR ASSEMBLER for PATRIA SUN/GARRETT Conf#: [id number] DID#: [id number]
[2016-06-27] MEDS: ALBUTEROL/IPRATROPIUM (NEB) 3 ML AMP HHN SCH ×2 (16:12→20:19)
--- NOTE | 2016-06-27 16:32 | PN ---
Date/Time of Note Date/Time of Note DATE: 06/27/16 TIME: 16:30 Assessment/Plan VTE Prophylaxis VTE Prophylaxis Intervention: heparin Assessment/Plan Chief Complaint/Hosp Course 1. SIRS vs Sepsis with lactic acidosis 2/2 pneumonia with septic shock: No longer pressor dependent Continue antibiotics but ID has discontinued vancomycin secondary to declining renal function, started doxycycline will continue Zosyn 2. Acute resp failure now vent dependent secondary to CHF exacerbation Extubated today, ST eval and if patient is tolerating a p.o. diet will DC NG tube 3. CHF exacerbation: improving Diuresis per nephrology 4. Acute on chronic interstitial lung disease 5. Shock liver: improving 6. Hypertension: controlled 7. DM 2 A1c 6.8 8. NC / NC anemia Prophylaxis-Heparin Problems: Subjective 24 Hr Interval Summary Constitutional: disoriented Exam/Review of Systems Vital Signs Vitals Vital Signs Date Time Temp Pulse Resp B/P Pulse Ox O2 Delivery O2 Flow Rate FiO2 06/27/16 16:17 70 24 98 Nasal Cannula 3.0 06/27/16 14:30 142/41 06/27/16 12:00 97.6 06/27/16 11:54 35 Intake and Output 06/26/16 06/26/16 06/27/16 15:00 23:00 07:00 Intake Total 1455.0 ml 1451.5 ml 863.5 ml Output Total 1145 ml 420 ml 310 ml Balance 310.0 ml 1031.5 ml 553.5 ml Exam Psych: confusion Respiratory: clear to auscultation Cardiovascular: regular rate and rhythm Gastrointestinal: soft, No distended Musculoskeletal: nl extremities to inspection Results Result Diagram: 06/27/16 0440 06/27/16 0440 Results 24 hrs Laboratory Tests Test 06/26/16 17:52 06/26/16 21:09 06/27/16 01:01 06/27/16 04:40 Bedside Glucose 136 153 125 Anion Gap 13 Basophils # 0.0 Basophils % 0.3 Blood Urea Nitrogen 40 H Calcium Level 7.8 L Carbon Dioxide Level 24 Chloride Level 114 H Creatinine 2.14 H Eosinophils # 0.3 Eosinophils % 2.8 Glucose Level 160 Hematocrit 34.7 L Hemoglobin 10.8 L Lymphocytes # 1.3 Lymphocytes % 11.2 L Mean Corpuscular Hemoglobin 29.5 Mean Corpuscular Hemoglobin Concent 31.1 L Mean Corpuscular Volume 94.8 Mean Platelet Volume 10.4 Monocytes # 1.0 H Monocytes % 8.8 Neutrophils # 8.6 H Neutrophils % 73.1 Nucleated Red Blood Cells # 0.0 Nucleated Red Blood Cells % 0.0 Platelet Count 314 Potassium Level 4.1 Red Blood Count 3.66 L Red Cell Distribution Width 14.4 Sodium Level 147 H White Blood Count 11.7 H Test 06/27/16 06:13 06/27/16 07:00 06/27/16 08:15 06/27/16 11:30 Bedside Glucose 164 154 Arterial Blood HCO3 21.8 L 21.2 L Arterial Blood Base Excess -2.4 -2.6 Arterial Blood Oxygen Saturation 97.4 96.4 Burak Test ACCEPTAB ACCEPTAB Arterial Blood Gas Puncture Site Right Radial Right Radial Arterial Blood Carboxyhemoglobin 0.3 0.3 Arterial Blood Date Drawn 06/27/2016 7:20:54 AM 06/27/2016 11:26:04 AM Arterial Blood Methemoglobin 0.4 0.4 Arterial Blood pCO2 (Temp correct) 35.8 33.5 L Arterial Blood pH (Temp corrected) 7.403 7.419 Arterial Blood pO2 (Temp corrected) 102.9 H 90.1 H Blood Gas A-a O2 Differential 105.0 H 120.5 H Blood Gas Actual Respiration Rate 19 28 Blood Gas Low PEEP Setting 5.0 5.0 Blood Gas Modality VENT - AC VENT - CPAP Blood Gas Notified Time 06/27/2016 8:07:41 AM 06/27/2016 11:51:41 AM Blood Gas Notified Whom JLD JLD Blood Gas Respiration Rate 16.0 Blood Gas Specimen Source Blood arterial Blood arterial Blood Gas Temperature 37.0 37.0 Blood Gas Tidal Volume 550.0 FiO2 35.0 35.0 Oxyhemoglobin Percent 96.7 95.7 Total Hemoglobin 11.8 L 12.2 Blood Gas Pressure Support 10 Test 06/27/16 12:25 06/27/16 16:17 Bedside Glucose 128 131 Medications Medications Current Medications Ondansetron HCl (Zofran Inj) 4 mg Q6H PRN IV NAUSEA AND/OR VOMITING; Start 06/18 at 23:30 Acetaminophen (Tylenol Tab) 650 mg Q6H PRN PO PAIN LEVEL 1-3 OR FEVER; Start at 23:30 Acetaminophen/ Hydrocodone Bitart ([place] (5/325)) 1 tab Q6H PRN PO MODERATE PAIN LEVEL 4-6; Start 06/18/16 at 23:30 Morphine Sulfate (morphine) 2 mg Q4H PRN IV SEVERE PAIN LEVEL 7-10; Start at 23:30 Docusate Sodium (Colace) 100 mg Q12H PRN PO CONSTIPATION; Start 06/18/16 at 23: 30 Magnesium Hydroxide (Milk Of Mag) 30 ml DAILY PRN PO CONSTIPATION; Start at 23:30 Sodium Biphosphate/ Sodium Phosphate (Fleet Enema) 133 ml DAILY PRN [place] CONSTIPATION; Start 06/18/16 at 23:30 Heparin Sodium (Porcine) (Heparin (5000 Units/0.5 ml)) 5,000 unit Q12 SC Last administered on 06/27/16 08:30; Admin Dose 5,000 UNIT; Start 06/19/16 at 09:00 Lorazepam (Ativan) 0.5 mg Q6H PRN IV ANXIETY; Start 06/18/16 at 23:30 Hydralazine HCl (Apresoline) 10 mg Q6H PRN IV ELEVATED BLOOD PRESSURE; Start at 23:30 Nitroglycerin (Nitroglycerin (Sl Tab) 0.4 Mg) 1 tab Q5M PRN SL ANGINA; Start at 23:30 Aspirin (Aspirin) 81 mg DAILY NGT Last administered on 06/27/16 08:27; Admin Dose 81 MG; Start 06/19/16 at 20:00 Insulin Aspart (Novolog Insulin Pen) NOVOLOG *MILD* ALGORI... Q4 SC Last administered on 06/27/16 08:31; Admin Dose 1 UNIT; Start 06/19/16 at 21:00 Miscellaneous Information 1 ea NOTE XX ; Start 06/19/16 at 20:30 Glucose (Glutose) 15 gm Q15M PRN PO DECREASED GLUCOSE; Start 06/19/16 at 20:30 Glucose (Glutose) 22.5 gm Q15M PRN PO DECREASED GLUCOSE; Start 06/19/16 at 20:30 Dextrose (D50w Syringe) 25 ml Q15M PRN IV DECREASED GLUCOSE; Start 06/19/16 at 20:30 Dextrose (D50w Syringe) 50 ml Q15M PRN IV DECREASED GLUCOSE; Start 06/19/16 at 20:30 Glucagon (Glucagen) 1 mg Q15M PRN IM DECREASED GLUCOSE; Start 06/19/16 at 20:30 Glucose 15 gm 15 gm Q15M PRN BUCCAL DECREASED GLUCOSE; Start 06/19/16 at 20:30 Norepinephrine/ Dextrose (Levophed/D5W) 500 ml @ 1.87 mls/hr TITRATE IV Last administered on 06/20/16 16:49; Admin Dose 13.12 MLS/HR; Start 06/19/16 at 23:00 IV Flush 10 ml 10 ml PRN PRN IV IV PROTOCOL; Start 06/20/16 at 15:00 Piperacillin Sod/ Tazobactam Sod 100 ml @ 200 mls/hr Q8 IVPB Last administered on 06/27/16 13:39; Admin Dose 200 MLS/HR; Start 06/20/16 at 22:00 Potassium Chloride/Dextrose (D5W + KCl 20 Meq) 1,000 ml @ 50 mls/hr Q20H IV Last administered on 06/27/16 12:43; Admin Dose 50 MLS/HR; Start 06/21/16 at 10: 30 Metronidazole 250 mg 250 mg Q8 PO Last administered on 06/27/16 13:39; Admin Dose 250 MG; Start 06/23/16 at 14:00 Midazolam HCl 50 ml @ 0 mls/hr TITRATE IV Last administered on 06/26/16 19:40 ; Admin Dose 5 MLS/HR; Start 06/24/16 at 11:00 Fentanyl (Sublimaze) 100 ml @ 2.5 mls/hr TITRATE IV Last administered on 06:14; Admin Dose 2 MLS/HR; Start 06/24/16 at 11:30 Nystatin (Nystatin Susp) 5 ml QID PO Last administered on 06/27/16 12:28; Admin Dose 5 ML; Start 06/24/16 at 13:00 Doxycycline Hyclate (Vibramycin) 100 mg BID PO Last administered on 06/27/16 08:27; Admin Dose 100 MG; Start 06/26/16 at 21:00 Hydralazine HCl (Apresoline) 10 mg BID GTB Last administered on 06/27/16 08:28 ; Admin Dose 10 MG; Start 06/26/16 at 21:00 PRANEETH LOPEZ Jun 27, 2016 16:32
[2016-06-28] VITALS (24 sets, daily range): BP systolic 90–145; BP diastolic 48–85; PULSE 74–91; RESP 18–31
[2016-06-28] MEDS: LORAZEPAM 2 MG INJ IV PRN ×2 (00:08→03:51)
[2016-06-28] MEDS: ALBUTEROL/IPRATROPIUM (NEB) 3 ML AMP HHN SCH ×6 (00:58→20:40)
[2016-06-28] MEDS: INSULIN ASPART [NOVOLOG] 3 ML PEN SC SCH ×6 (01:00→21:53)
[2016-06-28 05:31] LABS: ADD SCAN DIFF NO
[2016-06-28] MEDS: PIPER-TAZO 3.375 GM IV (PMX) 100 ML IVPB SCH ×3 (05:49→21:40)
[2016-06-28] MEDS: metroNIDAZOLE 250 MG TAB PO SCH ×3 (05:49→21:39)
[2016-06-28 05:50] LABS: BASOPHILS % 0.3 % (0.0-2.0); EOSINOPHILS # 0.2 10^3/ul (0.0-0.5); EOSINOPHILS % 1.4 % (0.0-7.0); HEMATOCRIT 33.4 % (42.0-52.0); HEMOGLOBIN 10.5 g/dl (14.0-18.0); LYMPHOCYTES # 1.2 10^3/ul (0.8-2.9); LYMPHOCYTES % 9.5 % (15.0-51.0); MEAN CORPUSCULAR HEMOGLOBIN 29.2 pg (29.0-33.0); MEAN CORPUSCULAR HGB CONC 31.4 g/dl (32.0-37.0); MEAN PLATELET VOLUME 10.1 fl (7.4-10.4); MONOCYTES % 8.4 % (0.0-11.0); NEUTROPHIL # 9.4 10^3/ul (1.6-7.5); NEUTROPHILS % 77.6 % (39.0-77.0); PLATELET COUNT 339 10^3/UL (140-415); RED BLOOD COUNT 3.59 10^6/ul (4.70-6.10); RED CELL DISTRIBUTION WIDTH 14.2 % (11.5-14.5); WHITE BLOOD COUNT 12.2 10^3/ul (4.8-10.8)
[2016-06-28 06:01] LABS: POTASSIUM 4.3 mmol/L (3.5-5.1)
[2016-06-28 06:03] LABS: CREATININE 1.89 mg/dl (0.61-1.24)
[2016-06-28 06:04] LABS: CALCIUM 7.9 mg/dl (8.4-10.2)
[2016-06-28 07:41] LABS: AADO2 Arterial 95.8 mmHg (7.0-24.0); Allen Test ACCEPTAB; Arterial Base Excess -1.9 mmol/L (-3.0-3); Arterial COHb 0.2 % (0.0-3.0); Arterial Fraction of Oxyhgb 95.8 % (93.0-99.0); Arterial HCO3 20.6 mmol/L (22.0-26.0); Arterial MetHb 0.4 % (0.0-1.5); Arterial Total Hemglobin 14.2 g/dl (12.0-18.0); MODE NASAL CANNULA
[2016-06-28] MEDS: ASPIRIN 81 MG TAB NGT SCH (08:25)
[2016-06-28] MEDS: DOXYCYCLINE 100 MG TAB PO SCH ×2 (08:26→21:39)
[2016-06-28] MEDS: NYSTATIN SUSP 5 ML CUP PO SCH ×4 (08:26→21:39)
[2016-06-28] MEDS: HEPARIN 5,000 UNIT/0.5 ML SYG SC SCH ×2 (08:28→21:50)
--- NOTE | 2016-06-28 09:45 | RADRPT ---
PROCEDURE: XR Chest. CLINICAL INDICATION: Respiratory failure TECHNIQUE: An AP view of the chest was obtained. COMPARISON: Chest x-ray dated 06/27/2016 FINDINGS: The endotracheal tube has been removed The tip of the enteric tube extends below the left diaphragm . There is a left upper extremity PICC line with tip near the cavoatrial junction. There is prominence of the interstitial and central pulmonary vascular markings. There is obscurati on of the left diaphragm with blunting of the left costophrenic angle. No pneumothorax is seen. Th e cardiomediastinal silhouette is moderately enlarged. Calcifications are seen within the aortic arc h. The osseous structures demonstrate senescent changes. IMPRESSION: 1. Findings suggestive of pulmonary vascular congestion. No significant interval change. 2. Small left pleural effusion with left basilar atelectasis. No significant interval change. 3. Moderate cardiomegaly and aortic atherosclerosis. 4. Tubes and lines, as described above. RPTAT: HH .Lupe Harris MD, MD Date Time Electronically viewed and signed by .Lupe Harris MD, on 06/28/2016 09:44 .G/
--- NOTE | 2016-06-28 09:55 | CONS ---
Date/Time of Note Date/Time of Note DATE: 06/28/16 TIME: 09:52 Assessment/Plan Assessment/Plan Additional Assessment/Plan 1. Acute kidney injury, likely secondary to acute tubular necrosis from septic shock and also contributing to liver shock due to the acute kidney injury 2. Sepsis with lactic acidosis, likely secondary to pneumonia. 3. Right upper lobe pneumonia. 4. Acute respiratory failure, vent dependent secondary to septic shock. 5. Acute on chronic congestive heart failure exacerbation, systolic and diastolic. 6. History of hypertension. 7. History of type 2 diabetes mellitus. 8. History of anemia of chronic disease. 9. History of dyslipidemia. PLAN: Makign good urine ouput, Cr improving slowly ,Na 146 continue D5W with KCL- decrease IVF rate to 40 cc/hour expecting creatinine to stabilized BP stable will follow up Consultation Date/Type/Reason Admit Date/Time Jun 18, 2016 at 21:36 Initial Consult Date 06/21/16 Type of Consultation: NEPHROLOGY Referring Provider: CHITRA ESTEBAN 24 HR Interval Summary Free Text/Dictation Na 146, Cr 1.89, pt is extubated, BP stable Exam/Review of Systems Vital Signs Vitals Vital Signs Date Time Temp Pulse Resp B/P Pulse Ox O2 Delivery O2 Flow Rate FiO2 06/28/16 09:06 78 19 99 Nasal Cannula 3.0 06/28/16 06:00 121/55 06/28/16 05:00 98.9 06/27/16 11:54 35 Intake and Output 06/27/16 06/27/16 06/28/16 15:00 23:00 07:00 Intake Total 120 ml 450 ml 470 ml Output Total 585 ml 565 ml 350 ml Balance -465 ml -115 ml 120 ml Exam Constitutional: alert, extubated Respiratory: diminished breath sounds, no rales Cardiovascular: regular rate and rhythm,No murmurs/extra sounds Gastrointestinal: bowel sounds, soft Extremities: No edema Results Result Diagram: 06/28/16 0500 06/28/16 0500 Results 24 hrs Laboratory Tests Test 06/27/16 11:30 06/27/16 12:25 06/27/16 16:17 06/27/16 20:21 Arterial Blood HCO3 21.2 L Arterial Blood Base Excess -2.6 Arterial Blood Oxygen Saturation 96.4 Burak Test ACCEPTAB Arterial Blood Gas Puncture Site Right Radial Arterial Blood Carboxyhemoglobin 0.3 Arterial Blood Date Drawn 06/27/2016 11:26:04 AM Arterial Blood Methemoglobin 0.4 Arterial Blood pCO2 (Temp correct) 33.5 L Arterial Blood pH (Temp corrected) 7.419 Arterial Blood pO2 (Temp corrected) 90.1 H Blood Gas A-a O2 Differential 120.5 H Blood Gas Actual Respiration Rate 28 Blood Gas Low PEEP Setting 5.0 Blood Gas Modality VENT - CPAP Blood Gas Notified Time 06/27/2016 11:51:41 AM Blood Gas Notified Whom JLD Blood Gas Pressure Support 10 Blood Gas Specimen Source Blood arterial Blood Gas Temperature 37.0 FiO2 35.0 Oxyhemoglobin Percent 95.7 Total Hemoglobin 12.2 Bedside Glucose 128 131 114 Test 06/28/16 01:45 06/28/16 05:00 06/28/16 05:49 06/28/16 07:00 Bedside Glucose 126 140 Anion Gap 14 Basophils # 0.0 Basophils % 0.3 Blood Urea Nitrogen 36 H Calcium Level 7.9 L Carbon Dioxide Level 22 Chloride Level 114 H Creatinine 1.89 H Eosinophils # 0.2 Eosinophils % 1.4 Glucose Level 165 Hematocrit 33.4 L Hemoglobin 10.5 L Lymphocytes # 1.2 Lymphocytes % 9.5 L Mean Corpuscular Hemoglobin 29.2 Mean Corpuscular Hemoglobin Concent 31.4 L Mean Corpuscular Volume 93.0 Mean Platelet Volume 10.1 Monocytes # 1.0 H Monocytes % 8.4 Neutrophils # 9.4 H Neutrophils % 77.6 H Nucleated Red Blood Cells # 0.0 Nucleated Red Blood Cells % 0.0 Platelet Count 339 Potassium Level 4.3 Red Blood Count 3.59 L Red Cell Distribution Width 14.2 Sodium Level 146 H White Blood Count 12.2 H Arterial Blood HCO3 20.6 L Arterial Blood Base Excess -1.9 Arterial Blood Oxygen Saturation 96.4 Burak Test ACCEPTAB Arterial Blood Gas Puncture Site Right Radial Arterial Blood Carboxyhemoglobin 0.2 Arterial Blood Date Drawn 06/28/2016 7:20:39 AM Arterial Blood Methemoglobin 0.4 Arterial Blood pCO2 (Temp correct) 29.3 L Arterial Blood pH (Temp corrected) 7.465 H Arterial Blood pO2 (Temp corrected) 83.7 Blood Gas A-a O2 Differential 95.8 H Blood Gas Modality NASAL CANNULA Blood Gas Notified Time 06/28/2016 7:41:27 AM Blood Gas Notified Whom DY Blood Gas Specimen Source Blood arterial Blood Gas Temperature 37.0 FiO2 30.0 Oxyhemoglobin Percent 95.8 Total Hemoglobin 14.2 Test 06/28/16 08:16 Bedside Glucose 164 Medications Medications Current Medications Ondansetron HCl (Zofran Inj) 4 mg Q6H PRN IV NAUSEA AND/OR VOMITING; Start 06/18 at 23:30 Acetaminophen (Tylenol Tab) 650 mg Q6H PRN PO PAIN LEVEL 1-3 OR FEVER; Start at 23:30 Acetaminophen/ Hydrocodone Bitart ([place] (5/325)) 1 tab Q6H PRN PO MODERATE PAIN LEVEL 4-6; Start 06/18/16 at 23:30 Morphine Sulfate (morphine) 2 mg Q4H PRN IV SEVERE PAIN LEVEL 7-10; Start at 23:30 Docusate Sodium (Colace) 100 mg Q12H PRN PO CONSTIPATION; Start 06/18/16 at 23: 30 Magnesium Hydroxide (Milk Of Mag) 30 ml DAILY PRN PO CONSTIPATION; Start at 23:30 Sodium Biphosphate/ Sodium Phosphate (Fleet Enema) 133 ml DAILY PRN [place] CONSTIPATION; Start 06/18/16 at 23:30 Heparin Sodium (Porcine) (Heparin (5000 Units/0.5 ml)) 5,000 unit Q12 SC Last administered on 06/28/16 08:28; Admin Dose 5,000 UNIT; Start 06/19/16 at 09:00 Lorazepam (Ativan) 0.5 mg Q6H PRN IV ANXIETY Last administered on 06/27/16 20: 23; Admin Dose 0.5 MG; Start 06/18/16 at 23:30 Hydralazine HCl (Apresoline) 10 mg Q6H PRN IV ELEVATED BLOOD PRESSURE; Start at 23:30 Nitroglycerin (Nitroglycerin (Sl Tab) 0.4 Mg) 1 tab Q5M PRN SL ANGINA; Start at 23:30 Aspirin (Aspirin) 81 mg DAILY NGT Last administered on 06/28/16 08:25; Admin Dose 81 MG; Start 06/19/16 at 20:00 Insulin Aspart (Novolog Insulin Pen) NOVOLOG *MILD* ALGORI... Q4 SC Last administered on 06/28/16 08:29; Admin Dose 1 UNIT; Start 06/19/16 at 21:00 Miscellaneous Information 1 ea NOTE XX ; Start 06/19/16 at 20:30 Glucose (Glutose) 15 gm Q15M PRN PO DECREASED GLUCOSE; Start 06/19/16 at 20:30 Glucose (Glutose) 22.5 gm Q15M PRN PO DECREASED GLUCOSE; Start 06/19/16 at 20:30 Dextrose (D50w Syringe) 25 ml Q15M PRN IV DECREASED GLUCOSE; Start 06/19/16 at 20:30 Dextrose (D50w Syringe) 50 ml Q15M PRN IV DECREASED GLUCOSE; Start 06/19/16 at 20:30 Glucagon (Glucagen) 1 mg Q15M PRN IM DECREASED GLUCOSE; Start 06/19/16 at 20:30 Glucose 15 gm 15 gm Q15M PRN BUCCAL DECREASED GLUCOSE; Start 06/19/16 at 20:30 Norepinephrine/ Dextrose (Levophed/D5W) 500 ml @ 1.87 mls/hr TITRATE IV Last administered on 06/20/16 16:49; Admin Dose 13.12 MLS/HR; Start 06/19/16 at 23:00 IV Flush 10 ml 10 ml PRN PRN IV IV PROTOCOL; Start 06/20/16 at 15:00 Piperacillin Sod/ Tazobactam Sod 100 ml @ 200 mls/hr Q8 IVPB Last administered on 06/28/16 05:49; Admin Dose 200 MLS/HR; Start 06/20/16 at 22:00 Potassium Chloride/Dextrose (D5W + KCl 20 Meq) 1,000 ml @ 50 mls/hr Q20H IV Last administered on 06/27/16 12:43; Admin Dose 50 MLS/HR; Start 06/21/16 at 10: 30 Metronidazole 250 mg 250 mg Q8 PO Last administered on 06/28/16 05:49; Admin Dose 250 MG; Start 06/23/16 at 14:00 Midazolam HCl 50 ml @ 0 mls/hr TITRATE IV Last administered on 06/26/16 19:40 ; Admin Dose 5 MLS/HR; Start 06/24/16 at 11:00 Fentanyl (Sublimaze) 100 ml @ 2.5 mls/hr TITRATE IV Last administered on 06:14; Admin Dose 2 MLS/HR; Start 06/24/16 at 11:30 Nystatin (Nystatin Susp) 5 ml QID PO Last administered on 06/28/16 08:26; Admin Dose 5 ML; Start 06/24/16 at 13:00 Doxycycline Hyclate (Vibramycin) 100 mg BID PO Last administered on 06/28/16 08:26; Admin Dose 100 MG; Start 06/26/16 at 21:00 Hydralazine HCl (Apresoline) 10 mg BID GTB Last administered on 06/28/16 08:28 ; Admin Dose 10 MG; Start 06/26/16 at 21:00 Lorazepam (Ativan) 1 mg Q2H PRN IV ANXIETY Last administered on 06/28/16 03:51 ; Admin Dose 1 MG; Start 06/28/16 at 00:00 SHANNAN MAYEN MD Jun 28, 2016 09:55
--- NOTE | 2016-06-28 10:56 | CONS ---
Date/Time of Note Date/Time of Note DATE: 06/28/16 TIME: 10:53 Assessment/Plan Assessment/Plan Additional Assessment/Plan Respiratory failure status post extubation Pneumonia Septic shock Acute decompensated systolic and diastolic congestive heart failure Cardiomyopathy with ejection fraction 50% CAD Paroxysmal atrial flutter -Patient with slowly improvement, fluid management as per our nephrology colleagues. Creatinine improving. Blood pressure trend remained stable. Continue aspirin, no statin therapy at the current time given abnormal LFTs. Blood pressure has remained labile, would hold off on beta trina at the current time. Consultation Date/Type/Reason Admit Date/Time Jun 18, 2016 at 21:36 Initial Consult Date 06/19/16 Type of Consultation: cv Referring Provider: CHITRA ESTEBAN 24 HR Interval Summary Free Text/Dictation Patient still with episodes of agitation and confusion. No new cardiac issues as per nursing staff Exam/Review of Systems Vital Signs Vitals Vital Signs Date Time Temp Pulse Resp B/P Pulse Ox O2 Delivery O2 Flow Rate FiO2 06/28/16 09:06 78 19 99 Nasal Cannula 3.0 06/28/16 09:00 113/60 06/28/16 08:00 98.3 06/27/16 11:54 35 Intake and Output 06/27/16 06/27/16 06/28/16 15:00 23:00 07:00 Intake Total 120 ml 450 ml 470 ml Output Total 585 ml 565 ml 350 ml Balance -465 ml -115 ml 120 ml Exam Awake, occasionally follows commands, in restraints, son at bedside Head: normocephalic Neck: supple Respiratory: other (Coarse breath sounds bilaterally, no wheezing) Cardiovascular: other (S1-S2 heard), regular rate and rhythm Gastrointestinal: bowel sounds, non-tender, other (No guarding), soft Extremities: edema, other (No cyanosis) Results Result Diagram: 06/28/16 0500 06/28/16 0500 Results 24 hrs Laboratory Tests Test 06/27/16 11:30 06/27/16 12:25 06/27/16 16:17 06/27/16 20:21 Arterial Blood HCO3 21.2 L Arterial Blood Base Excess -2.6 Arterial Blood Oxygen Saturation 96.4 Burak Test ACCEPTAB Arterial Blood Gas Puncture Site Right Radial Arterial Blood Carboxyhemoglobin 0.3 Arterial Blood Date Drawn 06/27/2016 11:26:04 AM Arterial Blood Methemoglobin 0.4 Arterial Blood pCO2 (Temp correct) 33.5 L Arterial Blood pH (Temp corrected) 7.419 Arterial Blood pO2 (Temp corrected) 90.1 H Blood Gas A-a O2 Differential 120.5 H Blood Gas Actual Respiration Rate 28 Blood Gas Low PEEP Setting 5.0 Blood Gas Modality VENT - CPAP Blood Gas Notified Time 06/27/2016 11:51:41 AM Blood Gas Notified Whom JLD Blood Gas Pressure Support 10 Blood Gas Specimen Source Blood arterial Blood Gas Temperature 37.0 FiO2 35.0 Oxyhemoglobin Percent 95.7 Total Hemoglobin 12.2 Bedside Glucose 128 131 114 Test 06/28/16 01:45 06/28/16 05:00 06/28/16 05:49 06/28/16 07:00 Bedside Glucose 126 140 Anion Gap 14 Basophils # 0.0 Basophils % 0.3 Blood Urea Nitrogen 36 H Calcium Level 7.9 L Carbon Dioxide Level 22 Chloride Level 114 H Creatinine 1.89 H Eosinophils # 0.2 Eosinophils % 1.4 Glucose Level 165 Hematocrit 33.4 L Hemoglobin 10.5 L Lymphocytes # 1.2 Lymphocytes % 9.5 L Mean Corpuscular Hemoglobin 29.2 Mean Corpuscular Hemoglobin Concent 31.4 L Mean Corpuscular Volume 93.0 Mean Platelet Volume 10.1 Monocytes # 1.0 H Monocytes % 8.4 Neutrophils # 9.4 H Neutrophils % 77.6 H Nucleated Red Blood Cells # 0.0 Nucleated Red Blood Cells % 0.0 Platelet Count 339 Potassium Level 4.3 Red Blood Count 3.59 L Red Cell Distribution Width 14.2 Sodium Level 146 H White Blood Count 12.2 H Arterial Blood HCO3 20.6 L Arterial Blood Base Excess -1.9 Arterial Blood Oxygen Saturation 96.4 Burak Test ACCEPTAB Arterial Blood Gas Puncture Site Right Radial Arterial Blood Carboxyhemoglobin 0.2 Arterial Blood Date Drawn 06/28/2016 7:20:39 AM Arterial Blood Methemoglobin 0.4 Arterial Blood pCO2 (Temp correct) 29.3 L Arterial Blood pH (Temp corrected) 7.465 H Arterial Blood pO2 (Temp corrected) 83.7 Blood Gas A-a O2 Differential 95.8 H Blood Gas Modality NASAL CANNULA Blood Gas Notified Time 06/28/2016 7:41:27 AM Blood Gas Notified Whom DY Blood Gas Specimen Source Blood arterial Blood Gas Temperature 37.0 FiO2 30.0 Oxyhemoglobin Percent 95.8 Total Hemoglobin 14.2 Test 06/28/16 08:16 Bedside Glucose 164 Medications Medications Current Medications Ondansetron HCl (Zofran Inj) 4 mg Q6H PRN IV NAUSEA AND/OR VOMITING; Start 06/18 at 23:30 Acetaminophen (Tylenol Tab) 650 mg Q6H PRN PO PAIN LEVEL 1-3 OR FEVER; Start at 23:30 Acetaminophen/ Hydrocodone Bitart ([place] (5/325)) 1 tab Q6H PRN PO MODERATE PAIN LEVEL 4-6; Start 06/18/16 at 23:30 Morphine Sulfate (morphine) 2 mg Q4H PRN IV SEVERE PAIN LEVEL 7-10; Start at 23:30 Docusate Sodium (Colace) 100 mg Q12H PRN PO CONSTIPATION; Start 06/18/16 at 23: 30 Magnesium Hydroxide (Milk Of Mag) 30 ml DAILY PRN PO CONSTIPATION; Start at 23:30 Sodium Biphosphate/ Sodium Phosphate (Fleet Enema) 133 ml DAILY PRN [place] CONSTIPATION; Start 06/18/16 at 23:30 Heparin Sodium (Porcine) (Heparin (5000 Units/0.5 ml)) 5,000 unit Q12 SC Last administered on 06/28/16 08:28; Admin Dose 5,000 UNIT; Start 06/19/16 at 09:00 Lorazepam (Ativan) 0.5 mg Q6H PRN IV ANXIETY Last administered on 06/27/16 20: 23; Admin Dose 0.5 MG; Start 06/18/16 at 23:30 Hydralazine HCl (Apresoline) 10 mg Q6H PRN IV ELEVATED BLOOD PRESSURE; Start at 23:30 Nitroglycerin (Nitroglycerin (Sl Tab) 0.4 Mg) 1 tab Q5M PRN SL ANGINA; Start at 23:30 Aspirin (Aspirin) 81 mg DAILY NGT Last administered on 06/28/16 08:25; Admin Dose 81 MG; Start 06/19/16 at 20:00 Insulin Aspart (Novolog Insulin Pen) NOVOLOG *MILD* ALGORI... Q4 SC Last administered on 06/28/16 08:29; Admin Dose 1 UNIT; Start 06/19/16 at 21:00 Miscellaneous Information 1 ea NOTE XX ; Start 06/19/16 at 20:30 Glucose (Glutose) 15 gm Q15M PRN PO DECREASED GLUCOSE; Start 06/19/16 at 20:30 Glucose (Glutose) 22.5 gm Q15M PRN PO DECREASED GLUCOSE; Start 06/19/16 at 20:30 Dextrose (D50w Syringe) 25 ml Q15M PRN IV DECREASED GLUCOSE; Start 06/19/16 at 20:30 Dextrose (D50w Syringe) 50 ml Q15M PRN IV DECREASED GLUCOSE; Start 06/19/16 at 20:30 Glucagon (Glucagen) 1 mg Q15M PRN IM DECREASED GLUCOSE; Start 06/19/16 at 20:30 Glucose 15 gm 15 gm Q15M PRN BUCCAL DECREASED GLUCOSE; Start 06/19/16 at 20:30 Norepinephrine/ Dextrose (Levophed/D5W) 500 ml @ 1.87 mls/hr TITRATE IV Last administered on 06/20/16 16:49; Admin Dose 13.12 MLS/HR; Start 06/19/16 at 23:00 IV Flush 10 ml 10 ml PRN PRN IV IV PROTOCOL; Start 06/20/16 at 15:00 Piperacillin Sod/ Tazobactam Sod 100 ml @ 200 mls/hr Q8 IVPB Last administered on 06/28/16 05:49; Admin Dose 200 MLS/HR; Start 06/20/16 at 22:00 Potassium Chloride/Dextrose (D5W + KCl 20 Meq) 1,000 ml @ 40 mls/hr Q24H IV Last administered on 06/27/16 12:43; Admin Dose 50 MLS/HR; Start 06/21/16 at 10: 30 Metronidazole 250 mg 250 mg Q8 PO Last administered on 06/28/16 05:49; Admin Dose 250 MG; Start 06/23/16 at 14:00 Midazolam HCl 50 ml @ 0 mls/hr TITRATE IV Last administered on 06/26/16 19:40 ; Admin Dose 5 MLS/HR; Start 06/24/16 at 11:00 Fentanyl (Sublimaze) 100 ml @ 2.5 mls/hr TITRATE IV Last administered on 06:14; Admin Dose 2 MLS/HR; Start 06/24/16 at 11:30 Nystatin (Nystatin Susp) 5 ml QID PO Last administered on 06/28/16 08:26; Admin Dose 5 ML; Start 06/24/16 at 13:00 Doxycycline Hyclate (Vibramycin) 100 mg BID PO Last administered on 06/28/16 08:26; Admin Dose 100 MG; Start 06/26/16 at 21:00 Hydralazine HCl (Apresoline) 10 mg BID GTB Last administered on 06/28/16 08:28 ; Admin Dose 10 MG; Start 06/26/16 at 21:00 Lorazepam (Ativan) 1 mg Q2H PRN IV ANXIETY Last administered on 06/28/16 03:51 ; Admin Dose 1 MG; Start 06/28/16 at 00:00 Jef Sinha DO Jun 28, 2016 10:55
[2016-06-28] MEDS: D5W + KCL 20 MEQ 1,000 ML IV SCH (10:58)
--- NOTE | 2016-06-28 11:25 | PN ---
DATE: 06/28/2016 REASON FOR FOLLOWUP: Respiratory failure. SUBJECTIVE: Patient Luis was extubated yesterday. He remained agitated overnight with moderate secretions which he required assistance with clearance. This morning still somewhat agitated, son is at bedside. OBJECTIVE: VITAL SIGNS: Temperature 99, pulse 78, blood pressure 113/60, O2 saturation 96%, FIO2 of 3 liters. NECK: Supple. No JVD or lymphadenopathy. CARDIAC: S1, S2, no added sounds or murmurs. CHEST: Diminished air entry bilaterally. ABDOMEN: Soft, nontender. No guarding or rebound. EXTREMITIES: No cyanosis, clubbing, 1+ edema. NEUROLOGIC: Generalized weakness. LABORATORY DATA: White count 12.2, hemoglobin 10.5, platelets 339, BUN 36, creatinine 0.89. ABG th is morning pH 7.46, pCO2 of 29, pO2 83. IMPRESSION AND PLAN: 1. Status post respiratory failure, now extubated. 2. Encephalopathy, likely toxic metabolic. 3. History of congestive cardiac failure. 4. History of shock liver. 5. Type 2 diabetes. PLAN: 1. Patient to continue with antibiotics per infectious diseases. 2. Continue with incentive spirometry. 3. Speech therapy evaluation when more stable. 4. Aggressive pulmonary toilet. 5. DVT and GI prophylaxis. I would keep the patient in the intensive care unit today given his flu ctuating mental status. I had an extensive discussion with the patient's son at bedside also. Crit ical care time 40 minutes. Dictated By: SARAH WATTERS/GARRETT Conf#: [id number] DID#: [id number]
--- NOTE | 2016-06-28 12:22 | CONS ---
Date/Time of Note Date/Time of Note DATE: 06/28/16 TIME: 12:20 Assessment/Plan Assessment/Plan Chief Complaint/Hosp Course SUBJECTIVE: No acute changes overnight. He is awake, very weak, lying comfortably in bed. No fevers. Family at bedside. ANTIMICROBIALS: The patient remains on: 1. Zosyn. 2. Oral Flagyl. 3. Doxycycline. INDWELLINGS: NG tube, Ramsey catheter, PICC line placed on 06/20/2016. PHYSICAL EXAMINATION: GENERAL: This is an obese, well-developed, fragile, elderly man who is lying comfortably in bed. HEENT: Head atraumatic, normocephalic. Sclerae anicteric. Buccal mucosa dry. NECK: Supple, trachea midline. CHEST: Rise symmetrical. Breath sounds diminished to bases. HEART: S1, S2. ABDOMEN: Soft. Bowel sounds present. EXTREMITIES: Without cyanosis. ASSESSMENT: 1. Resolving sepsis status post shock. 2. Pneumonia. 3. Acute respiratory failure, status post extubated. 4. Acute on chronic kidney disease. 5. Diabetes. 6. Congestive heart failure exacerbation. PLAN: The patient remains stable. Continue present care, antibiotics, anti- aspiration measures, pulmonary rec-s noted DW staff Problems: Consultation Date/Type/Reason Admit Date/Time Jun 18, 2016 at 21:36 Initial Consult Date 06/19/16 Type of Consultation: ID Referring Provider: CHITRA ESTEBAN Exam/Review of Systems Vital Signs Vitals Vital Signs Date Time Temp Pulse Resp B/P Pulse Ox O2 Delivery O2 Flow Rate FiO2 06/28/16 09:06 78 19 99 Nasal Cannula 3.0 06/28/16 09:00 113/60 06/28/16 08:00 98.3 06/27/16 11:54 35 Intake and Output 06/27/16 06/27/16 06/28/16 15:00 23:00 07:00 Intake Total 120 ml 450 ml 470 ml Output Total 585 ml 565 ml 350 ml Balance -465 ml -115 ml 120 ml Results Result Diagram: 06/28/16 0500 06/28/16 0500 Results 24 hrs Laboratory Tests Test 06/27/16 12:25 06/27/16 16:17 06/27/16 20:21 06/28/16 01:45 Bedside Glucose 128 131 114 126 Test 06/28/16 05:00 06/28/16 05:49 06/28/16 07:00 06/28/16 08:16 Anion Gap 14 Basophils # 0.0 Basophils % 0.3 Blood Urea Nitrogen 36 H Calcium Level 7.9 L Carbon Dioxide Level 22 Chloride Level 114 H Creatinine 1.89 H Eosinophils # 0.2 Eosinophils % 1.4 Glucose Level 165 Hematocrit 33.4 L Hemoglobin 10.5 L Lymphocytes # 1.2 Lymphocytes % 9.5 L Mean Corpuscular Hemoglobin 29.2 Mean Corpuscular Hemoglobin Concent 31.4 L Mean Corpuscular Volume 93.0 Mean Platelet Volume 10.1 Monocytes # 1.0 H Monocytes % 8.4 Neutrophils # 9.4 H Neutrophils % 77.6 H Nucleated Red Blood Cells # 0.0 Nucleated Red Blood Cells % 0.0 Platelet Count 339 Potassium Level 4.3 Red Blood Count 3.59 L Red Cell Distribution Width 14.2 Sodium Level 146 H White Blood Count 12.2 H Bedside Glucose 140 164 Arterial Blood HCO3 20.6 L Arterial Blood Base Excess -1.9 Arterial Blood Oxygen Saturation 96.4 Burak Test ACCEPTAB Arterial Blood Gas Puncture Site Right Radial Arterial Blood Carboxyhemoglobin 0.2 Arterial Blood Date Drawn 06/28/2016 7:20:39 AM Arterial Blood Methemoglobin 0.4 Arterial Blood pCO2 (Temp correct) 29.3 L Arterial Blood pH (Temp corrected) 7.465 H Arterial Blood pO2 (Temp corrected) 83.7 Blood Gas A-a O2 Differential 95.8 H Blood Gas Modality NASAL CANNULA Blood Gas Notified Time 06/28/2016 7:41:27 AM Blood Gas Notified Whom DY Blood Gas Specimen Source Blood arterial Blood Gas Temperature 37.0 FiO2 30.0 Oxyhemoglobin Percent 95.8 Total Hemoglobin 14.2 Medications Medications Current Medications Ondansetron HCl (Zofran Inj) 4 mg Q6H PRN IV NAUSEA AND/OR VOMITING; Start 06/18 at 23:30 Acetaminophen (Tylenol Tab) 650 mg Q6H PRN PO PAIN LEVEL 1-3 OR FEVER; Start at 23:30 Acetaminophen/ Hydrocodone Bitart ([place] (5/325)) 1 tab Q6H PRN PO MODERATE PAIN LEVEL 4-6; Start 06/18/16 at 23:30 Morphine Sulfate (morphine) 2 mg Q4H PRN IV SEVERE PAIN LEVEL 7-10; Start at 23:30 Docusate Sodium (Colace) 100 mg Q12H PRN PO CONSTIPATION; Start 06/18/16 at 23: 30 Magnesium Hydroxide (Milk Of Mag) 30 ml DAILY PRN PO CONSTIPATION; Start at 23:30 Sodium Biphosphate/ Sodium Phosphate (Fleet Enema) 133 ml DAILY PRN [place] CONSTIPATION; Start 06/18/16 at 23:30 Heparin Sodium (Porcine) (Heparin (5000 Units/0.5 ml)) 5,000 unit Q12 SC Last administered on 06/28/16 08:28; Admin Dose 5,000 UNIT; Start 06/19/16 at 09:00 Lorazepam (Ativan) 0.5 mg Q6H PRN IV ANXIETY Last administered on 06/27/16 20: 23; Admin Dose 0.5 MG; Start 06/18/16 at 23:30 Hydralazine HCl (Apresoline) 10 mg Q6H PRN IV ELEVATED BLOOD PRESSURE; Start at 23:30 Nitroglycerin (Nitroglycerin (Sl Tab) 0.4 Mg) 1 tab Q5M PRN SL ANGINA; Start at 23:30 Aspirin (Aspirin) 81 mg DAILY NGT Last administered on 06/28/16 08:25; Admin Dose 81 MG; Start 06/19/16 at 20:00 Insulin Aspart (Novolog Insulin Pen) NOVOLOG *MILD* ALGORI... Q4 SC Last administered on 06/28/16 08:29; Admin Dose 1 UNIT; Start 06/19/16 at 21:00 Miscellaneous Information 1 ea NOTE XX ; Start 06/19/16 at 20:30 Glucose (Glutose) 15 gm Q15M PRN PO DECREASED GLUCOSE; Start 06/19/16 at 20:30 Glucose (Glutose) 22.5 gm Q15M PRN PO DECREASED GLUCOSE; Start 06/19/16 at 20:30 Dextrose (D50w Syringe) 25 ml Q15M PRN IV DECREASED GLUCOSE; Start 06/19/16 at 20:30 Dextrose (D50w Syringe) 50 ml Q15M PRN IV DECREASED GLUCOSE; Start 06/19/16 at 20:30 Glucagon (Glucagen) 1 mg Q15M PRN IM DECREASED GLUCOSE; Start 06/19/16 at 20:30 Glucose 15 gm 15 gm Q15M PRN BUCCAL DECREASED GLUCOSE; Start 06/19/16 at 20:30 Norepinephrine/ Dextrose (Levophed/D5W) 500 ml @ 1.87 mls/hr TITRATE IV Last administered on 06/20/16 16:49; Admin Dose 13.12 MLS/HR; Start 06/19/16 at 23:00 IV Flush 10 ml 10 ml PRN PRN IV IV PROTOCOL; Start 06/20/16 at 15:00 Piperacillin Sod/ Tazobactam Sod 100 ml @ 200 mls/hr Q8 IVPB Last administered on 06/28/16 05:49; Admin Dose 200 MLS/HR; Start 06/20/16 at 22:00 Potassium Chloride/Dextrose (D5W + KCl 20 Meq) 1,000 ml @ 40 mls/hr Q24H IV Last administered on 06/28/16 10:58; Admin Dose 40 MLS/HR; Start 06/21/16 at 10: 30 Metronidazole 250 mg 250 mg Q8 PO Last administered on 06/28/16 05:49; Admin Dose 250 MG; Start 06/23/16 at 14:00 Midazolam HCl 50 ml @ 0 mls/hr TITRATE IV Last administered on 06/26/16 19:40 ; Admin Dose 5 MLS/HR; Start 06/24/16 at 11:00 Fentanyl (Sublimaze) 100 ml @ 2.5 mls/hr TITRATE IV Last administered on 06:14; Admin Dose 2 MLS/HR; Start 06/24/16 at 11:30 Nystatin (Nystatin Susp) 5 ml QID PO Last administered on 06/28/16 08:26; Admin Dose 5 ML; Start 06/24/16 at 13:00 Doxycycline Hyclate (Vibramycin) 100 mg BID PO Last administered on 06/28/16 08:26; Admin Dose 100 MG; Start 06/26/16 at 21:00 Hydralazine HCl (Apresoline) 10 mg BID GTB Last administered on 06/28/16 08:28 ; Admin Dose 10 MG; Start 06/26/16 at 21:00 Lorazepam (Ativan) 1 mg Q2H PRN IV ANXIETY Last administered on 06/28/16 03:51 ; Admin Dose 1 MG; Start 06/28/16 at 00:00 BALWINDER SANTOS NP Jun 28, 2016 12:22
--- NOTE | 2016-06-28 13:52 | PN ---
Date/Time of Note Date/Time of Note DATE: 06/28/16 TIME: 13:46 Assessment/Plan VTE Prophylaxis VTE Prophylaxis Intervention: heparin Assessment/Plan Chief Complaint/Hosp Course 1. Sepsis with lactic acidosis 2/2 pneumonia with shock-stable No longer pressor dependent Continue antibiotics but ID has discontinued vancomycin secondary to declining renal function, continue Zosyn, Flagyl and doxycycline 2. Acute resp failure secondary to CHF exacerbation and/or pneumonia-now extubated ST eval and if patient is tolerating a p.o. diet will DC NG tube 3. CHF exacerbation: improving Diuresis per nephrology 4. Acute on chronic interstitial lung disease 5. Shock liver: improving 6. Hypertension: controlled 7. DM 2 A1c 6.8 8. NC / NC anemia 9. Acute encephalopathy likely secondary to delirium Haldol as needed Prophylaxis-Heparin Problems: Subjective 24 Hr Interval Summary Constitutional: disoriented Exam/Review of Systems Vital Signs Vitals Vital Signs Date Time Temp Pulse Resp B/P Pulse Ox O2 Delivery O2 Flow Rate FiO2 06/28/16 09:06 78 19 99 Nasal Cannula 3.0 06/28/16 09:00 113/60 06/28/16 08:00 98.3 06/27/16 11:54 35 Intake and Output 06/27/16 06/27/16 06/28/16 15:00 23:00 07:00 Intake Total 120 ml 450 ml 470 ml Output Total 585 ml 565 ml 350 ml Balance -465 ml -115 ml 120 ml Exam Psych: confusion Respiratory: clear to auscultation Cardiovascular: regular rate and rhythm Gastrointestinal: soft, No distended Musculoskeletal: nl extremities to inspection Results Result Diagram: 06/28/16 0500 06/28/16 0500 Results 24 hrs Laboratory Tests Test 06/27/16 16:17 06/27/16 20:21 06/28/16 01:45 06/28/16 05:00 Bedside Glucose 131 114 126 Anion Gap 14 Basophils # 0.0 Basophils % 0.3 Blood Urea Nitrogen 36 H Calcium Level 7.9 L Carbon Dioxide Level 22 Chloride Level 114 H Creatinine 1.89 H Eosinophils # 0.2 Eosinophils % 1.4 Glucose Level 165 Hematocrit 33.4 L Hemoglobin 10.5 L Lymphocytes # 1.2 Lymphocytes % 9.5 L Mean Corpuscular Hemoglobin 29.2 Mean Corpuscular Hemoglobin Concent 31.4 L Mean Corpuscular Volume 93.0 Mean Platelet Volume 10.1 Monocytes # 1.0 H Monocytes % 8.4 Neutrophils # 9.4 H Neutrophils % 77.6 H Nucleated Red Blood Cells # 0.0 Nucleated Red Blood Cells % 0.0 Platelet Count 339 Potassium Level 4.3 Red Blood Count 3.59 L Red Cell Distribution Width 14.2 Sodium Level 146 H White Blood Count 12.2 H Test 06/28/16 05:49 06/28/16 07:00 06/28/16 08:16 06/28/16 13:17 Bedside Glucose 140 164 170 Arterial Blood HCO3 20.6 L Arterial Blood Base Excess -1.9 Arterial Blood Oxygen Saturation 96.4 Burak Test ACCEPTAB Arterial Blood Gas Puncture Site Right Radial Arterial Blood Carboxyhemoglobin 0.2 Arterial Blood Date Drawn 06/28/2016 7:20:39 AM Arterial Blood Methemoglobin 0.4 Arterial Blood pCO2 (Temp correct) 29.3 L Arterial Blood pH (Temp corrected) 7.465 H Arterial Blood pO2 (Temp corrected) 83.7 Blood Gas A-a O2 Differential 95.8 H Blood Gas Modality NASAL CANNULA Blood Gas Notified Time 06/28/2016 7:41:27 AM Blood Gas Notified Whom DY Blood Gas Specimen Source Blood arterial Blood Gas Temperature 37.0 FiO2 30.0 Oxyhemoglobin Percent 95.8 Total Hemoglobin 14.2 Medications Medications Current Medications Ondansetron HCl (Zofran Inj) 4 mg Q6H PRN IV NAUSEA AND/OR VOMITING; Start 06/18 at 23:30 Acetaminophen (Tylenol Tab) 650 mg Q6H PRN PO PAIN LEVEL 1-3 OR FEVER; Start at 23:30 Acetaminophen/ Hydrocodone Bitart ([place] (5/325)) 1 tab Q6H PRN PO MODERATE PAIN LEVEL 4-6; Start 06/18/16 at 23:30 Morphine Sulfate (morphine) 2 mg Q4H PRN IV SEVERE PAIN LEVEL 7-10; Start at 23:30 Docusate Sodium (Colace) 100 mg Q12H PRN PO CONSTIPATION; Start 06/18/16 at 23: 30 Magnesium Hydroxide (Milk Of Mag) 30 ml DAILY PRN PO CONSTIPATION; Start at 23:30 Sodium Biphosphate/ Sodium Phosphate (Fleet Enema) 133 ml DAILY PRN [place] CONSTIPATION; Start 06/18/16 at 23:30 Heparin Sodium (Porcine) (Heparin (5000 Units/0.5 ml)) 5,000 unit Q12 SC Last administered on 06/28/16 08:28; Admin Dose 5,000 UNIT; Start 06/19/16 at 09:00 Lorazepam (Ativan) 0.5 mg Q6H PRN IV ANXIETY Last administered on 06/27/16 20: 23; Admin Dose 0.5 MG; Start 06/18/16 at 23:30 Hydralazine HCl (Apresoline) 10 mg Q6H PRN IV ELEVATED BLOOD PRESSURE; Start at 23:30 Nitroglycerin (Nitroglycerin (Sl Tab) 0.4 Mg) 1 tab Q5M PRN SL ANGINA; Start at 23:30 Aspirin (Aspirin) 81 mg DAILY NGT Last administered on 06/28/16 08:25; Admin Dose 81 MG; Start 06/19/16 at 20:00 Insulin Aspart (Novolog Insulin Pen) NOVOLOG *MILD* ALGORI... Q4 SC Last administered on 06/28/16 13:22; Admin Dose 1 UNIT; Start 06/19/16 at 21:00 Miscellaneous Information 1 ea NOTE XX ; Start 06/19/16 at 20:30 Glucose (Glutose) 15 gm Q15M PRN PO DECREASED GLUCOSE; Start 06/19/16 at 20:30 Glucose (Glutose) 22.5 gm Q15M PRN PO DECREASED GLUCOSE; Start 06/19/16 at 20:30 Dextrose (D50w Syringe) 25 ml Q15M PRN IV DECREASED GLUCOSE; Start 06/19/16 at 20:30 Dextrose (D50w Syringe) 50 ml Q15M PRN IV DECREASED GLUCOSE; Start 06/19/16 at 20:30 Glucagon (Glucagen) 1 mg Q15M PRN IM DECREASED GLUCOSE; Start 06/19/16 at 20:30 Glucose 15 gm 15 gm Q15M PRN BUCCAL DECREASED GLUCOSE; Start 06/19/16 at 20:30 Norepinephrine/ Dextrose (Levophed/D5W) 500 ml @ 1.87 mls/hr TITRATE IV Last administered on 06/20/16 16:49; Admin Dose 13.12 MLS/HR; Start 06/19/16 at 23:00 IV Flush 10 ml 10 ml PRN PRN IV IV PROTOCOL; Start 06/20/16 at 15:00 Piperacillin Sod/ Tazobactam Sod 100 ml @ 200 mls/hr Q8 IVPB Last administered on 06/28/16 13:21; Admin Dose 200 MLS/HR; Start 06/20/16 at 22:00 Potassium Chloride/Dextrose (D5W + KCl 20 Meq) 1,000 ml @ 40 mls/hr Q24H IV Last administered on 06/28/16 10:58; Admin Dose 40 MLS/HR; Start 06/21/16 at 10: 30 Metronidazole 250 mg 250 mg Q8 PO Last administered on 06/28/16 13:21; Admin Dose 250 MG; Start 06/23/16 at 14:00 Midazolam HCl 50 ml @ 0 mls/hr TITRATE IV Last administered on 06/26/16 19:40 ; Admin Dose 5 MLS/HR; Start 06/24/16 at 11:00 Fentanyl (Sublimaze) 100 ml @ 2.5 mls/hr TITRATE IV Last administered on 06:14; Admin Dose 2 MLS/HR; Start 06/24/16 at 11:30 Nystatin (Nystatin Susp) 5 ml QID PO Last administered on 06/28/16 13:21; Admin Dose 5 ML; Start 06/24/16 at 13:00 Doxycycline Hyclate (Vibramycin) 100 mg BID PO Last administered on 06/28/16 08:26; Admin Dose 100 MG; Start 06/26/16 at 21:00 Hydralazine HCl (Apresoline) 10 mg BID GTB Last administered on 06/28/16 08:28 ; Admin Dose 10 MG; Start 06/26/16 at 21:00 Lorazepam (Ativan) 1 mg Q2H PRN IV ANXIETY Last administered on 06/28/16 03:51 ; Admin Dose 1 MG; Start 06/28/16 at 00:00 PRANEETH LOPEZ Jun 28, 2016 13:52
[2016-06-28] MEDS: HALOPERIDOL 5 MG INJ IV PRN ×2 (14:33→21:40)
[2016-06-29] VITALS (24 sets, daily range): BP systolic 94–157; BP diastolic 47–75; PULSE 65–87; RESP 17–29
[2016-06-29] MEDS: LORAZEPAM 2 MG INJ IV PRN ×2 (00:25→03:43)
[2016-06-29] MEDS: ALBUTEROL/IPRATROPIUM (NEB) 3 ML AMP HHN SCH ×6 (01:29→20:19)
[2016-06-29] MEDS: INSULIN ASPART [NOVOLOG] 3 ML PEN SC SCH ×6 (01:46→20:10)
[2016-06-29 04:51] LABS: ADD SCAN DIFF NO
[2016-06-29 05:05] LABS: POTASSIUM 4.2 mmol/L (3.5-5.1)
[2016-06-29 05:07] LABS: CREATININE 1.82 mg/dl (0.61-1.24)
[2016-06-29 05:09] LABS: CALCIUM 7.9 mg/dl (8.4-10.2)
[2016-06-29 05:30] LABS: BASOPHILS % 0.3 % (0.0-2.0); EOSINOPHILS # 0.2 10^3/ul (0.0-0.5); EOSINOPHILS % 1.5 % (0.0-7.0); HEMATOCRIT 32.8 % (42.0-52.0); HEMOGLOBIN 10.4 g/dl (14.0-18.0); LYMPHOCYTES # 1.1 10^3/ul (0.8-2.9); LYMPHOCYTES % 9.3 % (15.0-51.0); MEAN CORPUSCULAR HEMOGLOBIN 29.4 pg (29.0-33.0); MEAN CORPUSCULAR HGB CONC 31.7 g/dl (32.0-37.0); MEAN CORPUSCULAR VOLUME 92.7 fl (82.0-101.0); MONOCYTES % 8.8 % (0.0-11.0); NEUTROPHIL # 9.1 10^3/ul (1.6-7.5); NEUTROPHILS % 78.4 % (39.0-77.0); PLATELET COUNT 347 10^3/UL (140-415); RED BLOOD COUNT 3.54 10^6/ul (4.70-6.10); RED CELL DISTRIBUTION WIDTH 14.4 % (11.5-14.5); WHITE BLOOD COUNT 11.7 10^3/ul (4.8-10.8)
[2016-06-29] MEDS: metroNIDAZOLE 250 MG TAB PO SCH ×3 (05:30→22:28)
[2016-06-29] MEDS: PIPER-TAZO 3.375 GM IV (PMX) 100 ML IVPB SCH ×3 (05:30→22:28)
[2016-06-29] MEDS: NYSTATIN SUSP 5 ML CUP PO SCH ×4 (08:21→20:14)
[2016-06-29] MEDS: ASPIRIN 81 MG TAB NGT SCH (08:21)
[2016-06-29] MEDS: DOXYCYCLINE 100 MG TAB PO SCH ×2 (08:21→20:13)
[2016-06-29] MEDS: HEPARIN 5,000 UNIT/0.5 ML SYG SC SCH ×2 (08:22→20:15)
--- NOTE | 2016-06-29 09:05 | CONS ---
Date/Time of Note Date/Time of Note DATE: 06/29/16 TIME: 09:03 Assessment/Plan Assessment/Plan Additional Assessment/Plan Assessment recommendations; 1. Patient admitted for severe bilateral pneumonia leading to respiratory failure no intubated day before yesterday with stable clinical status. 2. History of mild renal insufficiency. 3. Likely toxic encephalopathy Continue current treatment. Patient can be transferred to the medical floor.. Consultation Date/Type/Reason Admit Date/Time Jun 18, 2016 at 21:36 Initial Consult Date 06/19/16 Type of Consultation: Pulmonary/critical care Referring Provider: CHITRA ESTEBAN 24 HR Interval Summary Free Text/Dictation Patient condition is stable. He is awake but is noncommunicative. Has remained hemodynamically stable. General exam; elderly male, awake currently in no distress. Exam/Review of Systems Vital Signs Vitals Vital Signs Date Time Temp Pulse Resp B/P Pulse Ox O2 Delivery O2 Flow Rate FiO2 06/29/16 08:30 75 20 100 Nasal Cannula 3.0 06/29/16 06:00 102/47 06/29/16 04:00 98.3 06/27/16 11:54 35 Intake and Output 06/28/16 06/28/16 06/29/16 15:00 23:00 07:00 Intake Total 620 ml 870 ml 1200 ml Output Total 710 ml 940 ml 450 ml Balance -90 ml -70 ml 750 ml Exam HEENT examination; supple neck, No organomegaly. No JVD. No thyromegaly. No lymphadenopathy. Patient has bilateral intraocular lens implants. Patient is edentulous. Chest exam; diminished but clear breath sounds bilaterally. S1-S2 audible, no murmurs. Regular rhythm. Abdomen examination; soft, nondistended. Bowel sounds audible. Nontender. Extremities; no peripheral edema. Pulses 1+ bilaterally. RISK MGR examination; patient is awake but does not follow any commands. Results Result Diagram: 06/29/16 0415 06/29/16 0415 Results 24 hrs Laboratory Tests Test 06/28/16 13:17 06/28/16 16:26 06/28/16 21:47 06/29/16 01:41 Bedside Glucose 170 184 171 160 Test 06/29/16 04:15 06/29/16 05:29 06/29/16 08:09 Anion Gap 16 Basophils # 0.0 Basophils % 0.3 Blood Urea Nitrogen 28 H Calcium Level 7.9 L Carbon Dioxide Level 21 Chloride Level 112 H Creatinine 1.82 H Eosinophils # 0.2 Eosinophils % 1.5 Glucose Level 156 Hematocrit 32.8 L Hemoglobin 10.4 L Lymphocytes # 1.1 Lymphocytes % 9.3 L Magnesium Level 2.0 Mean Corpuscular Hemoglobin 29.4 Mean Corpuscular Hemoglobin Concent 31.7 L Mean Corpuscular Volume 92.7 Mean Platelet Volume 10.0 Monocytes # 1.0 H Monocytes % 8.8 Neutrophils # 9.1 H Neutrophils % 78.4 H Nucleated Red Blood Cells # 0.0 Nucleated Red Blood Cells % 0.0 Phosphorus Level 4.0 Platelet Count 347 Potassium Level 4.2 Red Blood Count 3.54 L Red Cell Distribution Width 14.4 Sodium Level 145 H White Blood Count 11.7 H Bedside Glucose 171 188 Medications Medications Current Medications Ondansetron HCl (Zofran Inj) 4 mg Q6H PRN IV NAUSEA AND/OR VOMITING; Start 06/18 at 23:30 Acetaminophen (Tylenol Tab) 650 mg Q6H PRN PO PAIN LEVEL 1-3 OR FEVER; Start at 23:30 Acetaminophen/ Hydrocodone Bitart ([place] (5/325)) 1 tab Q6H PRN PO MODERATE PAIN LEVEL 4-6; Start 06/18/16 at 23:30 Morphine Sulfate (morphine) 2 mg Q4H PRN IV SEVERE PAIN LEVEL 7-10; Start at 23:30 Docusate Sodium (Colace) 100 mg Q12H PRN PO CONSTIPATION; Start 06/18/16 at 23: 30 Magnesium Hydroxide (Milk Of Mag) 30 ml DAILY PRN PO CONSTIPATION; Start at 23:30 Sodium Biphosphate/ Sodium Phosphate (Fleet Enema) 133 ml DAILY PRN [place] CONSTIPATION; Start 06/18/16 at 23:30 Heparin Sodium (Porcine) (Heparin (5000 Units/0.5 ml)) 5,000 unit Q12 SC Last administered on 06/29/16 08:22; Admin Dose 5,000 UNIT; Start 06/19/16 at 09:00 Lorazepam (Ativan) 0.5 mg Q6H PRN IV ANXIETY Last administered on 06/27/16 20: 23; Admin Dose 0.5 MG; Start 06/18/16 at 23:30 Hydralazine HCl (Apresoline) 10 mg Q6H PRN IV ELEVATED BLOOD PRESSURE; Start at 23:30 Nitroglycerin (Nitroglycerin (Sl Tab) 0.4 Mg) 1 tab Q5M PRN SL ANGINA; Start at 23:30 Aspirin (Aspirin) 81 mg DAILY NGT Last administered on 06/29/16 08:21; Admin Dose 81 MG; Start 06/19/16 at 20:00 Insulin Aspart (Novolog Insulin Pen) NOVOLOG *MILD* ALGORI... Q4 SC Last administered on 06/29/16 08:22; Admin Dose 2 UNIT; Start 06/19/16 at 21:00 Miscellaneous Information 1 ea NOTE XX ; Start 06/19/16 at 20:30 Glucose (Glutose) 15 gm Q15M PRN PO DECREASED GLUCOSE; Start 06/19/16 at 20:30 Glucose (Glutose) 22.5 gm Q15M PRN PO DECREASED GLUCOSE; Start 06/19/16 at 20:30 Dextrose (D50w Syringe) 25 ml Q15M PRN IV DECREASED GLUCOSE; Start 06/19/16 at 20:30 Dextrose (D50w Syringe) 50 ml Q15M PRN IV DECREASED GLUCOSE; Start 06/19/16 at 20:30 Glucagon (Glucagen) 1 mg Q15M PRN IM DECREASED GLUCOSE; Start 06/19/16 at 20:30 Glucose 15 gm 15 gm Q15M PRN BUCCAL DECREASED GLUCOSE; Start 06/19/16 at 20:30 Norepinephrine/ Dextrose (Levophed/D5W) 500 ml @ 1.87 mls/hr TITRATE IV Last administered on 06/20/16 16:49; Admin Dose 13.12 MLS/HR; Start 06/19/16 at 23:00 IV Flush 10 ml 10 ml PRN PRN IV IV PROTOCOL; Start 06/20/16 at 15:00 Piperacillin Sod/ Tazobactam Sod 100 ml @ 200 mls/hr Q8 IVPB Last administered on 06/29/16 05:30; Admin Dose 200 MLS/HR; Start 06/20/16 at 22:00 Potassium Chloride/Dextrose (D5W + KCl 20 Meq) 1,000 ml @ 40 mls/hr Q24H IV Last administered on 06/28/16 10:58; Admin Dose 40 MLS/HR; Start 06/21/16 at 10: 30 Metronidazole 250 mg 250 mg Q8 PO Last administered on 06/29/16 05:30; Admin Dose 250 MG; Start 06/23/16 at 14:00 Midazolam HCl 50 ml @ 0 mls/hr TITRATE IV Last administered on 06/26/16 19:40 ; Admin Dose 5 MLS/HR; Start 06/24/16 at 11:00 Fentanyl (Sublimaze) 100 ml @ 2.5 mls/hr TITRATE IV Last administered on 06:14; Admin Dose 2 MLS/HR; Start 06/24/16 at 11:30 Nystatin (Nystatin Susp) 5 ml QID PO Last administered on 06/29/16 08:21; Admin Dose 5 ML; Start 06/24/16 at 13:00 Doxycycline Hyclate (Vibramycin) 100 mg BID PO Last administered on 06/29/16 08:21; Admin Dose 100 MG; Start 06/26/16 at 21:00 Hydralazine HCl (Apresoline) 10 mg BID GTB Last administered on 06/29/16 08:21 ; Admin Dose 10 MG; Start 06/26/16 at 21:00 Lorazepam (Ativan) 1 mg Q2H PRN IV ANXIETY Last administered on 06/29/16 03:43 ; Admin Dose 1 MG; Start 06/28/16 at 00:00 Haloperidol (Haldol) 4 mg Q6H PRN IV AGITATION Last administered on 06/28/16 21:40; Admin Dose 4 MG; Start 06/28/16 at 14:30 SANDOR FANG 16, 2017 09:05
--- NOTE | 2016-06-29 09:32 | RADRPT ---
PROCEDURE: XR Chest. CLINICAL INDICATION: Shortness of breath. TECHNIQUE: Single frontal view. COMPARISON: 06/28/2016. FINDINGS: The nasogastric tube and left arm PICC line remain in satisfactory position. Pulmonary edema is unc hanged. There is mild atelectasis at the lung bases. The lungs are otherwise clear. The heart is enlarged. There is calcification in the aorta consistent with atherosclerosis. There is no pleural effusion. There is no pneumothorax. IMPRESSION: 1. NG tube and left arm PICC line in satisfactory position. 2. Unchanged pulmonary edema. 3. Cardiomegaly and atherosclerosis. RPTAT: QQ .Brooks Chaney MD, MD Date Time Electronically viewed and signed by .Brooks Chaney MD, MD on 06/29/2016 09:32 .R/
--- NOTE | 2016-06-29 10:16 | CONS ---
Date/Time of Note Date/Time of Note DATE: 06/29/16 TIME: 10:13 Assessment/Plan Assessment/Plan Additional Assessment/Plan 1. Acute kidney injury, likely secondary to acute tubular necrosis from septic shock and also contributing to liver shock due to the acute kidney injury 2. Sepsis with lactic acidosis, likely secondary to pneumonia. 3. Right upper lobe pneumonia. 4. Acute respiratory failure, vent dependent secondary to septic shock. 5. Acute on chronic congestive heart failure exacerbation, systolic and diastolic. 6. History of hypertension. 7. History of type 2 diabetes mellitus. 8. History of anemia of chronic disease. 9. History of dyslipidemia. PLAN: Makign good urine ouput, Cr improving slowly ,Na 145 continue D5W with KCL- decrease IVF rate to 30 cc/hour expecting creatinine to stabilized BP stable will follow up Consultation Date/Type/Reason Admit Date/Time Jun 18, 2016 at 21:36 Initial Consult Date 06/21/16 Type of Consultation: NEPHROLOGY Referring Provider: CHITRA ESTEBAN 24 HR Interval Summary Free Text/Dictation pt remains extubated, Cr 1.82, BP stable, Na 145 Exam/Review of Systems Vital Signs Vitals Vital Signs Date Time Temp Pulse Resp B/P Pulse Ox O2 Delivery O2 Flow Rate FiO2 06/29/16 08:30 75 20 100 Nasal Cannula 3.0 06/29/16 06:00 102/47 06/29/16 04:00 98.3 06/27/16 11:54 35 Intake and Output 06/28/16 06/28/16 06/29/16 15:00 23:00 07:00 Intake Total 620 ml 870 ml 1200 ml Output Total 710 ml 940 ml 450 ml Balance -90 ml -70 ml 750 ml Exam Constitutional: alert, extubated Respiratory: diminished breath sounds, no rales Cardiovascular: regular rate and rhythm,No murmurs/extra sounds Gastrointestinal: bowel sounds, soft Extremities: no cyanosis Results Result Diagram: 06/29/16 0415 06/29/16 0415 Results 24 hrs Laboratory Tests Test 06/28/16 13:17 06/28/16 16:26 06/28/16 21:47 06/29/16 01:41 Bedside Glucose 170 184 171 160 Test 06/29/16 04:15 06/29/16 05:29 06/29/16 08:09 Anion Gap 16 Basophils # 0.0 Basophils % 0.3 Blood Urea Nitrogen 28 H Calcium Level 7.9 L Carbon Dioxide Level 21 Chloride Level 112 H Creatinine 1.82 H Eosinophils # 0.2 Eosinophils % 1.5 Glucose Level 156 Hematocrit 32.8 L Hemoglobin 10.4 L Lymphocytes # 1.1 Lymphocytes % 9.3 L Magnesium Level 2.0 Mean Corpuscular Hemoglobin 29.4 Mean Corpuscular Hemoglobin Concent 31.7 L Mean Corpuscular Volume 92.7 Mean Platelet Volume 10.0 Monocytes # 1.0 H Monocytes % 8.8 Neutrophils # 9.1 H Neutrophils % 78.4 H Nucleated Red Blood Cells # 0.0 Nucleated Red Blood Cells % 0.0 Phosphorus Level 4.0 Platelet Count 347 Potassium Level 4.2 Red Blood Count 3.54 L Red Cell Distribution Width 14.4 Sodium Level 145 H White Blood Count 11.7 H Bedside Glucose 171 188 Medications Medications Current Medications Ondansetron HCl (Zofran Inj) 4 mg Q6H PRN IV NAUSEA AND/OR VOMITING; Start 06/18 at 23:30 Acetaminophen (Tylenol Tab) 650 mg Q6H PRN PO PAIN LEVEL 1-3 OR FEVER; Start at 23:30 Acetaminophen/ Hydrocodone Bitart ([place] (5/325)) 1 tab Q6H PRN PO MODERATE PAIN LEVEL 4-6; Start 06/18/16 at 23:30 Morphine Sulfate (morphine) 2 mg Q4H PRN IV SEVERE PAIN LEVEL 7-10; Start at 23:30 Docusate Sodium (Colace) 100 mg Q12H PRN PO CONSTIPATION; Start 06/18/16 at 23: 30 Magnesium Hydroxide (Milk Of Mag) 30 ml DAILY PRN PO CONSTIPATION; Start at 23:30 Sodium Biphosphate/ Sodium Phosphate (Fleet Enema) 133 ml DAILY PRN [place] CONSTIPATION; Start 06/18/16 at 23:30 Heparin Sodium (Porcine) (Heparin (5000 Units/0.5 ml)) 5,000 unit Q12 SC Last administered on 06/29/16 08:22; Admin Dose 5,000 UNIT; Start 06/19/16 at 09:00 Lorazepam (Ativan) 0.5 mg Q6H PRN IV ANXIETY Last administered on 06/27/16 20: 23; Admin Dose 0.5 MG; Start 06/18/16 at 23:30 Hydralazine HCl (Apresoline) 10 mg Q6H PRN IV ELEVATED BLOOD PRESSURE; Start at 23:30 Nitroglycerin (Nitroglycerin (Sl Tab) 0.4 Mg) 1 tab Q5M PRN SL ANGINA; Start at 23:30 Aspirin (Aspirin) 81 mg DAILY NGT Last administered on 06/29/16 08:21; Admin Dose 81 MG; Start 06/19/16 at 20:00 Insulin Aspart (Novolog Insulin Pen) NOVOLOG *MILD* ALGORI... Q4 SC Last administered on 06/29/16 08:22; Admin Dose 2 UNIT; Start 06/19/16 at 21:00 Miscellaneous Information 1 ea NOTE XX ; Start 06/19/16 at 20:30 Glucose (Glutose) 15 gm Q15M PRN PO DECREASED GLUCOSE; Start 06/19/16 at 20:30 Glucose (Glutose) 22.5 gm Q15M PRN PO DECREASED GLUCOSE; Start 06/19/16 at 20:30 Dextrose (D50w Syringe) 25 ml Q15M PRN IV DECREASED GLUCOSE; Start 06/19/16 at 20:30 Dextrose (D50w Syringe) 50 ml Q15M PRN IV DECREASED GLUCOSE; Start 06/19/16 at 20:30 Glucagon (Glucagen) 1 mg Q15M PRN IM DECREASED GLUCOSE; Start 06/19/16 at 20:30 Glucose 15 gm 15 gm Q15M PRN BUCCAL DECREASED GLUCOSE; Start 06/19/16 at 20:30 Norepinephrine/ Dextrose (Levophed/D5W) 500 ml @ 1.87 mls/hr TITRATE IV Last administered on 06/20/16 16:49; Admin Dose 13.12 MLS/HR; Start 06/19/16 at 23:00 IV Flush 10 ml 10 ml PRN PRN IV IV PROTOCOL; Start 06/20/16 at 15:00 Piperacillin Sod/ Tazobactam Sod 100 ml @ 200 mls/hr Q8 IVPB Last administered on 06/29/16 05:30; Admin Dose 200 MLS/HR; Start 06/20/16 at 22:00 Potassium Chloride/Dextrose (D5W + KCl 20 Meq) 1,000 ml @ 40 mls/hr Q24H IV Last administered on 06/28/16 10:58; Admin Dose 40 MLS/HR; Start 06/21/16 at 10: 30 Metronidazole 250 mg 250 mg Q8 PO Last administered on 06/29/16 05:30; Admin Dose 250 MG; Start 06/23/16 at 14:00 Midazolam HCl 50 ml @ 0 mls/hr TITRATE IV Last administered on 06/26/16 19:40 ; Admin Dose 5 MLS/HR; Start 06/24/16 at 11:00 Fentanyl (Sublimaze) 100 ml @ 2.5 mls/hr TITRATE IV Last administered on 06:14; Admin Dose 2 MLS/HR; Start 06/24/16 at 11:30 Nystatin (Nystatin Susp) 5 ml QID PO Last administered on 06/29/16 08:21; Admin Dose 5 ML; Start 06/24/16 at 13:00 Doxycycline Hyclate (Vibramycin) 100 mg BID PO Last administered on 06/29/16 08:21; Admin Dose 100 MG; Start 06/26/16 at 21:00 Hydralazine HCl (Apresoline) 10 mg BID GTB Last administered on 06/29/16 08:21 ; Admin Dose 10 MG; Start 06/26/16 at 21:00 Lorazepam (Ativan) 1 mg Q2H PRN IV ANXIETY Last administered on 06/29/16 03:43 ; Admin Dose 1 MG; Start 06/28/16 at 00:00 Haloperidol (Haldol) 4 mg Q6H PRN IV AGITATION Last administered on 06/28/16 21:40; Admin Dose 4 MG; Start 06/28/16 at 14:30 SHANNAN MAYEN MD Jun 29, 2016 10:16
[2016-06-29] MEDS: D5W + KCL 20 MEQ 1,000 ML IV SCH (13:54)
--- NOTE | 2016-06-29 14:17 | CONS ---
Date/Time of Note Date/Time of Note DATE: 06/29/16 TIME: 14:16 Assessment/Plan Assessment/Plan Chief Complaint/Hosp Course SUBJECTIVE: No acute changes overnight. Confused, lying comfortably in bed. No fevers. Family at bedside. ANTIMICROBIALS: The patient remains on: 1. Zosyn. 2. Oral Flagyl. 3. Doxycycline. INDWELLINGS: NG tube, Ramsey catheter, PICC line placed on 06/20/2016. PHYSICAL EXAMINATION: GENERAL: This is an obese, well-developed, fragile, elderly man who is lying comfortably in bed. HEENT: Head atraumatic, normocephalic. Sclerae anicteric. Buccal mucosa dry. NECK: Supple, trachea midline. CHEST: Rise symmetrical. Breath sounds diminished to bases. HEART: S1, S2. ABDOMEN: Soft. Bowel sounds present. EXTREMITIES: Without cyanosis. ASSESSMENT: 1. Resolving sepsis status post shock. 2. Pneumonia. 3. Acute respiratory failure, status post extubated. 4. Acute on chronic kidney disease. 5. Diabetes. 6. Congestive heart failure exacerbation. PLAN: Remains stable. Continue present care, antibiotics for couple more days , anti-aspiration measures, pulmonary rec-s [facility] staff Problems: Consultation Date/Type/Reason Admit Date/Time Jun 18, 2016 at 21:36 Initial Consult Date 06/19/16 Type of Consultation: id Referring Provider: CHITRA ESTEBAN Exam/Review of Systems Vital Signs Vitals Vital Signs Date Time Temp Pulse Resp B/P Pulse Ox O2 Delivery O2 Flow Rate FiO2 06/29/16 12:00 98.3 71 21 103/47 100 Nasal Cannula 3.0 06/27/16 11:54 35 Intake and Output 06/28/16 06/28/16 06/29/16 15:00 23:00 07:00 Intake Total 620 ml 870 ml 1200 ml Output Total 710 ml 940 ml 450 ml Balance -90 ml -70 ml 750 ml Results Result Diagram: 06/29/16 0415 06/29/16 0415 Results 24 hrs Laboratory Tests Test 06/28/16 16:26 06/28/16 21:47 06/29/16 01:41 06/29/16 04:15 Bedside Glucose 184 171 160 Anion Gap 16 Basophils # 0.0 Basophils % 0.3 Blood Urea Nitrogen 28 H Calcium Level 7.9 L Carbon Dioxide Level 21 Chloride Level 112 H Creatinine 1.82 H Eosinophils # 0.2 Eosinophils % 1.5 Glucose Level 156 Hematocrit 32.8 L Hemoglobin 10.4 L Lymphocytes # 1.1 Lymphocytes % 9.3 L Magnesium Level 2.0 Mean Corpuscular Hemoglobin 29.4 Mean Corpuscular Hemoglobin Concent 31.7 L Mean Corpuscular Volume 92.7 Mean Platelet Volume 10.0 Monocytes # 1.0 H Monocytes % 8.8 Neutrophils # 9.1 H Neutrophils % 78.4 H Nucleated Red Blood Cells # 0.0 Nucleated Red Blood Cells % 0.0 Phosphorus Level 4.0 Platelet Count 347 Potassium Level 4.2 Red Blood Count 3.54 L Red Cell Distribution Width 14.4 Sodium Level 145 H White Blood Count 11.7 H Test 06/29/16 05:29 06/29/16 08:09 06/29/16 11:59 Bedside Glucose 171 188 188 Medications Medications Current Medications Ondansetron HCl (Zofran Inj) 4 mg Q6H PRN IV NAUSEA AND/OR VOMITING; Start 06/18 at 23:30 Acetaminophen (Tylenol Tab) 650 mg Q6H PRN PO PAIN LEVEL 1-3 OR FEVER; Start at 23:30 Acetaminophen/ Hydrocodone Bitart ([place] (5/325)) 1 tab Q6H PRN PO MODERATE PAIN LEVEL 4-6; Start 06/18/16 at 23:30 Morphine Sulfate (morphine) 2 mg Q4H PRN IV SEVERE PAIN LEVEL 7-10; Start at 23:30 Docusate Sodium (Colace) 100 mg Q12H PRN PO CONSTIPATION; Start 06/18/16 at 23: 30 Magnesium Hydroxide (Milk Of Mag) 30 ml DAILY PRN PO CONSTIPATION; Start at 23:30 Sodium Biphosphate/ Sodium Phosphate (Fleet Enema) 133 ml DAILY PRN [place] CONSTIPATION; Start 06/18/16 at 23:30 Heparin Sodium (Porcine) (Heparin (5000 Units/0.5 ml)) 5,000 unit Q12 SC Last administered on 06/29/16 08:22; Admin Dose 5,000 UNIT; Start 06/19/16 at 09:00 Lorazepam (Ativan) 0.5 mg Q6H PRN IV ANXIETY Last administered on 06/27/16 20: 23; Admin Dose 0.5 MG; Start 06/18/16 at 23:30 Hydralazine HCl (Apresoline) 10 mg Q6H PRN IV ELEVATED BLOOD PRESSURE; Start at 23:30 Nitroglycerin (Nitroglycerin (Sl Tab) 0.4 Mg) 1 tab Q5M PRN SL ANGINA; Start at 23:30 Aspirin (Aspirin) 81 mg DAILY NGT Last administered on 06/29/16 08:21; Admin Dose 81 MG; Start 06/19/16 at 20:00 Insulin Aspart (Novolog Insulin Pen) NOVOLOG *MILD* ALGORI... Q4 SC Last administered on 06/29/16 12:01; Admin Dose 2 UNIT; Start 06/19/16 at 21:00 Miscellaneous Information 1 ea NOTE XX ; Start 06/19/16 at 20:30 Glucose (Glutose) 15 gm Q15M PRN PO DECREASED GLUCOSE; Start 06/19/16 at 20:30 Glucose (Glutose) 22.5 gm Q15M PRN PO DECREASED GLUCOSE; Start 06/19/16 at 20:30 Dextrose (D50w Syringe) 25 ml Q15M PRN IV DECREASED GLUCOSE; Start 06/19/16 at 20:30 Dextrose (D50w Syringe) 50 ml Q15M PRN IV DECREASED GLUCOSE; Start 06/19/16 at 20:30 Glucagon (Glucagen) 1 mg Q15M PRN IM DECREASED GLUCOSE; Start 06/19/16 at 20:30 Glucose 15 gm 15 gm Q15M PRN BUCCAL DECREASED GLUCOSE; Start 06/19/16 at 20:30 Norepinephrine/ Dextrose (Levophed/D5W) 500 ml @ 1.87 mls/hr TITRATE IV Last administered on 06/20/16 16:49; Admin Dose 13.12 MLS/HR; Start 06/19/16 at 23:00 IV Flush 10 ml 10 ml PRN PRN IV IV PROTOCOL; Start 06/20/16 at 15:00 Piperacillin Sod/ Tazobactam Sod 100 ml @ 200 mls/hr Q8 IVPB Last administered on 06/29/16 13:09; Admin Dose 200 MLS/HR; Start 06/20/16 at 22:00 Potassium Chloride/Dextrose (D5W + KCl 20 Meq) 1,000 ml @ 40 mls/hr Q24H IV Last administered on 06/29/16 13:54; Admin Dose 40 MLS/HR; Start 06/21/16 at 10: 30 Metronidazole 250 mg 250 mg Q8 PO Last administered on 06/29/16 13:09; Admin Dose 250 MG; Start 06/23/16 at 14:00 Midazolam HCl 50 ml @ 0 mls/hr TITRATE IV Last administered on 06/26/16 19:40 ; Admin Dose 5 MLS/HR; Start 06/24/16 at 11:00 Fentanyl (Sublimaze) 100 ml @ 2.5 mls/hr TITRATE IV Last administered on 06:14; Admin Dose 2 MLS/HR; Start 06/24/16 at 11:30 Nystatin (Nystatin Susp) 5 ml QID PO Last administered on 06/29/16 12:01; Admin Dose 5 ML; Start 06/24/16 at 13:00 Doxycycline Hyclate (Vibramycin) 100 mg BID PO Last administered on 06/29/16 08:21; Admin Dose 100 MG; Start 06/26/16 at 21:00 Hydralazine HCl (Apresoline) 10 mg BID GTB Last administered on 06/29/16 08:21 ; Admin Dose 10 MG; Start 06/26/16 at 21:00 Lorazepam (Ativan) 1 mg Q2H PRN IV ANXIETY Last administered on 06/29/16 03:43 ; Admin Dose 1 MG; Start 06/28/16 at 00:00 Haloperidol (Haldol) 4 mg Q6H PRN IV AGITATION Last administered on 06/28/16 21:40; Admin Dose 4 MG; Start 06/28/16 at 14:30 BALWINDER SANTOS NP Jun 29, 2016 14:17
--- NOTE | 2016-06-29 14:53 | PN ---
Date/Time of Note Date/Time of Note DATE: 06/29/16 TIME: 14:51 Assessment/Plan VTE Prophylaxis VTE Prophylaxis Intervention: heparin Assessment/Plan Chief Complaint/Hosp Course 1. Sepsis with lactic acidosis 2/2 pneumonia with shock-stable No longer pressor dependent Continue antibiotics but ID has discontinued vancomycin secondary to declining renal function, continue Zosyn, Flagyl and doxycycline 2. Acute resp failure secondary to CHF exacerbation and/or pneumonia-now extubated ST eval and if patient is tolerating a p.o. diet will DC NG tube 3. CHF exacerbation: improving Diuresis per nephrology 4. Acute on chronic interstitial lung disease 5. Shock liver: improving 6. Hypertension: controlled 7. DM 2 A1c 6.8 8. NC / NC anemia 9. Acute encephalopathy likely secondary to delirium Haldol as needed Prophylaxis-Heparin Problems: Subjective 24 Hr Interval Summary Constitutional: disoriented Exam/Review of Systems Vital Signs Vitals Vital Signs Date Time Temp Pulse Resp B/P Pulse Ox O2 Delivery O2 Flow Rate FiO2 06/29/16 12:00 98.3 71 21 103/47 100 Nasal Cannula 3.0 06/27/16 11:54 35 Intake and Output 06/28/16 06/28/16 06/29/16 15:00 23:00 07:00 Intake Total 620 ml 870 ml 1200 ml Output Total 710 ml 940 ml 450 ml Balance -90 ml -70 ml 750 ml Exam Psych: confusion Respiratory: clear to auscultation Cardiovascular: regular rate and rhythm Gastrointestinal: soft, No distended Musculoskeletal: nl extremities to inspection Results Result Diagram: 06/29/16 0415 06/29/16 0415 Results 24 hrs Laboratory Tests Test 06/28/16 16:26 06/28/16 21:47 06/29/16 01:41 06/29/16 04:15 Bedside Glucose 184 171 160 Anion Gap 16 Basophils # 0.0 Basophils % 0.3 Blood Urea Nitrogen 28 H Calcium Level 7.9 L Carbon Dioxide Level 21 Chloride Level 112 H Creatinine 1.82 H Eosinophils # 0.2 Eosinophils % 1.5 Glucose Level 156 Hematocrit 32.8 L Hemoglobin 10.4 L Lymphocytes # 1.1 Lymphocytes % 9.3 L Magnesium Level 2.0 Mean Corpuscular Hemoglobin 29.4 Mean Corpuscular Hemoglobin Concent 31.7 L Mean Corpuscular Volume 92.7 Mean Platelet Volume 10.0 Monocytes # 1.0 H Monocytes % 8.8 Neutrophils # 9.1 H Neutrophils % 78.4 H Nucleated Red Blood Cells # 0.0 Nucleated Red Blood Cells % 0.0 Phosphorus Level 4.0 Platelet Count 347 Potassium Level 4.2 Red Blood Count 3.54 L Red Cell Distribution Width 14.4 Sodium Level 145 H White Blood Count 11.7 H Test 06/29/16 05:29 06/29/16 08:09 06/29/16 11:59 Bedside Glucose 171 188 188 Medications Medications Current Medications Ondansetron HCl (Zofran Inj) 4 mg Q6H PRN IV NAUSEA AND/OR VOMITING; Start 06/18 at 23:30 Acetaminophen (Tylenol Tab) 650 mg Q6H PRN PO PAIN LEVEL 1-3 OR FEVER; Start at 23:30 Acetaminophen/ Hydrocodone Bitart ([place] (5/325)) 1 tab Q6H PRN PO MODERATE PAIN LEVEL 4-6; Start 06/18/16 at 23:30 Morphine Sulfate (morphine) 2 mg Q4H PRN IV SEVERE PAIN LEVEL 7-10; Start at 23:30 Docusate Sodium (Colace) 100 mg Q12H PRN PO CONSTIPATION; Start 06/18/16 at 23: 30 Magnesium Hydroxide (Milk Of Mag) 30 ml DAILY PRN PO CONSTIPATION; Start at 23:30 Sodium Biphosphate/ Sodium Phosphate (Fleet Enema) 133 ml DAILY PRN [place] CONSTIPATION; Start 06/18/16 at 23:30 Heparin Sodium (Porcine) (Heparin (5000 Units/0.5 ml)) 5,000 unit Q12 SC Last administered on 06/29/16 08:22; Admin Dose 5,000 UNIT; Start 06/19/16 at 09:00 Lorazepam (Ativan) 0.5 mg Q6H PRN IV ANXIETY Last administered on 06/27/16 20: 23; Admin Dose 0.5 MG; Start 06/18/16 at 23:30 Hydralazine HCl (Apresoline) 10 mg Q6H PRN IV ELEVATED BLOOD PRESSURE; Start at 23:30 Nitroglycerin (Nitroglycerin (Sl Tab) 0.4 Mg) 1 tab Q5M PRN SL ANGINA; Start at 23:30 Aspirin (Aspirin) 81 mg DAILY NGT Last administered on 06/29/16 08:21; Admin Dose 81 MG; Start 06/19/16 at 20:00 Insulin Aspart (Novolog Insulin Pen) NOVOLOG *MILD* ALGORI... Q4 SC Last administered on 06/29/16 12:01; Admin Dose 2 UNIT; Start 06/19/16 at 21:00 Miscellaneous Information 1 ea NOTE XX ; Start 06/19/16 at 20:30 Glucose (Glutose) 15 gm Q15M PRN PO DECREASED GLUCOSE; Start 06/19/16 at 20:30 Glucose (Glutose) 22.5 gm Q15M PRN PO DECREASED GLUCOSE; Start 06/19/16 at 20:30 Dextrose (D50w Syringe) 25 ml Q15M PRN IV DECREASED GLUCOSE; Start 06/19/16 at 20:30 Dextrose (D50w Syringe) 50 ml Q15M PRN IV DECREASED GLUCOSE; Start 06/19/16 at 20:30 Glucagon (Glucagen) 1 mg Q15M PRN IM DECREASED GLUCOSE; Start 06/19/16 at 20:30 Glucose 15 gm 15 gm Q15M PRN BUCCAL DECREASED GLUCOSE; Start 06/19/16 at 20:30 Norepinephrine/ Dextrose (Levophed/D5W) 500 ml @ 1.87 mls/hr TITRATE IV Last administered on 06/20/16 16:49; Admin Dose 13.12 MLS/HR; Start 06/19/16 at 23:00 IV Flush 10 ml 10 ml PRN PRN IV IV PROTOCOL; Start 06/20/16 at 15:00 Piperacillin Sod/ Tazobactam Sod 100 ml @ 200 mls/hr Q8 IVPB Last administered on 06/29/16 13:09; Admin Dose 200 MLS/HR; Start 06/20/16 at 22:00 Potassium Chloride/Dextrose (D5W + KCl 20 Meq) 1,000 ml @ 40 mls/hr Q24H IV Last administered on 06/29/16 13:54; Admin Dose 40 MLS/HR; Start 06/21/16 at 10: 30 Metronidazole 250 mg 250 mg Q8 PO Last administered on 06/29/16 13:09; Admin Dose 250 MG; Start 06/23/16 at 14:00 Midazolam HCl 50 ml @ 0 mls/hr TITRATE IV Last administered on 06/26/16 19:40 ; Admin Dose 5 MLS/HR; Start 06/24/16 at 11:00 Fentanyl (Sublimaze) 100 ml @ 2.5 mls/hr TITRATE IV Last administered on 06:14; Admin Dose 2 MLS/HR; Start 06/24/16 at 11:30 Nystatin (Nystatin Susp) 5 ml QID PO Last administered on 06/29/16 12:01; Admin Dose 5 ML; Start 06/24/16 at 13:00 Doxycycline Hyclate (Vibramycin) 100 mg BID PO Last administered on 06/29/16 08:21; Admin Dose 100 MG; Start 06/26/16 at 21:00 Hydralazine HCl (Apresoline) 10 mg BID GTB Last administered on 06/29/16 08:21 ; Admin Dose 10 MG; Start 06/26/16 at 21:00 Lorazepam (Ativan) 1 mg Q2H PRN IV ANXIETY Last administered on 06/29/16 03:43 ; Admin Dose 1 MG; Start 06/28/16 at 00:00 Haloperidol (Haldol) 4 mg Q6H PRN IV AGITATION Last administered on 06/28/16 21:40; Admin Dose 4 MG; Start 06/28/16 at 14:30 PRANEETH LOPEZ Jun 29, 2016 14:53
--- NOTE | 2016-06-29 16:21 | CONS ---
Date/Time of Note Date/Time of Note DATE: 06/29/16 TIME: 16:18 Assessment/Plan Assessment/Plan Additional Assessment/Plan Respiratory failure status post extubation Pneumonia Septic shock Acute decompensated systolic and diastolic congestive heart failure Cardiomyopathy with ejection fraction 50% CAD Paroxysmal atrial flutter -Blood pressure trend overall remained stable, would start low-dose beta- trina. Continue aspirin therapy. Antibiotics as per primary team. Fluid management and diuretics as per nephrology. Consultation Date/Type/Reason Admit Date/Time Jun 18, 2016 at 21:36 Initial Consult Date 06/19/16 Type of Consultation: cv Referring Provider: CHITRA ESTEBAN 24 HR Interval Summary Free Text/Dictation Patient seen and examined, no new cardiac issues as per nursing staff Exam/Review of Systems Vital Signs Vitals Vital Signs Date Time Temp Pulse Resp B/P Pulse Ox O2 Delivery O2 Flow Rate FiO2 06/29/16 16:00 98.5 71 22 114/53 100 Nasal Cannula 3.0 06/27/16 11:54 35 Intake and Output 06/28/16 06/28/16 06/29/16 15:00 23:00 07:00 Intake Total 620 ml 870 ml 1200 ml Output Total 710 ml 940 ml 450 ml Balance -90 ml -70 ml 750 ml Exam Follows commands but confused at times, no apparent distress Constitutional: alert Head: normocephalic Neck: supple Respiratory: other (Coarse breath sounds bilaterally, no wheezing) Cardiovascular: other (S1-S2 heard), regular rate and rhythm Gastrointestinal: bowel sounds, non-tender, other (No guarding), soft Extremities: edema, other (No cyanosis) Results Result Diagram: 06/29/16 0415 06/29/16 0415 Results 24 hrs Laboratory Tests Test 06/28/16 16:26 06/28/16 21:47 06/29/16 01:41 06/29/16 04:15 Bedside Glucose 184 171 160 Anion Gap 16 Basophils # 0.0 Basophils % 0.3 Blood Urea Nitrogen 28 H Calcium Level 7.9 L Carbon Dioxide Level 21 Chloride Level 112 H Creatinine 1.82 H Eosinophils # 0.2 Eosinophils % 1.5 Glucose Level 156 Hematocrit 32.8 L Hemoglobin 10.4 L Lymphocytes # 1.1 Lymphocytes % 9.3 L Magnesium Level 2.0 Mean Corpuscular Hemoglobin 29.4 Mean Corpuscular Hemoglobin Concent 31.7 L Mean Corpuscular Volume 92.7 Mean Platelet Volume 10.0 Monocytes # 1.0 H Monocytes % 8.8 Neutrophils # 9.1 H Neutrophils % 78.4 H Nucleated Red Blood Cells # 0.0 Nucleated Red Blood Cells % 0.0 Phosphorus Level 4.0 Platelet Count 347 Potassium Level 4.2 Red Blood Count 3.54 L Red Cell Distribution Width 14.4 Sodium Level 145 H White Blood Count 11.7 H Test 06/29/16 05:29 06/29/16 08:09 06/29/16 11:59 Bedside Glucose 171 188 188 Medications Medications Current Medications Ondansetron HCl (Zofran Inj) 4 mg Q6H PRN IV NAUSEA AND/OR VOMITING; Start 06/18 at 23:30 Acetaminophen (Tylenol Tab) 650 mg Q6H PRN PO PAIN LEVEL 1-3 OR FEVER; Start at 23:30 Acetaminophen/ Hydrocodone Bitart ([place] (5/325)) 1 tab Q6H PRN PO MODERATE PAIN LEVEL 4-6; Start 06/18/16 at 23:30 Morphine Sulfate (morphine) 2 mg Q4H PRN IV SEVERE PAIN LEVEL 7-10; Start at 23:30 Docusate Sodium (Colace) 100 mg Q12H PRN PO CONSTIPATION; Start 06/18/16 at 23: 30 Magnesium Hydroxide (Milk Of Mag) 30 ml DAILY PRN PO CONSTIPATION; Start at 23:30 Sodium Biphosphate/ Sodium Phosphate (Fleet Enema) 133 ml DAILY PRN [place] CONSTIPATION; Start 06/18/16 at 23:30 Heparin Sodium (Porcine) (Heparin (5000 Units/0.5 ml)) 5,000 unit Q12 SC Last administered on 06/29/16 08:22; Admin Dose 5,000 UNIT; Start 06/19/16 at 09:00 Lorazepam (Ativan) 0.5 mg Q6H PRN IV ANXIETY Last administered on 06/27/16 20: 23; Admin Dose 0.5 MG; Start 06/18/16 at 23:30 Hydralazine HCl (Apresoline) 10 mg Q6H PRN IV ELEVATED BLOOD PRESSURE; Start at 23:30 Nitroglycerin (Nitroglycerin (Sl Tab) 0.4 Mg) 1 tab Q5M PRN SL ANGINA; Start at 23:30 Aspirin (Aspirin) 81 mg DAILY NGT Last administered on 06/29/16 08:21; Admin Dose 81 MG; Start 06/19/16 at 20:00 Insulin Aspart (Novolog Insulin Pen) NOVOLOG *MILD* ALGORI... Q4 SC Last administered on 06/29/16 12:01; Admin Dose 2 UNIT; Start 06/19/16 at 21:00 Miscellaneous Information 1 ea NOTE XX ; Start 06/19/16 at 20:30 Glucose (Glutose) 15 gm Q15M PRN PO DECREASED GLUCOSE; Start 06/19/16 at 20:30 Glucose (Glutose) 22.5 gm Q15M PRN PO DECREASED GLUCOSE; Start 06/19/16 at 20:30 Dextrose (D50w Syringe) 25 ml Q15M PRN IV DECREASED GLUCOSE; Start 06/19/16 at 20:30 Dextrose (D50w Syringe) 50 ml Q15M PRN IV DECREASED GLUCOSE; Start 06/19/16 at 20:30 Glucagon (Glucagen) 1 mg Q15M PRN IM DECREASED GLUCOSE; Start 06/19/16 at 20:30 Glucose 15 gm 15 gm Q15M PRN BUCCAL DECREASED GLUCOSE; Start 06/19/16 at 20:30 Norepinephrine/ Dextrose (Levophed/D5W) 500 ml @ 1.87 mls/hr TITRATE IV Last administered on 06/20/16 16:49; Admin Dose 13.12 MLS/HR; Start 06/19/16 at 23:00 IV Flush 10 ml 10 ml PRN PRN IV IV PROTOCOL; Start 06/20/16 at 15:00 Piperacillin Sod/ Tazobactam Sod 100 ml @ 200 mls/hr Q8 IVPB Last administered on 06/29/16 13:09; Admin Dose 200 MLS/HR; Start 06/20/16 at 22:00 Potassium Chloride/Dextrose (D5W + KCl 20 Meq) 1,000 ml @ 40 mls/hr Q24H IV Last administered on 06/29/16 13:54; Admin Dose 40 MLS/HR; Start 06/21/16 at 10: 30 Metronidazole 250 mg 250 mg Q8 PO Last administered on 06/29/16 13:09; Admin Dose 250 MG; Start 06/23/16 at 14:00 Midazolam HCl 50 ml @ 0 mls/hr TITRATE IV Last administered on 06/26/16 19:40 ; Admin Dose 5 MLS/HR; Start 06/24/16 at 11:00 Fentanyl (Sublimaze) 100 ml @ 2.5 mls/hr TITRATE IV Last administered on 06:14; Admin Dose 2 MLS/HR; Start 06/24/16 at 11:30 Nystatin (Nystatin Susp) 5 ml QID PO Last administered on 06/29/16 12:01; Admin Dose 5 ML; Start 06/24/16 at 13:00 Doxycycline Hyclate (Vibramycin) 100 mg BID PO Last administered on 06/29/16 08:21; Admin Dose 100 MG; Start 06/26/16 at 21:00 Hydralazine HCl (Apresoline) 10 mg BID GTB Last administered on 06/29/16 08:21 ; Admin Dose 10 MG; Start 06/26/16 at 21:00 Lorazepam (Ativan) 1 mg Q2H PRN IV ANXIETY Last administered on 06/29/16 03:43 ; Admin Dose 1 MG; Start 06/28/16 at 00:00 Haloperidol (Haldol) 4 mg Q6H PRN IV AGITATION Last administered on 06/28/16 21:40; Admin Dose 4 MG; Start 06/28/16 at 14:30 Jef Sinha 16, 2017 16:20
[2016-06-29] MEDS ORDERED: ALTEPLASE (CATHFLO) 2 MG INJ CATHETER PRN (16:30)
[2016-06-29] MEDS: METOPROLOL 25 MG TAB NGT SCH (16:54)
[2016-06-29] MEDS: GUAIFENESIN 20 MG/ML 5ML CUP PO PRN ×2 (18:05→22:35)
[2016-06-29] MEDS: morphine 2 MG INJ IV PRN (21:07)
[2016-06-30] VITALS (12 sets, daily range): BP systolic 111–163; BP diastolic 60–74; PULSE 73–87; RESP 17–26
[2016-06-30] MEDS: ALBUTEROL/IPRATROPIUM (NEB) 3 ML AMP HHN SCH ×6 (00:16→21:54)
[2016-06-30] MEDS: METOPROLOL 25 MG TAB NGT SCH ×3 (01:02→21:00)
[2016-06-30] MEDS: INSULIN ASPART [NOVOLOG] 3 ML PEN SC SCH ×6 (01:05→21:00)
[2016-06-30] MEDS: PIPER-TAZO 3.375 GM IV (PMX) 100 ML IVPB SCH ×3 (05:55→23:36)
[2016-06-30] MEDS: metroNIDAZOLE 250 MG TAB PO SCH ×3 (05:55→22:00)
[2016-06-30 07:51] LABS: ADD SCAN DIFF NO
[2016-06-30 07:57] LABS: BASOPHIL # 0.1 10^3/ul (0.0-0.1); BASOPHILS % 0.4 % (0.0-2.0); EOSINOPHILS # 0.3 10^3/ul (0.0-0.5); EOSINOPHILS % 2.5 % (0.0-7.0); HEMOGLOBIN 11.4 g/dl (14.0-18.0); LYMPHOCYTES # 1.3 10^3/ul (0.8-2.9); LYMPHOCYTES % 10.7 % (15.0-51.0); MEAN CORPUSCULAR HEMOGLOBIN 30.5 pg (29.0-33.0); MEAN CORPUSCULAR HGB CONC 32.6 g/dl (32.0-37.0); MEAN CORPUSCULAR VOLUME 93.6 fl (82.0-101.0); MEAN PLATELET VOLUME 9.9 fl (7.4-10.4); NEUTROPHIL # 9.2 10^3/ul (1.6-7.5); NEUTROPHILS % 76.4 % (39.0-77.0); PLATELET COUNT 391 10^3/UL (140-415); RED BLOOD COUNT 3.74 10^6/ul (4.70-6.10); RED CELL DISTRIBUTION WIDTH 14.5 % (11.5-14.5); WHITE BLOOD COUNT 12.1 10^3/ul (4.8-10.8)
[2016-06-30 08:22] LABS: POTASSIUM 4.4 mmol/L (3.5-5.1)
[2016-06-30 08:24] LABS: CREATININE 1.81 mg/dl (0.61-1.24)
[2016-06-30 08:25] LABS: CALCIUM 8.1 mg/dl (8.4-10.2)
[2016-06-30] MEDS: DOXYCYCLINE 100 MG TAB PO SCH ×2 (09:00→21:00)
[2016-06-30] MEDS: NYSTATIN SUSP 5 ML CUP PO SCH ×4 (09:00→21:00)
[2016-06-30] MEDS: ASPIRIN 81 MG TAB NGT SCH (09:30)
[2016-06-30] MEDS: HEPARIN 5,000 UNIT/0.5 ML SYG SC SCH ×2 (09:33→23:35)
[2016-06-30] MEDS: LORAZEPAM 2 MG INJ IV PRN (09:43)
--- NOTE | 2016-06-30 11:22 | PN ---
DATE: 06/30/2016 SUBJECTIVE: Mr. Smith is relatively stable this morning. PHYSICAL EXAMINATION: VITAL SIGNS: Temperature 98, pulse is 81, blood pressure 154/67, O2 saturation 96% on face mask. NECK: Supple. No JVD or lymphadenopathy. CARDIAC: S1, S2. No added sounds or murmurs. CHEST: Diminished air entry both lung bases. ABDOMEN: Obese, soft, nontender. No guarding or rebound. EXTREMITIES: No cyanosis, clubbing, 1+ edema. NEUROLOGIC: Generalized weakness. LABORATORY DATA: White count 12.1, hemoglobin 11.4, platelets within normal limits. BUN 28, creati nine 1.81. IMAGING: Chest x-ray from yesterday showed mild ongoing pulmonary edema. IMPRESSION AND PLAN: 1. Status post hypoxemic and hypercapnic respiratory failure, safely extubated. 2. Encephalopathy, toxic metabolic, appears to be slowly improving. 3. Renal insufficiency, possibly secondary to aggressive diuretics. 4. Aspiration pneumonia. I agree with antibiotic adjustments. Consider de-escalation soon. 5. Speech therapy evaluation when the patient is more stable. Dictated By: SARAH WATTERS/GARRETT Conf#: [id number] DID#: [id number]
--- NOTE | 2016-06-30 12:52 | CONS ---
Date/Time of Note Date/Time of Note DATE: 06/30/16 TIME: 12:48 Assessment/Plan Assessment/Plan Additional Assessment/Plan Respiratory failure status post extubation Pneumonia Septic shock Acute decompensated systolic and diastolic congestive heart failure Cardiomyopathy with ejection fraction 50% CAD Paroxysmal atrial flutter, currently sinus rhythm -Blood pressure has remained stable and slightly on the higher end, would increase dose of beta-trina, continue aspirin therapy. Fluid management and diuretics as per our nephrology colleagues. Antibiotics as per primary team. Consultation Date/Type/Reason Admit Date/Time Jun 18, 2016 at 21:36 Initial Consult Date 06/19/16 Type of Consultation: cv Referring Provider: CHITRA ESTEBAN 24 HR Interval Summary Free Text/Dictation Patient seen and examined, he is feeling better. Denies chest pain Exam/Review of Systems Vital Signs Vitals Vital Signs Date Time Temp Pulse Resp B/P Pulse Ox O2 Delivery O2 Flow Rate FiO2 06/30/16 12:12 78 06/30/16 08:00 98.6 20 154/67 98 Mask 6.0 06/30/16 04:46 28 Intake and Output 06/29/16 06/29/16 06/30/16 15:00 23:00 07:00 Intake Total 810 ml 1070 ml 1110 ml Output Total 780 ml 650 ml 975 ml Balance 30 ml 420 ml 135 ml Exam Following occasional commands but becomes confused at times, in restraints, no apparent distress Constitutional: alert Head: normocephalic Neck: supple Respiratory: other (Coarse breath sounds bilaterally, no wheezing) Cardiovascular: other (S1-S2 heard), regular rate and rhythm Gastrointestinal: bowel sounds, non-tender, other (No guarding), soft Extremities: edema (Trace), other (No cyanosis) Results Result Diagram: 06/30/16 0740 06/30/16 0740 Results 24 hrs Laboratory Tests Test 06/29/16 16:54 06/29/16 20:06 06/30/16 00:57 06/30/16 06:02 Bedside Glucose 156 133 157 169 Test 06/30/16 07:40 06/30/16 09:26 Anion Gap 13 Basophils # 0.1 Basophils % 0.4 Blood Urea Nitrogen 28 H Calcium Level 8.1 L Carbon Dioxide Level 23 Chloride Level 113 H Creatinine 1.81 H Eosinophils # 0.3 Eosinophils % 2.5 Glucose Level 146 Hematocrit 35.0 L Hemoglobin 11.4 L Lymphocytes # 1.3 Lymphocytes % 10.7 L Mean Corpuscular Hemoglobin 30.5 Mean Corpuscular Hemoglobin Concent 32.6 Mean Corpuscular Volume 93.6 Mean Platelet Volume 9.9 Monocytes # 1.0 H Monocytes % 8.0 Neutrophils # 9.2 H Neutrophils % 76.4 Nucleated Red Blood Cells # 0.0 Nucleated Red Blood Cells % 0.0 Platelet Count 391 Potassium Level 4.4 Red Blood Count 3.74 L Red Cell Distribution Width 14.5 Sodium Level 145 H White Blood Count 12.1 H Bedside Glucose 175 Medications Medications Current Medications Ondansetron HCl (Zofran Inj) 4 mg Q6H PRN IV NAUSEA AND/OR VOMITING; Start 06/18 at 23:30 Acetaminophen (Tylenol Tab) 650 mg Q6H PRN PO PAIN LEVEL 1-3 OR FEVER; Start at 23:30 Acetaminophen/ Hydrocodone Bitart ([place] (5/325)) 1 tab Q6H PRN PO MODERATE PAIN LEVEL 4-6; Start 06/18/16 at 23:30 Morphine Sulfate (morphine) 2 mg Q4H PRN IV SEVERE PAIN LEVEL 7-10 Last administered on 06/29/16 21:07; Admin Dose 2 MG; Start 06/18/16 at 23:30 Docusate Sodium (Colace) 100 mg Q12H PRN PO CONSTIPATION; Start 06/18/16 at 23: 30 Magnesium Hydroxide (Milk Of Mag) 30 ml DAILY PRN PO CONSTIPATION; Start at 23:30 Sodium Biphosphate/ Sodium Phosphate (Fleet Enema) 133 ml DAILY PRN [place] CONSTIPATION; Start 06/18/16 at 23:30 Heparin Sodium (Porcine) (Heparin (5000 Units/0.5 ml)) 5,000 unit Q12 SC Last administered on 06/30/16 09:33; Admin Dose 5,000 UNIT; Start 06/19/16 at 09:00 Lorazepam (Ativan) 0.5 mg Q6H PRN IV ANXIETY Last administered on 06/27/16 20: 23; Admin Dose 0.5 MG; Start 06/18/16 at 23:30 Hydralazine HCl (Apresoline) 10 mg Q6H PRN IV ELEVATED BLOOD PRESSURE; Start at 23:30 Nitroglycerin (Nitroglycerin (Sl Tab) 0.4 Mg) 1 tab Q5M PRN SL ANGINA; Start at 23:30 Aspirin (Aspirin) 81 mg DAILY NGT Last administered on 06/30/16 09:30; Admin Dose 81 MG; Start 06/19/16 at 20:00 Insulin Aspart (Novolog Insulin Pen) NOVOLOG *MILD* ALGORI... Q4 SC Last administered on 06/30/16 09:35; Admin Dose 1 UNIT; Start 06/19/16 at 21:00 Miscellaneous Information 1 ea NOTE XX ; Start 06/19/16 at 20:30 Glucose (Glutose) 15 gm Q15M PRN PO DECREASED GLUCOSE; Start 06/19/16 at 20:30 Glucose (Glutose) 22.5 gm Q15M PRN PO DECREASED GLUCOSE; Start 06/19/16 at 20:30 Dextrose (D50w Syringe) 25 ml Q15M PRN IV DECREASED GLUCOSE; Start 06/19/16 at 20:30 Dextrose (D50w Syringe) 50 ml Q15M PRN IV DECREASED GLUCOSE; Start 06/19/16 at 20:30 Glucagon (Glucagen) 1 mg Q15M PRN IM DECREASED GLUCOSE; Start 06/19/16 at 20:30 Glucose 15 gm 15 gm Q15M PRN BUCCAL DECREASED GLUCOSE; Start 06/19/16 at 20:30 Norepinephrine/ Dextrose (Levophed/D5W) 500 ml @ 1.87 mls/hr TITRATE IV Last administered on 06/20/16 16:49; Admin Dose 13.12 MLS/HR; Start 06/19/16 at 23:00 IV Flush 10 ml 10 ml PRN PRN IV IV PROTOCOL; Start 06/20/16 at 15:00 Piperacillin Sod/ Tazobactam Sod 100 ml @ 200 mls/hr Q8 IVPB Last administered on 06/30/16 05:55; Admin Dose 200 MLS/HR; Start 06/20/16 at 22:00 Potassium Chloride/Dextrose (D5W + KCl 20 Meq) 1,000 ml @ 30 mls/hr Q24H IV Last administered on 06/29/16 13:54; Admin Dose 40 MLS/HR; Start 06/21/16 at 10: 30 Metronidazole 250 mg 250 mg Q8 PO Last administered on 06/30/16 05:55; Admin Dose 250 MG; Start 06/23/16 at 14:00 Midazolam HCl 50 ml @ 0 mls/hr TITRATE IV Last administered on 06/26/16 19:40 ; Admin Dose 5 MLS/HR; Start 06/24/16 at 11:00 Fentanyl (Sublimaze) 100 ml @ 2.5 mls/hr TITRATE IV Last administered on 06:14; Admin Dose 2 MLS/HR; Start 06/24/16 at 11:30 Nystatin (Nystatin Susp) 5 ml QID PO Last administered on 06/29/16 20:14; Admin Dose 5 ML; Start 06/24/16 at 13:00 Doxycycline Hyclate (Vibramycin) 100 mg BID PO Last administered on 06/29/16 20:13; Admin Dose 100 MG; Start 06/26/16 at 21:00 Hydralazine HCl (Apresoline) 10 mg BID GTB Last administered on 06/30/16 09:31 ; Admin Dose 10 MG; Start 06/26/16 at 21:00 Lorazepam (Ativan) 1 mg Q2H PRN IV ANXIETY Last administered on 06/30/16 09:43 ; Admin Dose 1 MG; Start 06/28/16 at 00:00 Haloperidol (Haldol) 4 mg Q6H PRN IV AGITATION Last administered on 06/28/16 21:40; Admin Dose 4 MG; Start 06/28/16 at 14:30 Metoprolol Tartrate (Lopressor) 12.5 mg BID NGT Last administered on 06/30/16 09:31; Admin Dose 12.5 MG; Start 06/29/16 at 17:00 Guaifenesin (Robitussin Liquid Cup) 100 mg Q4H PRN PO COUGH Last administered on 06/29/16 22:35; Admin Dose 100 MG; Start 06/29/16 at 18:00 Jef Sinha DO Jun 30, 2016 12:52
--- NOTE | 2016-06-30 15:31 | PN ---
Date/Time of Note Date/Time of Note DATE: 06/30/16 TIME: 15:28 Assessment/Plan VTE Prophylaxis VTE Prophylaxis Intervention: heparin Assessment/Plan Chief Complaint/Hosp Course 1. Sepsis with lactic acidosis 2/2 pneumonia with shock-stable No longer pressor dependent Continue antibiotics but ID has discontinued vancomycin secondary to declining renal function, continue Zosyn, Flagyl and doxycycline 2. Acute resp failure secondary to CHF exacerbation and/or pneumonia-now extubated ST eval done again today patient still having difficulty tolerating a p.o. diet , NG tube removed as ulcer is noted in the nares, will attempt to start feeding tomorrow 3. CHF exacerbation: improving Diuresis per nephrology 4. Acute on chronic interstitial lung disease 5. Shock liver: improving 6. Hypertension: controlled 7. DM 2 A1c 6.8 8. NC / NC anemia 9. Acute encephalopathy likely secondary to delirium Haldol as needed, sitter Prophylaxis-Heparin Problems: Subjective 24 Hr Interval Summary Constitutional: disoriented Exam/Review of Systems Vital Signs Vitals Vital Signs Date Time Temp Pulse Resp B/P Pulse Ox O2 Delivery O2 Flow Rate FiO2 06/30/16 12:12 78 06/30/16 08:00 98.6 20 154/67 98 Mask 6.0 06/30/16 04:46 28 Intake and Output 06/29/16 06/29/16 06/30/16 15:00 23:00 07:00 Intake Total 810 ml 1070 ml 1110 ml Output Total 780 ml 650 ml 975 ml Balance 30 ml 420 ml 135 ml Exam Psych: confusion Respiratory: clear to auscultation Cardiovascular: regular rate and rhythm Gastrointestinal: soft, No distended Musculoskeletal: nl extremities to inspection Results Result Diagram: 06/30/16 0740 06/30/16 0740 Results 24 hrs Laboratory Tests Test 06/29/16 16:54 06/29/16 20:06 06/30/16 00:57 06/30/16 06:02 Bedside Glucose 156 133 157 169 Test 06/30/16 07:40 06/30/16 09:26 Anion Gap 13 Basophils # 0.1 Basophils % 0.4 Blood Urea Nitrogen 28 H Calcium Level 8.1 L Carbon Dioxide Level 23 Chloride Level 113 H Creatinine 1.81 H Eosinophils # 0.3 Eosinophils % 2.5 Glucose Level 146 Hematocrit 35.0 L Hemoglobin 11.4 L Lymphocytes # 1.3 Lymphocytes % 10.7 L Mean Corpuscular Hemoglobin 30.5 Mean Corpuscular Hemoglobin Concent 32.6 Mean Corpuscular Volume 93.6 Mean Platelet Volume 9.9 Monocytes # 1.0 H Monocytes % 8.0 Neutrophils # 9.2 H Neutrophils % 76.4 Nucleated Red Blood Cells # 0.0 Nucleated Red Blood Cells % 0.0 Platelet Count 391 Potassium Level 4.4 Red Blood Count 3.74 L Red Cell Distribution Width 14.5 Sodium Level 145 H White Blood Count 12.1 H Bedside Glucose 175 Medications Medications Current Medications Ondansetron HCl (Zofran Inj) 4 mg Q6H PRN IV NAUSEA AND/OR VOMITING; Start 06/18 at 23:30 Acetaminophen (Tylenol Tab) 650 mg Q6H PRN PO PAIN LEVEL 1-3 OR FEVER; Start at 23:30 Acetaminophen/ Hydrocodone Bitart ([place] (5/325)) 1 tab Q6H PRN PO MODERATE PAIN LEVEL 4-6; Start 06/18/16 at 23:30 Morphine Sulfate (morphine) 2 mg Q4H PRN IV SEVERE PAIN LEVEL 7-10 Last administered on 06/29/16 21:07; Admin Dose 2 MG; Start 06/18/16 at 23:30 Docusate Sodium (Colace) 100 mg Q12H PRN PO CONSTIPATION; Start 06/18/16 at 23: 30 Magnesium Hydroxide (Milk Of Mag) 30 ml DAILY PRN PO CONSTIPATION; Start at 23:30 Sodium Biphosphate/ Sodium Phosphate (Fleet Enema) 133 ml DAILY PRN [place] CONSTIPATION; Start 06/18/16 at 23:30 Heparin Sodium (Porcine) (Heparin (5000 Units/0.5 ml)) 5,000 unit Q12 SC Last administered on 06/30/16 09:33; Admin Dose 5,000 UNIT; Start 06/19/16 at 09:00 Lorazepam (Ativan) 0.5 mg Q6H PRN IV ANXIETY Last administered on 06/27/16 20: 23; Admin Dose 0.5 MG; Start 06/18/16 at 23:30 Hydralazine HCl (Apresoline) 10 mg Q6H PRN IV ELEVATED BLOOD PRESSURE; Start at 23:30 Nitroglycerin (Nitroglycerin (Sl Tab) 0.4 Mg) 1 tab Q5M PRN SL ANGINA; Start at 23:30 Aspirin (Aspirin) 81 mg DAILY NGT Last administered on 06/30/16 09:30; Admin Dose 81 MG; Start 06/19/16 at 20:00 Insulin Aspart (Novolog Insulin Pen) NOVOLOG *MILD* ALGORI... Q4 SC Last administered on 06/30/16 09:35; Admin Dose 1 UNIT; Start 06/19/16 at 21:00 Miscellaneous Information 1 ea NOTE XX ; Start 06/19/16 at 20:30 Glucose (Glutose) 15 gm Q15M PRN PO DECREASED GLUCOSE; Start 06/19/16 at 20:30 Glucose (Glutose) 22.5 gm Q15M PRN PO DECREASED GLUCOSE; Start 06/19/16 at 20:30 Dextrose (D50w Syringe) 25 ml Q15M PRN IV DECREASED GLUCOSE; Start 06/19/16 at 20:30 Dextrose (D50w Syringe) 50 ml Q15M PRN IV DECREASED GLUCOSE; Start 06/19/16 at 20:30 Glucagon (Glucagen) 1 mg Q15M PRN IM DECREASED GLUCOSE; Start 06/19/16 at 20:30 Glucose 15 gm 15 gm Q15M PRN BUCCAL DECREASED GLUCOSE; Start 06/19/16 at 20:30 Norepinephrine/ Dextrose (Levophed/D5W) 500 ml @ 1.87 mls/hr TITRATE IV Last administered on 06/20/16 16:49; Admin Dose 13.12 MLS/HR; Start 06/19/16 at 23:00 IV Flush 10 ml 10 ml PRN PRN IV IV PROTOCOL; Start 06/20/16 at 15:00 Piperacillin Sod/ Tazobactam Sod 100 ml @ 200 mls/hr Q8 IVPB Last administered on 06/30/16 05:55; Admin Dose 200 MLS/HR; Start 06/20/16 at 22:00 Potassium Chloride/Dextrose (D5W + KCl 20 Meq) 1,000 ml @ 30 mls/hr Q24H IV Last administered on 06/29/16 13:54; Admin Dose 40 MLS/HR; Start 06/21/16 at 10: 30 Metronidazole 250 mg 250 mg Q8 PO Last administered on 06/30/16 05:55; Admin Dose 250 MG; Start 06/23/16 at 14:00 Midazolam HCl 50 ml @ 0 mls/hr TITRATE IV Last administered on 06/26/16 19:40 ; Admin Dose 5 MLS/HR; Start 06/24/16 at 11:00 Fentanyl (Sublimaze) 100 ml @ 2.5 mls/hr TITRATE IV Last administered on 06:14; Admin Dose 2 MLS/HR; Start 06/24/16 at 11:30 Nystatin (Nystatin Susp) 5 ml QID PO Last administered on 06/29/16 20:14; Admin Dose 5 ML; Start 06/24/16 at 13:00 Doxycycline Hyclate (Vibramycin) 100 mg BID PO Last administered on 06/29/16 20:13; Admin Dose 100 MG; Start 06/26/16 at 21:00 Hydralazine HCl (Apresoline) 10 mg BID GTB Last administered on 06/30/16 09:31 ; Admin Dose 10 MG; Start 06/26/16 at 21:00 Lorazepam (Ativan) 1 mg Q2H PRN IV ANXIETY Last administered on 06/30/16 09:43 ; Admin Dose 1 MG; Start 06/28/16 at 00:00 Haloperidol (Haldol) 4 mg Q6H PRN IV AGITATION Last administered on 06/28/16 21:40; Admin Dose 4 MG; Start 06/28/16 at 14:30 Guaifenesin (Robitussin Liquid Cup) 100 mg Q4H PRN PO COUGH Last administered on 06/29/16 22:35; Admin Dose 100 MG; Start 06/29/16 at 18:00 Metoprolol Tartrate (Lopressor) 25 mg BID NGT ; Start 06/30/16 at 21:00 PRANEETH LOPEZ Jun 30, 2016 15:31
--- NOTE | 2016-06-30 15:53 | CONS ---
Date/Time of Note Date/Time of Note DATE: 06/30/16 TIME: 15:52 Assessment/Plan Assessment/Plan Chief Complaint/Hosp Course SUBJECTIVE: No acute changes overnight. Confused, lying comfortably in bed. No fevers. ANTIMICROBIALS: The patient remains on: 1. Zosyn. 2. Oral Flagyl. 3. Doxycycline. INDWELLINGS: NG tube, Ramsey catheter, PICC line placed on 06/20/2016. PHYSICAL EXAMINATION: GENERAL: This is an obese, well-developed, fragile, elderly man who is lying comfortably in bed. HEENT: Head atraumatic, normocephalic. Sclerae anicteric. Buccal mucosa dry. NECK: Supple, trachea midline. CHEST: Rise symmetrical. Breath sounds diminished to bases. HEART: S1, S2. ABDOMEN: Soft. Bowel sounds present. EXTREMITIES: Without cyanosis. ASSESSMENT: 1. Resolving sepsis status post shock. 2. Pneumonia==> resolving. 3. Acute respiratory failure, status post extubated. 4. Acute on chronic kidney disease. 5. Diabetes. 6. Congestive heart failure exacerbation. PLAN: Remains stable. Will dc abx in am and observe, continue anti-aspiration measures, pulmonary rec-s DW staff Problems: Consultation Date/Type/Reason Admit Date/Time Jun 18, 2016 at 21:36 Initial Consult Date 06/19/16 Type of Consultation: id Referring Provider: CHITRA ESTEBAN Exam/Review of Systems Vital Signs Vitals Vital Signs Date Time Temp Pulse Resp B/P Pulse Ox O2 Delivery O2 Flow Rate FiO2 06/30/16 12:12 78 06/30/16 08:00 98.6 20 154/67 98 Mask 6.0 06/30/16 04:46 28 Intake and Output 06/29/16 06/29/16 06/30/16 15:00 23:00 07:00 Intake Total 810 ml 1070 ml 1110 ml Output Total 780 ml 650 ml 975 ml Balance 30 ml 420 ml 135 ml Results Result Diagram: 06/30/16 0740 06/30/16 0740 Results 24 hrs Laboratory Tests Test 06/29/16 16:54 06/29/16 20:06 06/30/16 00:57 06/30/16 06:02 Bedside Glucose 156 133 157 169 Test 06/30/16 07:40 06/30/16 09:26 Anion Gap 13 Basophils # 0.1 Basophils % 0.4 Blood Urea Nitrogen 28 H Calcium Level 8.1 L Carbon Dioxide Level 23 Chloride Level 113 H Creatinine 1.81 H Eosinophils # 0.3 Eosinophils % 2.5 Glucose Level 146 Hematocrit 35.0 L Hemoglobin 11.4 L Lymphocytes # 1.3 Lymphocytes % 10.7 L Mean Corpuscular Hemoglobin 30.5 Mean Corpuscular Hemoglobin Concent 32.6 Mean Corpuscular Volume 93.6 Mean Platelet Volume 9.9 Monocytes # 1.0 H Monocytes % 8.0 Neutrophils # 9.2 H Neutrophils % 76.4 Nucleated Red Blood Cells # 0.0 Nucleated Red Blood Cells % 0.0 Platelet Count 391 Potassium Level 4.4 Red Blood Count 3.74 L Red Cell Distribution Width 14.5 Sodium Level 145 H White Blood Count 12.1 H Bedside Glucose 175 Medications Medications Current Medications Ondansetron HCl (Zofran Inj) 4 mg Q6H PRN IV NAUSEA AND/OR VOMITING; Start 06/18 at 23:30 Acetaminophen (Tylenol Tab) 650 mg Q6H PRN PO PAIN LEVEL 1-3 OR FEVER; Start at 23:30 Acetaminophen/ Hydrocodone Bitart ([place] (5/325)) 1 tab Q6H PRN PO MODERATE PAIN LEVEL 4-6; Start 06/18/16 at 23:30 Morphine Sulfate (morphine) 2 mg Q4H PRN IV SEVERE PAIN LEVEL 7-10 Last administered on 06/29/16 21:07; Admin Dose 2 MG; Start 06/18/16 at 23:30 Docusate Sodium (Colace) 100 mg Q12H PRN PO CONSTIPATION; Start 06/18/16 at 23: 30 Magnesium Hydroxide (Milk Of Mag) 30 ml DAILY PRN PO CONSTIPATION; Start at 23:30 Sodium Biphosphate/ Sodium Phosphate (Fleet Enema) 133 ml DAILY PRN [place] CONSTIPATION; Start 06/18/16 at 23:30 Heparin Sodium (Porcine) (Heparin (5000 Units/0.5 ml)) 5,000 unit Q12 SC Last administered on 06/30/16 09:33; Admin Dose 5,000 UNIT; Start 06/19/16 at 09:00 Lorazepam (Ativan) 0.5 mg Q6H PRN IV ANXIETY Last administered on 06/27/16 20: 23; Admin Dose 0.5 MG; Start 06/18/16 at 23:30 Hydralazine HCl (Apresoline) 10 mg Q6H PRN IV ELEVATED BLOOD PRESSURE; Start at 23:30 Nitroglycerin (Nitroglycerin (Sl Tab) 0.4 Mg) 1 tab Q5M PRN SL ANGINA; Start at 23:30 Aspirin (Aspirin) 81 mg DAILY NGT Last administered on 06/30/16 09:30; Admin Dose 81 MG; Start 06/19/16 at 20:00 Insulin Aspart (Novolog Insulin Pen) NOVOLOG *MILD* ALGORI... Q4 SC Last administered on 06/30/16 09:35; Admin Dose 1 UNIT; Start 06/19/16 at 21:00 Miscellaneous Information 1 ea NOTE XX ; Start 06/19/16 at 20:30 Glucose (Glutose) 15 gm Q15M PRN PO DECREASED GLUCOSE; Start 06/19/16 at 20:30 Glucose (Glutose) 22.5 gm Q15M PRN PO DECREASED GLUCOSE; Start 06/19/16 at 20:30 Dextrose (D50w Syringe) 25 ml Q15M PRN IV DECREASED GLUCOSE; Start 06/19/16 at 20:30 Dextrose (D50w Syringe) 50 ml Q15M PRN IV DECREASED GLUCOSE; Start 06/19/16 at 20:30 Glucagon (Glucagen) 1 mg Q15M PRN IM DECREASED GLUCOSE; Start 06/19/16 at 20:30 Glucose 15 gm 15 gm Q15M PRN BUCCAL DECREASED GLUCOSE; Start 06/19/16 at 20:30 Norepinephrine/ Dextrose (Levophed/D5W) 500 ml @ 1.87 mls/hr TITRATE IV Last administered on 06/20/16 16:49; Admin Dose 13.12 MLS/HR; Start 06/19/16 at 23:00 IV Flush 10 ml 10 ml PRN PRN IV IV PROTOCOL; Start 06/20/16 at 15:00 Piperacillin Sod/ Tazobactam Sod 100 ml @ 200 mls/hr Q8 IVPB Last administered on 06/30/16 05:55; Admin Dose 200 MLS/HR; Start 06/20/16 at 22:00 Potassium Chloride/Dextrose (D5W + KCl 20 Meq) 1,000 ml @ 30 mls/hr Q24H IV Last administered on 06/29/16 13:54; Admin Dose 40 MLS/HR; Start 06/21/16 at 10: 30 Metronidazole 250 mg 250 mg Q8 PO Last administered on 06/30/16 05:55; Admin Dose 250 MG; Start 06/23/16 at 14:00 Midazolam HCl 50 ml @ 0 mls/hr TITRATE IV Last administered on 06/26/16 19:40 ; Admin Dose 5 MLS/HR; Start 06/24/16 at 11:00 Fentanyl (Sublimaze) 100 ml @ 2.5 mls/hr TITRATE IV Last administered on 06:14; Admin Dose 2 MLS/HR; Start 06/24/16 at 11:30 Nystatin (Nystatin Susp) 5 ml QID PO Last administered on 06/29/16 20:14; Admin Dose 5 ML; Start 06/24/16 at 13:00 Doxycycline Hyclate (Vibramycin) 100 mg BID PO Last administered on 06/29/16 20:13; Admin Dose 100 MG; Start 06/26/16 at 21:00 Hydralazine HCl (Apresoline) 10 mg BID GTB Last administered on 06/30/16 09:31 ; Admin Dose 10 MG; Start 06/26/16 at 21:00 Lorazepam (Ativan) 1 mg Q2H PRN IV ANXIETY Last administered on 06/30/16 09:43 ; Admin Dose 1 MG; Start 06/28/16 at 00:00 Haloperidol (Haldol) 4 mg Q6H PRN IV AGITATION Last administered on 06/28/16 21:40; Admin Dose 4 MG; Start 06/28/16 at 14:30 Guaifenesin (Robitussin Liquid Cup) 100 mg Q4H PRN PO COUGH Last administered on 06/29/16 22:35; Admin Dose 100 MG; Start 06/29/16 at 18:00 Metoprolol Tartrate (Lopressor) 25 mg BID NGT ; Start 06/30/16 at 21:00 BALWINDER SANTOS NP Jun 30, 2016 15:53
--- NOTE | 2016-06-30 17:23 | CONS ---
Date/Time of Note Date/Time of Note DATE: 06/30/16 TIME: 17:20 Assessment/Plan Assessment/Plan Additional Assessment/Plan 1. Acute kidney injury, likely secondary to acute tubular necrosis from septic shock and also contributing to liver shock due to the acute kidney injury 2. Sepsis with lactic acidosis, likely secondary to pneumonia. 3. Right upper lobe pneumonia. 4. Acute respiratory failure, vent dependent secondary to septic shock. 5. Acute on chronic congestive heart failure exacerbation, systolic and diastolic. 6. History of hypertension. 7. History of type 2 diabetes mellitus. 8. History of anemia of chronic disease. 9. History of dyslipidemia. PLAN: Makign good urine ouput, Cr improving slowly ,Na 145,Cr 1.8 continue D5W with KCl expecting creatinine to be stabilized BP stable will follow up Consultation Date/Type/Reason Admit Date/Time Jun 18, 2016 at 21:36 Initial Consult Date 06/21/16 Type of Consultation: NEPHROLOGY Reason for Consultation acute kidney injury,Hypernatremia Referring Provider: CHITRA ESTEBAN 24 HR Interval Summary Free Text/Dictation Cr 1.8, Na 145, transferred to telemetry floor Exam/Review of Systems Vital Signs Vitals Vital Signs Date Time Temp Pulse Resp B/P Pulse Ox O2 Delivery O2 Flow Rate FiO2 06/30/16 16:36 2.0 06/30/16 16:31 87 06/30/16 13:10 20 96 Nasal Cannula 06/30/16 08:00 98.6 154/67 06/30/16 04:46 28 Intake and Output 06/29/16 06/29/16 06/30/16 15:00 23:00 07:00 Intake Total 810 ml 1070 ml 1110 ml Output Total 780 ml 650 ml 975 ml Balance 30 ml 420 ml 135 ml Exam Follows commands but confused at times, no apparent distress Constitutional: alert Head: normocephalic Neck: supple Respiratory: other (Coarse breath sounds bilaterally, no wheezing) Cardiovascular: other (S1-S2 heard), regular rate and rhythm Gastrointestinal: bowel sounds, non-tender, other (No guarding), soft Extremities: edema, other (No cyanosis) Results Result Diagram: 06/30/16 0740 06/30/16 0740 Results 24 hrs Laboratory Tests Test 06/29/16 20:06 06/30/16 00:57 06/30/16 06:02 06/30/16 07:40 Bedside Glucose 133 157 169 Anion Gap 13 Basophils # 0.1 Basophils % 0.4 Blood Urea Nitrogen 28 H Calcium Level 8.1 L Carbon Dioxide Level 23 Chloride Level 113 H Creatinine 1.81 H Eosinophils # 0.3 Eosinophils % 2.5 Glucose Level 146 Hematocrit 35.0 L Hemoglobin 11.4 L Lymphocytes # 1.3 Lymphocytes % 10.7 L Mean Corpuscular Hemoglobin 30.5 Mean Corpuscular Hemoglobin Concent 32.6 Mean Corpuscular Volume 93.6 Mean Platelet Volume 9.9 Monocytes # 1.0 H Monocytes % 8.0 Neutrophils # 9.2 H Neutrophils % 76.4 Nucleated Red Blood Cells # 0.0 Nucleated Red Blood Cells % 0.0 Platelet Count 391 Potassium Level 4.4 Red Blood Count 3.74 L Red Cell Distribution Width 14.5 Sodium Level 145 H White Blood Count 12.1 H Test 06/30/16 09:26 06/30/16 15:58 Bedside Glucose 175 128 Medications Medications Current Medications Ondansetron HCl (Zofran Inj) 4 mg Q6H PRN IV NAUSEA AND/OR VOMITING; Start 06/18 at 23:30 Acetaminophen (Tylenol Tab) 650 mg Q6H PRN PO PAIN LEVEL 1-3 OR FEVER; Start at 23:30 Acetaminophen/ Hydrocodone Bitart ([place] (5/325)) 1 tab Q6H PRN PO MODERATE PAIN LEVEL 4-6; Start 06/18/16 at 23:30 Morphine Sulfate (morphine) 2 mg Q4H PRN IV SEVERE PAIN LEVEL 7-10 Last administered on 06/29/16 21:07; Admin Dose 2 MG; Start 06/18/16 at 23:30 Docusate Sodium (Colace) 100 mg Q12H PRN PO CONSTIPATION; Start 06/18/16 at 23: 30 Magnesium Hydroxide (Milk Of Mag) 30 ml DAILY PRN PO CONSTIPATION; Start at 23:30 Sodium Biphosphate/ Sodium Phosphate (Fleet Enema) 133 ml DAILY PRN [place] CONSTIPATION; Start 06/18/16 at 23:30 Heparin Sodium (Porcine) (Heparin (5000 Units/0.5 ml)) 5,000 unit Q12 SC Last administered on 06/30/16 09:33; Admin Dose 5,000 UNIT; Start 06/19/16 at 09:00 Lorazepam (Ativan) 0.5 mg Q6H PRN IV ANXIETY Last administered on 06/27/16 20: 23; Admin Dose 0.5 MG; Start 06/18/16 at 23:30 Hydralazine HCl (Apresoline) 10 mg Q6H PRN IV ELEVATED BLOOD PRESSURE; Start at 23:30 Nitroglycerin (Nitroglycerin (Sl Tab) 0.4 Mg) 1 tab Q5M PRN SL ANGINA; Start at 23:30 Aspirin (Aspirin) 81 mg DAILY NGT Last administered on 06/30/16 09:30; Admin Dose 81 MG; Start 06/19/16 at 20:00 Insulin Aspart (Novolog Insulin Pen) NOVOLOG *MILD* ALGORI... Q4 SC Last administered on 06/30/16 09:35; Admin Dose 1 UNIT; Start 06/19/16 at 21:00 Miscellaneous Information 1 ea NOTE XX ; Start 06/19/16 at 20:30 Glucose (Glutose) 15 gm Q15M PRN PO DECREASED GLUCOSE; Start 06/19/16 at 20:30 Glucose (Glutose) 22.5 gm Q15M PRN PO DECREASED GLUCOSE; Start 06/19/16 at 20:30 Dextrose (D50w Syringe) 25 ml Q15M PRN IV DECREASED GLUCOSE; Start 06/19/16 at 20:30 Dextrose (D50w Syringe) 50 ml Q15M PRN IV DECREASED GLUCOSE; Start 06/19/16 at 20:30 Glucagon (Glucagen) 1 mg Q15M PRN IM DECREASED GLUCOSE; Start 06/19/16 at 20:30 Glucose 15 gm 15 gm Q15M PRN BUCCAL DECREASED GLUCOSE; Start 06/19/16 at 20:30 Norepinephrine/ Dextrose (Levophed/D5W) 500 ml @ 1.87 mls/hr TITRATE IV Last administered on 06/20/16 16:49; Admin Dose 13.12 MLS/HR; Start 06/19/16 at 23:00 IV Flush 10 ml 10 ml PRN PRN IV IV PROTOCOL; Start 06/20/16 at 15:00 Piperacillin Sod/ Tazobactam Sod 100 ml @ 200 mls/hr Q8 IVPB Last administered on 06/30/16 16:05; Admin Dose 200 MLS/HR; Start 06/20/16 at 22:00; Stop 07/01/16 at 06:00 Potassium Chloride/Dextrose (D5W + KCl 20 Meq) 1,000 ml @ 40 mls/hr Q24H IV Last administered on 06/29/16 13:54; Admin Dose 40 MLS/HR; Start 06/21/16 at 10: 30 Metronidazole 250 mg 250 mg Q8 PO Last administered on 06/30/16 05:55; Admin Dose 250 MG; Start 06/23/16 at 14:00; Stop 07/01/16 at 06:00 Midazolam HCl 50 ml @ 0 mls/hr TITRATE IV Last administered on 06/26/16 19:40 ; Admin Dose 5 MLS/HR; Start 06/24/16 at 11:00 Fentanyl (Sublimaze) 100 ml @ 2.5 mls/hr TITRATE IV Last administered on 06:14; Admin Dose 2 MLS/HR; Start 06/24/16 at 11:30 Nystatin (Nystatin Susp) 5 ml QID PO Last administered on 06/29/16 20:14; Admin Dose 5 ML; Start 06/24/16 at 13:00 Doxycycline Hyclate (Vibramycin) 100 mg BID PO Last administered on 06/29/16 20:13; Admin Dose 100 MG; Start 06/26/16 at 21:00; Stop 07/01/16 at 06:00 Hydralazine HCl (Apresoline) 10 mg BID GTB Last administered on 06/30/16 09:31 ; Admin Dose 10 MG; Start 06/26/16 at 21:00 Lorazepam (Ativan) 1 mg Q2H PRN IV ANXIETY Last administered on 06/30/16 09:43 ; Admin Dose 1 MG; Start 06/28/16 at 00:00 Haloperidol (Haldol) 4 mg Q6H PRN IV AGITATION Last administered on 06/28/16 21:40; Admin Dose 4 MG; Start 06/28/16 at 14:30 Guaifenesin (Robitussin Liquid Cup) 100 mg Q4H PRN PO COUGH Last administered on 06/29/16 22:35; Admin Dose 100 MG; Start 06/29/16 at 18:00 Metoprolol Tartrate (Lopressor) 25 mg BID NGT ; Start 06/30/16 at 21:00 SHANNAN MAYEN MD Jun 30, 2016 17:23
[2016-07-01] VITALS (13 sets, daily range): BP systolic 110–146; BP diastolic 56–70; PULSE 66–92; RESP 18–22
[2016-07-01] MEDS: INSULIN ASPART [NOVOLOG] 3 ML PEN SC SCH ×6 (01:00→20:41)
[2016-07-01] MEDS: ALBUTEROL/IPRATROPIUM (NEB) 3 ML AMP HHN SCH ×6 (01:07→20:07)
[2016-07-01] MEDS: morphine 2 MG INJ IV PRN ×2 (02:53→06:22)
[2016-07-01] MEDS: GUAIFENESIN 20 MG/ML 5ML CUP PO PRN ×3 (03:18→23:26)
[2016-07-01] MEDS: metroNIDAZOLE 250 MG TAB PO SCH (06:00)
[2016-07-01 06:27] LABS: ADD SCAN DIFF NO
[2016-07-01 06:45] LABS: BASOPHILS % 0.4 % (0.0-2.0); EOSINOPHILS # 0.3 10^3/ul (0.0-0.5); EOSINOPHILS % 2.6 % (0.0-7.0); HEMATOCRIT 35.9 % (42.0-52.0); HEMOGLOBIN 11.4 g/dl (14.0-18.0); LYMPHOCYTES # 1.1 10^3/ul (0.8-2.9); LYMPHOCYTES % 11.8 % (15.0-51.0); MEAN CORPUSCULAR HEMOGLOBIN 29.4 pg (29.0-33.0); MEAN CORPUSCULAR HGB CONC 31.8 g/dl (32.0-37.0); MEAN CORPUSCULAR VOLUME 92.5 fl (82.0-101.0); MEAN PLATELET VOLUME 10.5 fl (7.4-10.4); MONOCYTE # 0.8 10^3/ul (0.3-0.9); MONOCYTES % 8.1 % (0.0-11.0); NEUTROPHIL # 7.3 10^3/ul (1.6-7.5); NEUTROPHILS % 75.9 % (39.0-77.0); PLATELET COUNT 376 10^3/UL (140-415); RED BLOOD COUNT 3.88 10^6/ul (4.70-6.10); RED CELL DISTRIBUTION WIDTH 14.6 % (11.5-14.5); WHITE BLOOD COUNT 9.6 10^3/ul (4.8-10.8)
[2016-07-01] MEDS: PIPER-TAZO 3.375 GM IV (PMX) 100 ML IVPB SCH (06:52)
[2016-07-01 07:04] LABS: POTASSIUM 5.1 mmol/L (3.5-5.1)
[2016-07-01 07:07] LABS: CREATININE 1.8 mg/dl (0.61-1.24)
[2016-07-01 07:08] LABS: CALCIUM 8.1 mg/dl (8.4-10.2); MAGNESIUM 2.1 mg/dl (1.7-2.5); PHOSPHORUS 4.3 mg/dl (2.5-4.9)
[2016-07-01] MEDS: NYSTATIN SUSP 5 ML CUP PO SCH ×4 (09:00→20:40)
[2016-07-01] MEDS: ASPIRIN 81 MG TAB NGT SCH (09:00)
[2016-07-01] MEDS: METOPROLOL 25 MG TAB NGT SCH ×3 (09:00→21:00)
[2016-07-01] MEDS: HEPARIN 5,000 UNIT/0.5 ML SYG SC SCH ×2 (11:13→21:31)
[2016-07-01] MEDS: D5W + KCL 20 MEQ 1,000 ML IV SCH (11:32)
--- NOTE | 2016-07-01 11:43 | CONS ---
Date/Time of Note Date/Time of Note DATE: 07/01/16 TIME: 11:40 Assessment/Plan Assessment/Plan Chief Complaint/Hosp Course Respiratory failure status post extubation Pneumonia Septic shock Acute decompensated systolic and diastolic congestive heart failure Cardiomyopathy with ejection fraction 50% CAD Paroxysmal atrial flutter, currently sinus rhythm Problems: Additional Assessment/Plan 1) Will check BNP 2) Will check venous duplex 3) consideration of gentle diuresis if nephrology agrees 4) dw family at bedside Consultation Date/Type/Reason Admit Date/Time Jun 18, 2016 at 21:36 Initial Consult Date 06/19/16 Type of Consultation: cv Referring Provider: CHITRA ESTEBAN 24 HR Interval Summary Free Text/Dictation ill appearing, weak, mild sob Detailed Summary Respiratory: shortness of breath Cardiovascular: no complaints Gastrointestinal: no complaints Musculoskeletal: no complaints Skin: no complaints Neurologic: no complaints Endocrine: no complaints Exam/Review of Systems Vital Signs Vitals Vital Signs Date Time Temp Pulse Resp B/P Pulse Ox O2 Delivery O2 Flow Rate FiO2 07/01/16 11:17 98.2 77 22 119/56 97 07/01/16 09:34 Nasal Cannula 4.0 06/30/16 04:46 28 Intake and Output 06/30/16 06/30/16 07/01/16 15:00 23:00 07:00 Output Total 400 ml 600 ml Balance -400 ml -600 ml Exam Constitutional: alert, oriented Head: atraumatic, normocephalic Neck: jvd Respiratory: diminished breath sounds Cardiovascular: regular rate and rhythm Gastrointestinal: soft Extremities: normal pulses Neurological: BE[employer] II-XII intact Results Result Diagram: 07/01/16 0520 07/01/16 0520 Results 24 hrs Laboratory Tests Test 06/30/16 15:58 06/30/16 23:29 07/01/16 05:20 07/01/16 06:48 Bedside Glucose 128 130 149 Anion Gap 18 H Basophils # 0.0 Basophils % 0.4 Blood Urea Nitrogen 26 H Calcium Level 8.1 L Carbon Dioxide Level 19 L Chloride Level 113 H Creatinine 1.80 H Eosinophils # 0.3 Eosinophils % 2.6 Glucose Level 100 # Hematocrit 35.9 L Hemoglobin 11.4 L Lymphocytes # 1.1 Lymphocytes % 11.8 L Magnesium Level 2.1 Mean Corpuscular Hemoglobin 29.4 Mean Corpuscular Hemoglobin Concent 31.8 L Mean Corpuscular Volume 92.5 Mean Platelet Volume 10.5 H Monocytes # 0.8 Monocytes % 8.1 Neutrophils # 7.3 Neutrophils % 75.9 Nucleated Red Blood Cells # 0.0 Nucleated Red Blood Cells % 0.0 Phosphorus Level 4.3 Platelet Count 376 Potassium Level 5.1 Red Blood Count 3.88 L Red Cell Distribution Width 14.6 H Sodium Level 145 H White Blood Count 9.6 # Test 07/01/16 11:11 Bedside Glucose 132 Medications Medications Current Medications Ondansetron HCl (Zofran Inj) 4 mg Q6H PRN IV NAUSEA AND/OR VOMITING; Start 06/18 at 23:30 Acetaminophen (Tylenol Tab) 650 mg Q6H PRN PO PAIN LEVEL 1-3 OR FEVER; Start at 23:30 Acetaminophen/ Hydrocodone Bitart ([place] (5/325)) 1 tab Q6H PRN PO MODERATE PAIN LEVEL 4-6; Start 06/18/16 at 23:30 Morphine Sulfate (morphine) 2 mg Q4H PRN IV SEVERE PAIN LEVEL 7-10 Last administered on 07/01/16 06:22; Admin Dose 2 MG; Start 06/18/16 at 23:30 Docusate Sodium (Colace) 100 mg Q12H PRN PO CONSTIPATION; Start 06/18/16 at 23: 30 Magnesium Hydroxide (Milk Of Mag) 30 ml DAILY PRN PO CONSTIPATION; Start at 23:30 Sodium Biphosphate/ Sodium Phosphate (Fleet Enema) 133 ml DAILY PRN [place] CONSTIPATION; Start 06/18/16 at 23:30 Heparin Sodium (Porcine) (Heparin (5000 Units/0.5 ml)) 5,000 unit Q12 SC Last administered on 07/01/16 11:13; Admin Dose 5,000 UNIT; Start 06/19/16 at 09:00 Lorazepam (Ativan) 0.5 mg Q6H PRN IV ANXIETY Last administered on 06/27/16 20: 23; Admin Dose 0.5 MG; Start 06/18/16 at 23:30 Hydralazine HCl (Apresoline) 10 mg Q6H PRN IV ELEVATED BLOOD PRESSURE; Start at 23:30 Nitroglycerin (Nitroglycerin (Sl Tab) 0.4 Mg) 1 tab Q5M PRN SL ANGINA; Start at 23:30 Aspirin (Aspirin) 81 mg DAILY NGT Last administered on 06/30/16 09:30; Admin Dose 81 MG; Start 06/19/16 at 20:00 Insulin Aspart (Novolog Insulin Pen) NOVOLOG *MILD* ALGORI... Q4 SC Last administered on 06/30/16 09:35; Admin Dose 1 UNIT; Start 06/19/16 at 21:00 Miscellaneous Information 1 ea NOTE XX ; Start 06/19/16 at 20:30 Glucose (Glutose) 15 gm Q15M PRN PO DECREASED GLUCOSE; Start 06/19/16 at 20:30 Glucose (Glutose) 22.5 gm Q15M PRN PO DECREASED GLUCOSE; Start 06/19/16 at 20:30 Dextrose (D50w Syringe) 25 ml Q15M PRN IV DECREASED GLUCOSE; Start 06/19/16 at 20:30 Dextrose (D50w Syringe) 50 ml Q15M PRN IV DECREASED GLUCOSE; Start 06/19/16 at 20:30 Glucagon (Glucagen) 1 mg Q15M PRN IM DECREASED GLUCOSE; Start 06/19/16 at 20:30 Glucose 15 gm 15 gm Q15M PRN BUCCAL DECREASED GLUCOSE; Start 06/19/16 at 20:30 Norepinephrine/ Dextrose (Levophed/D5W) 500 ml @ 1.87 mls/hr TITRATE IV Last administered on 06/20/16 16:49; Admin Dose 13.12 MLS/HR; Start 06/19/16 at 23:00 IV Flush 10 ml 10 ml PRN PRN IV IV PROTOCOL; Start 06/20/16 at 15:00 Potassium Chloride/Dextrose 1,000 ml @ 40 mls/hr Q24H IV Last administered on 06/29/16 13:54; Admin Dose 40 MLS/HR; Start 06/21/16 at 10:30 Midazolam HCl 50 ml @ 0 mls/hr TITRATE IV Last administered on 06/26/16 19:40 ; Admin Dose 5 MLS/HR; Start 06/24/16 at 11:00 Fentanyl (Sublimaze) 100 ml @ 2.5 mls/hr TITRATE IV Last administered on 06:14; Admin Dose 2 MLS/HR; Start 06/24/16 at 11:30 Nystatin (Nystatin Susp) 5 ml QID PO Last administered on 06/29/16 20:14; Admin Dose 5 ML; Start 06/24/16 at 13:00 Hydralazine HCl (Apresoline) 10 mg BID GTB Last administered on 06/30/16 09:31 ; Admin Dose 10 MG; Start 06/26/16 at 21:00 Lorazepam (Ativan) 1 mg Q2H PRN IV ANXIETY Last administered on 06/30/16 09:43 ; Admin Dose 1 MG; Start 06/28/16 at 00:00 Haloperidol (Haldol) 4 mg Q6H PRN IV AGITATION Last administered on 06/28/16 21:40; Admin Dose 4 MG; Start 06/28/16 at 14:30 Guaifenesin (Robitussin Liquid Cup) 100 mg Q4H PRN PO COUGH Last administered on 07/01/16 03:18; Admin Dose 100 MG; Start 06/29/16 at 18:00 Metoprolol Tartrate (Lopressor) 25 mg BID NGT ; Start 06/30/16 at 21:00 CHARLES FROST MD Jul 01, 2016 11:43
--- NOTE | 2016-07-01 12:11 | CONS ---
Date/Time of Note Date/Time of Note DATE: 07/01/16 TIME: 12:10 Assessment/Plan Assessment/Plan Additional Assessment/Plan 1. Acute kidney injury, likely secondary to acute tubular necrosis from septic shock and also contributing to liver shock due to the acute kidney injury 2. Sepsis with lactic acidosis, likely secondary to pneumonia. 3. Right upper lobe pneumonia. 4. Acute respiratory failure, vent dependent secondary to septic shock. 5. Acute on chronic congestive heart failure exacerbation, systolic and diastolic. 6. History of hypertension. 7. History of type 2 diabetes mellitus. 8. History of anemia of chronic disease. 9. History of dyslipidemia. PLAN: Makign good urine ouput, Cr improving slowly ,Na 145,K 5.1 d/c IVF with KCL continue plain D5W at 75 cc/hr expecting creatinine to be stabilized BP stable will follow up Consultation Date/Type/Reason Admit Date/Time Jun 18, 2016 at 21:36 Initial Consult Date 06/21/16 Type of Consultation: NEPHROLOGY Referring Provider: CHITRA ESTEBAN 24 HR Interval Summary Free Text/Dictation K 5.1, Na 145, BP stable, afebrile Exam/Review of Systems Vital Signs Vitals Vital Signs Date Time Temp Pulse Resp B/P Pulse Ox O2 Delivery O2 Flow Rate FiO2 07/01/16 11:17 98.2 77 22 119/56 97 07/01/16 09:34 Nasal Cannula 4.0 06/30/16 04:46 28 Intake and Output 06/30/16 06/30/16 07/01/16 15:00 23:00 07:00 Output Total 400 ml 600 ml Balance -400 ml -600 ml Exam Follows commands but confused at times, no apparent distress Constitutional: alert Head: normocephalic Neck: supple Respiratory: other (Coarse breath sounds bilaterally, no wheezing) Cardiovascular: other (S1-S2 heard), regular rate and rhythm Gastrointestinal: bowel sounds, non-tender, other (No guarding), soft Extremities: edema, other (No cyanosis) Results Result Diagram: 07/01/16 0520 07/01/16 0520 Results 24 hrs Laboratory Tests Test 06/30/16 15:58 06/30/16 23:29 07/01/16 05:20 07/01/16 06:48 Bedside Glucose 128 130 149 Anion Gap 18 H B-Type Natriuretic Peptide 34043 H Basophils # 0.0 Basophils % 0.4 Blood Urea Nitrogen 26 H Calcium Level 8.1 L Carbon Dioxide Level 19 L Chloride Level 113 H Creatinine 1.80 H Eosinophils # 0.3 Eosinophils % 2.6 Glucose Level 100 # Hematocrit 35.9 L Hemoglobin 11.4 L Lymphocytes # 1.1 Lymphocytes % 11.8 L Magnesium Level 2.1 Mean Corpuscular Hemoglobin 29.4 Mean Corpuscular Hemoglobin Concent 31.8 L Mean Corpuscular Volume 92.5 Mean Platelet Volume 10.5 H Monocytes # 0.8 Monocytes % 8.1 Neutrophils # 7.3 Neutrophils % 75.9 Nucleated Red Blood Cells # 0.0 Nucleated Red Blood Cells % 0.0 Phosphorus Level 4.3 Platelet Count 376 Potassium Level 5.1 Red Blood Count 3.88 L Red Cell Distribution Width 14.6 H Sodium Level 145 H White Blood Count 9.6 # Test 07/01/16 11:11 Bedside Glucose 132 Medications Medications Current Medications Ondansetron HCl (Zofran Inj) 4 mg Q6H PRN IV NAUSEA AND/OR VOMITING; Start 06/18 at 23:30 Acetaminophen (Tylenol Tab) 650 mg Q6H PRN PO PAIN LEVEL 1-3 OR FEVER; Start at 23:30 Acetaminophen/ Hydrocodone Bitart ([place] (5/325)) 1 tab Q6H PRN PO MODERATE PAIN LEVEL 4-6; Start 06/18/16 at 23:30 Morphine Sulfate (morphine) 2 mg Q4H PRN IV SEVERE PAIN LEVEL 7-10 Last administered on 07/01/16t 06:22; Admin Dose 2 MG; Start 06/18/16 at 23:30 Docusate Sodium (Colace) 100 mg Q12H PRN PO CONSTIPATION; Start 06/18/16 at 23: 30 Magnesium Hydroxide (Milk Of Mag) 30 ml DAILY PRN PO CONSTIPATION; Start at 23:30 Sodium Biphosphate/ Sodium Phosphate (Fleet Enema) 133 ml DAILY PRN [place] CONSTIPATION; Start 06/18/16 at 23:30 Heparin Sodium (Porcine) (Heparin (5000 Units/0.5 ml)) 5,000 unit Q12 SC Last administered on 07/01/16t 11:13; Admin Dose 5,000 UNIT; Start 06/19/16 at 09:00 Lorazepam (Ativan) 0.5 mg Q6H PRN IV ANXIETY Last administered on 06/27/16 20: 23; Admin Dose 0.5 MG; Start 06/18/16 at 23:30 Hydralazine HCl (Apresoline) 10 mg Q6H PRN IV ELEVATED BLOOD PRESSURE; Start at 23:30 Nitroglycerin (Nitroglycerin (Sl Tab) 0.4 Mg) 1 tab Q5M PRN SL ANGINA; Start at 23:30 Aspirin (Aspirin) 81 mg DAILY NGT Last administered on 06/30/16 09:30; Admin Dose 81 MG; Start 06/19/16 at 20:00 Insulin Aspart (Novolog Insulin Pen) NOVOLOG *MILD* ALGORI... Q4 SC Last administered on 06/30/16 09:35; Admin Dose 1 UNIT; Start 06/19/16 at 21:00 Miscellaneous Information 1 ea NOTE XX ; Start 06/19/16 at 20:30 Glucose (Glutose) 15 gm Q15M PRN PO DECREASED GLUCOSE; Start 06/19/16 at 20:30 Glucose (Glutose) 22.5 gm Q15M PRN PO DECREASED GLUCOSE; Start 06/19/16 at 20:30 Dextrose (D50w Syringe) 25 ml Q15M PRN IV DECREASED GLUCOSE; Start 06/19/16 at 20:30 Dextrose (D50w Syringe) 50 ml Q15M PRN IV DECREASED GLUCOSE; Start 06/19/16 at 20:30 Glucagon (Glucagen) 1 mg Q15M PRN IM DECREASED GLUCOSE; Start 06/19/16 at 20:30 Glucose 15 gm 15 gm Q15M PRN BUCCAL DECREASED GLUCOSE; Start 06/19/16 at 20:30 Norepinephrine/ Dextrose (Levophed/D5W) 500 ml @ 1.87 mls/hr TITRATE IV Last administered on 06/20/16 16:49; Admin Dose 13.12 MLS/HR; Start 06/19/16 at 23:00 IV Flush 10 ml 10 ml PRN PRN IV IV PROTOCOL; Start 06/20/16 at 15:00 Potassium Chloride/Dextrose 1,000 ml @ 40 mls/hr Q24H IV Last administered on 06/29/16 13:54; Admin Dose 40 MLS/HR; Start 06/21/16 at 10:30 Midazolam HCl 50 ml @ 0 mls/hr TITRATE IV Last administered on 06/26/16 19:40 ; Admin Dose 5 MLS/HR; Start 06/24/16 at 11:00 Fentanyl (Sublimaze) 100 ml @ 2.5 mls/hr TITRATE IV Last administered on 06:14; Admin Dose 2 MLS/HR; Start 06/24/16 at 11:30 Nystatin (Nystatin Susp) 5 ml QID PO Last administered on 06/29/16 20:14; Admin Dose 5 ML; Start 06/24/16 at 13:00 Hydralazine HCl (Apresoline) 10 mg BID GTB Last administered on 06/30/16 09:31 ; Admin Dose 10 MG; Start 06/26/16 at 21:00 Lorazepam (Ativan) 1 mg Q2H PRN IV ANXIETY Last administered on 06/30/16 09:43 ; Admin Dose 1 MG; Start 06/28/16 at 00:00 Haloperidol (Haldol) 4 mg Q6H PRN IV AGITATION Last administered on 06/28/16 21:40; Admin Dose 4 MG; Start 06/28/16 at 14:30 Guaifenesin (Robitussin Liquid Cup) 100 mg Q4H PRN PO COUGH Last administered on 07/01/16 03:18; Admin Dose 100 MG; Start 06/29/16 at 18:00 Metoprolol Tartrate (Lopressor) 25 mg BID NGT ; Start 06/30/16 at 21:00 SHANNAN MAYEN MD Jul 01, 2016 12:11
[2016-07-01] MEDS: DEXTROSE 5% 1,000 ML IV SCH ×2 (12:30→17:32)
--- NOTE | 2016-07-01 13:41 | PN ---
DATE: 07/01/2016 PULMONARY FOLLOWUP NOTE SUBJECTIVE: The patient was transferred from intensive care yesterday. He remains awake, alert, or iented this morning, coughing. Appears to follow commands, with family present. PHYSICAL EXAMINATION: VITAL SIGNS: Temperature 98, pulse 74, blood pressure 119/56, O2 saturation 96% on 3 L nasal cannul a. NECK: Supple. No JVD or lymphadenopathy. CARDIAC EXAM: S1, S2. No added sounds or murmurs. CHEST: Diminished air entry bilaterally. ABDOMEN: Soft, nontender. No guarding or rebound. Obese. EXTREMITIES: No cyanosis, clubbing. NEUROLOGIC: Generalized weakness. IMPRESSION: 1. Status post hypoxemic respiratory failure. 2. Probable underlying obstructive sleep apnea. 3. Diastolic dysfunction. 4. Dysphagia, with aspiration risk. PLAN: 1. Continue speech therapy evaluation and advance diet as tolerated. 2. PT evaluation. 3. Supplemental O2 as needed. 4. Bronchodilators. 5. Blood pressure management per primary team. Dictated By: SARAH WATTERS/GARRETT Conf#: [id number] DID#: [id number]
--- NOTE | 2016-07-01 14:24 | RADRPT ---
PROCEDURE: US bilateral lower extremity veins. CLINICAL INDICATION: Bilateral leg pain and swelling. Shortness of breath. TECHNIQUE: Multiple longitudinal and transverse images of the bilateral lower extremity veins were obtained with cordero scale and color Doppler imaging. The common femoral vein, femoral vein, and popl iteal vein were evaluated. 2D grayscale measurements with compression sonography, color Doppler, and pulsed Doppler with augmentation. COMPARISON: No prior studies are available for comparison. FINDINGS: The bilateral common femoral, femoral and popliteal veins are normally compressible throughout. Col or flow demonstrates normal filling of the vessels. Normal waveforms are visualized and there is no rmal response to augmentation. IMPRESSION: 1. No evidence of deep vein thrombosis involving either lower extremity. RPTAT: QQ .Brooks Chaney MD, MD Date Time Electronically viewed and signed by .Brooks Chaney MD, on 07/01/2016 14:23 .R/
--- NOTE | 2016-07-01 17:03 | CONS ---
Date/Time of Note Date/Time of Note DATE: 07/01/16 TIME: 17:02 Assessment/Plan Assessment/Plan Chief Complaint/Hosp Course SUBJECTIVE: No acute changes overnight. Confused, lying comfortably in bed. No fevers. INDWELLINGS: NG tube, Ramsey catheter, PICC line placed on 06/20/2016. PHYSICAL EXAMINATION: GENERAL: This is an obese, well-developed, fragile, elderly man who is lying comfortably in bed. HEENT: Head atraumatic, normocephalic. Sclerae anicteric. Buccal mucosa dry. NECK: Supple, trachea midline. CHEST: Rise symmetrical. Breath sounds diminished to bases. HEART: S1, S2. ABDOMEN: Soft. Bowel sounds present. EXTREMITIES: Without cyanosis. ASSESSMENT: 1. Resolving sepsis status post shock. 2. Pneumonia==> resolving. 3. Acute respiratory failure, status post extubated. 4. Acute on chronic kidney disease. 5. Diabetes. 6. Congestive heart failure exacerbation. PLAN: Remains stable, off abx, continue anti-aspiration measures, ortega cx prn DW staff Problems: Consultation Date/Type/Reason Admit Date/Time Jun 18, 2016 at 21:36 Initial Consult Date 06/19/16 Type of Consultation: ID Referring Provider: CHITRA ESTEBAN Exam/Review of Systems Vital Signs Vitals Vital Signs Date Time Temp Pulse Resp B/P Pulse Ox O2 Delivery O2 Flow Rate FiO2 07/01/16 16:12 80 07/01/16 15:18 97.7 20 145/69 100 07/01/16 12:55 3.0 07/01/16 12:54 Nasal Cannula 06/30/16 04:46 28 Intake and Output 06/30/16 06/30/16 07/01/16 15:00 23:00 07:00 Output Total 400 ml 600 ml Balance -400 ml -600 ml Results Result Diagram: 07/01/16 0520 07/01/16 0520 Results 24 hrs Laboratory Tests Test 06/30/16 23:29 07/01/16 05:20 07/01/16 06:48 07/01/16 11:11 Bedside Glucose 130 149 132 Anion Gap 18 H B-Type Natriuretic Peptide 36935 H Basophils # 0.0 Basophils % 0.4 Blood Urea Nitrogen 26 H Calcium Level 8.1 L Carbon Dioxide Level 19 L Chloride Level 113 H Creatinine 1.80 H Eosinophils # 0.3 Eosinophils % 2.6 Glucose Level 100 # Hematocrit 35.9 L Hemoglobin 11.4 L Lymphocytes # 1.1 Lymphocytes % 11.8 L Magnesium Level 2.1 Mean Corpuscular Hemoglobin 29.4 Mean Corpuscular Hemoglobin Concent 31.8 L Mean Corpuscular Volume 92.5 Mean Platelet Volume 10.5 H Monocytes # 0.8 Monocytes % 8.1 Neutrophils # 7.3 Neutrophils % 75.9 Nucleated Red Blood Cells # 0.0 Nucleated Red Blood Cells % 0.0 Phosphorus Level 4.3 Platelet Count 376 Potassium Level 5.1 Red Blood Count 3.88 L Red Cell Distribution Width 14.6 H Sodium Level 145 H White Blood Count 9.6 # Medications Medications Current Medications Ondansetron HCl (Zofran Inj) 4 mg Q6H PRN IV NAUSEA AND/OR VOMITING; Start 06/18 at 23:30 Acetaminophen (Tylenol Tab) 650 mg Q6H PRN PO PAIN LEVEL 1-3 OR FEVER; Start at 23:30 Acetaminophen/ Hydrocodone Bitart ([place] (5/325)) 1 tab Q6H PRN PO MODERATE PAIN LEVEL 4-6; Start 06/18/16 at 23:30 Morphine Sulfate (morphine) 2 mg Q4H PRN IV SEVERE PAIN LEVEL 7-10 Last administered on 07/01/16 06:22; Admin Dose 2 MG; Start 06/18/16 at 23:30 Docusate Sodium (Colace) 100 mg Q12H PRN PO CONSTIPATION; Start 06/18/16 at 23: 30 Magnesium Hydroxide (Milk Of Mag) 30 ml DAILY PRN PO CONSTIPATION; Start at 23:30 Sodium Biphosphate/ Sodium Phosphate (Fleet Enema) 133 ml DAILY PRN [place] CONSTIPATION; Start 06/18/16 at 23:30 Heparin Sodium (Porcine) (Heparin (5000 Units/0.5 ml)) 5,000 unit Q12 SC Last administered on 07/01/16 11:13; Admin Dose 5,000 UNIT; Start 06/19/16 at 09:00 Lorazepam (Ativan) 0.5 mg Q6H PRN IV ANXIETY Last administered on 06/27/16 20: 23; Admin Dose 0.5 MG; Start 06/18/16 at 23:30 Hydralazine HCl (Apresoline) 10 mg Q6H PRN IV ELEVATED BLOOD PRESSURE; Start at 23:30 Nitroglycerin (Nitroglycerin (Sl Tab) 0.4 Mg) 1 tab Q5M PRN SL ANGINA; Start at 23:30 Aspirin (Aspirin) 81 mg DAILY NGT Last administered on 06/30/16 09:30; Admin Dose 81 MG; Start 06/19/16 at 20:00 Insulin Aspart (Novolog Insulin Pen) NOVOLOG *MILD* ALGORI... Q4 SC Last administered on 06/30/16 09:35; Admin Dose 1 UNIT; Start 06/19/16 at 21:00 Miscellaneous Information 1 ea NOTE XX ; Start 06/19/16 at 20:30 Glucose (Glutose) 15 gm Q15M PRN PO DECREASED GLUCOSE; Start 06/19/16 at 20:30 Glucose (Glutose) 22.5 gm Q15M PRN PO DECREASED GLUCOSE; Start 06/19/16 at 20:30 Dextrose (D50w Syringe) 25 ml Q15M PRN IV DECREASED GLUCOSE; Start 06/19/16 at 20:30 Dextrose (D50w Syringe) 50 ml Q15M PRN IV DECREASED GLUCOSE; Start 06/19/16 at 20:30 Glucagon (Glucagen) 1 mg Q15M PRN IM DECREASED GLUCOSE; Start 06/19/16 at 20:30 Glucose 15 gm 15 gm Q15M PRN BUCCAL DECREASED GLUCOSE; Start 06/19/16 at 20:30 Norepinephrine/ Dextrose (Levophed/D5W) 500 ml @ 1.87 mls/hr TITRATE IV Last administered on 06/20/16 16:49; Admin Dose 13.12 MLS/HR; Start 06/19/16 at 23:00 IV Flush 10 ml 10 ml PRN PRN IV IV PROTOCOL; Start 06/20/16 at 15:00 Midazolam HCl 50 ml @ 0 mls/hr TITRATE IV Last administered on 06/26/16 19:40 ; Admin Dose 5 MLS/HR; Start 06/24/16 at 11:00 Fentanyl (Sublimaze) 100 ml @ 2.5 mls/hr TITRATE IV Last administered on 06:14; Admin Dose 2 MLS/HR; Start 06/24/16 at 11:30 Nystatin (Nystatin Susp) 5 ml QID PO Last administered on 06/29/16 20:14; Admin Dose 5 ML; Start 06/24/16 at 13:00 Hydralazine HCl (Apresoline) 10 mg BID GTB Last administered on 06/30/16 09:31 ; Admin Dose 10 MG; Start 06/26/16 at 21:00 Lorazepam (Ativan) 1 mg Q2H PRN IV ANXIETY Last administered on 06/30/16 09:43 ; Admin Dose 1 MG; Start 06/28/16 at 00:00 Haloperidol (Haldol) 4 mg Q6H PRN IV AGITATION Last administered on 06/28/16 21:40; Admin Dose 4 MG; Start 06/28/16 at 14:30 Guaifenesin (Robitussin Liquid Cup) 100 mg Q4H PRN PO COUGH Last administered on 07/01/16 03:18; Admin Dose 100 MG; Start 06/29/16 at 18:00 Metoprolol Tartrate 25 mg 25 mg BID NGT ; Start 06/30/16 at 21:00 Dextrose (D5W) 1,000 ml @ 50 mls/hr Q20H IV ; Start 07/01/16 at 12:30 BALWINDER SANTOS NP Jul 01, 2016 17:03
--- NOTE | 2016-07-01 18:13 | PN ---
Date/Time of Note Date/Time of Note DATE: 07/01/16 TIME: 18:11 Assessment/Plan VTE Prophylaxis VTE Prophylaxis Intervention: heparin Assessment/Plan Chief Complaint/Hosp Course 1. Sepsis with lactic acidosis 2/2 pneumonia with shock-stable No longer pressor dependent Status post antibiotics, ID following 2. Acute resp failure secondary to CHF exacerbation and/or pneumonia-now extubated ST eval done, patient started on a diet 3. CHF exacerbation: improving Diuresis per nephrology 4. Acute on chronic interstitial lung disease 5. Shock liver: improving 6. Hypertension: controlled 7. DM 2 A1c 6.8 8. NC / NC anemia 9. Acute encephalopathy likely secondary to delirium-improved Haldol as needed, sitter no longer needed and now off restraints Prophylaxis-Heparin Problems: Subjective 24 Hr Interval Summary Constitutional: no complaints Exam/Review of Systems Vital Signs Vitals Vital Signs Date Time Temp Pulse Resp B/P Pulse Ox O2 Delivery O2 Flow Rate FiO2 07/01/16 16:12 80 07/01/16 15:18 97.7 20 145/69 100 07/01/16 12:55 3.0 07/01/16 12:54 Nasal Cannula 06/30/16 04:46 28 Intake and Output 06/30/16 06/30/16 07/01/16 15:00 23:00 07:00 Output Total 400 ml 600 ml Balance -400 ml -600 ml Exam Constitutional: alert Respiratory: clear to auscultation Cardiovascular: regular rate and rhythm Gastrointestinal: soft, No distended Musculoskeletal: nl extremities to inspection Results Result Diagram: 07/01/16 0520 07/01/16 0520 Results 24 hrs Laboratory Tests Test 06/30/16 23:29 07/01/16 05:20 07/01/16 06:48 07/01/16 11:11 Bedside Glucose 130 149 132 Anion Gap 18 H B-Type Natriuretic Peptide 88373 H Basophils # 0.0 Basophils % 0.4 Blood Urea Nitrogen 26 H Calcium Level 8.1 L Carbon Dioxide Level 19 L Chloride Level 113 H Creatinine 1.80 H Eosinophils # 0.3 Eosinophils % 2.6 Glucose Level 100 # Hematocrit 35.9 L Hemoglobin 11.4 L Lymphocytes # 1.1 Lymphocytes % 11.8 L Magnesium Level 2.1 Mean Corpuscular Hemoglobin 29.4 Mean Corpuscular Hemoglobin Concent 31.8 L Mean Corpuscular Volume 92.5 Mean Platelet Volume 10.5 H Monocytes # 0.8 Monocytes % 8.1 Neutrophils # 7.3 Neutrophils % 75.9 Nucleated Red Blood Cells # 0.0 Nucleated Red Blood Cells % 0.0 Phosphorus Level 4.3 Platelet Count 376 Potassium Level 5.1 Red Blood Count 3.88 L Red Cell Distribution Width 14.6 H Sodium Level 145 H White Blood Count 9.6 # Test 07/01/16 17:45 Bedside Glucose 150 Medications Medications Current Medications Ondansetron HCl (Zofran Inj) 4 mg Q6H PRN IV NAUSEA AND/OR VOMITING; Start 06/18 at 23:30 Acetaminophen (Tylenol Tab) 650 mg Q6H PRN PO PAIN LEVEL 1-3 OR FEVER; Start at 23:30 Acetaminophen/ Hydrocodone Bitart ([place] (5/325)) 1 tab Q6H PRN PO MODERATE PAIN LEVEL 4-6; Start 06/18/16 at 23:30 Morphine Sulfate (morphine) 2 mg Q4H PRN IV SEVERE PAIN LEVEL 7-10 Last administered on 07/01/16 06:22; Admin Dose 2 MG; Start 06/18/16 at 23:30 Docusate Sodium (Colace) 100 mg Q12H PRN PO CONSTIPATION; Start 06/18/16 at 23: 30 Magnesium Hydroxide (Milk Of Mag) 30 ml DAILY PRN PO CONSTIPATION; Start at 23:30 Sodium Biphosphate/ Sodium Phosphate (Fleet Enema) 133 ml DAILY PRN [place] CONSTIPATION; Start 06/18/16 at 23:30 Heparin Sodium (Porcine) (Heparin (5000 Units/0.5 ml)) 5,000 unit Q12 SC Last administered on 07/01/16 11:13; Admin Dose 5,000 UNIT; Start 06/19/16 at 09:00 Lorazepam (Ativan) 0.5 mg Q6H PRN IV ANXIETY Last administered on 06/27/16 20: 23; Admin Dose 0.5 MG; Start 06/18/16 at 23:30 Hydralazine HCl (Apresoline) 10 mg Q6H PRN IV ELEVATED BLOOD PRESSURE; Start at 23:30 Nitroglycerin (Nitroglycerin (Sl Tab) 0.4 Mg) 1 tab Q5M PRN SL ANGINA; Start at 23:30 Aspirin (Aspirin) 81 mg DAILY NGT Last administered on 06/30/16 09:30; Admin Dose 81 MG; Start 06/19/16 at 20:00 Insulin Aspart (Novolog Insulin Pen) NOVOLOG *MILD* ALGORI... Q4 SC Last administered on 07/01/16 17:51; Admin Dose 1 UNIT; Start 06/19/16 at 21:00 Miscellaneous Information 1 ea NOTE XX ; Start 06/19/16 at 20:30 Glucose (Glutose) 15 gm Q15M PRN PO DECREASED GLUCOSE; Start 06/19/16 at 20:30 Glucose (Glutose) 22.5 gm Q15M PRN PO DECREASED GLUCOSE; Start 06/19/16 at 20:30 Dextrose (D50w Syringe) 25 ml Q15M PRN IV DECREASED GLUCOSE; Start 06/19/16 at 20:30 Dextrose (D50w Syringe) 50 ml Q15M PRN IV DECREASED GLUCOSE; Start 06/19/16 at 20:30 Glucagon (Glucagen) 1 mg Q15M PRN IM DECREASED GLUCOSE; Start 06/19/16 at 20:30 Glucose 15 gm 15 gm Q15M PRN BUCCAL DECREASED GLUCOSE; Start 06/19/16 at 20:30 Norepinephrine/ Dextrose (Levophed/D5W) 500 ml @ 1.87 mls/hr TITRATE IV Last administered on 06/20/16 16:49; Admin Dose 13.12 MLS/HR; Start 06/19/16 at 23:00 IV Flush 10 ml 10 ml PRN PRN IV IV PROTOCOL; Start 06/20/16 at 15:00 Midazolam HCl 50 ml @ 0 mls/hr TITRATE IV Last administered on 06/26/16 19:40 ; Admin Dose 5 MLS/HR; Start 06/24/16 at 11:00 Fentanyl (Sublimaze) 100 ml @ 2.5 mls/hr TITRATE IV Last administered on 06:14; Admin Dose 2 MLS/HR; Start 06/24/16 at 11:30 Nystatin (Nystatin Susp) 5 ml QID PO Last administered on 07/01/16 17:32; Admin Dose 5 ML; Start 06/24/16 at 13:00 Hydralazine HCl (Apresoline) 10 mg BID GTB Last administered on 06/30/16 09:31 ; Admin Dose 10 MG; Start 06/26/16 at 21:00 Lorazepam (Ativan) 1 mg Q2H PRN IV ANXIETY Last administered on 06/30/16 09:43 ; Admin Dose 1 MG; Start 06/28/16 at 00:00 Haloperidol (Haldol) 4 mg Q6H PRN IV AGITATION Last administered on 06/28/16 21:40; Admin Dose 4 MG; Start 06/28/16 at 14:30 Guaifenesin (Robitussin Liquid Cup) 100 mg Q4H PRN PO COUGH Last administered on 07/01/16 03:18; Admin Dose 100 MG; Start 06/29/16 at 18:00 Metoprolol Tartrate 25 mg 25 mg BID NGT ; Start 06/30/16 at 21:00 Dextrose (D5W) 1,000 ml @ 50 mls/hr Q20H IV Last administered on 07/01/16 17: 32; Admin Dose 50 MLS/HR; Start 07/01/16 at 12:30 PRANEETH LOPEZ Jul 01, 2016 18:13
[2016-07-01] MEDS ORDERED: VITAMIN A & D 5 GM OINT PACKET TOP ONE (18:24)
[2016-07-02] VITALS (13 sets, daily range): BP systolic 111–139; BP diastolic 58–64; PULSE 61–72; RESP 16–18
[2016-07-02] MEDS: INSULIN ASPART [NOVOLOG] 3 ML PEN SC SCH ×6 (01:00→21:00)
[2016-07-02] MEDS: ALBUTEROL/IPRATROPIUM (NEB) 3 ML AMP HHN SCH ×6 (01:00→20:45)
[2016-07-02 05:55] LABS: ADD SCAN DIFF NO
[2016-07-02 06:05] LABS: BASOPHIL # 0.1 10^3/ul (0.0-0.1); BASOPHILS % 0.6 % (0.0-2.0); EOSINOPHILS # 0.3 10^3/ul (0.0-0.5); EOSINOPHILS % 3.1 % (0.0-7.0); HEMATOCRIT 35.5 % (42.0-52.0); HEMOGLOBIN 11.4 g/dl (14.0-18.0); LYMPHOCYTES # 1.4 10^3/ul (0.8-2.9); LYMPHOCYTES % 14.3 % (15.0-51.0); MEAN CORPUSCULAR HEMOGLOBIN 29.8 pg (29.0-33.0); MEAN CORPUSCULAR HGB CONC 32.1 g/dl (32.0-37.0); MEAN CORPUSCULAR VOLUME 92.9 fl (82.0-101.0); MEAN PLATELET VOLUME 9.9 fl (7.4-10.4); MONOCYTE # 0.8 10^3/ul (0.3-0.9); MONOCYTES % 8.2 % (0.0-11.0); NEUTROPHILS % 72.7 % (39.0-77.0); PLATELET COUNT 381 10^3/UL (140-415); RED BLOOD COUNT 3.82 10^6/ul (4.70-6.10); RED CELL DISTRIBUTION WIDTH 14.6 % (11.5-14.5); WHITE BLOOD COUNT 9.6 10^3/ul (4.8-10.8)
[2016-07-02 06:22] LABS: POTASSIUM 3.9 mmol/L (3.5-5.1)
[2016-07-02 06:25] LABS: CREATININE 1.77 mg/dl (0.61-1.24)
[2016-07-02 06:26] LABS: CALCIUM 8.2 mg/dl (8.4-10.2)
[2016-07-02] MEDS: GUAIFENESIN 20 MG/ML 5ML CUP PO PRN ×2 (09:56→14:54)
[2016-07-02] MEDS: ASPIRIN 81 MG TAB NGT SCH (10:00)
[2016-07-02] MEDS: NYSTATIN SUSP 5 ML CUP PO SCH ×4 (10:00→21:16)
[2016-07-02] MEDS: METOPROLOL 25 MG TAB NGT SCH ×2 (10:02→21:15)
[2016-07-02] MEDS: HEPARIN 5,000 UNIT/0.5 ML SYG SC SCH ×2 (10:05→21:17)
--- NOTE | 2016-07-02 10:09 | CONS ---
Date/Time of Note Date/Time of Note DATE: 07/02/16 TIME: 10:06 Assessment/Plan Assessment/Plan Additional Assessment/Plan 1. Acute kidney injury, likely secondary to acute tubular necrosis from septic shock and also contributing to liver shock due to the acute kidney injury 2. Sepsis with lactic acidosis, likely secondary to pneumonia. 3. Right upper lobe pneumonia. 4. Acute respiratory failure, vent dependent secondary to septic shock. 5. Acute on chronic congestive heart failure exacerbation, systolic and diastolic. 6. History of hypertension. 7. History of type 2 diabetes mellitus. 8. History of anemia of chronic disease. 9. History of dyslipidemia. PLAN: Makign good urine ouput, Cr improving slowly ,K 3.9, Cr 1.7 lasix 40mg IV x 1 dose now breathign Rx close resp monitoring Consultation Date/Type/Reason Admit Date/Time Jun 18, 2016 at 21:36 Initial Consult Date 06/21/16 Type of Consultation: NEPHROLOGY Referring Provider: CHITRA ETSEBAN 24 HR Interval Summary Free Text/Dictation c/o SOB< tachypneaic, good urine output Exam/Review of Systems Vital Signs Vitals Vital Signs Date Time Temp Pulse Resp B/P Pulse Ox O2 Delivery O2 Flow Rate FiO2 07/02/16 08:20 68 07/02/16 08:14 4.0 07/02/16 08:13 20 96 Nasal Cannula 07/02/16 07:32 98.5 132/63 06/30/16 04:46 28 Intake and Output 07/01/16 07/01/16 07/02/16 15:00 23:00 07:00 Intake Total 100 ml 100 ml Output Total 900 ml 650 ml Balance -800 ml -550 ml Exam pt awake, alert but in resp distress Constitutional: alert Head: normocephalic Neck: supple Respiratory: bilateral Crackles, wheezing +, tachypneic Cardiovascular: other (S1-S2 heard), regular rate and rhythm Gastrointestinal: bowel sounds, non-tender, other (No guarding), soft Extremities: edema, other (No cyanosis) Results Result Diagram: 07/02/16 0528 07/02/16 0528 Results 24 hrs Laboratory Tests Test 07/01/16 11:11 07/01/16 17:45 07/01/16 20:38 07/02/16 05:28 Bedside Glucose 132 150 104 Anion Gap 17 H Basophils # 0.1 Basophils % 0.6 Blood Urea Nitrogen 22 H Calcium Level 8.2 L Carbon Dioxide Level 21 Chloride Level 110 Creatinine 1.77 H Eosinophils # 0.3 Eosinophils % 3.1 Glucose Level 117 Hematocrit 35.5 L Hemoglobin 11.4 L Lymphocytes # 1.4 Lymphocytes % 14.3 L Mean Corpuscular Hemoglobin 29.8 Mean Corpuscular Hemoglobin Concent 32.1 Mean Corpuscular Volume 92.9 Mean Platelet Volume 9.9 Monocytes # 0.8 Monocytes % 8.2 Neutrophils # 7.0 Neutrophils % 72.7 Nucleated Red Blood Cells # 0.0 Nucleated Red Blood Cells % 0.0 Platelet Count 381 Potassium Level 3.9 Red Blood Count 3.82 L Red Cell Distribution Width 14.6 H Sodium Level 144 White Blood Count 9.6 Test 07/02/16 05:30 Bedside Glucose 130 Medications Medications Current Medications Ondansetron HCl (Zofran Inj) 4 mg Q6H PRN IV NAUSEA AND/OR VOMITING; Start 06/18 at 23:30 Acetaminophen (Tylenol Tab) 650 mg Q6H PRN PO PAIN LEVEL 1-3 OR FEVER; Start at 23:30 Acetaminophen/ Hydrocodone Bitart ([place] (5/325)) 1 tab Q6H PRN PO MODERATE PAIN LEVEL 4-6; Start 06/18/16 at 23:30 Morphine Sulfate (morphine) 2 mg Q4H PRN IV SEVERE PAIN LEVEL 7-10 Last administered on 07/01/16 06:22; Admin Dose 2 MG; Start 06/18/16 at 23:30 Docusate Sodium (Colace) 100 mg Q12H PRN PO CONSTIPATION; Start 06/18/16 at 23: 30 Magnesium Hydroxide (Milk Of Mag) 30 ml DAILY PRN PO CONSTIPATION; Start at 23:30 Sodium Biphosphate/ Sodium Phosphate (Fleet Enema) 133 ml DAILY PRN [place] CONSTIPATION; Start 06/18/16 at 23:30 Heparin Sodium (Porcine) (Heparin (5000 Units/0.5 ml)) 5,000 unit Q12 SC Last administered on 07/02/16t 10:05; Admin Dose 5,000 UNIT; Start 06/19/16 at 09:00 Lorazepam (Ativan) 0.5 mg Q6H PRN IV ANXIETY Last administered on 06/27/16 20: 23; Admin Dose 0.5 MG; Start 06/18/16 at 23:30 Hydralazine HCl (Apresoline) 10 mg Q6H PRN IV ELEVATED BLOOD PRESSURE; Start at 23:30 Nitroglycerin (Nitroglycerin (Sl Tab) 0.4 Mg) 1 tab Q5M PRN SL ANGINA; Start at 23:30 Aspirin (Aspirin) 81 mg DAILY NGT Last administered on 07/02/16 10:00; Admin Dose 81 MG; Start 06/19/16 at 20:00 Insulin Aspart (Novolog Insulin Pen) NOVOLOG *MILD* ALGORI... Q4 SC Last administered on 07/02/16 10:04; Admin Dose 2 UNIT; Start 06/19/16 at 21:00 Miscellaneous Information 1 ea NOTE XX ; Start 06/19/16 at 20:30 Glucose (Glutose) 15 gm Q15M PRN PO DECREASED GLUCOSE; Start 06/19/16 at 20:30 Glucose (Glutose) 22.5 gm Q15M PRN PO DECREASED GLUCOSE; Start 06/19/16 at 20:30 Dextrose (D50w Syringe) 25 ml Q15M PRN IV DECREASED GLUCOSE; Start 06/19/16 at 20:30 Dextrose (D50w Syringe) 50 ml Q15M PRN IV DECREASED GLUCOSE; Start 06/19/16 at 20:30 Glucagon (Glucagen) 1 mg Q15M PRN IM DECREASED GLUCOSE; Start 06/19/16 at 20:30 Glucose 15 gm 15 gm Q15M PRN BUCCAL DECREASED GLUCOSE; Start 06/19/16 at 20:30 Norepinephrine/ Dextrose (Levophed/D5W) 500 ml @ 1.87 mls/hr TITRATE IV Last administered on 06/20/16 16:49; Admin Dose 13.12 MLS/HR; Start 06/19/16 at 23:00 IV Flush 10 ml 10 ml PRN PRN IV IV PROTOCOL; Start 06/20/16 at 15:00 Midazolam HCl 50 ml @ 0 mls/hr TITRATE IV Last administered on 06/26/16 19:40 ; Admin Dose 5 MLS/HR; Start 06/24/16 at 11:00 Fentanyl (Sublimaze) 100 ml @ 2.5 mls/hr TITRATE IV Last administered on 06:14; Admin Dose 2 MLS/HR; Start 06/24/16 at 11:30 Nystatin (Nystatin Susp) 5 ml QID PO Last administered on 07/02/16 10:00; Admin Dose 5 ML; Start 06/24/16 at 13:00 Hydralazine HCl (Apresoline) 10 mg BID GTB Last administered on 07/02/16 10:01 ; Admin Dose 10 MG; Start 06/26/16 at 21:00 Lorazepam (Ativan) 1 mg Q2H PRN IV ANXIETY Last administered on 06/30/16 09:43 ; Admin Dose 1 MG; Start 06/28/16 at 00:00 Haloperidol (Haldol) 4 mg Q6H PRN IV AGITATION Last administered on 06/28/16 21:40; Admin Dose 4 MG; Start 06/28/16 at 14:30 Guaifenesin (Robitussin Liquid Cup) 100 mg Q4H PRN PO COUGH Last administered on 07/02/16 09:56; Admin Dose 100 MG; Start 06/29/16 at 18:00 Metoprolol Tartrate 25 mg 25 mg BID NGT Last administered on 07/02/16 10:02; Admin Dose 25 MG; Start 06/30/16 at 21:00 Dextrose (D5W) 1,000 ml @ 50 mls/hr Q20H IV Last administered on 07/01/16 17: 32; Admin Dose 50 MLS/HR; Start 07/01/16 at 12:30 Furosemide (Lasix) 40 mg ONCE ONCE IV ; Start 07/02/16 at 10:30; Stop 07/02/16 at 10:31; Status SHANNAN SUAREZ MD Jul 02, 2016 10:09
[2016-07-02] MEDS ORDERED: FUROSEMIDE 20 MG INJ IV ONE (10:30)
--- NOTE | 2016-07-02 13:39 | PN ---
Date/Time of Note Date/Time of Note DATE: 07/02/16 TIME: 13:38 Assessment/Plan VTE Prophylaxis VTE Prophylaxis Intervention: heparin Assessment/Plan Chief Complaint/Hosp Course 1. Sepsis with lactic acidosis 2/2 pneumonia with shock-resolved No longer pressor dependent Status post antibiotics, ID following 2. Acute resp failure secondary to CHF exacerbation and/or pneumonia-now extubated ST eval done, patient started on a diet 3. CHF exacerbation: improving Diuresis per nephrology CXR today 4. Acute on chronic interstitial lung disease 5. Shock liver: improving 6. Hypertension: controlled 7. DM 2 A1c 6.8 8. NC / NC anemia 9. Acute encephalopathy likely secondary to delirium-improving Haldol as needed, sitter no longer needed and now off restraints Dispo- Anticipate DC in 1-2 days Prophylaxis-Heparin Problems: Subjective 24 Hr Interval Summary Constitutional: no complaints Exam/Review of Systems Vital Signs Vitals Vital Signs Date Time Temp Pulse Resp B/P Pulse Ox O2 Delivery O2 Flow Rate FiO2 07/02/16 12:26 4.0 07/02/16 12:23 70 22 99 07/02/16 11:40 98.0 111/64 07/02/16 08:13 Nasal Cannula 06/30/16 04:46 28 Intake and Output 07/01/16 07/01/16 07/02/16 15:00 23:00 07:00 Intake Total 100 ml 100 ml Output Total 900 ml 650 ml Balance -800 ml -550 ml Exam Constitutional: alert Respiratory: clear to auscultation Cardiovascular: regular rate and rhythm Gastrointestinal: soft, No distended Musculoskeletal: nl extremities to inspection Results Result Diagram: 07/02/16 0528 07/02/16 0528 Results 24 hrs Laboratory Tests Test 07/01/16 17:45 07/01/16 20:38 07/02/16 05:28 07/02/16 05:30 Bedside Glucose 150 104 130 Anion Gap 17 H Basophils # 0.1 Basophils % 0.6 Blood Urea Nitrogen 22 H Calcium Level 8.2 L Carbon Dioxide Level 21 Chloride Level 110 Creatinine 1.77 H Eosinophils # 0.3 Eosinophils % 3.1 Glucose Level 117 Hematocrit 35.5 L Hemoglobin 11.4 L Lymphocytes # 1.4 Lymphocytes % 14.3 L Mean Corpuscular Hemoglobin 29.8 Mean Corpuscular Hemoglobin Concent 32.1 Mean Corpuscular Volume 92.9 Mean Platelet Volume 9.9 Monocytes # 0.8 Monocytes % 8.2 Neutrophils # 7.0 Neutrophils % 72.7 Nucleated Red Blood Cells # 0.0 Nucleated Red Blood Cells % 0.0 Platelet Count 381 Potassium Level 3.9 Red Blood Count 3.82 L Red Cell Distribution Width 14.6 H Sodium Level 144 White Blood Count 9.6 Test 07/02/16 10:02 07/02/16 12:09 Bedside Glucose 190 118 Medications Medications Current Medications Ondansetron HCl (Zofran Inj) 4 mg Q6H PRN IV NAUSEA AND/OR VOMITING; Start 06/18 at 23:30 Acetaminophen (Tylenol Tab) 650 mg Q6H PRN PO PAIN LEVEL 1-3 OR FEVER; Start at 23:30 Acetaminophen/ Hydrocodone Bitart ([place] (5/325)) 1 tab Q6H PRN PO MODERATE PAIN LEVEL 4-6; Start 06/18/16 at 23:30 Morphine Sulfate (morphine) 2 mg Q4H PRN IV SEVERE PAIN LEVEL 7-10 Last administered on 07/01/16 06:22; Admin Dose 2 MG; Start 06/18/16 at 23:30 Docusate Sodium (Colace) 100 mg Q12H PRN PO CONSTIPATION; Start 06/18/16 at 23: 30 Magnesium Hydroxide (Milk Of Mag) 30 ml DAILY PRN PO CONSTIPATION; Start at 23:30 Sodium Biphosphate/ Sodium Phosphate (Fleet Enema) 133 ml DAILY PRN [place] CONSTIPATION; Start 06/18/16 at 23:30 Heparin Sodium (Porcine) (Heparin (5000 Units/0.5 ml)) 5,000 unit Q12 SC Last administered on 07/02/16 10:05; Admin Dose 5,000 UNIT; Start 06/19/16 at 09:00 Lorazepam (Ativan) 0.5 mg Q6H PRN IV ANXIETY Last administered on 06/27/16 20: 23; Admin Dose 0.5 MG; Start 06/18/16 at 23:30 Hydralazine HCl (Apresoline) 10 mg Q6H PRN IV ELEVATED BLOOD PRESSURE; Start at 23:30 Nitroglycerin (Nitroglycerin (Sl Tab) 0.4 Mg) 1 tab Q5M PRN SL ANGINA; Start at 23:30 Aspirin (Aspirin) 81 mg DAILY NGT Last administered on 07/02/16 10:00; Admin Dose 81 MG; Start 06/19/16 at 20:00 Insulin Aspart (Novolog Insulin Pen) NOVOLOG *MILD* ALGORI... Q4 SC Last administered on 07/02/16 10:04; Admin Dose 2 UNIT; Start 06/19/16 at 21:00 Miscellaneous Information 1 ea NOTE XX ; Start 06/19/16 at 20:30 Glucose (Glutose) 15 gm Q15M PRN PO DECREASED GLUCOSE; Start 06/19/16 at 20:30 Glucose (Glutose) 22.5 gm Q15M PRN PO DECREASED GLUCOSE; Start 06/19/16 at 20:30 Dextrose (D50w Syringe) 25 ml Q15M PRN IV DECREASED GLUCOSE; Start 06/19/16 at 20:30 Dextrose (D50w Syringe) 50 ml Q15M PRN IV DECREASED GLUCOSE; Start 06/19/16 at 20:30 Glucagon (Glucagen) 1 mg Q15M PRN IM DECREASED GLUCOSE; Start 06/19/16 at 20:30 Glucose 15 gm 15 gm Q15M PRN BUCCAL DECREASED GLUCOSE; Start 06/19/16 at 20:30 Norepinephrine/ Dextrose (Levophed/D5W) 500 ml @ 1.87 mls/hr TITRATE IV Last administered on 06/20/16 16:49; Admin Dose 13.12 MLS/HR; Start 06/19/16 at 23:00 IV Flush 10 ml 10 ml PRN PRN IV IV PROTOCOL; Start 06/20/16 at 15:00 Midazolam HCl 50 ml @ 0 mls/hr TITRATE IV Last administered on 06/26/16 19:40 ; Admin Dose 5 MLS/HR; Start 06/24/16 at 11:00 Fentanyl (Sublimaze) 100 ml @ 2.5 mls/hr TITRATE IV Last administered on 06:14; Admin Dose 2 MLS/HR; Start 06/24/16 at 11:30 Nystatin (Nystatin Susp) 5 ml QID PO Last administered on 07/02/16 12:10; Admin Dose 5 ML; Start 06/24/16 at 13:00 Hydralazine HCl (Apresoline) 10 mg BID GTB Last administered on 07/02/16 10:01 ; Admin Dose 10 MG; Start 06/26/16 at 21:00 Lorazepam (Ativan) 1 mg Q2H PRN IV ANXIETY Last administered on 06/30/16 09:43 ; Admin Dose 1 MG; Start 06/28/16 at 00:00 Haloperidol (Haldol) 4 mg Q6H PRN IV AGITATION Last administered on 06/28/16 21:40; Admin Dose 4 MG; Start 06/28/16 at 14:30 Guaifenesin (Robitussin Liquid Cup) 100 mg Q4H PRN PO COUGH Last administered on 07/02/16 09:56; Admin Dose 100 MG; Start 06/29/16 at 18:00 Metoprolol Tartrate 25 mg 25 mg BID NGT Last administered on 07/02/16 10:02; Admin Dose 25 MG; Start 06/30/16 at 21:00 Dextrose (D5W) 1,000 ml @ 50 mls/hr Q20H IV Last administered on 07/01/16 17: 32; Admin Dose 50 MLS/HR; Start 07/01/16 at 12:30 PRANEETH LOPEZ Jul 02, 2016 13:39
[2016-07-02] MEDS: DEXTROSE 5% 1,000 ML IV SCH (15:30)
--- NOTE | 2016-07-02 15:58 | CONS ---
Date/Time of Note Date/Time of Note DATE: 07/02/16 TIME: 15:57 Assessment/Plan Assessment/Plan Chief Complaint/Hosp Course SUBJECTIVE: No acute changes overnight. Awake, lying comfortably in bed. No fevers. INDWELLINGS: [place] catheter, PICC line placed on 06/20/2016. PHYSICAL EXAMINATION: GENERAL: This is an obese, well-developed, fragile, elderly man who is lying comfortably in bed. HEENT: Head atraumatic, normocephalic. Sclerae anicteric. Buccal mucosa dry. NECK: Supple, trachea midline. CHEST: Rise symmetrical. Breath sounds diminished to bases. HEART: S1, S2. ABDOMEN: Soft. Bowel sounds present. EXTREMITIES: Without cyanosis. ASSESSMENT: 1. Resolving sepsis status post shock. 2. Pneumonia==> resolving. 3. Acute respiratory failure, status post extubated. 4. Acute on chronic kidney disease. 5. Diabetes. 6. Congestive heart failure exacerbation. PLAN: Remains stable, off abx, continue anti-aspiration measures, ortega cx prn DW staff Problems: Consultation Date/Type/Reason Admit Date/Time Jun 18, 2016 at 21:36 Initial Consult Date 06/19/16 Type of Consultation: ID Referring Provider: CHITRA ESTEBAN Exam/Review of Systems Vital Signs Vitals Vital Signs Date Time Temp Pulse Resp B/P Pulse Ox O2 Delivery O2 Flow Rate FiO2 07/02/16 12:26 4.0 07/02/16 12:23 70 22 99 07/02/16 11:40 98.0 111/64 07/02/16 08:13 Nasal Cannula 06/30/16 04:46 28 Intake and Output 07/01/16 07/01/16 07/02/16 15:00 23:00 07:00 Intake Total 100 ml 100 ml Output Total 900 ml 650 ml Balance -800 ml -550 ml Results Result Diagram: 07/02/16 0528 07/02/16 0528 Results 24 hrs Laboratory Tests Test 07/01/16 17:45 07/01/16 20:38 07/02/16 05:28 07/02/16 05:30 Bedside Glucose 150 104 130 Anion Gap 17 H Basophils # 0.1 Basophils % 0.6 Blood Urea Nitrogen 22 H Calcium Level 8.2 L Carbon Dioxide Level 21 Chloride Level 110 Creatinine 1.77 H Eosinophils # 0.3 Eosinophils % 3.1 Glucose Level 117 Hematocrit 35.5 L Hemoglobin 11.4 L Lymphocytes # 1.4 Lymphocytes % 14.3 L Mean Corpuscular Hemoglobin 29.8 Mean Corpuscular Hemoglobin Concent 32.1 Mean Corpuscular Volume 92.9 Mean Platelet Volume 9.9 Monocytes # 0.8 Monocytes % 8.2 Neutrophils # 7.0 Neutrophils % 72.7 Nucleated Red Blood Cells # 0.0 Nucleated Red Blood Cells % 0.0 Platelet Count 381 Potassium Level 3.9 Red Blood Count 3.82 L Red Cell Distribution Width 14.6 H Sodium Level 144 White Blood Count 9.6 Test 07/02/16 10:02 07/02/16 12:09 Bedside Glucose 190 118 Medications Medications Current Medications Ondansetron HCl (Zofran Inj) 4 mg Q6H PRN IV NAUSEA AND/OR VOMITING; Start 06/18 at 23:30 Acetaminophen (Tylenol Tab) 650 mg Q6H PRN PO PAIN LEVEL 1-3 OR FEVER; Start at 23:30 Acetaminophen/ Hydrocodone Bitart ([place] (5/325)) 1 tab Q6H PRN PO MODERATE PAIN LEVEL 4-6; Start 06/18/16 at 23:30 Morphine Sulfate (morphine) 2 mg Q4H PRN IV SEVERE PAIN LEVEL 7-10 Last administered on 07/01/16 06:22; Admin Dose 2 MG; Start 06/18/16 at 23:30 Docusate Sodium (Colace) 100 mg Q12H PRN PO CONSTIPATION; Start 06/18/16 at 23: 30 Magnesium Hydroxide (Milk Of Mag) 30 ml DAILY PRN PO CONSTIPATION; Start at 23:30 Sodium Biphosphate/ Sodium Phosphate (Fleet Enema) 133 ml DAILY PRN [place] CONSTIPATION; Start 06/18/16 at 23:30 Heparin Sodium (Porcine) (Heparin (5000 Units/0.5 ml)) 5,000 unit Q12 SC Last administered on 07/02/16 10:05; Admin Dose 5,000 UNIT; Start 06/19/16 at 09:00 Lorazepam (Ativan) 0.5 mg Q6H PRN IV ANXIETY Last administered on 06/27/16 20: 23; Admin Dose 0.5 MG; Start 06/18/16 at 23:30 Hydralazine HCl (Apresoline) 10 mg Q6H PRN IV ELEVATED BLOOD PRESSURE; Start at 23:30 Nitroglycerin (Nitroglycerin (Sl Tab) 0.4 Mg) 1 tab Q5M PRN SL ANGINA; Start at 23:30 Aspirin (Aspirin) 81 mg DAILY NGT Last administered on 07/02/16 10:00; Admin Dose 81 MG; Start 06/19/16 at 20:00 Insulin Aspart (Novolog Insulin Pen) NOVOLOG *MILD* ALGORI... Q4 SC Last administered on 07/02/16 10:04; Admin Dose 2 UNIT; Start 06/19/16 at 21:00 Miscellaneous Information 1 ea NOTE XX ; Start 06/19/16 at 20:30 Glucose (Glutose) 15 gm Q15M PRN PO DECREASED GLUCOSE; Start 06/19/16 at 20:30 Glucose (Glutose) 22.5 gm Q15M PRN PO DECREASED GLUCOSE; Start 06/19/16 at 20:30 Dextrose (D50w Syringe) 25 ml Q15M PRN IV DECREASED GLUCOSE; Start 06/19/16 at 20:30 Dextrose (D50w Syringe) 50 ml Q15M PRN IV DECREASED GLUCOSE; Start 06/19/16 at 20:30 Glucagon (Glucagen) 1 mg Q15M PRN IM DECREASED GLUCOSE; Start 06/19/16 at 20:30 Glucose 15 gm 15 gm Q15M PRN BUCCAL DECREASED GLUCOSE; Start 06/19/16 at 20:30 Norepinephrine/ Dextrose (Levophed/D5W) 500 ml @ 1.87 mls/hr TITRATE IV Last administered on 06/20/16 16:49; Admin Dose 13.12 MLS/HR; Start 06/19/16 at 23:00 IV Flush 10 ml 10 ml PRN PRN IV IV PROTOCOL; Start 06/20/16 at 15:00 Midazolam HCl 50 ml @ 0 mls/hr TITRATE IV Last administered on 06/26/16 19:40 ; Admin Dose 5 MLS/HR; Start 06/24/16 at 11:00 Fentanyl (Sublimaze) 100 ml @ 2.5 mls/hr TITRATE IV Last administered on 06:14; Admin Dose 2 MLS/HR; Start 06/24/16 at 11:30 Nystatin (Nystatin Susp) 5 ml QID PO Last administered on 07/02/16 12:10; Admin Dose 5 ML; Start 06/24/16 at 13:00 Hydralazine HCl (Apresoline) 10 mg BID GTB Last administered on 07/02/16 10:01 ; Admin Dose 10 MG; Start 06/26/16 at 21:00 Lorazepam (Ativan) 1 mg Q2H PRN IV ANXIETY Last administered on 06/30/16 09:43 ; Admin Dose 1 MG; Start 06/28/16 at 00:00 Haloperidol (Haldol) 4 mg Q6H PRN IV AGITATION Last administered on 06/28/16 21:40; Admin Dose 4 MG; Start 06/28/16 at 14:30 Guaifenesin (Robitussin Liquid Cup) 100 mg Q4H PRN PO COUGH Last administered on 07/02/16 14:54; Admin Dose 100 MG; Start 06/29/16 at 18:00 Metoprolol Tartrate 25 mg 25 mg BID NGT Last administered on 07/02/16 10:02; Admin Dose 25 MG; Start 06/30/16 at 21:00 Dextrose (D5W) 1,000 ml @ 50 mls/hr Q20H IV Last administered on 07/01/16 17: 32; Admin Dose 50 MLS/HR; Start 07/01/16 at 12:30 BALWINDER SANTOS NP Jul 02, 2016 15:57
--- NOTE | 2016-07-02 17:32 | PN ---
DATE: 07/02/2016 FOLLOWUP NOTE PHYSICAL EXAMINATION GENERAL: Mr. Smith is stable this morning. VITAL SIGNS: Temperature 98, pulse 70, blood pressure 111/64, O2 saturation 96% on 4 liters. NECK: Supple. No JVD or lymphadenopathy. CARDIAC: S1, S2, no added sounds or murmurs. CHEST: Diminished air entry bilaterally with rhonchi. ABDOMEN: Obese, soft, nontender, no guarding, no rebound. EXTREMITIES: No cyanosis, clubbing, edema. NEUROLOGIC: Generalized weakness. LABORATORY DATA: White count 9.6, hemoglobin 11.4, platelets 318. BUN 22, creatinine 1.77. IMAGING: Chest x-ray was reviewed. Lower extremity Dopplers negative for deep vein thrombosis. IMPRESSION AND PLAN: 1. Status post hypoxemic respiratory failure. 2. Congestive cardiac failure. 3. Likely diastolic dysfunction. 4. History of diabetes. 5. Resolving encephalopathy. 6. Improving dysphagia. PLAN: 1. Continue speech therapy recommendations. 2. Supplemental O2. 3. Aspiration precautions. 4. Encourage out of bed. 5. Deep vein thrombosis and GI prophylaxis. Dictated By: SARAH WATTERS/GARRETT Conf#: [id number] DID#: [id number]
--- NOTE | 2016-07-02 17:33 | RADRPT ---
PROCEDURE: XR Chest. CLINICAL INDICATION: Shortness of breath. TECHNIQUE: Single frontal view. COMPARISON: 06/29/2016 FINDINGS: The nasogastric tube has been removed. The left arm PICC line remains in satisfactory position. Pu lmonary edema is unchanged. There is mild atelectasis at the lung bases. The lungs are otherwise c lear. The heart is enlarged. There is calcification in the aorta consistent with atherosclerosis. There is no pleural effusion. There is no pneumothorax. IMPRESSION: 1. Nasogastric tube removed. 2. No other change from 06/29/2016. RPTAT: QQ .Brooks Chaney MD, MD Date Time Electronically viewed and signed by .Brooks Chaney MD, MD on 07/02/2016 17:33 .R/
[2016-07-03] VITALS (11 sets, daily range): BP systolic 105–132; BP diastolic 51–63; PULSE 56–63; RESP 18–20
[2016-07-03] MEDS: ALBUTEROL/IPRATROPIUM (NEB) 3 ML AMP HHN SCH ×5 (00:25→16:04)
[2016-07-03] MEDS: ACCU-CHEK XX SCH (01:42)
[2016-07-03 07:30] LABS: ADD SCAN DIFF NO
[2016-07-03 07:44] LABS: BASOPHIL # 0.1 10^3/ul (0.0-0.1); BASOPHILS % 0.5 % (0.0-2.0); EOSINOPHILS # 0.3 10^3/ul (0.0-0.5); EOSINOPHILS % 3.3 % (0.0-7.0); HEMATOCRIT 35.1 % (42.0-52.0); LYMPHOCYTES # 1.4 10^3/ul (0.8-2.9); LYMPHOCYTES % 14.4 % (15.0-51.0); MEAN CORPUSCULAR HEMOGLOBIN 29.6 pg (29.0-33.0); MEAN CORPUSCULAR HGB CONC 31.3 g/dl (32.0-37.0); MEAN CORPUSCULAR VOLUME 94.4 fl (82.0-101.0); MEAN PLATELET VOLUME 10.2 fl (7.4-10.4); MONOCYTE # 0.8 10^3/ul (0.3-0.9); MONOCYTES % 8.1 % (0.0-11.0); NEUTROPHIL # 6.9 10^3/ul (1.6-7.5); NEUTROPHILS % 72.9 % (39.0-77.0); PLATELET COUNT 341 10^3/UL (140-415); RED BLOOD COUNT 3.72 10^6/ul (4.70-6.10); RED CELL DISTRIBUTION WIDTH 14.6 % (11.5-14.5); WHITE BLOOD COUNT 9.4 10^3/ul (4.8-10.8)
[2016-07-03 07:49] LABS: POTASSIUM 3.6 mmol/L (3.5-5.1)
[2016-07-03 07:51] LABS: CREATININE 1.75 mg/dl (0.61-1.24)
[2016-07-03] MEDS: INSULIN ASPART [NOVOLOG] 3 ML PEN SC SCH ×4 (07:55→21:00)
[2016-07-03] MEDS: ASPIRIN 81 MG TAB NGT SCH (08:11)
[2016-07-03] MEDS: METOPROLOL 25 MG TAB NGT SCH ×2 (08:12→20:51)
[2016-07-03] MEDS: NYSTATIN SUSP 5 ML CUP PO SCH ×4 (08:13→20:53)
[2016-07-03] MEDS: HEPARIN 5,000 UNIT/0.5 ML SYG SC SCH (08:16)
[2016-07-03] MEDS: GUAIFENESIN 20 MG/ML 5ML CUP PO PRN ×2 (08:19→12:34)
--- NOTE | 2016-07-03 09:14 | CONS ---
Date/Time of Note Date/Time of Note DATE: 07/03/16 TIME: 09:11 Assessment/Plan Assessment/Plan Additional Assessment/Plan 1. Acute kidney injury, likely secondary to acute tubular necrosis from septic shock and also contributing to liver shock due to the acute kidney injury 2. Sepsis with lactic acidosis, likely secondary to pneumonia. 3. Right upper lobe pneumonia. 4. Acute respiratory failure, vent dependent secondary to septic shock. 5. Acute on chronic congestive heart failure exacerbation, systolic and diastolic. 6. History of hypertension. 7. History of type 2 diabetes mellitus. 8. History of anemia of chronic disease. 9. History of dyslipidemia. PLAN: Makign good urine ouput, Cr stable 1.7 ,electrolytes normal today - pt was give Lasix 40mg IV x 1yesterday- U/o 1.3 L will give another lasix 20mg IV x 1 today breathign Rx close resp monitoring will follow up Consultation Date/Type/Reason Admit Date/Time Jun 18, 2016 at 21:36 Initial Consult Date 06/21/16 Type of Consultation: ID Referring Provider: CHITRA ESTEBAN 24 HR Interval Summary Free Text/Dictation less SOB, received Lasix 40mg IV x 1 yesterday Exam/Review of Systems Vital Signs Vitals Vital Signs Date Time Temp Pulse Resp B/P Pulse Ox O2 Delivery O2 Flow Rate FiO2 07/03/16 09:10 3.0 07/03/16 09:09 63 18 99 Nasal Cannula 07/03/16 07:35 97.8 131/62 06/30/16 04:46 28 Intake and Output 07/02/16 07/02/16 07/03/16 14:59 22:59 06:59 Intake Total 1200 ml 200 ml Output Total 1150 ml 550 ml Balance 50 ml -350 ml Exam pt awake, aler, less SOB Constitutional: alert Head: normocephalic Neck: supple Respiratory: bilateral Crackles, wheezing +, tachypneic Cardiovascular: other (S1-S2 heard), regular rate and rhythm Gastrointestinal: bowel sounds, non-tender, other (No guarding), soft Extremities: edema, other (No cyanosis) Results Result Diagram: 07/03/16 0635 07/03/16 0640 Results 24 hrs Laboratory Tests Test 07/02/16 10:02 07/02/16 12:09 07/02/16 17:20 07/02/16 21:12 Bedside Glucose 190 118 118 100 Test 07/03/16 06:35 07/03/16 06:40 07/03/16 08:11 Basophils # 0.1 Basophils % 0.5 Eosinophils # 0.3 Eosinophils % 3.3 Hematocrit 35.1 L Hemoglobin 11.0 L Lymphocytes # 1.4 Lymphocytes % 14.4 L Mean Corpuscular Hemoglobin 29.6 Mean Corpuscular Hemoglobin Concent 31.3 L Mean Corpuscular Volume 94.4 Mean Platelet Volume 10.2 Monocytes # 0.8 Monocytes % 8.1 Neutrophils # 6.9 Neutrophils % 72.9 Nucleated Red Blood Cells # 0.0 Nucleated Red Blood Cells % 0.0 Platelet Count 341 Red Blood Count 3.72 L Red Cell Distribution Width 14.6 H White Blood Count 9.4 Anion Gap 14 Blood Urea Nitrogen 21 H Calcium Level 8.0 L Carbon Dioxide Level 24 Chloride Level 107 Creatinine 1.75 H Glucose Level 103 Potassium Level 3.6 Sodium Level 141 Bedside Glucose 131 Medications Medications Current Medications Ondansetron HCl (Zofran Inj) 4 mg Q6H PRN IV NAUSEA AND/OR VOMITING; Start 06/18 at 23:30 Acetaminophen (Tylenol Tab) 650 mg Q6H PRN PO PAIN LEVEL 1-3 OR FEVER; Start at 23:30 Acetaminophen/ Hydrocodone Bitart ([place] (5/325)) 1 tab Q6H PRN PO MODERATE PAIN LEVEL 4-6; Start 06/18/16 at 23:30 Morphine Sulfate (morphine) 2 mg Q4H PRN IV SEVERE PAIN LEVEL 7-10 Last administered on 07/01/16 06:22; Admin Dose 2 MG; Start 06/18/16 at 23:30 Docusate Sodium (Colace) 100 mg Q12H PRN PO CONSTIPATION; Start 06/18/16 at 23: 30 Magnesium Hydroxide (Milk Of Mag) 30 ml DAILY PRN PO CONSTIPATION; Start at 23:30 Sodium Biphosphate/ Sodium Phosphate (Fleet Enema) 133 ml DAILY PRN [place] CONSTIPATION; Start 06/18/16 at 23:30 Heparin Sodium (Porcine) (Heparin (5000 Units/0.5 ml)) 5,000 unit Q12 SC Last administered on 07/03/16 08:16; Admin Dose 5,000 UNIT; Start 06/19/16 at 09:00 Lorazepam (Ativan) 0.5 mg Q6H PRN IV ANXIETY Last administered on 06/27/16 20: 23; Admin Dose 0.5 MG; Start 06/18/16 at 23:30 Hydralazine HCl (Apresoline) 10 mg Q6H PRN IV ELEVATED BLOOD PRESSURE; Start at 23:30 Nitroglycerin (Nitroglycerin (Sl Tab) 0.4 Mg) 1 tab Q5M PRN SL ANGINA; Start at 23:30 Aspirin (Aspirin) 81 mg DAILY NGT Last administered on 07/03/16 08:11; Admin Dose 81 MG; Start 06/19/16 at 20:00 Miscellaneous Information 1 ea NOTE XX ; Start 06/19/16 at 20:30 Glucose (Glutose) 15 gm Q15M PRN PO DECREASED GLUCOSE; Start 06/19/16 at 20:30 Glucose (Glutose) 22.5 gm Q15M PRN PO DECREASED GLUCOSE; Start 06/19/16 at 20:30 Dextrose (D50w Syringe) 25 ml Q15M PRN IV DECREASED GLUCOSE; Start 06/19/16 at 20:30 Dextrose (D50w Syringe) 50 ml Q15M PRN IV DECREASED GLUCOSE; Start 06/19/16 at 20:30 Glucagon (Glucagen) 1 mg Q15M PRN IM DECREASED GLUCOSE; Start 06/19/16 at 20:30 Glucose 15 gm 15 gm Q15M PRN BUCCAL DECREASED GLUCOSE; Start 06/19/16 at 20:30 Norepinephrine/ Dextrose (Levophed/D5W) 500 ml @ 1.87 mls/hr TITRATE IV Last administered on 06/20/16 16:49; Admin Dose 13.12 MLS/HR; Start 06/19/16 at 23:00 IV Flush 10 ml 10 ml PRN PRN IV IV PROTOCOL; Start 06/20/16 at 15:00 Midazolam HCl 50 ml @ 0 mls/hr TITRATE IV Last administered on 06/26/16 19:40 ; Admin Dose 5 MLS/HR; Start 06/24/16 at 11:00 Fentanyl (Sublimaze) 100 ml @ 2.5 mls/hr TITRATE IV Last administered on 06:14; Admin Dose 2 MLS/HR; Start 06/24/16 at 11:30 Nystatin (Nystatin Susp) 5 ml QID PO Last administered on 07/03/16 08:13; Admin Dose 5 ML; Start 06/24/16 at 13:00 Hydralazine HCl (Apresoline) 10 mg BID GTB Last administered on 07/03/16 08:11 ; Admin Dose 10 MG; Start 06/26/16 at 21:00 Lorazepam (Ativan) 1 mg Q2H PRN IV ANXIETY Last administered on 06/30/16 09:43 ; Admin Dose 1 MG; Start 06/28/16 at 00:00 Haloperidol (Haldol) 4 mg Q6H PRN IV AGITATION Last administered on 06/28/16 21:40; Admin Dose 4 MG; Start 06/28/16 at 14:30 Guaifenesin (Robitussin Liquid Cup) 100 mg Q4H PRN PO COUGH Last administered on 07/03/16 08:19; Admin Dose 100 MG; Start 06/29/16 at 18:00 Metoprolol Tartrate 25 mg 25 mg BID NGT Last administered on 07/03/16 08:12; Admin Dose 25 MG; Start 06/30/16 at 21:00 Dextrose (D5W) 1,000 ml @ 50 mls/hr Q20H IV Last administered on 07/02/16 15: 30; Admin Dose 50 MLS/HR; Start 07/01/16 at 12:30 Diagnostic Test (Pha) (Accucheck) 1 ea 02 XX ; Start 07/03/16 at 02:00 SHANNAN MAYEN MD Jul 03, 2016 09:14
[2016-07-03] MEDS ORDERED: FUROSEMIDE 20 MG INJ IV ONE (09:30)
--- NOTE | 2016-07-03 12:11 | CONS ---
Date/Time of Note Date/Time of Note DATE: 07/03/16 TIME: 12:09 Assessment/Plan Assessment/Plan Additional Assessment/Plan Assessment recommendations; 1. Patient admitted for respiratory to be severe bilateral pneumonia with marked clinical and radiological improvement. Off antibiotics now. 2. Mild CHF. 3. Hypertension. Continue current treatment. Patient can be discharged home. Consultation Date/Type/Reason Admit Date/Time Jun 18, 2016 at 21:36 Initial Consult Date 06/19/16 Type of Consultation: Pulmonary Referring Provider: CHITRA ESTEBAN 24 HR Interval Summary Free Text/Dictation Patient's overall condition is markedly improved. He is awake alert. Sitting in chair by bedside. Denies any shortness of breath. Any chest pain. Any abdominal pain. Nausea or vomiting. Any fever or chills. General exam; elderly male, currently in no distress. Awake and alert. Exam/Review of Systems Vital Signs Vitals Vital Signs Date Time Temp Pulse Resp B/P Pulse Ox O2 Delivery O2 Flow Rate FiO2 07/03/16 11:22 97.6 58 18 112/54 99 07/03/16 09:10 3.0 07/03/16 09:09 Nasal Cannula 06/30/16 04:46 28 Intake and Output 07/02/16 07/02/16 07/03/16 15:00 23:00 07:00 Intake Total 1200 ml 200 ml Output Total 1150 ml 550 ml Balance 50 ml -350 ml Exam H EENT examination; supple neck, no JVD. No lymphadenopathy. Midline trachea. No thyromegaly. Patient is edentulous. Has bilateral intraocular lens implants. Chest examination of Jef diminished but clear breath sound bilaterally. S1- S2 audible, no murmurs. Regular rhythm. Abdomen examination; soft, nondistended. No organomegaly. Both audible. Extremity exam is; no peripheral edema. Pulses 1+ bilaterally. No clubbing. MUSIC THERAPY SPECIALIST examination; no focal deficit. Results Result Diagram: 07/03/16 0635 07/03/16 0640 Results 24 hrs Laboratory Tests Test 07/02/16 17:20 07/02/16 21:12 07/03/16 06:35 07/03/16 06:40 Bedside Glucose 118 100 Basophils # 0.1 Basophils % 0.5 Eosinophils # 0.3 Eosinophils % 3.3 Hematocrit 35.1 L Hemoglobin 11.0 L Lymphocytes # 1.4 Lymphocytes % 14.4 L Mean Corpuscular Hemoglobin 29.6 Mean Corpuscular Hemoglobin Concent 31.3 L Mean Corpuscular Volume 94.4 Mean Platelet Volume 10.2 Monocytes # 0.8 Monocytes % 8.1 Neutrophils # 6.9 Neutrophils % 72.9 Nucleated Red Blood Cells # 0.0 Nucleated Red Blood Cells % 0.0 Platelet Count 341 Red Blood Count 3.72 L Red Cell Distribution Width 14.6 H White Blood Count 9.4 Anion Gap 14 Blood Urea Nitrogen 21 H Calcium Level 8.0 L Carbon Dioxide Level 24 Chloride Level 107 Creatinine 1.75 H Glucose Level 103 Potassium Level 3.6 Sodium Level 141 Test 07/03/16 08:11 07/03/16 11:15 Bedside Glucose 131 126 Medications Medications Current Medications Ondansetron HCl (Zofran Inj) 4 mg Q6H PRN IV NAUSEA AND/OR VOMITING; Start 06/18 at 23:30 Acetaminophen (Tylenol Tab) 650 mg Q6H PRN PO PAIN LEVEL 1-3 OR FEVER; Start at 23:30 Acetaminophen/ Hydrocodone Bitart ([place] (5/325)) 1 tab Q6H PRN PO MODERATE PAIN LEVEL 4-6; Start 06/18/16 at 23:30 Morphine Sulfate (morphine) 2 mg Q4H PRN IV SEVERE PAIN LEVEL 7-10 Last administered on 07/01/16 06:22; Admin Dose 2 MG; Start 06/18/16 at 23:30 Docusate Sodium (Colace) 100 mg Q12H PRN PO CONSTIPATION; Start 06/18/16 at 23: 30 Magnesium Hydroxide (Milk Of Mag) 30 ml DAILY PRN PO CONSTIPATION; Start at 23:30 Sodium Biphosphate/ Sodium Phosphate (Fleet Enema) 133 ml DAILY PRN [place] CONSTIPATION; Start 06/18/16 at 23:30 Heparin Sodium (Porcine) (Heparin (5000 Units/0.5 ml)) 5,000 unit Q12 SC Last administered on 07/03/16 08:16; Admin Dose 5,000 UNIT; Start 06/19/16 at 09:00 Lorazepam (Ativan) 0.5 mg Q6H PRN IV ANXIETY Last administered on 06/27/16 20: 23; Admin Dose 0.5 MG; Start 06/18/16 at 23:30 Hydralazine HCl (Apresoline) 10 mg Q6H PRN IV ELEVATED BLOOD PRESSURE; Start at 23:30 Nitroglycerin (Nitroglycerin (Sl Tab) 0.4 Mg) 1 tab Q5M PRN SL ANGINA; Start at 23:30 Aspirin (Aspirin) 81 mg DAILY NGT Last administered on 07/03/16 08:11; Admin Dose 81 MG; Start 06/19/16 at 20:00 Miscellaneous Information 1 ea NOTE XX ; Start 06/19/16 at 20:30 Glucose (Glutose) 15 gm Q15M PRN PO DECREASED GLUCOSE; Start 06/19/16 at 20:30 Glucose (Glutose) 22.5 gm Q15M PRN PO DECREASED GLUCOSE; Start 06/19/16 at 20:30 Dextrose (D50w Syringe) 25 ml Q15M PRN IV DECREASED GLUCOSE; Start 06/19/16 at 20:30 Dextrose (D50w Syringe) 50 ml Q15M PRN IV DECREASED GLUCOSE; Start 06/19/16 at 20:30 Glucagon (Glucagen) 1 mg Q15M PRN IM DECREASED GLUCOSE; Start 06/19/16 at 20:30 Glucose 15 gm 15 gm Q15M PRN BUCCAL DECREASED GLUCOSE; Start 06/19/16 at 20:30 Norepinephrine/ Dextrose (Levophed/D5W) 500 ml @ 1.87 mls/hr TITRATE IV Last administered on 06/20/16 16:49; Admin Dose 13.12 MLS/HR; Start 06/19/16 at 23:00 IV Flush 10 ml 10 ml PRN PRN IV IV PROTOCOL; Start 06/20/16 at 15:00 Midazolam HCl 50 ml @ 0 mls/hr TITRATE IV Last administered on 06/26/16 19:40 ; Admin Dose 5 MLS/HR; Start 06/24/16 at 11:00 Fentanyl (Sublimaze) 100 ml @ 2.5 mls/hr TITRATE IV Last administered on 06:14; Admin Dose 2 MLS/HR; Start 06/24/16 at 11:30 Nystatin (Nystatin Susp) 5 ml QID PO Last administered on 07/03/16 08:13; Admin Dose 5 ML; Start 06/24/16 at 13:00 Hydralazine HCl (Apresoline) 10 mg BID GTB Last administered on 07/03/16 08:11 ; Admin Dose 10 MG; Start 06/26/16 at 21:00 Lorazepam (Ativan) 1 mg Q2H PRN IV ANXIETY Last administered on 06/30/16 09:43 ; Admin Dose 1 MG; Start 06/28/16 at 00:00 Haloperidol (Haldol) 4 mg Q6H PRN IV AGITATION Last administered on 06/28/16 21:40; Admin Dose 4 MG; Start 06/28/16 at 14:30 Guaifenesin (Robitussin Liquid Cup) 100 mg Q4H PRN PO COUGH Last administered on 07/03/16 08:19; Admin Dose 100 MG; Start 06/29/16 at 18:00 Metoprolol Tartrate 25 mg 25 mg BID NGT Last administered on 07/03/16 08:12; Admin Dose 25 MG; Start 06/30/16 at 21:00 Dextrose (D5W) 1,000 ml @ 50 mls/hr Q20H IV Last administered on 07/02/16 15: 30; Admin Dose 50 MLS/HR; Start 07/01/16 at 12:30 Diagnostic Test (Pha) (Accucheck) 1 ea 02 XX ; Start 07/03/16 at 02:00 SANDOR FANG 20, 2017 12:11
--- NOTE | 2016-07-03 14:47 | CONS ---
Date/Time of Note Date/Time of Note DATE: 07/03/16 TIME: 14:46 Assessment/Plan Assessment/Plan Chief Complaint/Hosp Course SUBJECTIVE: No acute changes overnight. Awake, lying comfortably in bed. No fevers. INDWELLINGS: [place] catheter, PICC line placed on 06/20/2016. PHYSICAL EXAMINATION: GENERAL: This is an obese, well-developed, fragile, elderly man who is lying comfortably in bed. HEENT: Head atraumatic, normocephalic. Sclerae anicteric. Buccal mucosa dry. NECK: Supple, trachea midline. CHEST: Rise symmetrical. Breath sounds with B exp wheezes. HEART: S1, S2. ABDOMEN: Soft. Bowel sounds present. EXTREMITIES: Without cyanosis. ASSESSMENT: 1. Resolving sepsis status post shock. 2. Pneumonia==> resolving. 3. Acute respiratory failure, status post extubated. 4. Acute on chronic kidney disease. 5. Diabetes. 6. Congestive heart failure exacerbation. PLAN: Remains stable, off abx, continue present care, f/u pulmonary rec-s, ortega cx prn==> Lasix dose DW staff Problems: Consultation Date/Type/Reason Admit Date/Time Jun 18, 2016 at 21:36 Initial Consult Date 06/19/16 Type of Consultation: ID Referring Provider: CHITRA ESTEBAN Exam/Review of Systems Vital Signs Vitals Vital Signs Date Time Temp Pulse Resp B/P Pulse Ox O2 Delivery O2 Flow Rate FiO2 07/03/16 12:27 3.0 07/03/16 12:23 58 20 99 Nasal Cannula 07/03/16 11:22 97.6 112/54 06/30/16 04:46 28 Intake and Output 07/02/16 07/02/16 07/03/16 15:00 23:00 07:00 Intake Total 1200 ml 200 ml Output Total 1150 ml 550 ml Balance 50 ml -350 ml Results Result Diagram: 07/03/16 0635 07/03/16 0640 Results 24 hrs Laboratory Tests Test 07/02/16 17:20 07/02/16 21:12 07/03/16 06:35 07/03/16 06:40 Bedside Glucose 118 100 Basophils # 0.1 Basophils % 0.5 Eosinophils # 0.3 Eosinophils % 3.3 Hematocrit 35.1 L Hemoglobin 11.0 L Lymphocytes # 1.4 Lymphocytes % 14.4 L Mean Corpuscular Hemoglobin 29.6 Mean Corpuscular Hemoglobin Concent 31.3 L Mean Corpuscular Volume 94.4 Mean Platelet Volume 10.2 Monocytes # 0.8 Monocytes % 8.1 Neutrophils # 6.9 Neutrophils % 72.9 Nucleated Red Blood Cells # 0.0 Nucleated Red Blood Cells % 0.0 Platelet Count 341 Red Blood Count 3.72 L Red Cell Distribution Width 14.6 H White Blood Count 9.4 Anion Gap 14 Blood Urea Nitrogen 21 H Calcium Level 8.0 L Carbon Dioxide Level 24 Chloride Level 107 Creatinine 1.75 H Glucose Level 103 Potassium Level 3.6 Sodium Level 141 Test 07/03/16 08:11 07/03/16 11:15 Bedside Glucose 131 126 Medications Medications Current Medications Ondansetron HCl (Zofran Inj) 4 mg Q6H PRN IV NAUSEA AND/OR VOMITING; Start 06/18 at 23:30 Acetaminophen (Tylenol Tab) 650 mg Q6H PRN PO PAIN LEVEL 1-3 OR FEVER; Start at 23:30 Acetaminophen/ Hydrocodone Bitart ([place] (5/325)) 1 tab Q6H PRN PO MODERATE PAIN LEVEL 4-6; Start 06/18/16 at 23:30 Morphine Sulfate (morphine) 2 mg Q4H PRN IV SEVERE PAIN LEVEL 7-10 Last administered on 07/01/16 06:22; Admin Dose 2 MG; Start 06/18/16 at 23:30 Docusate Sodium (Colace) 100 mg Q12H PRN PO CONSTIPATION; Start 06/18/16 at 23: 30 Magnesium Hydroxide (Milk Of Mag) 30 ml DAILY PRN PO CONSTIPATION; Start at 23:30 Sodium Biphosphate/ Sodium Phosphate (Fleet Enema) 133 ml DAILY PRN [place] CONSTIPATION; Start 06/18/16 at 23:30 Heparin Sodium (Porcine) (Heparin (5000 Units/0.5 ml)) 5,000 unit Q12 SC Last administered on 07/03/16 08:16; Admin Dose 5,000 UNIT; Start 06/19/16 at 09:00 Lorazepam (Ativan) 0.5 mg Q6H PRN IV ANXIETY Last administered on 06/27/16 20: 23; Admin Dose 0.5 MG; Start 06/18/16 at 23:30 Hydralazine HCl (Apresoline) 10 mg Q6H PRN IV ELEVATED BLOOD PRESSURE; Start at 23:30 Nitroglycerin (Nitroglycerin (Sl Tab) 0.4 Mg) 1 tab Q5M PRN SL ANGINA; Start at 23:30 Aspirin (Aspirin) 81 mg DAILY NGT Last administered on 07/03/16 08:11; Admin Dose 81 MG; Start 06/19/16 at 20:00 Miscellaneous Information 1 ea NOTE XX ; Start 06/19/16 at 20:30 Glucose (Glutose) 15 gm Q15M PRN PO DECREASED GLUCOSE; Start 06/19/16 at 20:30 Glucose (Glutose) 22.5 gm Q15M PRN PO DECREASED GLUCOSE; Start 06/19/16 at 20:30 Dextrose (D50w Syringe) 25 ml Q15M PRN IV DECREASED GLUCOSE; Start 06/19/16 at 20:30 Dextrose (D50w Syringe) 50 ml Q15M PRN IV DECREASED GLUCOSE; Start 06/19/16 at 20:30 Glucagon (Glucagen) 1 mg Q15M PRN IM DECREASED GLUCOSE; Start 06/19/16 at 20:30 Glucose 15 gm 15 gm Q15M PRN BUCCAL DECREASED GLUCOSE; Start 06/19/16 at 20:30 Norepinephrine/ Dextrose (Levophed/D5W) 500 ml @ 1.87 mls/hr TITRATE IV Last administered on 06/20/16 16:49; Admin Dose 13.12 MLS/HR; Start 06/19/16 at 23:00 IV Flush 10 ml 10 ml PRN PRN IV IV PROTOCOL; Start 06/20/16 at 15:00 Midazolam HCl 50 ml @ 0 mls/hr TITRATE IV Last administered on 06/26/16 19:40 ; Admin Dose 5 MLS/HR; Start 06/24/16 at 11:00 Fentanyl (Sublimaze) 100 ml @ 2.5 mls/hr TITRATE IV Last administered on 06:14; Admin Dose 2 MLS/HR; Start 06/24/16 at 11:30 Nystatin (Nystatin Susp) 5 ml QID PO Last administered on 07/03/16 12:34; Admin Dose 5 ML; Start 06/24/16 at 13:00 Hydralazine HCl (Apresoline) 10 mg BID GTB Last administered on 07/03/16 08:11 ; Admin Dose 10 MG; Start 06/26/16 at 21:00 Lorazepam (Ativan) 1 mg Q2H PRN IV ANXIETY Last administered on 06/30/16 09:43 ; Admin Dose 1 MG; Start 06/28/16 at 00:00 Haloperidol (Haldol) 4 mg Q6H PRN IV AGITATION Last administered on 06/28/16 21:40; Admin Dose 4 MG; Start 06/28/16 at 14:30 Guaifenesin (Robitussin Liquid Cup) 100 mg Q4H PRN PO COUGH Last administered on 07/03/16 12:34; Admin Dose 100 MG; Start 06/29/16 at 18:00 Metoprolol Tartrate 25 mg 25 mg BID NGT Last administered on 07/03/16 08:12; Admin Dose 25 MG; Start 06/30/16 at 21:00 Dextrose (D5W) 1,000 ml @ 50 mls/hr Q20H IV Last administered on 07/02/16 15: 30; Admin Dose 50 MLS/HR; Start 07/01/16 at 12:30 Diagnostic Test (Pha) (Accucheck) 1 ea 02 XX ; Start 07/03/16 at 02:00 BALWINDER SANTOS NP Jul 03, 2016 14:47
--- NOTE | 2016-07-03 17:56 | PN ---
Date/Time of Note Date/Time of Note DATE: 07/03/16 TIME: 17:48 Assessment/Plan VTE Prophylaxis VTE Prophylaxis Intervention: other (eliquis) Lines/Catheters IV Catheter Type (from Nrs): PICC Line Urinary Cath still in place: Yes Assessment/Plan Chief Complaint/Hosp Course A/P 1) Septic Shock; resolved/ stable. off antibiotics. 2) CAP/aspiration? finished atb's. Video ordered 3) CHF -ac/chr systolic & diastolic; fairly compensated now. no acei for now 4) Ac renal failure/atn/ CKD; improved. sp lasix today 5) Dm/Htn/Dyslipidemia/ Obesity 6) CAD/ ho pci? 7) Past tobacco 8) COPD 9) PAF/flutter; on amiodarone/bb/added eliquis 10) Renal cyst; sp ct/ultz 11) False troponin 12) Anemia, stable 13) Dysphagia 14) Ftt/ may need snf. Problems: Subjective 24 Hr Interval Summary Free Text/Dictation awake, no distress. not walking. possible silent aspiration. Exam/Review of Systems Vital Signs Vitals Vital Signs Date Time Temp Pulse Resp B/P Pulse Ox O2 Delivery O2 Flow Rate FiO2 07/03/16 17:18 97.6 65 18 124/59 100 07/03/16 16:04 Nasal Cannula 3.0 06/30/16 04:46 28 Intake and Output 07/02/16 07/02/16 07/03/16 15:00 23:00 07:00 Intake Total 1200 ml 200 ml Output Total 1150 ml 550 ml Balance 50 ml -350 ml Exam Constitutional: alert Respiratory: clear to auscultation Cardiovascular: regular rate and rhythm Gastrointestinal: non-tender (nd; no r/r/g), soft Extremities: other (picc c/d/i) Results Result Diagram: 07/03/16 0635 07/03/16 0640 Results 24 hrs Laboratory Tests Test 07/02/16 21:12 07/03/16 06:35 07/03/16 06:40 07/03/16 08:11 Bedside Glucose 100 131 Basophils # 0.1 Basophils % 0.5 Eosinophils # 0.3 Eosinophils % 3.3 Hematocrit 35.1 L Hemoglobin 11.0 L Lymphocytes # 1.4 Lymphocytes % 14.4 L Mean Corpuscular Hemoglobin 29.6 Mean Corpuscular Hemoglobin Concent 31.3 L Mean Corpuscular Volume 94.4 Mean Platelet Volume 10.2 Monocytes # 0.8 Monocytes % 8.1 Neutrophils # 6.9 Neutrophils % 72.9 Nucleated Red Blood Cells # 0.0 Nucleated Red Blood Cells % 0.0 Platelet Count 341 Red Blood Count 3.72 L Red Cell Distribution Width 14.6 H White Blood Count 9.4 Anion Gap 14 Blood Urea Nitrogen 21 H Calcium Level 8.0 L Carbon Dioxide Level 24 Chloride Level 107 Creatinine 1.75 H Glucose Level 103 Potassium Level 3.6 Sodium Level 141 Test 07/03/16 11:15 Bedside Glucose 126 Medications Medications Current Medications Ondansetron HCl (Zofran Inj) 4 mg Q6H PRN IV NAUSEA AND/OR VOMITING; Start 06/18 at 23:30 Acetaminophen (Tylenol Tab) 650 mg Q6H PRN PO PAIN LEVEL 1-3 OR FEVER; Start at 23:30 Acetaminophen/ Hydrocodone Bitart ([place] (5/325)) 1 tab Q6H PRN PO MODERATE PAIN LEVEL 4-6; Start 06/18/16 at 23:30 Morphine Sulfate (morphine) 2 mg Q4H PRN IV SEVERE PAIN LEVEL 7-10 Last administered on 07/01/16 06:22; Admin Dose 2 MG; Start 06/18/16 at 23:30 Docusate Sodium (Colace) 100 mg Q12H PRN PO CONSTIPATION; Start 06/18/16 at 23: 30 Magnesium Hydroxide (Milk Of Mag) 30 ml DAILY PRN PO CONSTIPATION; Start at 23:30 Sodium Biphosphate/ Sodium Phosphate (Fleet Enema) 133 ml DAILY PRN [place] CONSTIPATION; Start 06/18/16 at 23:30 Lorazepam (Ativan) 0.5 mg Q6H PRN IV ANXIETY Last administered on 06/27/16t 20: 23; Admin Dose 0.5 MG; Start 06/18/16 at 23:30 Hydralazine HCl (Apresoline) 10 mg Q6H PRN IV ELEVATED BLOOD PRESSURE; Start at 23:30 Nitroglycerin (Nitroglycerin (Sl Tab) 0.4 Mg) 1 tab Q5M PRN [place] ANGINA; Start at 23:30 Aspirin (Aspirin) 81 mg DAILY NGT Last administered on 07/03/16 08:11; Admin Dose 81 MG; Start 06/19/16 at 20:00 Miscellaneous Information 1 ea NOTE XX ; Start 06/19/16 at 20:30 Glucose (Glutose) 15 gm Q15M PRN PO DECREASED GLUCOSE; Start 06/19/16 at 20:30 Glucose (Glutose) 22.5 gm Q15M PRN PO DECREASED GLUCOSE; Start 06/19/16 at 20:30 Dextrose (D50w Syringe) 25 ml Q15M PRN IV DECREASED GLUCOSE; Start 06/19/16 at 20:30 Dextrose (D50w Syringe) 50 ml Q15M PRN IV DECREASED GLUCOSE; Start 06/19/16 at 20:30 Glucagon (Glucagen) 1 mg Q15M PRN IM DECREASED GLUCOSE; Start 06/19/16 at 20:30 Glucose (Glutose) 15 gm Q15M PRN BUCCAL DECREASED GLUCOSE; Start 06/19/16 at 20: 30 IV Flush (NS 10 ml) 10 ml PRN PRN IV IV PROTOCOL; Start 06/20/16 at 15:00 Nystatin (Nystatin Susp) 5 ml QID PO Last administered on 07/03/16 12:34; Admin Dose 5 ML; Start 06/24/16 at 13:00 Hydralazine HCl (Apresoline) 10 mg BID GTB Last administered on 07/03/16 08:11 ; Admin Dose 10 MG; Start 06/26/16 at 21:00 Lorazepam (Ativan) 1 mg Q2H PRN IV ANXIETY Last administered on 06/30/16 09:43 ; Admin Dose 1 MG; Start 06/28/16 at 00:00 Haloperidol (Haldol) 4 mg Q6H PRN IV AGITATION Last administered on 06/28/16 21:40; Admin Dose 4 MG; Start 06/28/16 at 14:30 Guaifenesin (Robitussin Liquid Cup) 100 mg Q4H PRN PO COUGH Last administered on 07/03/16 12:34; Admin Dose 100 MG; Start 06/29/16 at 18:00 Metoprolol Tartrate (Lopressor) 25 mg BID NGT Last administered on 07/03/16 08 :12; Admin Dose 25 MG; Start 06/30/16 at 21:00 Diagnostic Test (Pha) (Accucheck) 1 ea 02 XX ; Start 07/03/16 at 02:00 Apixaban (Eliquis) 5 mg BID PO ; Start 07/03/16 at 21:00 PATRICIA BOWMAN MD Jul 03, 2016 17:56
[2016-07-03] MEDS ORDERED: GUAIFENESIN/DM 5ML CUP PO PRN (18:00)
[2016-07-03] MEDS ORDERED: ALBUTEROL HFA 8 GM INHALER INH PRN (18:00)
[2016-07-03] MEDS: DUTASTERIDE 0.5 MG CAP PO SCH (20:00)
[2016-07-03] MEDS: SENNA/DOCUSATE NA (8.6MG/50MG) TAB PO SCH (20:51)
[2016-07-03] MEDS: APIXABAN 5 MG TABLET PO SCH (20:52)
[2016-07-04] MEDS: ALBUTEROL/IPRATROPIUM (NEB) 3 ML AMP HHN SCH ×3 (00:33→15:36)
[2016-07-04] MEDS: ACCU-CHEK XX SCH (02:00)
[2016-07-04 04:00] VITALS: BP 109/57; RESP 16
[2016-07-04 06:12] LABS: AADO2 Arterial 59.2 mmHg (7.0-24.0); Allen Test ACCEPTAB; Arterial Base Excess -0.3 mmol/L (-3.0-3); Arterial COHb 0.3 % (0.0-3.0); Arterial Fraction of Oxyhgb 97.2 % (93.0-99.0); Arterial HCO3 22.9 mmol/L (22.0-26.0); Arterial MetHb 0.3 % (0.0-1.5); Arterial Total Hemglobin 14.1 g/dl (12.0-18.0); MODE NASAL CANNULA
[2016-07-04 07:22] VITALS: BP 131/60; RESP 18
[2016-07-04 07:32] LABS: ADD SCAN DIFF NO
[2016-07-04 07:54] LABS: ALBUMIN 2.9 g/dl (3.3-4.9); MAGNESIUM 1.8 mg/dl (1.7-2.5); PHOSPHORUS 4.7 mg/dl (2.5-4.9); POTASSIUM 3.6 mmol/L (3.5-5.1)
[2016-07-04 07:55] LABS: BASOPHILS % 0.4 % (0.0-2.0); EOSINOPHILS # 0.3 10^3/ul (0.0-0.5); HEMATOCRIT 36.2 % (42.0-52.0); HEMOGLOBIN 11.5 g/dl (14.0-18.0); LYMPHOCYTES # 1.3 10^3/ul (0.8-2.9); LYMPHOCYTES % 14.6 % (15.0-51.0); MEAN CORPUSCULAR HEMOGLOBIN 29.9 pg (29.0-33.0); MEAN CORPUSCULAR HGB CONC 31.8 g/dl (32.0-37.0); MEAN PLATELET VOLUME 10.2 fl (7.4-10.4); MONOCYTE # 0.7 10^3/ul (0.3-0.9); NEUTROPHIL # 6.5 10^3/ul (1.6-7.5); NEUTROPHILS % 72.8 % (39.0-77.0); PLATELET COUNT 315 10^3/UL (140-415); RED BLOOD COUNT 3.85 10^6/ul (4.70-6.10); RED CELL DISTRIBUTION WIDTH 14.4 % (11.5-14.5); WHITE BLOOD COUNT 8.9 10^3/ul (4.8-10.8)
[2016-07-04] MEDS: INSULIN ASPART [NOVOLOG] 3 ML PEN SC SCH ×4 (07:55→21:00)
[2016-07-04 07:56] LABS: BILIRUBIN,INDIRECT 0.2 mg/dl (0-1.1); BILIRUBIN,TOTAL 0.2 mg/dl (0.2-1.3); CREATININE 1.74 mg/dl (0.61-1.24)
[2016-07-04 07:57] LABS: ALBUMIN/GLOBULIN RATIO 0.85; TOTAL PROTEIN 6.3 g/dl (6.1-8.1)
[2016-07-04] MEDS: SOD CHLORIDE 0.9% 1,000 ML IV SCH ×2 (08:00→21:25)
[2016-07-04 08:29] LABS: INR 1.25; PROTIME 15.8 Sec (12.2-14.2); PT RATIO 1.2
[2016-07-04 08:30] LABS: PARTIAL THROMBOPLASTIN TIME 31.3 Sec (25.0-35.0)
[2016-07-04] MEDS: GUAIFENESIN 20 MG/ML 5ML CUP PO PRN (08:32)
[2016-07-04] MEDS: NYSTATIN SUSP 5 ML CUP PO SCH ×4 (08:34→21:12)
[2016-07-04] MEDS: ASPIRIN 81 MG TAB NGT SCH (08:34)
[2016-07-04] MEDS: DUTASTERIDE 0.5 MG CAP PO SCH (08:34)
[2016-07-04] MEDS: APIXABAN 5 MG TABLET PO SCH ×2 (08:34→21:12)
[2016-07-04] MEDS: METOPROLOL 25 MG TAB NGT SCH ×2 (08:35→21:14)
--- NOTE | 2016-07-04 11:33 | CONS ---
Date/Time of Note Date/Time of Note DATE: 07/04/16 TIME: 11:31 Assessment/Plan Assessment/Plan Additional Assessment/Plan 1. Acute kidney injury, likely secondary to acute tubular necrosis from septic shock and also contributing to liver shock due to the acute kidney injury 2. Sepsis with lactic acidosis, likely secondary to pneumonia. 3. Right upper lobe pneumonia. 4. Acute respiratory failure, vent dependent secondary to septic shock. 5. Acute on chronic congestive heart failure exacerbation, systolic and diastolic. 6. History of hypertension. 7. History of type 2 diabetes mellitus. 8. History of anemia of chronic disease. 9. History of dyslipidemia. PLAN: Makign good urine ouput, Cr stable 1.7 ,electrolytes normal today -s/p spot dose of lasix yesterday will follow up close resp monitoring Consultation Date/Type/Reason Admit Date/Time Jun 18, 2016 at 21:36 Initial Consult Date 06/21/16 Type of Consultation: NEPHROLOGY Reason for Consultation acute kidney injury, Referring Provider: CHITRA ESTEBAN 24 HR Interval Summary Free Text/Dictation Cr 1.7, Na stable, doing ok, less SOB Exam/Review of Systems Vital Signs Vitals Vital Signs Date Time Temp Pulse Resp B/P Pulse Ox O2 Delivery O2 Flow Rate FiO2 07/04/16 08:06 69 20 96 Nasal Cannula 3.0 07/04/16 07:22 98.2 131/60 Intake and Output 07/03/16 07/03/16 07/04/16 15:00 23:00 07:00 Intake Total 750 ml 400 ml Output Total 1600 ml 700 ml Balance -850 ml -300 ml Exam pt awake, alert, less SOB Constitutional: alert Head: normocephalic Neck: supple Respiratory: bibasilar crackles, no wheezing Cardiovascular: other (S1-S2 heard), regular rate and rhythm Gastrointestinal: bowel sounds, non-tender, other (No guarding), soft Extremities: edema, other (No cyanosis) Results Result Diagram: 07/04/16 0645 07/04/16 0645 Results 24 hrs Laboratory Tests Test 07/03/16 17:47 07/03/16 20:56 07/04/16 05:00 07/04/16 06:45 Bedside Glucose 116 109 Arterial Blood HCO3 22.9 Arterial Blood Base Excess -0.3 Arterial Blood Oxygen Saturation 97.8 Burak Test ACCEPTAB Arterial Blood Gas Puncture Site Right Radial Arterial Blood Carboxyhemoglobin 0.3 Arterial Blood Date Drawn 07/04/2016 5:04:24 AM Arterial Blood Methemoglobin 0.3 Arterial Blood pCO2 (Temp correct) 33.6 L Arterial Blood pH (Temp corrected) 7.452 H Arterial Blood pO2 (Temp corrected) 115.2 H Blood Gas A-a O2 Differential 59.2 H Blood Gas Modality NASAL CANNULA Blood Gas Notified Time 07/04/2016 5:10:56 AM Blood Gas Notified Whom BR Blood Gas Specimen Source Blood arterial Blood Gas Temperature 37.0 FiO2 30.0 Oxyhemoglobin Percent 97.2 Total Hemoglobin 14.1 Activated Partial Thromboplast Time 31.3 Alanine Aminotransferase (ALT/SGPT) 68 Albumin 2.9 L Albumin/Globulin Ratio 0.85 Alkaline Phosphatase 76 Anion Gap 16 Aspartate Amino Transf (AST/SGOT) 60 H Basophils # 0.0 Basophils % 0.4 Blood Urea Nitrogen 22 H Calcium Level 8.0 L Carbon Dioxide Level 23 Chloride Level 107 Creatinine 1.74 H Direct Bilirubin 0.00 Eosinophils # 0.3 Eosinophils % 3.0 Globulin 3.40 H Glucose Level 95 Hematocrit 36.2 L Hemoglobin 11.5 L INR International Normalized Ratio 1.25 Indirect Bilirubin 0.2 Lymphocytes # 1.3 Lymphocytes % 14.6 L Magnesium Level 1.8 Mean Corpuscular Hemoglobin 29.9 Mean Corpuscular Hemoglobin Concent 31.8 L Mean Corpuscular Volume 94.0 Mean Platelet Volume 10.2 Monocytes # 0.7 Monocytes % 8.0 Neutrophils # 6.5 Neutrophils % 72.8 Nucleated Red Blood Cells # 0.0 Nucleated Red Blood Cells % 0.0 Phosphorus Level 4.7 Platelet Count 315 Potassium Level 3.6 Prothrombin Time 15.8 H Prothrombin Time Ratio 1.2 Red Blood Count 3.85 L Red Cell Distribution Width 14.4 Sodium Level 142 Total Bilirubin 0.2 Total Protein 6.3 White Blood Count 8.9 Test 07/04/16 08:28 Bedside Glucose 112 Medications Medications Current Medications Ondansetron HCl (Zofran Inj) 4 mg Q6H PRN IV NAUSEA AND/OR VOMITING; Start 06/18 at 23:30 Acetaminophen (Tylenol Tab) 650 mg Q6H PRN PO PAIN LEVEL 1-3 OR FEVER; Start at 23:30 Acetaminophen/ Hydrocodone Bitart ([place] (5/325)) 1 tab Q6H PRN PO MODERATE PAIN LEVEL 4-6; Start 06/18/16 at 23:30 Morphine Sulfate (morphine) 2 mg Q4H PRN IV SEVERE PAIN LEVEL 7-10 Last administered on 07/01/16 06:22; Admin Dose 2 MG; Start 06/18/16 at 23:30 Docusate Sodium (Colace) 100 mg Q12H PRN PO CONSTIPATION; Start 06/18/16 at 23: 30 Magnesium Hydroxide (Milk Of Mag) 30 ml DAILY PRN PO CONSTIPATION; Start at 23:30 Sodium Biphosphate/ Sodium Phosphate (Fleet Enema) 133 ml DAILY PRN [place] CONSTIPATION; Start 06/18/16 at 23:30 Lorazepam (Ativan) 0.5 mg Q6H PRN IV ANXIETY Last administered on 06/27/16 20: 23; Admin Dose 0.5 MG; Start 06/18/16 at 23:30 Hydralazine HCl (Apresoline) 10 mg Q6H PRN IV ELEVATED BLOOD PRESSURE; Start at 23:30 Nitroglycerin (Nitroglycerin (Sl Tab) 0.4 Mg) 1 tab Q5M PRN SL ANGINA; Start at 23:30 Aspirin (Aspirin) 81 mg DAILY NGT Last administered on 07/04/16 08:34; Admin Dose 81 MG; Start 06/19/16 at 20:00 Miscellaneous Information 1 ea NOTE XX ; Start 06/19/16 at 20:30 Glucose (Glutose) 15 gm Q15M PRN PO DECREASED GLUCOSE; Start 06/19/16 at 20:30 Glucose (Glutose) 22.5 gm Q15M PRN PO DECREASED GLUCOSE; Start 06/19/16 at 20:30 Dextrose (D50w Syringe) 25 ml Q15M PRN IV DECREASED GLUCOSE; Start 06/19/16 at 20:30 Dextrose (D50w Syringe) 50 ml Q15M PRN IV DECREASED GLUCOSE; Start 06/19/16 at 20:30 Glucagon (Glucagen) 1 mg Q15M PRN IM DECREASED GLUCOSE; Start 06/19/16 at 20:30 Glucose (Glutose) 15 gm Q15M PRN BUCCAL DECREASED GLUCOSE; Start 06/19/16 at 20: 30 IV Flush (NS 10 ml) 10 ml PRN PRN IV IV PROTOCOL; Start 06/20/16 at 15:00 Nystatin (Nystatin Susp) 5 ml QID PO Last administered on 07/04/16 08:34; Admin Dose 5 ML; Start 06/24/16 at 13:00 Hydralazine HCl (Apresoline) 10 mg BID GTB Last administered on 07/04/16 08:35 ; Admin Dose 10 MG; Start 06/26/16 at 21:00 Lorazepam (Ativan) 1 mg Q2H PRN IV ANXIETY Last administered on 06/30/16 09:43 ; Admin Dose 1 MG; Start 06/28/16 at 00:00 Haloperidol (Haldol) 4 mg Q6H PRN IV AGITATION Last administered on 06/28/16 21:40; Admin Dose 4 MG; Start 06/28/16 at 14:30 Guaifenesin (Robitussin Liquid Cup) 100 mg Q4H PRN PO COUGH Last administered on 07/04/16 08:32; Admin Dose 100 MG; Start 06/29/16 at 18:00 Metoprolol Tartrate (Lopressor) 25 mg BID NGT Last administered on 07/04/16 08 :35; Admin Dose 25 MG; Start 06/30/16 at 21:00 Diagnostic Test (Pha) (Accucheck) 1 ea 02 XX ; Start 07/03/16 at 02:00 Apixaban (Eliquis) 5 mg BID PO Last administered on 07/04/16 08:34; Admin Dose 5 MG; Start 07/03/16 at 21:00 Dutasteride (Avodart) 0.5 mg DAILY PO Last administered on 07/04/16 08:34; Admin Dose 0.5 MG; Start 07/03/16 at 20:00 Senna/Docusate Sodium (Senokot-S) 2 tab HS PO Last administered on 07/03/16 20 :51; Admin Dose 2 TAB; Start 07/03/16 at 21:00 Guaifenesin/ Dextromethorphan (Robitussin Dm Liquid Cup) 10 ml Q4H PRN PO COUGH ; Start 07/03/16 at 18:00 SHANNAN MAYEN MD Jul 04, 2016 11:32
[2016-07-04 11:49] VITALS: BP 120/58; RESP 19
[2016-07-04] MEDS ORDERED: BARIUM SULFATE 135 ML (E-Z HD) PO ONE (14:10)
--- NOTE | 2016-07-04 15:00 | CONS ---
Date/Time of Note Date/Time of Note DATE: 07/04/16 TIME: 14:59 Assessment/Plan Assessment/Plan Chief Complaint/Hosp Course SUBJECTIVE: No acute changes overnight. Alert, feels good. No fevers. INDWELLINGS: Ramsey catheter, PICC line placed on 06/20/2016. PHYSICAL EXAMINATION: GENERAL: This is an obese, well-developed, fragile, elderly man who is lying comfortably in bed. HEENT: Head atraumatic, normocephalic. Sclerae anicteric. Buccal mucosa dry. NECK: Supple, trachea midline. CHEST: Rise symmetrical. Breath sounds with B exp wheezes. HEART: S1, S2. ABDOMEN: Soft. Bowel sounds present. EXTREMITIES: Without cyanosis. ASSESSMENT: 1. S/p sepsis with shock. 2. S/p pneumonia 3. S/p acute respiratory failure, status post extubated. 4. Acute on chronic kidney disease. 5. Diabetes. 6. Congestive heart failure exacerbation. PLAN: Remains stable off abx DW staff Problems: Consultation Date/Type/Reason Admit Date/Time Jun 18, 2016 at 21:36 Initial Consult Date 06/19/16 Type of Consultation: id Referring Provider: CHITRA ESTEBAN Exam/Review of Systems Vital Signs Vitals Vital Signs Date Time Temp Pulse Resp B/P Pulse Ox O2 Delivery O2 Flow Rate FiO2 07/04/16 11:49 98.1 58 19 120/58 98 07/04/16 08:06 Nasal Cannula 3.0 Intake and Output 07/03/16 07/03/16 07/04/16 15:00 23:00 07:00 Intake Total 750 ml 400 ml Output Total 1600 ml 700 ml Balance -850 ml -300 ml Results Result Diagram: 07/04/16 0645 07/04/16 0645 Results 24 hrs Laboratory Tests Test 07/03/16 17:47 07/03/16 20:56 07/04/16 05:00 07/04/16 06:45 Bedside Glucose 116 109 Arterial Blood HCO3 22.9 Arterial Blood Base Excess -0.3 Arterial Blood Oxygen Saturation 97.8 Burak Test ACCEPTAB Arterial Blood Gas Puncture Site Right Radial Arterial Blood Carboxyhemoglobin 0.3 Arterial Blood Date Drawn 07/04/2016 5:04:24 AM Arterial Blood Methemoglobin 0.3 Arterial Blood pCO2 (Temp correct) 33.6 L Arterial Blood pH (Temp corrected) 7.452 H Arterial Blood pO2 (Temp corrected) 115.2 H Blood Gas A-a O2 Differential 59.2 H Blood Gas Modality NASAL CANNULA Blood Gas Notified Time 07/04/2016 5:10:56 AM Blood Gas Notified Whom BR Blood Gas Specimen Source Blood arterial Blood Gas Temperature 37.0 FiO2 30.0 Oxyhemoglobin Percent 97.2 Total Hemoglobin 14.1 Activated Partial Thromboplast Time 31.3 Alanine Aminotransferase (ALT/SGPT) 68 Albumin 2.9 L Albumin/Globulin Ratio 0.85 Alkaline Phosphatase 76 Anion Gap 16 Aspartate Amino Transf (AST/SGOT) 60 H Basophils # 0.0 Basophils % 0.4 Blood Urea Nitrogen 22 H Calcium Level 8.0 L Carbon Dioxide Level 23 Chloride Level 107 Creatinine 1.74 H Direct Bilirubin 0.00 Eosinophils # 0.3 Eosinophils % 3.0 Globulin 3.40 H Glucose Level 95 Hematocrit 36.2 L Hemoglobin 11.5 L INR International Normalized Ratio 1.25 Indirect Bilirubin 0.2 Lymphocytes # 1.3 Lymphocytes % 14.6 L Magnesium Level 1.8 Mean Corpuscular Hemoglobin 29.9 Mean Corpuscular Hemoglobin Concent 31.8 L Mean Corpuscular Volume 94.0 Mean Platelet Volume 10.2 Monocytes # 0.7 Monocytes % 8.0 Neutrophils # 6.5 Neutrophils % 72.8 Nucleated Red Blood Cells # 0.0 Nucleated Red Blood Cells % 0.0 Phosphorus Level 4.7 Platelet Count 315 Potassium Level 3.6 Prothrombin Time 15.8 H Prothrombin Time Ratio 1.2 Red Blood Count 3.85 L Red Cell Distribution Width 14.4 Sodium Level 142 Total Bilirubin 0.2 Total Protein 6.3 White Blood Count 8.9 Test 07/04/16 08:28 07/04/16 12:46 Bedside Glucose 112 108 Medications Medications Current Medications Ondansetron HCl (Zofran Inj) 4 mg Q6H PRN IV NAUSEA AND/OR VOMITING; Start 06/18 at 23:30 Acetaminophen (Tylenol Tab) 650 mg Q6H PRN PO PAIN LEVEL 1-3 OR FEVER; Start at 23:30 Acetaminophen/ Hydrocodone Bitart ([place] (5/325)) 1 tab Q6H PRN PO MODERATE PAIN LEVEL 4-6; Start 06/18/16 at 23:30 Morphine Sulfate (morphine) 2 mg Q4H PRN IV SEVERE PAIN LEVEL 7-10 Last administered on 07/01/16 06:22; Admin Dose 2 MG; Start 06/18/16 at 23:30 Docusate Sodium (Colace) 100 mg Q12H PRN PO CONSTIPATION; Start 06/18/16 at 23: 30 Magnesium Hydroxide (Milk Of Mag) 30 ml DAILY PRN PO CONSTIPATION; Start at 23:30 Sodium Biphosphate/ Sodium Phosphate (Fleet Enema) 133 ml DAILY PRN [place] CONSTIPATION; Start 06/18/16 at 23:30 Lorazepam (Ativan) 0.5 mg Q6H PRN IV ANXIETY Last administered on 06/27/16 20: 23; Admin Dose 0.5 MG; Start 06/18/16 at 23:30 Hydralazine HCl (Apresoline) 10 mg Q6H PRN IV ELEVATED BLOOD PRESSURE; Start at 23:30 Nitroglycerin (Nitroglycerin (Sl Tab) 0.4 Mg) 1 tab Q5M PRN SL ANGINA; Start at 23:30 Aspirin (Aspirin) 81 mg DAILY NGT Last administered on 07/04/16 08:34; Admin Dose 81 MG; Start 06/19/16 at 20:00 Miscellaneous Information 1 ea NOTE XX ; Start 06/19/16 at 20:30 Glucose (Glutose) 15 gm Q15M PRN PO DECREASED GLUCOSE; Start 06/19/16 at 20:30 Glucose (Glutose) 22.5 gm Q15M PRN PO DECREASED GLUCOSE; Start 06/19/16 at 20:30 Dextrose (D50w Syringe) 25 ml Q15M PRN IV DECREASED GLUCOSE; Start 06/19/16 at 20:30 Dextrose (D50w Syringe) 50 ml Q15M PRN IV DECREASED GLUCOSE; Start 06/19/16 at 20:30 Glucagon (Glucagen) 1 mg Q15M PRN IM DECREASED GLUCOSE; Start 06/19/16 at 20:30 Glucose (Glutose) 15 gm Q15M PRN BUCCAL DECREASED GLUCOSE; Start 06/19/16 at 20: 30 IV Flush (NS 10 ml) 10 ml PRN PRN IV IV PROTOCOL; Start 06/20/16 at 15:00 Nystatin (Nystatin Susp) 5 ml QID PO Last administered on 07/04/16 08:34; Admin Dose 5 ML; Start 06/24/16 at 13:00 Hydralazine HCl (Apresoline) 10 mg BID GTB Last administered on 07/04/16 08:35 ; Admin Dose 10 MG; Start 06/26/16 at 21:00 Lorazepam (Ativan) 1 mg Q2H PRN IV ANXIETY Last administered on 06/30/16 09:43 ; Admin Dose 1 MG; Start 06/28/16 at 00:00 Haloperidol (Haldol) 4 mg Q6H PRN IV AGITATION Last administered on 06/28/16 21:40; Admin Dose 4 MG; Start 06/28/16 at 14:30 Guaifenesin (Robitussin Liquid Cup) 100 mg Q4H PRN PO COUGH Last administered on 07/04/16 08:32; Admin Dose 100 MG; Start 06/29/16 at 18:00 Metoprolol Tartrate (Lopressor) 25 mg BID NGT Last administered on 07/04/16 08 :35; Admin Dose 25 MG; Start 06/30/16 at 21:00 Diagnostic Test (Pha) (Accucheck) 1 ea 02 XX ; Start 07/03/16 at 02:00 Apixaban (Eliquis) 5 mg BID PO Last administered on 07/04/16 08:34; Admin Dose 5 MG; Start 07/03/16 at 21:00 Dutasteride (Avodart) 0.5 mg DAILY PO Last administered on 07/04/16 08:34; Admin Dose 0.5 MG; Start 07/03/16 at 20:00 Senna/Docusate Sodium (Senokot-S) 2 tab HS PO Last administered on 07/03/16 20 :51; Admin Dose 2 TAB; Start 07/03/16 at 21:00 Guaifenesin/ Dextromethorphan (Robitussin Dm Liquid Cup) 10 ml Q4H PRN PO COUGH ; Start 07/03/16 at 18:00 BALWINDER SANTOS NP Jul 04, 2016 15:00
--- NOTE | 2016-07-04 15:17 | CONS ---
Date/Time of Note Date/Time of Note DATE: 07/03/16 TIME: 15:16 Assessment/Plan Assessment/Plan Additional Assessment/Plan Respiratory failure status post extubation Pneumonia Septic shock Acute decompensated systolic and diastolic congestive heart failure Cardiomyopathy with ejection fraction 50% CAD Paroxysmal atrial flutter, currently sinus rhythm -Patient remains in sinus rhythm, blood pressure trend overall remained stable. Diuretics and fluid management as per our nephrology colleagues. Consultation Date/Type/Reason Admit Date/Time Jun 18, 2016 at 21:36 Initial Consult Date 06/19/16 Type of Consultation: cv Referring Provider: CHITRA ESTEBAN 24 HR Interval Summary Free Text/Dictation Denies shortness of breath, dizziness or palpitations Exam/Review of Systems Vital Signs Vitals Vital Signs Date Time Temp Pulse Resp B/P Pulse Ox O2 Delivery O2 Flow Rate FiO2 07/04/16 11:49 98.1 58 19 120/58 98 07/04/16 08:06 Nasal Cannula 3.0 Intake and Output 07/03/16 07/03/16 07/04/16 15:00 23:00 07:00 Intake Total 750 ml 400 ml Output Total 1600 ml 700 ml Balance -850 ml -300 ml Exam Constitutional: alert, oriented Head: normocephalic Neck: supple Respiratory: other (Coarse breath sounds bilaterally, no wheezing) Cardiovascular: other (S1-S2 heard), regular rate and rhythm Gastrointestinal: bowel sounds, non-tender, other (No guarding), soft Extremities: edema (Trace), other (No cyanosis) Results Result Diagram: 07/04/16 0645 07/04/16 0645 Results 24 hrs Laboratory Tests Test 07/03/16 17:47 07/03/16 20:56 07/04/16 05:00 07/04/16 06:45 Bedside Glucose 116 109 Arterial Blood HCO3 22.9 Arterial Blood Base Excess -0.3 Arterial Blood Oxygen Saturation 97.8 Burak Test ACCEPTAB Arterial Blood Gas Puncture Site Right Radial Arterial Blood Carboxyhemoglobin 0.3 Arterial Blood Date Drawn 07/04/2016 5:04:24 AM Arterial Blood Methemoglobin 0.3 Arterial Blood pCO2 (Temp correct) 33.6 L Arterial Blood pH (Temp corrected) 7.452 H Arterial Blood pO2 (Temp corrected) 115.2 H Blood Gas A-a O2 Differential 59.2 H Blood Gas Modality NASAL CANNULA Blood Gas Notified Time 07/04/2016 5:10:56 AM Blood Gas Notified Whom BR Blood Gas Specimen Source Blood arterial Blood Gas Temperature 37.0 FiO2 30.0 Oxyhemoglobin Percent 97.2 Total Hemoglobin 14.1 Activated Partial Thromboplast Time 31.3 Alanine Aminotransferase (ALT/SGPT) 68 Albumin 2.9 L Albumin/Globulin Ratio 0.85 Alkaline Phosphatase 76 Anion Gap 16 Aspartate Amino Transf (AST/SGOT) 60 H Basophils # 0.0 Basophils % 0.4 Blood Urea Nitrogen 22 H Calcium Level 8.0 L Carbon Dioxide Level 23 Chloride Level 107 Creatinine 1.74 H Direct Bilirubin 0.00 Eosinophils # 0.3 Eosinophils % 3.0 Globulin 3.40 H Glucose Level 95 Hematocrit 36.2 L Hemoglobin 11.5 L INR International Normalized Ratio 1.25 Indirect Bilirubin 0.2 Lymphocytes # 1.3 Lymphocytes % 14.6 L Magnesium Level 1.8 Mean Corpuscular Hemoglobin 29.9 Mean Corpuscular Hemoglobin Concent 31.8 L Mean Corpuscular Volume 94.0 Mean Platelet Volume 10.2 Monocytes # 0.7 Monocytes % 8.0 Neutrophils # 6.5 Neutrophils % 72.8 Nucleated Red Blood Cells # 0.0 Nucleated Red Blood Cells % 0.0 Phosphorus Level 4.7 Platelet Count 315 Potassium Level 3.6 Prothrombin Time 15.8 H Prothrombin Time Ratio 1.2 Red Blood Count 3.85 L Red Cell Distribution Width 14.4 Sodium Level 142 Total Bilirubin 0.2 Total Protein 6.3 White Blood Count 8.9 Test 07/04/16 08:28 07/04/16 12:46 Bedside Glucose 112 108 Medications Medications Current Medications Ondansetron HCl (Zofran Inj) 4 mg Q6H PRN IV NAUSEA AND/OR VOMITING; Start 06/18 at 23:30 Acetaminophen (Tylenol Tab) 650 mg Q6H PRN PO PAIN LEVEL 1-3 OR FEVER; Start at 23:30 Acetaminophen/ Hydrocodone Bitart ([place] (5/325)) 1 tab Q6H PRN PO MODERATE PAIN LEVEL 4-6; Start 06/18/16 at 23:30 Morphine Sulfate (morphine) 2 mg Q4H PRN IV SEVERE PAIN LEVEL 7-10 Last administered on 07/01/16t 06:22; Admin Dose 2 MG; Start 06/18/16 at 23:30 Docusate Sodium (Colace) 100 mg Q12H PRN PO CONSTIPATION; Start 06/18/16 at 23: 30 Magnesium Hydroxide (Milk Of Mag) 30 ml DAILY PRN PO CONSTIPATION; Start at 23:30 Sodium Biphosphate/ Sodium Phosphate (Fleet Enema) 133 ml DAILY PRN [place] CONSTIPATION; Start 06/18/16 at 23:30 Lorazepam (Ativan) 0.5 mg Q6H PRN IV ANXIETY Last administered on 06/27/16 20: 23; Admin Dose 0.5 MG; Start 06/18/16 at 23:30 Hydralazine HCl (Apresoline) 10 mg Q6H PRN IV ELEVATED BLOOD PRESSURE; Start at 23:30 Nitroglycerin (Nitroglycerin (Sl Tab) 0.4 Mg) 1 tab Q5M PRN SL ANGINA; Start at 23:30 Aspirin (Aspirin) 81 mg DAILY NGT Last administered on 07/04/16 08:34; Admin Dose 81 MG; Start 06/19/16 at 20:00 Miscellaneous Information 1 ea NOTE XX ; Start 06/19/16 at 20:30 Glucose (Glutose) 15 gm Q15M PRN PO DECREASED GLUCOSE; Start 06/19/16 at 20:30 Glucose (Glutose) 22.5 gm Q15M PRN PO DECREASED GLUCOSE; Start 06/19/16 at 20:30 Dextrose (D50w Syringe) 25 ml Q15M PRN IV DECREASED GLUCOSE; Start 06/19/16 at 20:30 Dextrose (D50w Syringe) 50 ml Q15M PRN IV DECREASED GLUCOSE; Start 06/19/16 at 20:30 Glucagon (Glucagen) 1 mg Q15M PRN IM DECREASED GLUCOSE; Start 06/19/16 at 20:30 Glucose (Glutose) 15 gm Q15M PRN BUCCAL DECREASED GLUCOSE; Start 06/19/16 at 20: 30 IV Flush (NS 10 ml) 10 ml PRN PRN IV IV PROTOCOL; Start 06/20/16 at 15:00 Nystatin (Nystatin Susp) 5 ml QID PO Last administered on 07/04/16 08:34; Admin Dose 5 ML; Start 06/24/16 at 13:00 Hydralazine HCl (Apresoline) 10 mg BID GTB Last administered on 07/04/16 08:35 ; Admin Dose 10 MG; Start 06/26/16 at 21:00 Lorazepam (Ativan) 1 mg Q2H PRN IV ANXIETY Last administered on 06/30/16 09:43 ; Admin Dose 1 MG; Start 06/28/16 at 00:00 Haloperidol (Haldol) 4 mg Q6H PRN IV AGITATION Last administered on 06/28/16 21:40; Admin Dose 4 MG; Start 06/28/16 at 14:30 Guaifenesin (Robitussin Liquid Cup) 100 mg Q4H PRN PO COUGH Last administered on 07/04/16 08:32; Admin Dose 100 MG; Start 06/29/16 at 18:00 Metoprolol Tartrate (Lopressor) 25 mg BID NGT Last administered on 07/04/16 08 :35; Admin Dose 25 MG; Start 06/30/16 at 21:00 Diagnostic Test (Pha) (Accucheck) 1 ea 02 XX ; Start 07/03/16 at 02:00 Apixaban (Eliquis) 5 mg BID PO Last administered on 07/04/16 08:34; Admin Dose 5 MG; Start 07/03/16 at 21:00 Dutasteride (Avodart) 0.5 mg DAILY PO Last administered on 07/04/16 08:34; Admin Dose 0.5 MG; Start 07/03/16 at 20:00 Senna/Docusate Sodium (Senokot-S) 2 tab HS PO Last administered on 07/03/16 20 :51; Admin Dose 2 TAB; Start 07/03/16 at 21:00 Guaifenesin/ Dextromethorphan (Robitussin Dm Liquid Cup) 10 ml Q4H PRN PO COUGH ; Start 07/03/16 at 18:00 Jef Sinha DO Jul 04, 2016 15:17
--- NOTE | 2016-07-04 15:20 | CONS ---
Date/Time of Note Date/Time of Note DATE: 07/04/16 TIME: 15:18 Assessment/Plan Assessment/Plan Additional Assessment/Plan Respiratory failure status post extubation Pneumonia Septic shock Acute decompensated systolic and diastolic congestive heart failure Cardiomyopathy with ejection fraction 50% CAD Paroxysmal atrial flutter, currently sinus rhythm -Blood pressure trend remains stable on current dose of beta-trina. No LISSETH inhibitor given acute kidney injury. Diuretics and fluid management as per our nephrology colleagues. Consultation Date/Type/Reason Admit Date/Time Jun 18, 2016 at 21:36 Initial Consult Date 06/19/16 Type of Consultation: cv Referring Provider: CHITRA ESTEBAN 24 HR Interval Summary Free Text/Dictation Patient continues to improve. Denies chest pain, shortness of breath or cough Exam/Review of Systems Vital Signs Vitals Vital Signs Date Time Temp Pulse Resp B/P Pulse Ox O2 Delivery O2 Flow Rate FiO2 07/04/16 11:49 98.1 58 19 120/58 98 07/04/16 08:06 Nasal Cannula 3.0 Intake and Output 07/03/16 07/03/16 07/04/16 15:00 23:00 07:00 Intake Total 750 ml 400 ml Output Total 1600 ml 700 ml Balance -850 ml -300 ml Exam No apparent distress, son at bedside Constitutional: alert, oriented Head: normocephalic Neck: supple Respiratory: other (Coarse breath sounds bilaterally, no wheezing) Cardiovascular: other (S1-S2 heard), regular rate and rhythm Gastrointestinal: bowel sounds, non-tender, other (No guarding), soft Extremities: edema, other (No cyanosis) Results Result Diagram: 07/04/16 0645 07/04/16 0645 Results 24 hrs Laboratory Tests Test 07/03/16 17:47 07/03/16 20:56 07/04/16 05:00 07/04/16 06:45 Bedside Glucose 116 109 Arterial Blood HCO3 22.9 Arterial Blood Base Excess -0.3 Arterial Blood Oxygen Saturation 97.8 Burak Test ACCEPTAB Arterial Blood Gas Puncture Site Right Radial Arterial Blood Carboxyhemoglobin 0.3 Arterial Blood Date Drawn 07/04/2016 5:04:24 AM Arterial Blood Methemoglobin 0.3 Arterial Blood pCO2 (Temp correct) 33.6 L Arterial Blood pH (Temp corrected) 7.452 H Arterial Blood pO2 (Temp corrected) 115.2 H Blood Gas A-a O2 Differential 59.2 H Blood Gas Modality NASAL CANNULA Blood Gas Notified Time 07/04/2016 5:10:56 AM Blood Gas Notified Whom BR Blood Gas Specimen Source Blood arterial Blood Gas Temperature 37.0 FiO2 30.0 Oxyhemoglobin Percent 97.2 Total Hemoglobin 14.1 Activated Partial Thromboplast Time 31.3 Alanine Aminotransferase (ALT/SGPT) 68 Albumin 2.9 L Albumin/Globulin Ratio 0.85 Alkaline Phosphatase 76 Anion Gap 16 Aspartate Amino Transf (AST/SGOT) 60 H Basophils # 0.0 Basophils % 0.4 Blood Urea Nitrogen 22 H Calcium Level 8.0 L Carbon Dioxide Level 23 Chloride Level 107 Creatinine 1.74 H Direct Bilirubin 0.00 Eosinophils # 0.3 Eosinophils % 3.0 Globulin 3.40 H Glucose Level 95 Hematocrit 36.2 L Hemoglobin 11.5 L INR International Normalized Ratio 1.25 Indirect Bilirubin 0.2 Lymphocytes # 1.3 Lymphocytes % 14.6 L Magnesium Level 1.8 Mean Corpuscular Hemoglobin 29.9 Mean Corpuscular Hemoglobin Concent 31.8 L Mean Corpuscular Volume 94.0 Mean Platelet Volume 10.2 Monocytes # 0.7 Monocytes % 8.0 Neutrophils # 6.5 Neutrophils % 72.8 Nucleated Red Blood Cells # 0.0 Nucleated Red Blood Cells % 0.0 Phosphorus Level 4.7 Platelet Count 315 Potassium Level 3.6 Prothrombin Time 15.8 H Prothrombin Time Ratio 1.2 Red Blood Count 3.85 L Red Cell Distribution Width 14.4 Sodium Level 142 Total Bilirubin 0.2 Total Protein 6.3 White Blood Count 8.9 Test 07/04/16 08:28 07/04/16 12:46 Bedside Glucose 112 108 Medications Medications Current Medications Ondansetron HCl (Zofran Inj) 4 mg Q6H PRN IV NAUSEA AND/OR VOMITING; Start 06/18 at 23:30 Acetaminophen (Tylenol Tab) 650 mg Q6H PRN PO PAIN LEVEL 1-3 OR FEVER; Start at 23:30 Acetaminophen/ Hydrocodone Bitart ([place] (5/325)) 1 tab Q6H PRN PO MODERATE PAIN LEVEL 4-6; Start 06/18/16 at 23:30 Morphine Sulfate (morphine) 2 mg Q4H PRN IV SEVERE PAIN LEVEL 7-10 Last administered on 07/01/16 06:22; Admin Dose 2 MG; Start 06/18/16 at 23:30 Docusate Sodium (Colace) 100 mg Q12H PRN PO CONSTIPATION; Start 06/18/16 at 23: 30 Magnesium Hydroxide (Milk Of Mag) 30 ml DAILY PRN PO CONSTIPATION; Start at 23:30 Sodium Biphosphate/ Sodium Phosphate (Fleet Enema) 133 ml DAILY PRN [place] CONSTIPATION; Start 06/18/16 at 23:30 Lorazepam (Ativan) 0.5 mg Q6H PRN IV ANXIETY Last administered on 06/27/16 20: 23; Admin Dose 0.5 MG; Start 06/18/16 at 23:30 Hydralazine HCl (Apresoline) 10 mg Q6H PRN IV ELEVATED BLOOD PRESSURE; Start at 23:30 Nitroglycerin (Nitroglycerin (Sl Tab) 0.4 Mg) 1 tab Q5M PRN SL ANGINA; Start at 23:30 Aspirin (Aspirin) 81 mg DAILY NGT Last administered on 07/04/16 08:34; Admin Dose 81 MG; Start 06/19/16 at 20:00 Miscellaneous Information 1 ea NOTE XX ; Start 06/19/16 at 20:30 Glucose (Glutose) 15 gm Q15M PRN PO DECREASED GLUCOSE; Start 06/19/16 at 20:30 Glucose (Glutose) 22.5 gm Q15M PRN PO DECREASED GLUCOSE; Start 06/19/16 at 20:30 Dextrose (D50w Syringe) 25 ml Q15M PRN IV DECREASED GLUCOSE; Start 06/19/16 at 20:30 Dextrose (D50w Syringe) 50 ml Q15M PRN IV DECREASED GLUCOSE; Start 06/19/16 at 20:30 Glucagon (Glucagen) 1 mg Q15M PRN IM DECREASED GLUCOSE; Start 06/19/16 at 20:30 Glucose (Glutose) 15 gm Q15M PRN BUCCAL DECREASED GLUCOSE; Start 06/19/16 at 20: 30 IV Flush (NS 10 ml) 10 ml PRN PRN IV IV PROTOCOL; Start 06/20/16 at 15:00 Nystatin (Nystatin Susp) 5 ml QID PO Last administered on 07/04/16 08:34; Admin Dose 5 ML; Start 06/24/16 at 13:00 Hydralazine HCl (Apresoline) 10 mg BID GTB Last administered on 07/04/16 08:35 ; Admin Dose 10 MG; Start 06/26/16 at 21:00 Lorazepam (Ativan) 1 mg Q2H PRN IV ANXIETY Last administered on 06/30/16 09:43 ; Admin Dose 1 MG; Start 06/28/16 at 00:00 Haloperidol (Haldol) 4 mg Q6H PRN IV AGITATION Last administered on 06/28/16 21:40; Admin Dose 4 MG; Start 06/28/16 at 14:30 Guaifenesin (Robitussin Liquid Cup) 100 mg Q4H PRN PO COUGH Last administered on 07/04/16 08:32; Admin Dose 100 MG; Start 06/29/16 at 18:00 Metoprolol Tartrate (Lopressor) 25 mg BID NGT Last administered on 07/04/16 08 :35; Admin Dose 25 MG; Start 06/30/16 at 21:00 Diagnostic Test (Pha) (Accucheck) 1 ea 02 XX ; Start 07/03/16 at 02:00 Apixaban (Eliquis) 5 mg BID PO Last administered on 07/04/16 08:34; Admin Dose 5 MG; Start 07/03/16 at 21:00 Dutasteride (Avodart) 0.5 mg DAILY PO Last administered on 07/04/16 08:34; Admin Dose 0.5 MG; Start 07/03/16 at 20:00 Senna/Docusate Sodium (Senokot-S) 2 tab HS PO Last administered on 07/03/16 20 :51; Admin Dose 2 TAB; Start 07/03/16 at 21:00 Guaifenesin/ Dextromethorphan (Robitussin Dm Liquid Cup) 10 ml Q4H PRN PO COUGH ; Start 07/03/16 at 18:00 Jef Sinha DO Jul 04, 2016 15:20
--- NOTE | 2016-07-04 17:18 | PN ---
Date/Time of Note Date/Time of Note DATE: 07/04/16 TIME: 17:13 Assessment/Plan VTE Prophylaxis VTE Prophylaxis Intervention: other (Eliquis/Coumadin) Lines/Catheters IV Catheter Type (from Nrs): PICC Line Central line still needed: Yes Urinary Cath still in place: Yes Reason Cath still needed: urinary retention Assessment/Plan Chief Complaint/Hosp Course Subjective: No events. No distress. Failed swallow eval however. Objective: Vital signs stable Physical examination No pallor JVD Regular, no murmur rub gallop Diminished bs bilat BS+\ nt nd no r/r/g No edema A/P 1) Septic Shock; resolved/ stable. off antibiotics. 2) CAP/aspiration? finished atb's. Failed Video; may need GI or ENT eval. 3) CHF -ac/chr systolic & diastolic; fairly compensated now. no acei for now 4) Ac renal failure/atn/ CKD; improved. sp lasix 5) Dm/Htn/Dyslipidemia/ Obesity 6) CAD/ ho pci? 7) Past tobacco 8) COPD 9) PAF/flutter; on amiodarone/bb/added eliquis 10) Renal cyst; sp ct/ultz 11) False troponin 12) Anemia, stable 13) Dysphagia 14) Ftt/ may need snf. Problems: Exam/Review of Systems Vital Signs Vitals Vital Signs Date Time Temp Pulse Resp B/P Pulse Ox O2 Delivery O2 Flow Rate FiO2 07/04/16 16:54 3.0 07/04/16 15:37 72 20 97 Nasal Cannula 07/04/16 11:49 98.1 120/58 Intake and Output 07/03/16 07/03/16 07/04/16 15:00 23:00 07:00 Intake Total 750 ml 400 ml Output Total 1600 ml 700 ml Balance -850 ml -300 ml Results Result Diagram: 07/04/16 0645 07/04/16 0645 Results 24 hrs Laboratory Tests Test 07/03/16 17:47 07/03/16 20:56 07/04/16 05:00 07/04/16 06:45 Bedside Glucose 116 109 Arterial Blood HCO3 22.9 Arterial Blood Base Excess -0.3 Arterial Blood Oxygen Saturation 97.8 Burak Test ACCEPTAB Arterial Blood Gas Puncture Site Right Radial Arterial Blood Carboxyhemoglobin 0.3 Arterial Blood Date Drawn 07/04/2016 5:04:24 AM Arterial Blood Methemoglobin 0.3 Arterial Blood pCO2 (Temp correct) 33.6 L Arterial Blood pH (Temp corrected) 7.452 H Arterial Blood pO2 (Temp corrected) 115.2 H Blood Gas A-a O2 Differential 59.2 H Blood Gas Modality NASAL CANNULA Blood Gas Notified Time 07/04/2016 5:10:56 AM Blood Gas Notified Whom BR Blood Gas Specimen Source Blood arterial Blood Gas Temperature 37.0 FiO2 30.0 Oxyhemoglobin Percent 97.2 Total Hemoglobin 14.1 Activated Partial Thromboplast Time 31.3 Alanine Aminotransferase (ALT/SGPT) 68 Albumin 2.9 L Albumin/Globulin Ratio 0.85 Alkaline Phosphatase 76 Anion Gap 16 Aspartate Amino Transf (AST/SGOT) 60 H Basophils # 0.0 Basophils % 0.4 Blood Urea Nitrogen 22 H Calcium Level 8.0 L Carbon Dioxide Level 23 Chloride Level 107 Creatinine 1.74 H Direct Bilirubin 0.00 Eosinophils # 0.3 Eosinophils % 3.0 Globulin 3.40 H Glucose Level 95 Hematocrit 36.2 L Hemoglobin 11.5 L INR International Normalized Ratio 1.25 Indirect Bilirubin 0.2 Lymphocytes # 1.3 Lymphocytes % 14.6 L Magnesium Level 1.8 Mean Corpuscular Hemoglobin 29.9 Mean Corpuscular Hemoglobin Concent 31.8 L Mean Corpuscular Volume 94.0 Mean Platelet Volume 10.2 Monocytes # 0.7 Monocytes % 8.0 Neutrophils # 6.5 Neutrophils % 72.8 Nucleated Red Blood Cells # 0.0 Nucleated Red Blood Cells % 0.0 Phosphorus Level 4.7 Platelet Count 315 Potassium Level 3.6 Prothrombin Time 15.8 H Prothrombin Time Ratio 1.2 Red Blood Count 3.85 L Red Cell Distribution Width 14.4 Sodium Level 142 Total Bilirubin 0.2 Total Protein 6.3 White Blood Count 8.9 Test 07/04/16 08:28 07/04/16 12:46 Bedside Glucose 112 108 Medications Medications Current Medications Ondansetron HCl (Zofran Inj) 4 mg Q6H PRN IV NAUSEA AND/OR VOMITING; Start 06/18 at 23:30 Acetaminophen (Tylenol Tab) 650 mg Q6H PRN PO PAIN LEVEL 1-3 OR FEVER; Start at 23:30 Acetaminophen/ Hydrocodone Bitart ([place] (5/325)) 1 tab Q6H PRN PO MODERATE PAIN LEVEL 4-6; Start 06/18/16 at 23:30 Morphine Sulfate (morphine) 2 mg Q4H PRN IV SEVERE PAIN LEVEL 7-10 Last administered on 07/01/16 06:22; Admin Dose 2 MG; Start 06/18/16 at 23:30 Docusate Sodium (Colace) 100 mg Q12H PRN PO CONSTIPATION; Start 06/18/16 at 23: 30 Magnesium Hydroxide (Milk Of Mag) 30 ml DAILY PRN PO CONSTIPATION; Start at 23:30 Sodium Biphosphate/ Sodium Phosphate (Fleet Enema) 133 ml DAILY PRN [place] CONSTIPATION; Start 06/18/16 at 23:30 Lorazepam (Ativan) 0.5 mg Q6H PRN IV ANXIETY Last administered on 06/27/16 20: 23; Admin Dose 0.5 MG; Start 06/18/16 at 23:30 Hydralazine HCl (Apresoline) 10 mg Q6H PRN IV ELEVATED BLOOD PRESSURE; Start at 23:30 Nitroglycerin (Nitroglycerin (Sl Tab) 0.4 Mg) 1 tab Q5M PRN SL ANGINA; Start at 23:30 Miscellaneous Information 1 ea NOTE XX ; Start 06/19/16 at 20:30 Glucose (Glutose) 15 gm Q15M PRN PO DECREASED GLUCOSE; Start 06/19/16 at 20:30 Glucose (Glutose) 22.5 gm Q15M PRN PO DECREASED GLUCOSE; Start 06/19/16 at 20:30 Dextrose (D50w Syringe) 25 ml Q15M PRN IV DECREASED GLUCOSE; Start 06/19/16 at 20:30 Dextrose (D50w Syringe) 50 ml Q15M PRN IV DECREASED GLUCOSE; Start 06/19/16 at 20:30 Glucagon (Glucagen) 1 mg Q15M PRN IM DECREASED GLUCOSE; Start 06/19/16 at 20:30 Glucose (Glutose) 15 gm Q15M PRN BUCCAL DECREASED GLUCOSE; Start 06/19/16 at 20: 30 IV Flush (NS 10 ml) 10 ml PRN PRN IV IV PROTOCOL; Start 06/20/16 at 15:00 Nystatin (Nystatin Susp) 5 ml QID PO Last administered on 07/04/16 16:04; Admin Dose 5 ML; Start 06/24/16 at 13:00 Hydralazine HCl (Apresoline) 10 mg BID GTB Last administered on 07/04/16 08:35 ; Admin Dose 10 MG; Start 06/26/16 at 21:00 Lorazepam (Ativan) 1 mg Q2H PRN IV ANXIETY Last administered on 06/30/16 09:43 ; Admin Dose 1 MG; Start 06/28/16 at 00:00 Haloperidol (Haldol) 4 mg Q6H PRN IV AGITATION Last administered on 06/28/16 21:40; Admin Dose 4 MG; Start 06/28/16 at 14:30 Guaifenesin (Robitussin Liquid Cup) 100 mg Q4H PRN PO COUGH Last administered on 07/04/16 08:32; Admin Dose 100 MG; Start 06/29/16 at 18:00 Metoprolol Tartrate (Lopressor) 25 mg BID NGT Last administered on 07/04/16 08 :35; Admin Dose 25 MG; Start 06/30/16 at 21:00 Diagnostic Test (Pha) (Accucheck) 1 ea 02 XX ; Start 07/03/16 at 02:00 Apixaban (Eliquis) 5 mg BID PO Last administered on 07/04/16 08:34; Admin Dose 5 MG; Start 07/03/16 at 21:00 Dutasteride (Avodart) 0.5 mg DAILY PO Last administered on 07/04/16 08:34; Admin Dose 0.5 MG; Start 07/03/16 at 20:00 Senna/Docusate Sodium (Senokot-S) 2 tab HS PO Last administered on 07/03/16 20 :51; Admin Dose 2 TAB; Start 07/03/16 at 21:00 Guaifenesin/ Dextromethorphan (Robitussin Dm Liquid Cup) 10 ml Q4H PRN PO COUGH Last administered on 07/04/16 16:06; Admin Dose 10 ML; Start 07/03/16 at 18:00 PATRICIA BOWMAN MD Jul 04, 2016 17:18
--- NOTE | 2016-07-04 18:26 | RADRPT ---
PROCEDURE: Video swallowing study CLINICAL INDICATION: Dysphagia TECHNIQUE: Modified barium swallowing study was performed. Fluoroscopy was utilized for the proce dure. Imaging was confined to the oral pharyngeal and cervical phases of the swallowing mechanism. Fluoroscopic guidance was utilized during a modified barium swallowing study with multiple swallows of thin and thick liquids. COMPARISON: None available FINDINGS: 3.3 minutes of fluoroscopy time was utilized during the procedure. Penetration with nectar by spoon, cup, and straw . Aspirated with puree and mechanical soft, aspiration was inconsistent and sometim es silent. Penetrated thin by spoon/cup aspirated thin by straw . Advanced degenerative spondylosis of the spine is seen. IMPRESSION: 1. Positive aspiration. 2. Please refer to swallowing therapist's recommendations for future feedings. RPTAT: PP .Tyree Louie MD, Date Time Electronically viewed and signed by .Tyree Louie MD, on 07/04/2016 18:26 .B/
[2016-07-04 19:36] VITALS: BP 134/65; RESP 18
[2016-07-04] MEDS: SENNA/DOCUSATE NA (8.6MG/50MG) TAB PO SCH (21:13)
[2016-07-05] MEDS: ALBUTEROL/IPRATROPIUM (NEB) 3 ML AMP HHN SCH ×3 (00:45→16:18)
[2016-07-05] MEDS: ACCU-CHEK XX SCH (05:21)
[2016-07-05 07:09] VITALS: BP 165/76; RESP 20
[2016-07-05] MEDS: INSULIN ASPART [NOVOLOG] 3 ML PEN SC SCH ×4 (07:55→21:00)
[2016-07-05 08:04] LABS: ADD SCAN DIFF NO
[2016-07-05 08:10] LABS: BASOPHIL # 0.1 10^3/ul (0.0-0.1); BASOPHILS % 0.6 % (0.0-2.0); EOSINOPHILS # 0.3 10^3/ul (0.0-0.5); EOSINOPHILS % 2.6 % (0.0-7.0); HEMATOCRIT 40.5 % (42.0-52.0); HEMOGLOBIN 12.9 g/dl (14.0-18.0); LYMPHOCYTES # 1.4 10^3/ul (0.8-2.9); LYMPHOCYTES % 11.9 % (15.0-51.0); MEAN CORPUSCULAR HEMOGLOBIN 29.4 pg (29.0-33.0); MEAN CORPUSCULAR HGB CONC 31.9 g/dl (32.0-37.0); MEAN CORPUSCULAR VOLUME 92.3 fl (82.0-101.0); MEAN PLATELET VOLUME 10.1 fl (7.4-10.4); MONOCYTE # 0.9 10^3/ul (0.3-0.9); MONOCYTES % 8.3 % (0.0-11.0); NEUTROPHIL # 8.6 10^3/ul (1.6-7.5); NEUTROPHILS % 75.4 % (39.0-77.0); PLATELET COUNT 360 10^3/UL (140-415); RED BLOOD COUNT 4.39 10^6/ul (4.70-6.10); RED CELL DISTRIBUTION WIDTH 14.4 % (11.5-14.5); WHITE BLOOD COUNT 11.4 10^3/ul (4.8-10.8)
[2016-07-05] MEDS: NYSTATIN SUSP 5 ML CUP PO SCH ×4 (08:11→21:21)
[2016-07-05] MEDS: METOPROLOL 25 MG TAB NGT SCH ×2 (08:11→21:23)
[2016-07-05] MEDS: DUTASTERIDE 0.5 MG CAP PO SCH (08:11)
[2016-07-05] MEDS: APIXABAN 5 MG TABLET PO SCH ×2 (08:11→21:23)
[2016-07-05 08:23] LABS: POTASSIUM 4.2 mmol/L (3.5-5.1)
[2016-07-05 08:26] LABS: CALCIUM 8.2 mg/dl (8.4-10.2); CREATININE 1.86 mg/dl (0.61-1.24); PHOSPHORUS 3.9 mg/dl (2.5-4.9)
[2016-07-05 08:27] LABS: MAGNESIUM 1.9 mg/dl (1.7-2.5)
--- NOTE | 2016-07-05 10:34 | CONS ---
Date/Time of Note Date/Time of Note DATE: 07/05/16 TIME: 10:31 Assessment/Plan Assessment/Plan Additional Assessment/Plan 1. Acute kidney injury, likely secondary to acute tubular necrosis from septic shock and also contributing to liver shock due to the acute kidney injury 2. Sepsis with lactic acidosis, likely secondary to pneumonia. 3. Right upper lobe pneumonia. 4. Acute respiratory failure, vent dependent secondary to septic shock. 5. Acute on chronic congestive heart failure exacerbation, systolic and diastolic. 6. History of hypertension. 7. History of type 2 diabetes mellitus. 8. History of anemia of chronic disease. 9. History of dyslipidemia. PLAN: Makign good urine ouput, Cr stable 1.8 ,electrolytes normal today -, required catheter to drain bladder due to urinary retention will start urecholine 10mg pO TID for urinary retention will follow up making good urine output Consultation Date/Type/Reason Admit Date/Time Jun 18, 2016 at 21:36 Initial Consult Date 06/21/16 Type of Consultation: NEPHROLOGY Reason for Consultation CARY, Hypernatremia Referring Provider: CHITRA ESTEBAN 24 HR Interval Summary Free Text/Dictation had a urine retention, 999cc- required catheter to drain bladder, passed swallow , today labs Cr 1.86, Electrolytes stable, BP stable, Exam/Review of Systems Vital Signs Vitals Vital Signs Date Time Temp Pulse Resp B/P Pulse Ox O2 Delivery O2 Flow Rate FiO2 07/05/16 09:28 2.0 07/05/16 09:28 77 18 96 Nasal Cannula 07/05/16 07:09 98.1 165/76 Intake and Output 07/04/16 07/04/16 07/05/16 15:00 23:00 07:00 Intake Total 360 ml 1250 ml Output Total 275 ml 100 ml Balance 85 ml 1150 ml Exam pt awake, alert, less SOB Constitutional: alert Head: normocephalic Neck: supple Respiratory: bibasilar crackles, no wheezing Cardiovascular: other (S1-S2 heard), regular rate and rhythm Gastrointestinal: bowel sounds, non-tender, other (No guarding), soft Extremities: edema, other (No cyanosis) Results Result Diagram: 07/05/16 0727 07/05/16 0727 Results 24 hrs Laboratory Tests Test 07/04/16 12:46 07/04/16 17:57 07/04/16 21:10 07/05/16 07:27 Bedside Glucose 108 126 87 Anion Gap 15 Basophils # 0.1 Basophils % 0.6 Blood Urea Nitrogen 21 H Calcium Level 8.2 L Carbon Dioxide Level 21 Chloride Level 111 H Creatinine 1.86 H Eosinophils # 0.3 Eosinophils % 2.6 Glucose Level 117 Hematocrit 40.5 L Hemoglobin 12.9 L Lymphocytes # 1.4 Lymphocytes % 11.9 L Magnesium Level 1.9 Mean Corpuscular Hemoglobin 29.4 Mean Corpuscular Hemoglobin Concent 31.9 L Mean Corpuscular Volume 92.3 Mean Platelet Volume 10.1 Monocytes # 0.9 Monocytes % 8.3 Neutrophils # 8.6 H Neutrophils % 75.4 Nucleated Red Blood Cells # 0.0 Nucleated Red Blood Cells % 0.0 Phosphorus Level 3.9 Platelet Count 360 Potassium Level 4.2 Red Blood Count 4.39 L Red Cell Distribution Width 14.4 Sodium Level 143 White Blood Count 11.4 #H Test 07/05/16 07:45 07/05/16 08:02 Bedside Glucose 96 138 Medications Medications Current Medications Ondansetron HCl (Zofran Inj) 4 mg Q6H PRN IV NAUSEA AND/OR VOMITING; Start 06/18 at 23:30 Acetaminophen (Tylenol Tab) 650 mg Q6H PRN PO PAIN LEVEL 1-3 OR FEVER Last administered on 07/05/16 08:54; Admin Dose 650 MG; Start 06/18/16 at 23:30 Acetaminophen/ Hydrocodone Bitart ([place] (5/325)) 1 tab Q6H PRN PO MODERATE PAIN LEVEL 4-6; Start 06/18/16 at 23:30 Morphine Sulfate (morphine) 2 mg Q4H PRN IV SEVERE PAIN LEVEL 7-10 Last administered on 07/01/16 06:22; Admin Dose 2 MG; Start 06/18/16 at 23:30 Docusate Sodium (Colace) 100 mg Q12H PRN PO CONSTIPATION; Start 06/18/16 at 23: 30 Magnesium Hydroxide (Milk Of Mag) 30 ml DAILY PRN PO CONSTIPATION; Start at 23:30 Sodium Biphosphate/ Sodium Phosphate (Fleet Enema) 133 ml DAILY PRN [place] CONSTIPATION; Start 06/18/16 at 23:30 Lorazepam (Ativan) 0.5 mg Q6H PRN IV ANXIETY Last administered on 06/27/16 20: 23; Admin Dose 0.5 MG; Start 06/18/16 at 23:30 Hydralazine HCl (Apresoline) 10 mg Q6H PRN IV ELEVATED BLOOD PRESSURE; Start at 23:30 Nitroglycerin (Nitroglycerin (Sl Tab) 0.4 Mg) 1 tab Q5M PRN SL ANGINA; Start at 23:30 Miscellaneous Information 1 ea NOTE XX ; Start 06/19/16 at 20:30 Glucose (Glutose) 15 gm Q15M PRN PO DECREASED GLUCOSE; Start 06/19/16 at 20:30 Glucose (Glutose) 22.5 gm Q15M PRN PO DECREASED GLUCOSE; Start 06/19/16 at 20:30 Dextrose (D50w Syringe) 25 ml Q15M PRN IV DECREASED GLUCOSE; Start 06/19/16 at 20:30 Dextrose (D50w Syringe) 50 ml Q15M PRN IV DECREASED GLUCOSE; Start 06/19/16 at 20:30 Glucagon (Glucagen) 1 mg Q15M PRN IM DECREASED GLUCOSE; Start 06/19/16 at 20:30 Glucose (Glutose) 15 gm Q15M PRN BUCCAL DECREASED GLUCOSE; Start 06/19/16 at 20: 30 IV Flush (NS 10 ml) 10 ml PRN PRN IV IV PROTOCOL; Start 06/20/16 at 15:00 Nystatin (Nystatin Susp) 5 ml QID PO Last administered on 07/05/16 08:11; Admin Dose 5 ML; Start 06/24/16 at 13:00 Guaifenesin (Robitussin Liquid Cup) 100 mg Q4H PRN PO COUGH Last administered on 07/04/16 08:32; Admin Dose 100 MG; Start 06/29/16 at 18:00 Metoprolol Tartrate (Lopressor) 25 mg BID NGT Last administered on 07/05/16 08 :11; Admin Dose 25 MG; Start 06/30/16 at 21:00 Diagnostic Test (Pha) (Accucheck) 1 ea 02 XX ; Start 07/03/16 at 02:00 Apixaban (Eliquis) 5 mg BID PO Last administered on 07/05/16 08:11; Admin Dose 5 MG; Start 07/03/16 at 21:00 Dutasteride (Avodart) 0.5 mg DAILY PO Last administered on 07/05/16 08:11; Admin Dose 0.5 MG; Start 07/03/16 at 20:00 Senna/Docusate Sodium (Senokot-S) 2 tab HS PO Last administered on 07/04/16 21 :13; Admin Dose 2 TAB; Start 07/03/16 at 21:00 Guaifenesin/ Dextromethorphan (Robitussin Dm Liquid Cup) 10 ml Q4H PRN PO COUGH Last administered on 07/04/16 16:06; Admin Dose 10 ML; Start 07/03/16 at 18:00 SHANNAN MAYEN MD Jul 05, 2016 10:34
[2016-07-05 11:50] VITALS: BP 167/73; RESP 19
--- NOTE | 2016-07-05 12:12 | PN ---
Date/Time of Note Date/Time of Note DATE: 07/05/16 TIME: 12:06 Assessment/Plan VTE Prophylaxis VTE Prophylaxis Intervention: LMWH Lines/Catheters IV Catheter Type (from Nrs): PICC Line Central line still needed: Yes (iv access) Urinary Cath still in place: No Assessment/Plan Chief Complaint/Hosp Course Subjective: 07/04- No events. No distress. Failed swallow eval however. 07/05- not very receptive to care plan & opinions of the care team. refuses to accept the probability of silent aspiration. urinary retention noted. wants to go home. Objective: Vss Physical examination No pallor JVD Regular, no murmur rub gallop Diminished bs bilat BS+/ diminished. mild tender/distended; no r/r/g No edema A/P 1) Septic Shock; resolved/ stable. off antibiotics. 2) CAP/aspiration likely. finished atb's. Failed Video; GI or ENT eval if patients ever agrees. retry st eval & video prn. 3) CHF -ac/chr systolic & diastolic; fairly compensated now. no acei for now 4) Ac renal failure/atn/ CKD; improved. sp lasix 5) Dm/Htn/Dyslipidemia/ Obesity 6) CAD/ ho pci? 7) Past tobacco 8) COPD 9) PAF/flutter; on amiodarone/bb/added eliquis 10) Renal cyst; sp ct/ultz 11) False troponin 12) Anemia, stable 13) Dysphagia; refused st care instructions. high repeat risk of pneumonia d/w son & patient. 14) Ftt. dc home w moreira- leg bag, PT/OT/dme if needed. Problems: Exam/Review of Systems Vital Signs Vitals Vital Signs Date Time Temp Pulse Resp B/P Pulse Ox O2 Delivery O2 Flow Rate FiO2 07/05/16 11:50 97.8 72 19 167/73 100 07/05/16 09:28 2.0 07/05/16 09:28 Nasal Cannula Intake and Output 07/04/16 07/04/16 07/05/16 15:00 23:00 07:00 Intake Total 360 ml 1250 ml Output Total 275 ml 100 ml Balance 85 ml 1150 ml Results Result Diagram: 07/05/16 0727 07/05/16 0727 Results 24 hrs Laboratory Tests Test 07/04/16 12:46 07/04/16 17:57 07/04/16 21:10 07/05/16 07:27 Bedside Glucose 108 126 87 White Blood Count 11.4 #H Red Blood Count 4.39 L Hemoglobin 12.9 L Hematocrit 40.5 L Mean Corpuscular Volume 92.3 Mean Corpuscular Hemoglobin 29.4 Mean Corpuscular Hemoglobin Concent 31.9 L Red Cell Distribution Width 14.4 Platelet Count 360 Mean Platelet Volume 10.1 Neutrophils % 75.4 Lymphocytes % 11.9 L Monocytes % 8.3 Eosinophils % 2.6 Basophils % 0.6 Nucleated Red Blood Cells % 0.0 Neutrophils # 8.6 H Lymphocytes # 1.4 Monocytes # 0.9 Eosinophils # 0.3 Basophils # 0.1 Nucleated Red Blood Cells # 0.0 Sodium Level 143 Potassium Level 4.2 Chloride Level 111 H Carbon Dioxide Level 21 Anion Gap 15 Blood Urea Nitrogen 21 H Creatinine 1.86 H Glucose Level 117 Calcium Level 8.2 L Phosphorus Level 3.9 Magnesium Level 1.9 Test 07/05/16 07:45 07/05/16 08:02 07/05/16 11:30 Bedside Glucose 96 138 144 Medications Medications Current Medications Ondansetron HCl (Zofran Inj) 4 mg Q6H PRN IV NAUSEA AND/OR VOMITING; Start 06/18 at 23:30 Acetaminophen (Tylenol Tab) 650 mg Q6H PRN PO PAIN LEVEL 1-3 OR FEVER Last administered on 07/05/16 08:54; Admin Dose 650 MG; Start 06/18/16 at 23:30 Acetaminophen/ Hydrocodone Bitart ([place] (5/325)) 1 tab Q6H PRN PO MODERATE PAIN LEVEL 4-6; Start 06/18/16 at 23:30 Morphine Sulfate (morphine) 2 mg Q4H PRN IV SEVERE PAIN LEVEL 7-10 Last administered on 07/01/16 06:22; Admin Dose 2 MG; Start 06/18/16 at 23:30 Docusate Sodium (Colace) 100 mg Q12H PRN [place] CONSTIPATION; Start 06/18/16 at 23: 30 Magnesium Hydroxide (Milk Of Mag) 30 ml DAILY PRN [place] CONSTIPATION; Start at 23:30 Sodium Biphosphate/ Sodium Phosphate (Fleet Enema) 133 ml DAILY PRN [place] CONSTIPATION; Start 06/18/16 at 23:30 Lorazepam (Ativan) 0.5 mg Q6H PRN IV ANXIETY Last administered on 06/27/16 20: 23; Admin Dose 0.5 MG; Start 06/18/16 at 23:30 Hydralazine HCl (Apresoline) 10 mg Q6H PRN IV ELEVATED BLOOD PRESSURE; Start at 23:30 Nitroglycerin (Nitroglycerin (Sl Tab) 0.4 Mg) 1 tab Q5M PRN [place] ANGINA; Start at 23:30 Miscellaneous Information 1 ea NOTE XX ; Start 06/19/16 at 20:30 Glucose (Glutose) 15 gm Q15M PRN PO DECREASED GLUCOSE; Start 06/19/16 at 20:30 Glucose (Glutose) 22.5 gm Q15M PRN PO DECREASED GLUCOSE; Start 06/19/16 at 20:30 Dextrose (D50w Syringe) 25 ml Q15M PRN IV DECREASED GLUCOSE; Start 06/19/16 at 20:30 Dextrose (D50w Syringe) 50 ml Q15M PRN IV DECREASED GLUCOSE; Start 06/19/16 at 20:30 Glucagon (Glucagen) 1 mg Q15M PRN IM DECREASED GLUCOSE; Start 06/19/16 at 20:30 Glucose (Glutose) 15 gm Q15M PRN BUCCAL DECREASED GLUCOSE; Start 06/19/16 at 20: 30 IV Flush (NS 10 ml) 10 ml PRN PRN IV IV PROTOCOL; Start 06/20/16 at 15:00 Nystatin (Nystatin Susp) 5 ml QID PO Last administered on 07/05/16 08:11; Admin Dose 5 ML; Start 06/24/16 at 13:00 Guaifenesin (Robitussin Liquid Cup) 100 mg Q4H PRN PO COUGH Last administered on 07/04/16 08:32; Admin Dose 100 MG; Start 06/29/16 at 18:00 Metoprolol Tartrate (Lopressor) 25 mg BID NGT Last administered on 07/05/16 08 :11; Admin Dose 25 MG; Start 06/30/16 at 21:00 Diagnostic Test (Pha) (Accucheck) 1 ea 02 XX ; Start 07/03/16 at 02:00 Apixaban (Eliquis) 5 mg BID PO Last administered on 07/05/16 08:11; Admin Dose 5 MG; Start 07/03/16 at 21:00 Dutasteride (Avodart) 0.5 mg DAILY PO Last administered on 07/05/16 08:11; Admin Dose 0.5 MG; Start 07/03/16 at 20:00 Senna/Docusate Sodium (Senokot-S) 2 tab HS PO Last administered on 07/04/16 21 :13; Admin Dose 2 TAB; Start 07/03/16 at 21:00 Guaifenesin/ Dextromethorphan (Robitussin Dm Liquid Cup) 10 ml Q4H PRN PO COUGH Last administered on 07/04/16 16:06; Admin Dose 10 ML; Start 07/03/16 at 18:00 Bethanechol Chloride (Urecholine) 10 mg TID NGT ; Start 07/05/16 at 13:00 PATRICIA BOWMAN MD Jul 05, 2016 12:12
[2016-07-05] MEDS ORDERED: BISACODYL 10 MG SUPP PR PRN (12:30)
[2016-07-05] MEDS ORDERED: BISACODYL (EC) 5 MG TAB PO PRN (12:30)
[2016-07-05] MEDS: BETHANECHOL 10 MG TAB NGT SCH ×2 (12:46→21:22)
[2016-07-05 12:54] VITALS: BP 142/70
--- NOTE | 2016-07-05 14:39 | CONS ---
Date/Time of Note Date/Time of Note DATE: 07/05/16 TIME: 14:34 Assessment/Plan Assessment/Plan Chief Complaint/Hosp Course unable to urinate after cath was removed renal sono shows no sign of obstructive nephropathy i would suggest discharging the patient with his cath indwelling and fu with me in the office for further eval prior to removing thank you Problems: Consultation Date/Type/Reason Admit Date/Time Jun 18, 2016 at 21:36 Hx of Present Illness thank you for request for evaluation called due to inability to insert moreira cath was admitted with a septic episode, likely pulmonary, and had a cath placed seemingly without difficulty but it was subsequenctly removed and he was unable to void, 1100 cc was noted on scan but nurses couldn't get a cath in. I spoke to them on phone and they were worried about bleeding ultimately nursing staff was able to insert a coude cath at my request. patient reports no urinary history but his ge[place] is poor he says he has seen me before Constitutional: no complaints Respiratory: shortness of breath Cardiovascular: no complaints Gastrointestinal: no complaints Musculoskeletal: no complaints Skin: no complaints Neurologic: no complaints Endocrine: no complaints Psychological: confusion Past Surgical History Past Surgical Hx: angioplasty Social History Alcohol Use: none Smoking Status: Former smoker Exam/Review of Systems Vital Signs Vitals Vital Signs Date Time Temp Pulse Resp B/P Pulse Ox O2 Delivery O2 Flow Rate FiO2 07/05/16 12:54 142/70 07/05/16 11:50 97.8 72 19 100 07/05/16 09:28 2.0 07/05/16 09:28 Nasal Cannula Intake and Output 07/04/16 07/04/16 07/05/16 15:00 23:00 07:00 Intake Total 360 ml 1250 ml Output Total 275 ml 100 ml Balance 85 ml 1150 ml Exam Constitutional: alert, well developed Psych: no complaints Head: normocephalic Respiratory: normal air movement Gastrointestinal: non-tender (no incisions), soft Genitourinary - Male: nl penis, other (catheter inplace draining clear urine) Results Result Diagram: 07/05/1627 07/05/16726 Results 24 hrs Laboratory Tests Test 07/04/16 17:57 07/04/16 21:10 07/05/16 07:27 07/05/16 07:45 Bedside Glucose 126 87 96 White Blood Count 11.4 #H Red Blood Count 4.39 L Hemoglobin 12.9 L Hematocrit 40.5 L Mean Corpuscular Volume 92.3 Mean Corpuscular Hemoglobin 29.4 Mean Corpuscular Hemoglobin Concent 31.9 L Red Cell Distribution Width 14.4 Platelet Count 360 Mean Platelet Volume 10.1 Neutrophils % 75.4 Lymphocytes % 11.9 L Monocytes % 8.3 Eosinophils % 2.6 Basophils % 0.6 Nucleated Red Blood Cells % 0.0 Neutrophils # 8.6 H Lymphocytes # 1.4 Monocytes # 0.9 Eosinophils # 0.3 Basophils # 0.1 Nucleated Red Blood Cells # 0.0 Sodium Level 143 Potassium Level 4.2 Chloride Level 111 H Carbon Dioxide Level 21 Anion Gap 15 Blood Urea Nitrogen 21 H Creatinine 1.86 H Glucose Level 117 Calcium Level 8.2 L Phosphorus Level 3.9 Magnesium Level 1.9 Test 07/05/16 08:02 07/05/16 11:30 Bedside Glucose 138 144 Medications Medications Current Medications Ondansetron HCl (Zofran Inj) 4 mg Q6H PRN IV NAUSEA AND/OR VOMITING; Start 06/18 at 23:30 Acetaminophen (Tylenol Tab) 650 mg Q6H PRN PO PAIN LEVEL 1-3 OR FEVER Last administered on 07/05/16 08:54; Admin Dose 650 MG; Start 06/18/16 at 23:30 Acetaminophen/ Hydrocodone Bitart ([place] (5/325)) 1 tab Q6H PRN PO MODERATE PAIN LEVEL 4-6; Start 06/18/16 at 23:30 Morphine Sulfate (morphine) 2 mg Q4H PRN IV SEVERE PAIN LEVEL 7-10 Last administered on 07/01/16 06:22; Admin Dose 2 MG; Start 06/18/16 at 23:30 Docusate Sodium (Colace) 100 mg Q12H PRN PO CONSTIPATION; Start 06/18/16 at 23: 30 Sodium Biphosphate/ Sodium Phosphate (Fleet Enema) 133 ml DAILY PRN [place] CONSTIPATION; Start 06/18/16 at 23:30 Hydralazine HCl (Apresoline) 10 mg Q6H PRN IV ELEVATED BLOOD PRESSURE; Start at 23:30 Nitroglycerin (Nitroglycerin (Sl Tab) 0.4 Mg) 1 tab Q5M PRN [place] ANGINA; Start at 23:30 Miscellaneous Information 1 ea NOTE XX ; Start 06/19/16 at 20:30 Glucose (Glutose) 15 gm Q15M PRN PO DECREASED GLUCOSE; Start 06/19/16 at 20:30 Glucose (Glutose) 22.5 gm Q15M PRN PO DECREASED GLUCOSE; Start 06/19/16 at 20:30 Dextrose (D50w Syringe) 25 ml Q15M PRN IV DECREASED GLUCOSE; Start 06/19/16 at 20:30 Dextrose (D50w Syringe) 50 ml Q15M PRN IV DECREASED GLUCOSE; Start 06/19/16 at 20:30 Glucagon (Glucagen) 1 mg Q15M PRN IM DECREASED GLUCOSE; Start 06/19/16 at 20:30 Glucose (Glutose) 15 gm Q15M PRN BUCCAL DECREASED GLUCOSE; Start 06/19/16 at 20: 30 IV Flush (NS 10 ml) 10 ml PRN PRN IV IV PROTOCOL; Start 06/20/16 at 15:00 Nystatin (Nystatin Susp) 5 ml QID PO Last administered on 07/05/16 12:46; Admin Dose 5 ML; Start 06/24/16 at 13:00 Guaifenesin (Robitussin Liquid Cup) 100 mg Q4H PRN PO COUGH Last administered on 07/04/16 08:32; Admin Dose 100 MG; Start 06/29/16 at 18:00 Metoprolol Tartrate (Lopressor) 25 mg BID NGT Last administered on 07/05/16 08 :11; Admin Dose 25 MG; Start 06/30/16 at 21:00 Diagnostic Test (Pha) (Accucheck) 1 ea 02 XX ; Start 07/03/16 at 02:00 Apixaban (Eliquis) 5 mg BID PO Last administered on 07/05/16 08:11; Admin Dose 5 MG; Start 07/03/16 at 21:00 Dutasteride (Avodart) 0.5 mg DAILY PO Last administered on 07/05/16 08:11; Admin Dose 0.5 MG; Start 07/03/16 at 20:00 Senna/Docusate Sodium (Senokot-S) 2 tab HS PO Last administered on 07/04/16 21 :13; Admin Dose 2 TAB; Start 07/03/16 at 21:00 Guaifenesin/ Dextromethorphan (Robitussin Dm Liquid Cup) 10 ml Q4H PRN PO COUGH Last administered on 07/04/16 16:06; Admin Dose 10 ML; Start 07/03/16 at 18:00 Bethanechol Chloride (Urecholine) 10 mg TID NGT Last administered on 07/05/16 12:46; Admin Dose 10 MG; Start 07/05/16 at 13:00 Bisacodyl (Dulcolax Supp) 10 mg Q48H PRN [place] CONSTIPATION; Start 07/05/16 at 12: 30 Bisacodyl (Dulcolax) 10 mg DAILY PRN PO CONSTIPATION; Start 07/05/16 at 12:30 DELILAH VAZ MD Jul 05, 2016 14:39
[2016-07-05 15:41] VITALS: BP 134/60; RESP 20
--- NOTE | 2016-07-05 18:49 | CONS ---
Date/Time of Note Date/Time of Note DATE: 07/05/16 TIME: 18:47 Assessment/Plan Assessment/Plan Additional Assessment/Plan Respiratory failure status post extubation Pneumonia Septic shock Acute decompensated systolic and diastolic congestive heart failure Cardiomyopathy with ejection fraction 50% CAD Paroxysmal atrial flutter, currently sinus rhythm -Blood pressure trend overall stable with occasional elevations, if trend remains elevated, would increase dose of beta-trina. No LISSETH inhibitor given acute kidney injury. Diuretics and fluid management as per our nephrology colleagues. Consultation Date/Type/Reason Admit Date/Time Jun 18, 2016 at 21:36 Initial Consult Date 06/19/16 Type of Consultation: cv Referring Provider: CHITRA ESTEBAN 24 HR Interval Summary Free Text/Dictation Shortness of breath continues to improve. Denies chest pain or palpitations Exam/Review of Systems Vital Signs Vitals Vital Signs Date Time Temp Pulse Resp B/P Pulse Ox O2 Delivery O2 Flow Rate FiO2 07/05/16 16:20 2.0 07/05/16 16:19 80 20 96 Nasal Cannula 07/05/16 15:41 97.9 134/60 Intake and Output 07/04/16 07/04/16 07/05/16 15:00 23:00 07:00 Intake Total 360 ml 1250 ml Output Total 275 ml 100 ml Balance 85 ml 1150 ml Exam Undergoing physical therapy Constitutional: alert, oriented Head: normocephalic Neck: supple Respiratory: other (Coarse breath sounds bilaterally, no wheezing) Cardiovascular: other (S1-S2 heard), regular rate and rhythm Gastrointestinal: bowel sounds, non-tender, other (No guarding), soft Extremities: edema (Trace), other (No cyanosis) Results Result Diagram: 07/05/1672607/05/16726 Results 24 hrs Laboratory Tests Test 07/04/16 21:10 07/05/16 07:27 07/05/16 07:45 07/05/16 08:02 Bedside Glucose 87 96 138 White Blood Count 11.4 #H Red Blood Count 4.39 L Hemoglobin 12.9 L Hematocrit 40.5 L Mean Corpuscular Volume 92.3 Mean Corpuscular Hemoglobin 29.4 Mean Corpuscular Hemoglobin Concent 31.9 L Red Cell Distribution Width 14.4 Platelet Count 360 Mean Platelet Volume 10.1 Neutrophils % 75.4 Lymphocytes % 11.9 L Monocytes % 8.3 Eosinophils % 2.6 Basophils % 0.6 Nucleated Red Blood Cells % 0.0 Neutrophils # 8.6 H Lymphocytes # 1.4 Monocytes # 0.9 Eosinophils # 0.3 Basophils # 0.1 Nucleated Red Blood Cells # 0.0 Sodium Level 143 Potassium Level 4.2 Chloride Level 111 H Carbon Dioxide Level 21 Anion Gap 15 Blood Urea Nitrogen 21 H Creatinine 1.86 H Glucose Level 117 Calcium Level 8.2 L Phosphorus Level 3.9 Magnesium Level 1.9 Test 07/05/16 11:30 07/05/16 17:08 Bedside Glucose 144 91 Medications Medications Current Medications Ondansetron HCl (Zofran Inj) 4 mg Q6H PRN IV NAUSEA AND/OR VOMITING; Start 06/18 at 23:30 Acetaminophen (Tylenol Tab) 650 mg Q6H PRN PO PAIN LEVEL 1-3 OR FEVER Last administered on 07/05/16 08:54; Admin Dose 650 MG; Start 06/18/16 at 23:30 Acetaminophen/ Hydrocodone Bitart ([place] (5/325)) 1 tab Q6H PRN PO MODERATE PAIN LEVEL 4-6; Start 06/18/16 at 23:30 Morphine Sulfate (morphine) 2 mg Q4H PRN IV SEVERE PAIN LEVEL 7-10 Last administered on 07/01/16 06:22; Admin Dose 2 MG; Start 06/18/16 at 23:30 Docusate Sodium (Colace) 100 mg Q12H PRN PO CONSTIPATION; Start 06/18/16 at 23: 30 Sodium Biphosphate/ Sodium Phosphate (Fleet Enema) 133 ml DAILY PRN [place] CONSTIPATION; Start 06/18/16 at 23:30 Hydralazine HCl (Apresoline) 10 mg Q6H PRN IV ELEVATED BLOOD PRESSURE; Start at 23:30 Nitroglycerin (Nitroglycerin (Sl Tab) 0.4 Mg) 1 tab Q5M PRN SL ANGINA; Start at 23:30 Miscellaneous Information 1 ea NOTE XX ; Start 06/19/16 at 20:30 Glucose (Glutose) 15 gm Q15M PRN PO DECREASED GLUCOSE; Start 06/19/16 at 20:30 Glucose (Glutose) 22.5 gm Q15M PRN PO DECREASED GLUCOSE; Start 06/19/16 at 20:30 Dextrose (D50w Syringe) 25 ml Q15M PRN IV DECREASED GLUCOSE; Start 06/19/16 at 20:30 Dextrose (D50w Syringe) 50 ml Q15M PRN IV DECREASED GLUCOSE; Start 06/19/16 at 20:30 Glucagon (Glucagen) 1 mg Q15M PRN IM DECREASED GLUCOSE; Start 06/19/16 at 20:30 Glucose (Glutose) 15 gm Q15M PRN BUCCAL DECREASED GLUCOSE; Start 06/19/16 at 20: 30 IV Flush (NS 10 ml) 10 ml PRN PRN IV IV PROTOCOL; Start 06/20/16 at 15:00 Nystatin (Nystatin Susp) 5 ml QID PO Last administered on 07/05/16 16:43; Admin Dose 5 ML; Start 06/24/16 at 13:00 Guaifenesin (Robitussin Liquid Cup) 100 mg Q4H PRN PO COUGH Last administered on 07/04/16 08:32; Admin Dose 100 MG; Start 06/29/16 at 18:00 Metoprolol Tartrate (Lopressor) 25 mg BID NGT Last administered on 07/05/16 08 :11; Admin Dose 25 MG; Start 06/30/16 at 21:00 Diagnostic Test (Pha) (Accucheck) 1 ea 02 XX ; Start 07/03/16 at 02:00 Apixaban (Eliquis) 5 mg BID PO Last administered on 07/05/16 08:11; Admin Dose 5 MG; Start 07/03/16 at 21:00 Dutasteride (Avodart) 0.5 mg DAILY PO Last administered on 07/05/16 08:11; Admin Dose 0.5 MG; Start 07/03/16 at 20:00 Senna/Docusate Sodium (Senokot-S) 2 tab HS PO Last administered on 07/04/16 21 :13; Admin Dose 2 TAB; Start 07/03/16 at 21:00 Guaifenesin/ Dextromethorphan (Robitussin Dm Liquid Cup) 10 ml Q4H PRN PO COUGH Last administered on 07/04/16 16:06; Admin Dose 10 ML; Start 07/03/16 at 18:00 Bethanechol Chloride (Urecholine) 10 mg TID NGT Last administered on 3/22/17at 12:46; Admin Dose 10 MG; Start 07/05/16 at 13:00 Bisacodyl (Dulcolax Supp) 10 mg Q48H PRN [place] CONSTIPATION; Start 07/05/16 at 12: 30 Bisacodyl (Dulcolax) 10 mg DAILY PRN PO CONSTIPATION; Start 07/05/16 at 12:30 Jef Sinha DO Jul 05, 2016 18:49
[2016-07-05 20:15] VITALS: BP 121/59; RESP 18
[2016-07-05] MEDS: SENNA/DOCUSATE NA (8.6MG/50MG) TAB PO SCH (21:22)
[2016-07-06] MEDS: ALBUTEROL/IPRATROPIUM (NEB) 3 ML AMP HHN SCH ×2 (00:10→08:06)
[2016-07-06] MEDS: ACCU-CHEK XX SCH (02:00)
[2016-07-06 04:00] VITALS: BP 106/48; RESP 18
[2016-07-06] MEDS: INSULIN ASPART [NOVOLOG] 3 ML PEN SC SCH ×2 (07:55→11:24)
[2016-07-06 08:04] VITALS: BP 111/52; RESP 20
[2016-07-06] MEDS: BETHANECHOL 10 MG TAB NGT SCH ×2 (08:35→13:15)
[2016-07-06] MEDS: METOPROLOL 25 MG TAB NGT SCH (08:35)
[2016-07-06] MEDS: APIXABAN 5 MG TABLET PO SCH (08:35)
[2016-07-06] MEDS: DUTASTERIDE 0.5 MG CAP PO SCH (08:35)
[2016-07-06] MEDS: NYSTATIN SUSP 5 ML CUP PO SCH ×2 (08:35→13:15)
--- NOTE | 2016-07-06 10:57 | CONS ---
Date/Time of Note Date/Time of Note DATE: 07/06/16 TIME: 10:50 Assessment/Plan Assessment/Plan Additional Assessment/Plan Assessment and recommendations; next 1. Patient admitted for severe bilateral pneumonia with respiratory failure status post extubation several days ago with marked overall clinical improvement. Continue current treatment. I will sign off. Thanks for the referral. Consultation Date/Type/Reason Admit Date/Time Jun 18, 2016 at 21:36 Initial Consult Date 06/19/16 Type of Consultation: Pulmonary Referring Provider: CHITRA ESTEBAN 24 HR Interval Summary Free Text/Dictation Patient condition is stable. Denies any shortness of breath, wheezing, chest pain, sputum production. General exam; elderly male, awake alert currently in no distress. Exam/Review of Systems Vital Signs Vitals Vital Signs Date Time Temp Pulse Resp B/P Pulse Ox O2 Delivery O2 Flow Rate FiO2 07/06/16 08:06 61 18 96 Nasal Cannula 2.0 07/06/16 08:04 97.5 111/52 Intake and Output 07/05/16 07/05/16 07/06/16 15:00 23:00 07:00 Intake Total 420 ml 150 ml Output Total 1200 ml 450 ml Balance -780 ml -300 ml Exam H EENT examination; supple neck, no JVD. No lymphadenopathy. Midline trachea. No thyromegaly. Pharynx is clear. Chest examination; clear to auscultation bilaterally. S1-S2 audible, no murmurs. Regular rhythm. Abdomen examination; soft, nondistended. No organomegaly. Bowel sounds audible. Extremity examination; no peripheral edema. PROVIDER SCRIBE examination; no focal deficit. Results Result Diagram: 07/05/1627 07/05/1627 Results 24 hrs Laboratory Tests Test 07/05/16 11:30 07/05/16 17:08 07/05/16 20:49 07/06/16 02:39 Bedside Glucose 144 91 107 102 Test 07/06/16 07:21 Bedside Glucose 110 Medications Medications Current Medications Ondansetron HCl (Zofran Inj) 4 mg Q6H PRN IV NAUSEA AND/OR VOMITING; Start 06/18 at 23:30 Acetaminophen (Tylenol Tab) 650 mg Q6H PRN PO PAIN LEVEL 1-3 OR FEVER Last administered on 07/05/16t 08:54; Admin Dose 650 MG; Start 06/18/16 at 23:30 Acetaminophen/ Hydrocodone Bitart ([place] (5/325)) 1 tab Q6H PRN PO MODERATE PAIN LEVEL 4-6; Start 06/18/16 at 23:30 Morphine Sulfate (morphine) 2 mg Q4H PRN IV SEVERE PAIN LEVEL 7-10 Last administered on 07/01/16 06:22; Admin Dose 2 MG; Start 06/18/16 at 23:30 Docusate Sodium (Colace) 100 mg Q12H PRN PO CONSTIPATION; Start 06/18/16 at 23: 30 Sodium Biphosphate/ Sodium Phosphate (Fleet Enema) 133 ml DAILY PRN [place] CONSTIPATION; Start 06/18/16 at 23:30 Hydralazine HCl (Apresoline) 10 mg Q6H PRN IV ELEVATED BLOOD PRESSURE; Start at 23:30 Nitroglycerin (Nitroglycerin (Sl Tab) 0.4 Mg) 1 tab Q5M PRN [place] ANGINA; Start at 23:30 Miscellaneous Information 1 ea NOTE XX ; Start 06/19/16 at 20:30 Glucose (Glutose) 15 gm Q15M PRN PO DECREASED GLUCOSE; Start 06/19/16 at 20:30 Glucose (Glutose) 22.5 gm Q15M PRN PO DECREASED GLUCOSE; Start 06/19/16 at 20:30 Dextrose (D50w Syringe) 25 ml Q15M PRN IV DECREASED GLUCOSE; Start 06/19/16 at 20:30 Dextrose (D50w Syringe) 50 ml Q15M PRN IV DECREASED GLUCOSE; Start 06/19/16 at 20:30 Glucagon (Glucagen) 1 mg Q15M PRN IM DECREASED GLUCOSE; Start 06/19/16 at 20:30 Glucose (Glutose) 15 gm Q15M PRN BUCCAL DECREASED GLUCOSE; Start 06/19/16 at 20: 30 IV Flush (NS 10 ml) 10 ml PRN PRN IV IV PROTOCOL; Start 06/20/16 at 15:00 Nystatin (Nystatin Susp) 5 ml QID PO Last administered on 07/06/16 08:35; Admin Dose 5 ML; Start 06/24/16 at 13:00 Guaifenesin (Robitussin Liquid Cup) 100 mg Q4H PRN PO COUGH Last administered on 07/04/16 08:32; Admin Dose 100 MG; Start 06/29/16 at 18:00 Metoprolol Tartrate (Lopressor) 25 mg BID NGT Last administered on 07/06/16 08 :35; Admin Dose 25 MG; Start 06/30/16 at 21:00 Diagnostic Test (Pha) (Accucheck) 1 ea 02 XX ; Start 07/03/16 at 02:00 Apixaban (Eliquis) 5 mg BID PO Last administered on 07/06/16 08:35; Admin Dose 5 MG; Start 07/03/16 at 21:00 Dutasteride (Avodart) 0.5 mg DAILY PO Last administered on 07/06/16 08:35; Admin Dose 0.5 MG; Start 07/03/16 at 20:00 Senna/Docusate Sodium (Senokot-S) 2 tab HS PO Last administered on 07/05/16 21 :22; Admin Dose 2 TAB; Start 07/03/16 at 21:00 Guaifenesin/ Dextromethorphan (Robitussin Dm Liquid Cup) 10 ml Q4H PRN PO COUGH Last administered on 07/04/16 16:06; Admin Dose 10 ML; Start 07/03/16 at 18:00 Bethanechol Chloride (Urecholine) 10 mg TID NGT Last administered on 07/06/16 08:35; Admin Dose 10 MG; Start 07/05/16 at 13:00 Bisacodyl (Dulcolax Supp) 10 mg Q48H PRN [place] CONSTIPATION; Start 07/05/16 at 12: 30 Bisacodyl (Dulcolax) 10 mg DAILY PRN PO CONSTIPATION; Start 07/05/16 at 12:30 SANDOR FANG Jul 06, 2016 10:57
[2016-07-06 12:22] VITALS: BP 121/58; RESP 20
--- NOTE | 2016-07-06 12:38 | CONS ---
Date/Time of Note Date/Time of Note DATE: 07/06/16 TIME: 12:36 Assessment/Plan Assessment/Plan Additional Assessment/Plan Respiratory failure status post extubation Pneumonia Septic shock Acute decompensated systolic and diastolic congestive heart failure Cardiomyopathy with ejection fraction 50% CAD Paroxysmal atrial flutter, currently sinus rhythm -Blood pressure trend improved. Continue beta-trina, patient started on anticoagulation, continue as tolerated. No LISSETH inhibitor at the current time given recent acute kidney injury. Would restart statin if no contraindication. Consultation Date/Type/Reason Admit Date/Time Jun 18, 2016 at 21:36 Initial Consult Date 06/19/16 Type of Consultation: cv Referring Provider: CHITRA ESTEBAN 24 HR Interval Summary Free Text/Dictation Denies shortness of breath, chest pain or palpitations Exam/Review of Systems Vital Signs Vitals Vital Signs Date Time Temp Pulse Resp B/P Pulse Ox O2 Delivery O2 Flow Rate FiO2 07/06/16 12:22 98.2 65 20 121/58 98 07/06/16 08:06 Nasal Cannula 2.0 Intake and Output 07/05/16 07/05/16 07/06/16 15:00 23:00 07:00 Intake Total 420 ml 150 ml Output Total 1200 ml 450 ml Balance -780 ml -300 ml Exam Family at bedside, no apparent distress Constitutional: alert, obese, oriented Head: normocephalic Neck: supple Respiratory: other (Breath sounds bilaterally, no wheezing) Cardiovascular: other (S1-S2 heard), regular rate and rhythm Gastrointestinal: bowel sounds, non-tender, other (No guarding), soft Extremities: other (No edema or cyanosis) Results Result Diagram: 07/05/16 0727 07/05/16 0727 Results 24 hrs Laboratory Tests Test 07/05/16 17:08 07/05/16 20:49 07/06/16 02:39 07/06/16 07:21 Bedside Glucose 91 107 102 110 Test 07/06/16 11:14 Bedside Glucose 124 Medications Medications Current Medications Ondansetron HCl (Zofran Inj) 4 mg Q6H PRN IV NAUSEA AND/OR VOMITING; Start 06/18 at 23:30 Acetaminophen (Tylenol Tab) 650 mg Q6H PRN PO PAIN LEVEL 1-3 OR FEVER Last administered on 07/05/16t 08:54; Admin Dose 650 MG; Start 06/18/16 at 23:30 Acetaminophen/ Hydrocodone Bitart ([place] (5/325)) 1 tab Q6H PRN PO MODERATE PAIN LEVEL 4-6; Start 06/18/16 at 23:30 Morphine Sulfate (morphine) 2 mg Q4H PRN IV SEVERE PAIN LEVEL 7-10 Last administered on 07/01/16 06:22; Admin Dose 2 MG; Start 06/18/16 at 23:30 Docusate Sodium (Colace) 100 mg Q12H PRN PO CONSTIPATION; Start 06/18/16 at 23: 30 Sodium Biphosphate/ Sodium Phosphate (Fleet Enema) 133 ml DAILY PRN [place] CONSTIPATION; Start 06/18/16 at 23:30 Hydralazine HCl (Apresoline) 10 mg Q6H PRN IV ELEVATED BLOOD PRESSURE; Start at 23:30 Nitroglycerin (Nitroglycerin (Sl Tab) 0.4 Mg) 1 tab Q5M PRN SL ANGINA; Start at 23:30 Miscellaneous Information 1 ea NOTE XX ; Start 06/19/16 at 20:30 Glucose (Glutose) 15 gm Q15M PRN PO DECREASED GLUCOSE; Start 06/19/16 at 20:30 Glucose (Glutose) 22.5 gm Q15M PRN PO DECREASED GLUCOSE; Start 06/19/16 at 20:30 Dextrose (D50w Syringe) 25 ml Q15M PRN IV DECREASED GLUCOSE; Start 06/19/16 at 20:30 Dextrose (D50w Syringe) 50 ml Q15M PRN IV DECREASED GLUCOSE; Start 06/19/16 at 20:30 Glucagon (Glucagen) 1 mg Q15M PRN IM DECREASED GLUCOSE; Start 06/19/16 at 20:30 Glucose (Glutose) 15 gm Q15M PRN BUCCAL DECREASED GLUCOSE; Start 06/19/16 at 20: 30 IV Flush (NS 10 ml) 10 ml PRN PRN IV IV PROTOCOL; Start 06/20/16 at 15:00 Nystatin (Nystatin Susp) 5 ml QID PO Last administered on 07/06/16 08:35; Admin Dose 5 ML; Start 06/24/16 at 13:00 Guaifenesin (Robitussin Liquid Cup) 100 mg Q4H PRN PO COUGH Last administered on 07/04/16 08:32; Admin Dose 100 MG; Start 06/29/16 at 18:00 Metoprolol Tartrate (Lopressor) 25 mg BID NGT Last administered on 07/06/16 08 :35; Admin Dose 25 MG; Start 06/30/16 at 21:00 Diagnostic Test (Pha) (Accucheck) 1 ea 02 XX ; Start 07/03/16 at 02:00 Apixaban (Eliquis) 5 mg BID PO Last administered on 07/06/16 08:35; Admin Dose 5 MG; Start 07/03/16 at 21:00 Dutasteride (Avodart) 0.5 mg DAILY PO Last administered on 07/06/16 08:35; Admin Dose 0.5 MG; Start 07/03/16 at 20:00 Senna/Docusate Sodium (Senokot-S) 2 tab HS PO Last administered on 07/05/16 21 :22; Admin Dose 2 TAB; Start 07/03/16 at 21:00 Guaifenesin/ Dextromethorphan (Robitussin Dm Liquid Cup) 10 ml Q4H PRN PO COUGH Last administered on 07/04/16 16:06; Admin Dose 10 ML; Start 07/03/16 at 18:00 Bethanechol Chloride (Urecholine) 10 mg TID NGT Last administered on 07/06/16 08:35; Admin Dose 10 MG; Start 07/05/16 at 13:00 Bisacodyl (Dulcolax Supp) 10 mg Q48H PRN [place] CONSTIPATION; Start 07/05/16 at 12: 30 Bisacodyl (Dulcolax) 10 mg DAILY PRN PO CONSTIPATION; Start 07/05/16 at 12:30 Jef Sinha DO Jul 06, 2016 12:38
--- NOTE | 2016-07-06 15:00 | PDOCDIS ---
Discharge Instructions DIAGNOSIS Discharge Diagnosis: pneumonia CONDITION Patient Condition: Stable HOME CARE INSTRUCTIONS: Special Diet: pureed nectar thick liquids ACTIVITY: Activity Restrictions: Slowly Increase Activity Do not Drive FOLLOW UP/APPOINTMENTS Appointments appt pcp -1wk medical secretary teacher -3wks Outpatient Video Swallow Eval in 2wks. PATRICIA BOWMAN MD Jul 06, 2016 14:59
--- NOTE | 2016-07-06 15:01 | PDOCDIS ---
Discharge Instructions DIAGNOSIS Discharge Diagnosis: pneumonia CONDITION Patient Condition: Stable HOME CARE INSTRUCTIONS: Special Diet: pureed nectar thick liquids ACTIVITY: Activity Restrictions: Slowly Increase Activity Do not Drive FOLLOW UP/APPOINTMENTS Appointments PCP 1wk Cardiology -3wks Dr Roman/Teresita- Urology 1wk PATRICIA BOWMAN MD Jul 06, 2016 15:01
[2016-07-06] MEDS ORDERED: METO-448 NGT (15:04)
[2016-07-06] MEDS ORDERED: ALBU18HF INH (15:04)
[2016-07-06] MEDS ORDERED: UDROBDM PO (15:04)
[2016-07-06] MEDS ORDERED: SENN-88 PO (15:04)
[2016-07-06] MEDS ORDERED: [UNRECOGNIZED DRUG - CODE] NGT (15:04)
[2016-07-06] MEDS ORDERED: NYST1000 PO (15:04)
[2016-07-06] MEDS ORDERED: APIX5TAB PO (15:04)
[2016-07-06 15:30] VITALS: BP 138/71
--- NOTE | 2016-07-06 19:05 | CONS ---
Date/Time of Note Date/Time of Note DATE: 07/06/16 TIME: 19:05 Assessment/Plan Assessment/Plan Additional Assessment/Plan 1. Acute kidney injury, likely secondary to acute tubular necrosis from septic shock and also contributing to liver shock due to the acute kidney injury 2. Sepsis with lactic acidosis, likely secondary to pneumonia. 3. Right upper lobe pneumonia. 4. Acute respiratory failure, vent dependent secondary to septic shock. 5. Acute on chronic congestive heart failure exacerbation, systolic and diastolic. 6. History of hypertension. 7. History of type 2 diabetes mellitus. 8. History of anemia of chronic disease. 9. History of dyslipidemia. PLAN: Makign good urine ouput, Cr stable 1.8 ,electrolytes normal today -, required catheter to drain bladder due to urinary retention will start urecholine 10mg pO TID for urinary retention will follow up making good urine output ok to d.c Consultation Date/Type/Reason Admit Date/Time Jun 18, 2016 at 21:36 Initial Consult Date 06/21/16 Type of Consultation: NEPHROLOGY Referring Provider: CHITRA ESTEBAN 24 HR Interval Summary Free Text/Dictation pt was seen Early in AM, plan for d/c to SNF Exam/Review of Systems Vital Signs Vitals Vital Signs Date Time Temp Pulse Resp B/P Pulse Ox O2 Delivery O2 Flow Rate FiO2 07/06/16 16:00 2.0 07/06/16 15:30 138/71 07/06/16 12:22 98.2 65 20 98 07/06/16 08:06 Nasal Cannula Intake and Output 07/05/16 07/05/16 07/06/16 15:00 23:00 07:00 Intake Total 420 ml 150 ml Output Total 1200 ml 450 ml Balance -780 ml -300 ml Results Result Diagram: 07/05/16 0727 07/05/16 0727 Results 24 hrs Laboratory Tests Test 07/05/16 20:49 07/06/16 02:39 07/06/16 07:21 07/06/16 11:14 Bedside Glucose 107 102 110 124 SHANNAN MAYEN MD Jul 06, 2016 19:05
[2016-07-06] MEDS ORDERED: ATORVASTATIN 20 MG TAB PO SCH (21:00)
== END 2016-07-06 15:47 | disposition home health service (06) | DRG 870 ==
LOC: E/R 19:50 → TEL 21:36 → ICU 06-19 19:35 → MS4 06-30 04:48 → TEL 06-30 19:33
PROVIDERS: ADMIT Hospitalist; ATTEND Hospitalist
PROC: 5A09357 Assistance with Respiratory Ventilation, Less than 24 Consecutive Hours, Continuous Positive Airway Pressure (ICD-10-PCS; 2016-06-18)
PROC: 5A1955Z Respiratory Ventilation, Greater than 96 Consecutive Hours (ICD-10-PCS; 2016-06-19)
PROC: 0BH17EZ Insertion of Endotracheal Airway into Trachea, Via Natural or Artificial Opening (ICD-10-PCS; 2016-06-19)
PROC: 02HV33Z Insertion of Infusion Device into Superior Vena Cava, Percutaneous Approach (ICD-10-PCS; principal; 2016-06-20)
DX: A41.9 Sepsis, unspecified organism (principal); J96.01 Acute respiratory failure with hypoxia; K72.00 Acute and subacute hepatic failure without coma; N17.0 Acute kidney failure with tubular necrosis; J18.9 Pneumonia, unspecified organism; R65.21 Severe sepsis with septic shock; G92 Toxic encephalopathy; I50.43 Acute on chronic combined systolic (congestive) and diastolic (congestive) heart failure; J84.9 Interstitial pulmonary disease, unspecified; I13.0 Hypertensive heart and chronic kidney disease with heart failure and stage 1 through stage 4 chronic kidney disease, or unspecified chronic kidney disease; I42.9 Cardiomyopathy, unspecified; I48.92 Unspecified atrial flutter; E87.6 Hypokalemia; I25.10 Atherosclerotic heart disease of native coronary artery without angina pectoris; N40.0 Benign prostatic hyperplasia without lower urinary tract symptoms; R19.7 Diarrhea, unspecified; E11.9 Type 2 diabetes mellitus without complications; J44.9 Chronic obstructive pulmonary disease, unspecified; R13.10 Dysphagia, unspecified; R62.7 Adult failure to thrive; D64.9 Anemia, unspecified; R33.9 Retention of urine, unspecified; N18.9 Chronic kidney disease, unspecified; E78.5 Hyperlipidemia, unspecified
CPT/HCPCS: 31500; 36415; 36569; 36600; 71010; 71250; 74230; 76775; 76937; 80048; 80053; 80076; 80202; 81001; 81003; 82533; 82550; 82553; 82570; 82803; 82962; 83036; 83605; 83735; 83880; 83930; 83935; 83970; 84100; 84300; 84439; 84443; 84484; 84560; 85025; 85610; 85730; 87040; 87070; 87075; 87081; 87086; 87400; 89190; 92526; 92610; 92611; 93005; 93306; 93923; 94002; 94003; 94640; 94644; 94660; 94664; 94770; 96374; 97110; 97116; 97163; 97530; J1940; A4310; J1630; J1644; J1815; J1956; J2060; J2270; J2543; J2997; J3010; J3370; J3475; J3480; J7030; J7040; J7060; J7070; P9047

== ENCOUNTER 2017-11-08 01:56 | Inpatient (IN) | END 2017-11-13 21:05 | disposition home or self-care (01) | DRG 727 ==